=== PATIENT | female | born 1950 | race Caucasian/White ===

== ENCOUNTER 2019-11-02 14:58 | Outpatient (CLI) | payer MEDICARE, SELFPAY ==
--- NOTE | ~2019-11-02 | CT_ITS ---
EXAMINATION: CT lung screening DATE: 11/02/2019 15:30 INDICATION: Personal history of nicotine dependence TECHNIQUE: Computed tomography (CT) of the chest was performed without intravenous contrast. The dose -length product (DLP) was 83.96 mGy-cm. Automated exposure control and iterative reconstruction techn ique were employed. COMPARISON: 10/09/2018 FINDINGS: There is moderate emphysema. Calcified pulmonary nodules and calcified left hilar lymph nod es are consistent with old granulomatous disease. No suspicious pulmonary nodules are identified. No pathologically enlarged thoracic lymph nodes are identified. The heart size is normal. There is no pl eural effusion or pneumothorax. The left lobe of the thyroid extends into the superior mediastinum. P unctate calcifications in an otherwise normal spleen likely represent healed granulomatous disease. T he gallbladder is surgically absent. There is mild thoracic spondylosis. IMPRESSION: 1. Lung-RADS category 1: Negative. Continue annual screening with noncontrast low-dose chest CT in 12 months. Reviewed, dictated and finalized at location A. NICAL REP IMPRESSION: 1. Lung-RADS category 1: Negative. Continue annual screening with noncontrast l ow-dose chest CT in 12 months.
--- NOTE | ~2019-11-02 | US_ITS ---
EXAMINATION: US venous doppler LE RT EXAM DATE: 11/02/2019 15:50 INDICATION: Right calf pain. TECHNIQUE: Multiple grayscale, color flow and Doppler images of the right lower extremity deep venous system were obtained and reviewed. Comparison is made to prior examination from 09/29/2014. FINDINGS: The right common femoral, femoral and profunda veins demonstrate normal color flow, respira tory variation, augmentation and compressibility. Compressibility, color flow confirmed within the r ight popliteal, posterior tibial, peroneal, and greater saphenous veins. IMPRESSION: 1. No right lower extremity deep venous thrombosis. Reviewed, dictated and finalized at location B. 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
== END 2019-11-02 14:59 | disposition home or self-care (01) ==
PROVIDERS: PCP Family Medicine; Visit Provider Physician Assistant
DX: M79.661 Pain in right lower leg (principal); Z12.2 Encounter for screening for malignant neoplasm of respiratory organs; Z87.891 Personal history of nicotine dependence
CPT/HCPCS: 93971; G0297

== ENCOUNTER 2020-04-03 10:57 | Outpatient (CLI) | payer MEDICARE, SELFPAY ==
[2020-04-03 11:31] LABS: Cholesterol 173 mg/dL (0-200); HDL Direct 52 mg/dL; Triglycerides 147 mg/dL (<150)
[2020-04-03 11:31] LABS: Alanine Aminotransferase 15 U/L (4-35); Albumin Level 4.2 g/dL (3.5-5.1); Alkaline Phosphatase 68 U/L (38-126); Aspartate Amino Transferase 19 U/L (14-36); Bilirubin,Total 0.3 mg/dL (0.2-1.3); Blood Urea Nitrogen 13 mg/dL (7-17); Calcium 8.9 mg/dL (8.4-10.2); Carbon Dioxide 22 mmol/L (22-30); Chloride 108 mmol/L (98-107); Estimated Glomerular Filt Rate > 60; Glucose 113 mg/dL (65-105); Potassium 4.2 mmol/L (3.4-5.0); Sodium 137 mmol/L (137-145)
[2020-04-03 11:33] LABS: Basophils Percent Auto 0.6 % (0.2-1.2); Eosinophils Absolute Auto 0.1 K/mm3 (0-0.3); Eosinophils Percent Auto 2.1 % (0-4.4); Hematocrit 47.9 % (37.0-47.0); Hemoglobin 16.3 g/dL (12.0-15.0); Immature Granulocyte Absolute 0.03 K/mm3 (0.00-0.031); Immature Granulocyte Percent A 0.4 % (0-0.5); Lymphocytes Absolute Auto 1.57 K/mm3 (0.9-3.2); Lymphocytes Percent Auto 23.4 % (18.3-44.2); Mean Corpuscular Hemoglobin 31.5 pg (26-34); Mean Corpuscular Volume 92.5 fl (80-100); Mean Platelet Volume 10.4 fl (7.4-10.4); Monocytes Absolute Auto 0.7 K/mm3 (0.1-0.6); Neutrophils Absolute Auto 4.3 K/mm3 (1.3-6.7); Neutrophils Percent Auto 63.5 % (45.5-73.1); Platelet Count Result 305 k/mm3 (150-375); Red Blood Count 5.18 M/mm3 (4.2-5.4); White Blood Count 6.7 K/mm3 (4.5-10.0)
[2020-04-03 11:34] LABS: Hemoglobin A1C 5.8 % (<5.7)
[2020-04-03 11:42] LABS: LDL Cholesterol Direct 94 mg/dL
[2020-04-03 11:45] LABS: Add Urine Microscopic? YES; Appearance Urine Cloudy (Clear); Bacteria Urine Trace /hpf; Bilirubin Urine Negative (Negative); Blood Urine 2+ (Negative); Color Urine Yellow (Yellow); Glucose Urine UA Negative (Negative); Ketones Urine Negative (Negative); Leukocyte Esterase Ur Negative LEU/UL (NEGATIVE); Mucus Urine Few /lpf; Nitrate Urine Negative (Negative); Protein Urine Negative (Negative); RBC Urine 0-2 /hpf (0-2); Specific Grav Ur 1.018 (1.001-1.035); Squamous Epithelial Cell Urine Many /hpf (Few); Urobilinogen Urine Negative mg/dL (<2.0); WBC Urine 0-3 /hpf (0-3)
== END 2020-04-03 10:58 | disposition home or self-care (01) ==
LOC: ANHLAB 10:58
PROVIDERS: PCP Family Medicine; Visit Provider Physician Assistant
DX: E78.1 Pure hyperglyceridemia (principal); J43.9 Emphysema, unspecified; R73.01 Impaired fasting glucose; E78.3 Hyperchylomicronemia; Z00.00 Encounter for general adult medical examination without abnormal findings
CPT/HCPCS: 36415; 80053; 80061; 81001; 83036; 85025

== ENCOUNTER 2020-07-18 14:03 | Outpatient (CLI) | payer MEDICARE, SELFPAY ==
[2020-07-18 14:22] LABS: Basophils Absolute Auto 0.1 K/mm3 (0.0-0.1); Basophils Percent Auto 0.9 % (0.2-1.2); Eosinophils Absolute Auto 0.2 K/mm3 (0-0.3); Eosinophils Percent Auto 2.6 % (0-4.4); Hematocrit 45.6 % (37.0-47.0); Hemoglobin 15.5 g/dL (12.0-15.0); Immature Granulocyte Absolute 0.01 K/mm3 (0.00-0.031); Immature Granulocyte Percent A 0.1 % (0-0.5); Lymphocytes Absolute Auto 2.05 K/mm3 (0.9-3.2); Lymphocytes Percent Auto 29.4 % (18.3-44.2); Mean Corpuscular Hemoglobin 30.9 pg (26-34); Mean Corpuscular Volume 90.8 fl (80-100); Mean Platelet Volume 10.1 fl (7.4-10.4); Monocytes Absolute Auto 0.6 K/mm3 (0.1-0.6); Monocytes Percent Auto 8.5 % (2.6-8.5); Neutrophils Absolute Auto 4.1 K/mm3 (1.3-6.7); Neutrophils Percent Auto 58.5 % (45.5-73.1); Platelet Count Result 278 k/mm3 (150-375); Red Blood Count 5.02 M/mm3 (4.2-5.4); Red Cell Distribution Width 12.7 % (11.5-14.5)
== END 2020-07-18 14:04 | disposition home or self-care (01) ==
PROVIDERS: PCP Family Medicine; Visit Provider Nurse Practitioner Family
DX: D64.9 Anemia, unspecified (principal)
CPT/HCPCS: 36415; 85025

== ENCOUNTER 2020-09-07 13:46 | Outpatient (CLI) | payer MEDICARE, SELFPAY ==
[2020-09-07 14:20] LABS: Add Urine Microscopic? YES; Appearance Urine Clear (Clear); Bacteria Urine Trace /hpf; Bilirubin Urine Negative (Negative); Blood Urine 1+ (Negative); Color Urine Yellow (Yellow); Glucose Urine UA Negative (Negative); Ketones Urine Negative (Negative); Leukocyte Esterase Ur Negative LEU/UL (NEGATIVE); Mucus Urine Rare /lpf; Nitrate Urine Negative (Negative); Protein Urine Negative (Negative); RBC Urine 0-2 /hpf (0-2); Specific Grav Ur 1.017 (1.001-1.035); Squamous Epithelial Cell Urine Moderate /hpf (Few); Urobilinogen Urine Negative mg/dL (<2.0); WBC Urine 0-3 /hpf (0-3)
== END 2020-09-07 13:47 | disposition home or self-care (01) ==
PROVIDERS: PCP Family Medicine; Visit Provider Nurse Practitioner Family
DX: N39.0 Urinary tract infection, site not specified (principal)
CPT/HCPCS: 81001; 87077; 87086; 87088

== ENCOUNTER 2020-09-19 11:42 | Outpatient (NON) | payer MEDICARE, SELFPAY ==
[2020-09-19 23:03] LABS: SARS-CoV-2 RNA PCR Negative
== END 2020-09-19 11:43 ==
PROVIDERS: PCP Family Medicine; Visit Provider Physician Assistant
DX: R68.89 Other general symptoms and signs (principal); Z20.828 Contact with and (suspected) exposure to other viral communicable diseases
CPT/HCPCS: 87635; C9803; U0003

== ENCOUNTER 2020-10-12 10:50 | Outpatient (CLI) | payer MEDICARE, SELFPAY ==
[2020-10-12 11:27] LABS: Hemoglobin A1C 5.8 % (<5.7)
[2020-10-12 11:30] LABS: Alanine Aminotransferase 15 U/L (4-35); Albumin Level 3.8 g/dL (3.5-5.1); Alkaline Phosphatase 73 U/L (38-126); Anion Gap 5 mmol/L (8-16); Aspartate Amino Transferase 19 U/L (14-36); Bilirubin,Total 0.4 mg/dL (0.2-1.3); Blood Urea Nitrogen 14 mg/dL (7-17); Calcium 8.8 mg/dL (8.4-10.2); Carbon Dioxide 25 mmol/L (22-30); Chloride 108 mmol/L (98-107); Cholesterol 151 mg/dL (0-200); Estimated Glomerular Filt Rate > 60; Glucose 100 mg/dL (65-105); HDL Direct 49 mg/dL; Potassium 4.4 mmol/L (3.4-5.0); Sodium 138 mmol/L (137-145); Triglycerides 189 mg/dL (<150)
[2020-10-12 11:42] LABS: LDL Cholesterol Direct 74 mg/dL
== END 2020-10-12 10:51 | disposition home or self-care (01) ==
LOC: ANHLAB 10:52
PROVIDERS: PCP Family Medicine; Visit Provider Nurse Practitioner Family
DX: E78.1 Pure hyperglyceridemia (principal); R73.01 Impaired fasting glucose; J44.9 Chronic obstructive pulmonary disease, unspecified; I10 Essential (primary) hypertension; E78.2 Mixed hyperlipidemia
CPT/HCPCS: 36415; 80053; 80061; 83036; 84443

== ENCOUNTER 2020-11-16 12:26 | Outpatient (CLI) | payer MEDICARE, SELFPAY ==
--- NOTE | ~2020-11-16 | CT_ITS ---
EXAMINATION: CT lung screening EXAM DATE: 11/16/2020 12:42 INDICATION: Z87.891 - Personal history of nicotine dependence . TECHNIQUE: Spiral low dose CT of the chest without contrast. Axial, coronal and sagittal images were reviewed. The dose-length product (DLP) for this examination was 106.90 mGy-cm. The exposure was t ailored according to patient size (auto mA exposure control), and iterative reconstruction (ASIR) was used as additional dose reduction technique. Comparison is made to prior examination from 11/02/2019. FINDINGS: There is moderate hyperinflation, mild to moderate emphysema. Scattered faint regions of g roundglass opacity and interlobular septal thickening, more pronounced on previous examination. Possi ble developing mild interstitial lung disease. 3 mm nodule along the right minor fissure unchanged, g ranuloma. Some other scattered calcified granulomata. Tracheobronchial tree is patent. There is no mediastinal, hilar or axillary lymphadenopathy. There are no pleural or pericardial effusions. T here is no pneumothorax. Heart normal in size. No evidence of coronary arterial calcification. Ch olecystectomy clips. The bones are unremarkable. IMPRESSION: Lung-RADS category 2, benign appearance or behavior (<1% chance of malignancy); recommend continued LDCT screening in 1 year. Reviewed, dictated and finalized at location B. 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
== END 2020-11-16 12:27 | disposition home or self-care (01) ==
PROVIDERS: PCP Family Medicine; Visit Provider Nurse Practitioner Family
DX: Z12.2 Encounter for screening for malignant neoplasm of respiratory organs (principal); Z87.891 Personal history of nicotine dependence
CPT/HCPCS: 71271

== ENCOUNTER 2020-11-22 13:23 | Outpatient (CLI) | payer MEDICARE, SELFPAY ==
--- NOTE | ~2020-11-22 | MM_ITS ---
EXAMINATION: MM screening beti BI w rodri HISTORY: Screening TECHNIQUE: Craniocaudal and mediolateral oblique 3-D tomosynthesis images were obtained and synthetic 2-D images were generated. CAD analysis was submitted and interpreted. COMPARISON: Comparison to multiple prior studies sequentially, with oldest reviewed study dated 03/14. BREAST PARENCHYMAL COMPOSITION: The breasts are heterogenously dense, which may obscure small masses. FINDINGS: There are developing asymmetries in the mid outer aspect of the right breast and subareolar location of the left breast. There are scattered benign-appearing calcifications. IMPRESSION: 1. Developing bilateral breast asymmetries. 2. Additional mammographic views and possible breast ultrasound are recommended. BI-RADS Category 0: Incomplete: Needs additional imaging evaluation. Reviewed, dictated and finalized at location D. C++ PROFESSOR IMPRESSION: 1. Developing bilateral breast asymmetries. 2. Additional mammographic views and possible breast ultrasound are recommended . BI-RADS Category 0: Incomplete: Needs additional imaging evaluation.
== END 2020-11-22 13:24 | disposition home or self-care (01) ==
LOC: ANHIMG 13:24
PROVIDERS: PCP Family Medicine; Visit Provider Nurse Practitioner Family
DX: Z12.31 Encounter for screening mammogram for malignant neoplasm of breast (principal); R92.8 Other abnormal and inconclusive findings on diagnostic imaging of breast
CPT/HCPCS: 77063; 77067

== ENCOUNTER 2021-01-01 13:15 | Outpatient (CLI) | payer MEDICARE, SELFPAY ==
--- NOTE | ~2021-01-01 | MMUS_ITS ---
EXAMINATION: MM diagnostic mammo BI, US breast BI complete HISTORY: Follow-up breast asymmetries TECHNIQUE: Additional 3-D tomosynthesis images of the breasts were performed and synthetic 2-D images were generated. CAD analysis was submitted and interpreted. High resolution bilateral complete breas t ultrasound was performed. COMPARISON: Comparison to multiple prior studies sequentially, with oldest reviewed study dated 03/14. BREAST PARENCHYMAL COMPOSITION: The breasts are extremely dense, which lowers the sensitivity of mamm ography. FINDINGS: MAMMOGRAPHIC FINDINGS: There are no suspicious masses, calcifications or architectural distortion in either breast to sugges t malignancy. ULTRASOUND: Complete bilateral breast ultrasound including all 4 quadrants: Normal heterogeneous echotexture with out focal mass to suggest malignancy. IMPRESSION: 1. No evidence for malignancy in either breast. 2. Routine yearly screening mammogram and regular clinical breast examination are recommended. BI-RADS Category 1: Negative Reviewed, dictated and finalized at location A. IMPRESSION: 1. No evidence for malignancy in either breast. 2. Routine yearly screening mammogram and regular clinical breast examination a re recommended. BI-RADS Category 1: Negative
== END 2021-01-01 13:16 | disposition home or self-care (01) ==
LOC: ANHIMG 13:16
PROVIDERS: PCP Family Medicine; Visit Provider Nurse Practitioner Family
DX: R92.8 Other abnormal and inconclusive findings on diagnostic imaging of breast (principal); N64.89 Other specified disorders of breast
CPT/HCPCS: 76641; 77066

== ENCOUNTER 2021-02-23 12:06 | Emergency (ER) | payer MEDICARE, SELFPAY ==
[2021-02-23 12:48] VITALS: BP 126/93; PULSE 94; RESP 16; TEMP 36.7; O2SAT 97
--- NOTE | 2021-02-23 13:32 | ED.SKABFB ---
HPI - Skin/Abscess/Foreign Bdy General Chief complaint: Skin/Abscess/Foreign Body Stated complaint: Insect bite on left ankle Time Seen by Provider: 02/23/21 13:01 Source: patient and RN notes reviewed Mode of arrival: ambulatory Limitations: no limitations History of Present Illness HPI narrative: 70 year old female who presents to [facility] care with complaints of 8-10 day duration of 5cm X2.5 cm area to her left lower leg which is itchy, burning and red excoriated with center 0.25 wound scabbed. No drainage from wound noted with some warmth noted to skin tissue.surrounding scab with no induration of the tissue noted. Patient states that she has not had any fever, chills or sweats, unsure what type of insect bit her. Patient concerned over increase in redness of tissue surrounding bite felt she needed to get antibiotic. MD complaint: insect bite/sting Onset (ago): day(s) (8-10 days) Location: LLE Severity: moderate Severity scale (1-10): 3 Quality: burning and pruritic Pain Consistency: constant Relieving factors: none Exacerbating factors: palpation Context: other (insect bite) Associated symptoms: itching Related Data Home Medications Medication Instructions Recorded Confirmed estradiol 2 mg tablet 2 mg PO DAILY 09/07/19 09/08/20 Allergies Allergy/AdvReac Type Severity Reaction Status Date / Time cefprozil Allergy Unknown Unknown Verified 02/08/21 14:15 cefuroxime Allergy Unknown Unknown Verified 02/08/21 14:15 dexamethasone Allergy Unknown Unknown Verified 02/08/21 14:15 Review of Systems Review of Systems: Narrative: CONSTITUTIONAL: Denies fever, chills, or sweats. EYES: Denies visual changes, redness, or discharge. ENT: Denies rhinorrhea, congestion, sore throat, or otalgia. CARDIOVASCULAR: Denies chest pain, palpitations, or edema. RESPIRATORY: Denies cough or dyspnea. GASTROINTESTINAL: Denies abdominal pain, nausea, vomiting, or diarrhea. GENITOURINARY: Denies dysuria or hematuria. SKIN: Positive left lower leg raised red rash type of skin surrounding small center scab MUSCULOSKELETAL: Denies back pain, joint pain, or myalgia. NEUROLOGIC: Denies headache, numbness, or weakness. PSYCHIATRIC: Positive history of anxiety or depression. All systems reviewed & are unremarkable except as noted in HPI and below PMFSH Past Medical History Medical History (Updated 02/24/21 @ 00:01 by Farnaz Foley) Abdominal pain Anxiety COPD (chronic obstructive pulmonary disease) Hyperlipidemia Hypertension Kidney stone Surgical History Surgical History History of cholecystectomy Plantar fasciitis Status post hysterectomy with oophorectomy Family History Family History (Updated 02/27/21 @ 15:18 by Maisha Daily NP) Father Family history of coronary artery disease Emphysema lung Mother Family history of pancreatic cancer Hypertension Social History Social History Smoking packs per day: 1 Smoking cigarettes per day: 20.0 Years smoked: 40 Smoking pack-years: 40.00 Smoking status: Current every day smoker Tobacco type: cigarettes Second hand tobacco smoke exposure: No Alcohol intake: never Substance use: never Substance use type: does not use Gender identity (if verbalized by the patient): Female Comments At time of signature, agree with nursing past medical, surgical, social and family history. There is no relevant family history pertinent to the presenting complaint Exam Narrative: Exam Narrative: GENERAL: Well-appearing, well-nourished, and in no acute distress. HEAD: Normocephalic, atraumatic. EYES: PERRLA and EOMI. ENT: Nares clear, no rhinorrhea or epistaxis. Mucous membranes moist. NECK: Supple.no lymphadenopathy CHEST: Clear to auscultation. No respiratory distress. HEART: Regular rate and rhythm. No murmur heard. Normal peripheral pulses. ABDOMEN: S
== END 2021-02-23 13:52 | disposition home or self-care (01) ==
PROVIDERS: Emergency Provider Registered Nurse; PCP Family Medicine
DX: S80.862A Insect bite (nonvenomous), left lower leg, initial encounter (principal); W57.XXXA Bitten or stung by nonvenomous insect and other nonvenomous arthropods, initial encounter; J44.9 Chronic obstructive pulmonary disease, unspecified; E78.5 Hyperlipidemia, unspecified; I10 Essential (primary) hypertension; F17.210 Nicotine dependence, cigarettes, uncomplicated
CPT/HCPCS: 99213; G0463

== ENCOUNTER 2021-03-04 18:32 | Emergency (ER) | payer MEDICARE, SELFPAY ==
[2021-03-04 18:42] VITALS: BP 146/81; PULSE 93; RESP 16; TEMP 36.8; O2SAT 97
--- NOTE | 2021-03-04 18:50 | ED.SKABFB ---
HPI - Skin/Abscess/Foreign Bdy General Chief complaint: Skin/Abscess/Foreign Body Stated complaint: Insect bite on leg Time Seen by Provider: 03/04/21 18:51 Source: patient, RN notes reviewed and old records reviewed Mode of arrival: ambulatory Limitations: no limitations History of Present Illness HPI narrative: 70 year old female who was seen in clinic on the 23 of February for infected insect bite on her left anterior lower leg and received antibiotic RX of Keflex and Bactroban ointment. Patient just returned from vacation in [place] and took her last dose of Keflex today. Patient states that she has been using Mupirocin ointment but also states that she has been putting Calamine lotion on wound area because it itches. Patient has scabbed are to center of wound with site remaining 5cm X 2.5cm with redness to tissue surrounding scabbed area. Patient has no drainage from wound and no induration of tissue. Patient states that she has had no fevers. chills or sweats. MD complaint: insect bite/sting Onset (ago): week(s) (3) Tetanus up to date: yes Location: LLE Severity: moderate Quality: pruritic Treatments prior to arrival: antibiotic and other (mupiricin) Related Data Home Medications Medication Instructions Recorded Confirmed estradiol 2 mg tablet 2 mg PO DAILY 09/07/19 09/08/20 Allergies Allergy/AdvReac Type Severity Reaction Status Date / Time cefprozil Allergy Unknown Unknown Verified 03/05/21 13:27 cefuroxime Allergy Unknown Unknown Verified 03/05/21 13:27 dexamethasone AdvReac Unknown Itching Verified 03/05/21 13:27 Review of Systems Review of Systems: Narrative: CONSTITUTIONAL: Denies fever, chills, or sweats. EYES: Denies visual changes, redness, or discharge. ENT: Denies rhinorrhea, congestion, sore throat, or otalgia. CARDIOVASCULAR: Denies chest pain, palpitations, or edema. RESPIRATORY: Denies cough or dyspnea. GASTROINTESTINAL: Denies abdominal pain, nausea, vomiting, or diarrhea. GENITOURINARY: Denies dysuria or hematuria. SKIN: Positive for wound to left lower anterior leg with no drainage noted. MUSCULOSKELETAL: Denies back pain, joint pain, or myalgia. NEUROLOGIC: Denies headache, numbness, or weakness. PSYCHIATRIC: History of anxiety or depression. All systems reviewed & are unremarkable except as noted in HPI and below PMFSH Past Medical History Medical History Abdominal pain Anxiety COPD (chronic obstructive pulmonary disease) Hyperlipidemia Hypertension Kidney stone Surgical History Surgical History History of cholecystectomy Plantar fasciitis Status post hysterectomy with oophorectomy Family History Family History (Updated 02/27/21 @ 15:18 by Maisha Daily NP) Father Family history of coronary artery disease Emphysema lung Mother Family history of pancreatic cancer Hypertension Social History Social History Smoking packs per day: 1 Smoking cigarettes per day: 20.0 Years smoked: 40 Smoking pack-years: 40.00 Smoking status: Current every day smoker Tobacco type: cigarettes Second hand tobacco smoke exposure: No Alcohol intake: never Substance use: never Substance use type: does not use Gender identity (if verbalized by the patient): Female Comments At time of signature, agree with nursing past medical, surgical, social and family history. There is no relevant family history pertinent to the presenting complaint Exam Narrative: Exam Narrative: GENERAL: Well-appearing, well-nourished, and in no acute distress. HEAD: Normocephalic, atraumatic. EYES: PERRLA and EOMI. ENT: Nares clear, no rhinorrhea or epistaxis. Mucous membranes moist. NECK: Supple. No lymphadenopathy CHEST: Clear to auscultation. No respiratory distress. SaO2 97% on room air HEART: Regular rate and rh
[2021-03-04 19:00] VITALS: BP 146/81; PULSE 93; RESP 16; TEMP 36.8; O2SAT 97
== END 2021-03-04 19:09 | disposition home or self-care (01) ==
PROVIDERS: Emergency Provider Registered Nurse; PCP Family Medicine
DX: L02.416 Cutaneous abscess of left lower limb (principal); F17.210 Nicotine dependence, cigarettes, uncomplicated; J44.9 Chronic obstructive pulmonary disease, unspecified; E78.5 Hyperlipidemia, unspecified; I10 Essential (primary) hypertension
CPT/HCPCS: 99213; G0463

== ENCOUNTER 2021-03-05 13:17 | Emergency (ER) | payer MEDICARE, SELFPAY ==
[2021-03-05 13:22] VITALS: BP 135/77; PULSE 114; RESP 16; TEMP 36.1; O2SAT 97
[2021-03-05 13:56] VITALS: BP 157/91
--- NOTE | 2021-03-05 14:49 | ED.GENADULT ---
HPI - General Adult General Chief complaint: Skin/Abscess/Foreign Body Stated complaint: L LEG WOUND Time Seen by Provider: 03/05/21 13:22 Source: patient, family and RN notes reviewed Mode of arrival: ambulatory Limitations: no limitations History of Present Illness HPI narrative: Patient is a 70-year-old female who presents to emergency department for evaluation of wound to the left ferreira that has been present now for the last 2 weeks almost patient had just returned from town had initially been seen by urgent care was placed on an antibiotic which she finished patient notes that his smart is a small wound with some surrounding erythema patient was seen yesterday at urgent care started on clindamycin has done 1 days worth the dose patient notes itching notes that she believes that the area looks better today denies any fever or other complaints Related Data Home Medications Medication Instructions Recorded Confirmed estradiol 2 mg tablet 2 mg PO DAILY 09/07/19 09/08/20 Allergies Allergy/AdvReac Type Severity Reaction Status Date / Time cefprozil Allergy Unknown Unknown Verified 03/05/21 13:27 cefuroxime Allergy Unknown Unknown Verified 03/05/21 13:27 dexamethasone AdvReac Unknown Itching Verified 03/05/21 13:27 Review of Systems Review of Systems: All systems reviewed & are unremarkable except as noted in HPI and below PMFSH Past Medical History Medical History Abdominal pain Anxiety COPD (chronic obstructive pulmonary disease) Hyperlipidemia Hypertension Kidney stone Surgical History Surgical History History of cholecystectomy Plantar fasciitis Status post hysterectomy with oophorectomy Family History Family History (Updated 02/27/21 @ 15:18 by Maisha Daily NP) Father Family history of coronary artery disease Emphysema lung Mother Family history of pancreatic cancer Hypertension Social History Social History Smoking packs per day: 1 Smoking cigarettes per day: 20.0 Years smoked: 40 Smoking pack-years: 40.00 Smoking status: Current every day smoker Tobacco type: cigarettes Second hand tobacco smoke exposure: No Alcohol intake: never Substance use: never Substance use type: does not use Gender identity (if verbalized by the patient): Female Exam Narrative: Exam Narrative: GENERAL: Well-appearing, well-nourished, and in no acute distress. HEAD: Normocephalic, atraumatic. EYES: PERRLA and EOMI. ENT: Nares clear, no rhinorrhea or epistaxis. Mucous membranes moist. CHEST: Clear to auscultation. No respiratory distress. No wheezes rales or rhonchi HEART: Regular rate and rhythm. No murmur heard. EXTREMITIES: Normal range of motion. No edema. SKIN: Warm, dry, no rash. Patient with small central scabbed over lesion involving the ferreira with surrounding pink discoloration roughly 4 cm x 2 cm no lymphangitic streaking no drainage no fluctuance NEURO: No focal deficits. Alert and oriented x3. Neurovascularly intact. Capillary refill less than 2 seconds PSYCH: Normal mood and affect. Course Course Emergency Course: Patient seen in the emergency department for wound check will follow with her primary care as planned on Friday. Patient advised to continue the antibiotics. Patient provided with reasons to return instructed to miguel the wound margins to watch for progression or improvement Vital Signs Vital signs: Vital Signs Temperature 97 F L 03/05/21 13:22 Pulse Rate 114 H 03/05/21 13:22 Respiratory Rate 16 03/05/21 13:22 Blood Pressure 135/77 03/05/21 13:22 Pulse Oximetry 97 03/05/21 13:22 Temperature 97 F L 03/05/21 13:22 Pulse Rate 114 H 03/05/21 13:22 Respiratory Rate 16 03/05/21 13:22 Blood Pressure 157/91 H 03/05/21 13:56 Pulse Oximetry 97 03/05/21 13:22
== END 2021-03-05 15:06 | disposition home or self-care (01) ==
PROVIDERS: Emergency Provider Emergency Medicine; PCP Family Medicine
DX: L03.116 Cellulitis of left lower limb (principal); F41.9 Anxiety disorder, unspecified; J44.9 Chronic obstructive pulmonary disease, unspecified; I10 Essential (primary) hypertension; E78.5 Hyperlipidemia, unspecified
CPT/HCPCS: 99281

== ENCOUNTER 2021-03-10 10:22 | Outpatient (CLI) | payer MEDICARE, SELFPAY ==
[2021-03-10 11:35] LABS: Basophils Absolute Auto 0.1 K/mm3 (0.0-0.1); Basophils Percent Auto 0.7 % (0.2-1.2); Eosinophils Absolute Auto 0.1 K/mm3 (0-0.3); Eosinophils Percent Auto 1.7 % (0-4.4); Hematocrit 47.9 % (37.0-47.0); Hemoglobin 15.6 g/dL (12.0-15.0); Immature Granulocyte Absolute 0.02 K/mm3 (0.00-0.031); Immature Granulocyte Percent A 0.3 % (0-0.5); Lymphocytes Absolute Auto 1.76 K/mm3 (0.9-3.2); Lymphocytes Percent Auto 25.5 % (18.3-44.2); Mean Corpuscular HGB Conc 32.6 g/dl (32-36); Mean Corpuscular Hemoglobin 29.7 pg (26-34); Mean Corpuscular Volume 91.2 fl (80-100); Mean Platelet Volume 10.2 fl (7.4-10.4); Monocytes Absolute Auto 0.7 K/mm3 (0.1-0.6); Monocytes Percent Auto 10.4 % (2.6-8.5); Neutrophils Absolute Auto 4.2 K/mm3 (1.3-6.7); Neutrophils Percent Auto 61.4 % (45.5-73.1); Platelet Count Result 287 k/mm3 (150-375); Red Blood Count 5.25 M/mm3 (4.2-5.4); Red Cell Distribution Width 13.1 % (11.5-14.5); White Blood Count 6.9 K/mm3 (4.5-10.0)
[2021-03-10 11:52] LABS: Alanine Aminotransferase 15 U/L (4-35); Albumin Level 4.1 g/dL (3.5-5.1); Alkaline Phosphatase 69 U/L (38-126); Anion Gap 9 mmol/L (8-16); Aspartate Amino Transferase 24 U/L (14-36); Bilirubin,Total 0.4 mg/dL (0.2-1.3); Blood Urea Nitrogen 11 mg/dL (7-17); Calcium 9.3 mg/dL (8.4-10.2); Carbon Dioxide 25 mmol/L (22-30); Chloride 108 mmol/L (98-107); Cholesterol 171 mg/dL (0-200); Estimated Glomerular Filt Rate > 60; Glucose 100 mg/dL (65-105); HDL Direct 53 mg/dL; Potassium 4.3 mmol/L (3.4-5.0); Sodium 142 mmol/L (137-145); Triglycerides 157 mg/dL (<150)
[2021-03-10 11:53] LABS: Hemoglobin A1C 5.9 % (<5.7)
[2021-03-10 12:03] LABS: LDL Cholesterol Direct 88 mg/dL
== END 2021-03-10 10:23 | disposition home or self-care (01) ==
PROVIDERS: PCP Family Medicine; Visit Provider Physician Assistant
DX: E78.1 Pure hyperglyceridemia (principal); F41.9 Anxiety disorder, unspecified; J43.9 Emphysema, unspecified; R73.01 Impaired fasting glucose
CPT/HCPCS: 36415; 80053; 80061; 83036; 84443; 85025

== ENCOUNTER 2021-03-17 12:05 | Emergency (ER) | payer MEDICARE, SELFPAY ==
[2021-03-17 12:15] VITALS: BP 123/78; PULSE 89; RESP 16; TEMP 36.8; O2SAT 97
--- NOTE | 2021-03-17 13:34 | ED.GENADULT ---
HPI - General Adult General Chief complaint: Urogenital-Female Stated complaint: UTI Source: patient Mode of arrival: ambulatory Limitations: no limitations History of Present Illness HPI narrative: Patient presents for evaluation of urinary symptoms since yesterday. Symptoms include frequency, dysuria, hesitancy, decreased urinary output. She denies any fever, chills, nausea, vomiting, abdominal pain, low back pain. She has a history of urinary tract infections in the past and this feels similar. She is getting ready to leave town to visit her boyfriend in [place] tomorrow. No additional complaints or concerns. Related Data Home Medications Medication Instructions Recorded Confirmed estradiol 2 mg tablet 2 mg PO DAILY 09/07/19 03/17/21 metoprolol succinate 50 mg PO DAILY 03/17/21 03/17/21 Allergies Allergy/AdvReac Type Severity Reaction Status Date / Time cefprozil Allergy Unknown Unknown Verified 03/17/21 13:14 cefuroxime Allergy Unknown Unknown Verified 03/17/21 13:14 dexamethasone AdvReac Unknown Itching Verified 03/17/21 13:14 Review of Systems Review of Systems: Narrative: CONSTITUTIONAL: Denies fever, chills, or sweats. EYES: Denies visual changes, redness, or discharge. ENT: Denies rhinorrhea, congestion, sore throat, or otalgia. CARDIOVASCULAR: Denies chest pain, palpitations, or edema. RESPIRATORY: Denies cough or dyspnea. GASTROINTESTINAL: Denies abdominal pain, nausea, vomiting, or diarrhea. GENITOURINARY: Reports dysuria, urinary frequency, hesitancy, decreased output and pain in the urethral region SKIN: Denies rash or itching. MUSCULOSKELETAL: Denies back pain, joint pain, or myalgia. NEUROLOGIC: Denies headache, numbness, dizziness, or weakness. PSYCHIATRIC: Denies anxiety or depression. [facility] Past Medical History Medical History Abdominal pain Anxiety COPD (chronic obstructive pulmonary disease) Hyperlipidemia Hypertension Kidney stone Surgical History Surgical History History of cholecystectomy Plantar fasciitis Status post hysterectomy with oophorectomy Family History Family History Father Family history of coronary artery disease Emphysema lung Mother Family history of pancreatic cancer Hypertension Social History Social History Smoking packs per day: 1 Smoking cigarettes per day: 20.0 Years smoked: 40 Smoking pack-years: 40.00 Smoking status: Current every day smoker Tobacco type: cigarettes Second hand tobacco smoke exposure: No Alcohol intake: never Substance use: never Substance use type: does not use Gender identity (if verbalized by the patient): Female Exam Narrative: Exam Narrative: GENERAL: Well-appearing, well-nourished, and in no acute distress. HEAD: Normocephalic, atraumatic. EYES: PERRLA and EOMI. ENT: Nares clear, no rhinorrhea or epistaxis. Mucous membranes moist. Oropharynx without tonsillar hypertrophy exudate or other lesions. Bilateral TMs pearly fried nonbulging NECK: Supple. No adenopathy or masses. No carotid bruits or JVD CHEST: Clear to auscultation. No respiratory distress. No wheezes rales or rhonchi HEART: Regular rate and rhythm. No murmur heard. Normal peripheral pulses. ABDOMEN: Soft, nontender, nondistended, normal active bowel sounds. EXTREMITIES: Normal range of motion. No edema. SKIN: Warm, dry, no rash. NEURO: No focal deficits. Alert and oriented x3. PSYCH: Normal mood and affect. Course Course Emergency Course: This is a 70-year-old female who presents with complaints of urinary symptoms for the last 24 hours. Urine dipstick showed 2+ leukocytes and 2+ blood but was otherwise fairly unremarkable. She is leaving town tomorrow for 5 months to visit her b
== END 2021-03-17 13:45 | disposition home or self-care (01) ==
PROVIDERS: Emergency Provider Nurse Practitioner; PCP Family Medicine
DX: N30.01 Acute cystitis with hematuria (principal); F17.210 Nicotine dependence, cigarettes, uncomplicated; F41.9 Anxiety disorder, unspecified; J44.9 Chronic obstructive pulmonary disease, unspecified; E78.5 Hyperlipidemia, unspecified; I10 Essential (primary) hypertension
CPT/HCPCS: 81003; 87077; 87086; 87147; 87181; 87186; 99213; G0463

== ENCOUNTER → 2021-07-25 08:10 | Outpatient (CLI) | payer MEDICARE, SELFPAY ==
[2021-07-25 17:30] LABS: SARS-CoV-2 RNA PCR Negative
== END ==
PROVIDERS: PCP Family Medicine; Visit Provider Physician Assistant
DX: Z20.822 Contact with and (suspected) exposure to COVID-19 (principal)
CPT/HCPCS: C9803; U0003; U0005

== ENCOUNTER 2021-11-23 14:38 | Outpatient (CLI) | payer MEDICARE, SELFPAY ==
--- NOTE | ~2021-11-23 | CT_ITS ---
EXAMINATION: CT lung screening DATE: 11/23/2021 14:59 INDICATION: Personal history of tobacco dependence TECHNIQUE: Computed tomography (CT) of the chest was performed without intravenous contrast. The dose -length product was 101.83 mGy-cm. Automated exposure control and iterative reconstruction technique were employed. COMPARISON: CT dated 11/16/2020 FINDINGS: There is atherosclerosis of the aorta and coronary arteries. There are calcified granulomas of the liver and spleen. There are cholecystectomy clips. No thoracic lymphadenopathy. Thyroid gland is unremarkable. No significant pleural or pericardial effusion. Moderate emphysema. No endobronchia l lesions. There are a few scattered calcified granulomata. Stable 3 mm right minor fissure nodule. N o pneumothorax. No endobronchial lesions. No focal airspace consolidation. There are a few additional small 2-3 mm nodules which are not clearly calcified, likely benign. No acute osseous abnormality. T here is a 3 mm left upper lobe nodule, likely calcified. IMPRESSION: 1. Lung-RADS category 2: Benign appearance or behavior. Continue annual screening with noncontrast lo w-dose chest CT in 12 months. Reviewed, dictated and finalized at location A. ER HAND IMPRESSION: 1. Lung-RADS category 2: Benign appearance or behavior. Continue annual screeni ng with noncontrast low-dose chest CT in 12 months.
== END 2021-11-23 14:39 | disposition home or self-care (01) ==
LOC: ANHIMG 14:45
PROVIDERS: PCP Family Medicine; Visit Provider Nurse Practitioner Family
DX: Z12.2 Encounter for screening for malignant neoplasm of respiratory organs (principal); Z87.891 Personal history of nicotine dependence
CPT/HCPCS: 71271

== ENCOUNTER 2021-11-24 09:32 | Outpatient (CLI) | payer MEDICARE, SELFPAY ==
[2021-11-24 10:56] LABS: Alanine Aminotransferase 17 U/L (4-35); Albumin Level 4.3 g/dL (3.5-5.1); Alkaline Phosphatase 79 U/L (38-126); Anion Gap 7 mmol/L (8-16); Aspartate Amino Transferase 25 U/L (14-36); Bilirubin,Total 0.6 mg/dL (0.2-1.3); Blood Urea Nitrogen 13 mg/dL (7-17); Calcium 9.1 mg/dL (8.4-10.2); Carbon Dioxide 24 mmol/L (22-30); Chloride 106 mmol/L (98-107); Cholesterol 176 mg/dL (0-200); Estimated Glomerular Filt Rate > 60; Glucose 112 mg/dL (65-110); HDL Direct 46 mg/dL; Potassium 4.1 mmol/L (3.4-5.0); Sodium 137 mmol/L (137-145); Triglycerides 202 mg/dL (<150)
[2021-11-24 11:05] LABS: LDL Cholesterol Direct 95 mg/dL
== END 2021-11-24 09:33 | disposition home or self-care (01) ==
LOC: ANHLAB 09:34
PROVIDERS: PCP Family Medicine; Visit Provider Physician Assistant
DX: E78.1 Pure hyperglyceridemia (principal); R73.01 Impaired fasting glucose; F41.9 Anxiety disorder, unspecified
CPT/HCPCS: 36415; 80053; 80061

== ENCOUNTER 2021-12-06 11:44 | Inpatient (IN) | payer MEDICARE, SELFPAY ==
[2021-12-06] VITALS (29 sets, daily range): BP systolic 130–157; BP diastolic 72–116; PULSE 90–125; RESP 13–43; TEMP 36.9–37.6; O2SAT 90–99
--- NOTE | ~2021-12-06 | XR_ITS ---
EXAMINATION: XR chest 2V DATE: 12/06/2021 12:22 INDICATION: Shortness of breath. TECHNIQUE: Frontal and lateral views of the chest were obtained. COMPARISON: Chest 2 views 03/17/2018, chest CT 11/23/2021 FINDINGS: A calcified left lung nodule and calcified left hilar lymph nodes are consistent with old g ranulomatous disease. There is mild atelectasis in lingula. There is mild scarring at the lung apices . No pleural effusion or pneumothorax. The heart size is normal. Surgical clips in the right upper qu adrant are likely from cholecystectomy. IMPRESSION: 1. Mild atelectasis in lingula. 2. Stable mild scarring at the lung apices. Reviewed, dictated and finalized at location A.
--- NOTE | ~2021-12-06 | XR_ITS ---
XR chest 1V portable 12/09/2021 09:39 Indication: Pneumonia and shortness of breath Procedure: AP portable chest Comparison: Comparison to multiple prior studies sequentially, with oldest reviewed study dated 05/2018. Findings: Heart size normal. There is mild interstitial edema. There are scattered calcified granulom as of the lung parenchyma. No pleural effusion or pneumothorax. No acute osseous abnormality. Impression: 1: Mild interstitial edema. Atypical pneumonia less favored. Reviewed, dictated and finalized at location A. Impression: 1: Mild interstitial edema. Atypical pneumonia less favored.
--- NOTE | ~2021-12-06 | XR_ITS ---
XR chest 1V portable 12/11/2021 11:00 Indication: Shortness of breath Procedure: PA view of the chest Comparison: Comparison to multiple prior studies sequentially, with oldest reviewed study dated 11/18. Findings: Heart size normal. There is diffuse bilateral mixed interstitial and airspace disease which may represent edema or pneumonia. No pleural effusion or pneumothorax. No acute osseous abnormality. Impression: 1: Diffuse bilateral mixed interstitial and airspace disease has progressed which may represent edema or pneumonia. Reviewed, dictated and finalized at location A. Impression: 1: Diffuse bilateral mixed interstitial and airspace disease has progressed whi ch may represent edema or pneumonia.
--- NOTE | ~2021-12-06 | CT_ITS ---
EXAMINATION: CTA chest PE protocol DATE: 12/06/2021 13:31 INDICATION: Shortness of breath. Chest pain. TECHNIQUE: Computed tomography angiography (CTA) of the chest was performed with 100 mL Omnipaque-350 intravenous contrast timed to evaluate the pulmonary arteries. Coronal maximum intensity projection 3D-reconstructions were created by the technologist. Automated exposure control and iterative reconst ruction technique were employed. The dose-length product was 369.87 mGy-cm. COMPARISON: Chest CT 11/23/2021 FINDINGS: There is mild scarring at the lung apices. There is mild emphysema. There are tree-in-bud o pacities and centrilobular nodules in all lobes, worst in left lower lobe, consistent with pneumonia. Calcified left lung nodules and calcified left hilar lymph nodes are consistent with old granulomato us disease. No pleural effusion. There is no pulmonary embolus. The heart size is normal. No pericard ial effusion. Calcifications in the spleen are consistent with old granulomatous disease. There are c hanges of cholecystectomy. There is mild thoracic spondylosis. IMPRESSION: 1. No pulmonary embolus. 2. Multifocal pneumonia, worst in left lower lobe. 3. Mild emphysema. Reviewed, dictated and finalized at location A.
--- NOTE | 2021-12-06 11:49 | ECG_ITS ---
Measurements Intervals Sandy Rate: 0 P: OR: 0 QRS: QRSD: 0 T: QT: 0 QTc: 0 Interpretive Statements SINUS TACHYCARDIA LOW VOLTAGE EKG LARGE AMOUNT OF BASELINE ARTIFACT NO PREVIOUS ECG AVAILABLE FOR COMPARISON Electronically Signed On 12-06-2021 18:45:21 CDT by Katia Mojica M.D.
[2021-12-06 12:03] LABS: Basophils Percent Auto 0.6 % (0.2-1.2); Eosinophils Percent Auto 0.1 % (0-4.4); Hematocrit 46.6 % (37.0-47.0); Hemoglobin 15.6 g/dL (12.0-15.0); Immature Granulocyte Absolute 0.02 K/mm3 (0.00-0.031); Immature Granulocyte Percent A 0.3 % (0-0.5); Lymphocytes Absolute Auto 0.77 K/mm3 (0.9-3.2); Lymphocytes Percent Auto 11.1 % (18.3-44.2); Mean Corpuscular HGB Conc 33.5 g/dl (32-36); Mean Corpuscular Hemoglobin 30.5 pg (26-34); Mean Corpuscular Volume 91.2 fl (80-100); Mean Platelet Volume 10.3 fl (7.4-10.4); Monocytes Absolute Auto 0.6 K/mm3 (0.1-0.6); Monocytes Percent Auto 8.5 % (2.6-8.5); Neutrophils Absolute Auto 5.5 K/mm3 (1.3-6.7); Neutrophils Percent Auto 79.4 % (45.5-73.1); Platelet Count Result 227 k/mm3 (150-375); Red Blood Count 5.11 M/mm3 (4.2-5.4); Red Cell Distribution Width 12.9 % (11.5-14.5); White Blood Count 6.9 K/mm3 (4.5-10.0)
[2021-12-06 12:13] LABS: Alanine Aminotransferase 21 U/L (4-35); Albumin Level 4.4 g/dL (3.5-5.1); Alkaline Phosphatase 85 U/L (38-126); Anion Gap 8 mmol/L (8-16); Aspartate Amino Transferase 28 U/L (14-36); Bilirubin,Total 0.5 mg/dL (0.2-1.3); Blood Urea Nitrogen 13 mg/dL (7-17); Calcium 9.1 mg/dL (8.4-10.2); Carbon Dioxide 23 mmol/L (22-30); Chloride 106 mmol/L (98-107); Estimated Glomerular Filt Rate > 60; Glucose 125 mg/dL (65-110); Potassium 4.2 mmol/L (3.4-5.0); Sodium 137 mmol/L (137-145)
--- NOTE | 2021-12-06 12:24 | ED.SOB ---
HPI - SOB/Dyspnea General Chief Complaint: Shortness of Breath/Dyspnea Stated Complaint: Shortness of breath Time Seen by Provider: 12/06/21 12:06 Source: RN notes reviewed History of Present Illness HPI Narrative: Patient presents emergency room from home for shortness of breath. Patient states symptoms began last night. States that she has had a cough has been nonproductive states she does have a history of COPD has had increased wheezing and increased use of her inhaler she denies any fevers or chills, chest pain abdominal pain, nausea vomiting diarrhea or any other symptoms. States she is smoking daily Related Data Home Medications Medication Instructions Recorded Confirmed estradiol 2 mg tablet 2 mg PO DAILY 09/07/19 10/09/21 Allergies Allergy/AdvReac Type Severity Reaction Status Date / Time cefprozil Allergy Unknown Unknown Verified 10/09/21 12:56 cefuroxime Allergy Unknown Unknown Verified 10/09/21 12:56 dexamethasone AdvReac Unknown Itching Verified 10/09/21 12:56 Review of Systems Review of Systems: Gen.: Denies fevers or chills ENT: Denies congestion Respiratory: See HPI CV: Denies chest pain or palpitations GI: Denies abdominal pain nausea, emesis or diarrhea Musculoskeletal: Denies back pain or muscle pain Neuro: Denies numbness, tingling, weakness or focal weakness Skin: Denies rash Except as documented, all other systems reviewed and negative PMF Past Medical History Medical History Abdominal pain Anxiety COPD (chronic obstructive pulmonary disease) Hyperlipidemia Hypertension Kidney stone Surgical History Surgical History History of cholecystectomy Plantar fasciitis Status post hysterectomy with oophorectomy Family History Family History Father Family history of coronary artery disease Emphysema lung Mother Family history of pancreatic cancer Hypertension Social History Social History Smoking packs per day: 1 Smoking cigarettes per day: 20.0 Years smoked: 40 Smoking pack-years: 40.00 Smoking status: Current every day smoker Tobacco type: cigarettes Second hand tobacco smoke exposure: No Alcohol intake: never Substance use: never Substance use type: does not use Additional living arrangements comments: daughter Gender identity (if verbalized by the patient): Female Exam Narrative: APPEARANCE: No acute distress, nontoxic, resting in bed EYES: EOMI HEENT: Normocephalic, atraumatic, OMM RESPIRATORY: Mild respiratory distress, wheezing throughout the bilateral lung rueda with crackles in lung bases CARDIOVASCULAR: Regular rate and rhythm without murmurs rubs or gallops. ABDOMINAL: Soft, nontender, nondistended, no rebound or guarding MUSCULOSKELETAl: Moves all extremities. No clubbing, cyanosis or edema. NEURO: Awake and alert. Following commands, speech normal, no focal deficits SKIN:: Warm, dry. No rashes lesions or abrasions PSYCHIATRIC: Normal affect/mood, Course Course Emergency Course: Patient given breathing treatments congeners wheezing throughout bilateral lung rueda Discussed with MEGAN Contreras for Dr. Barfield presentation work-up agrees with admission Discussed with patient and family results of workup and diagnosis. Discussed need for admission. Patient and family understand and agree to current treatment plan Vital Signs Vital signs: Vital Signs Pulse Rate 113 H 12/06/21 11:47 Respiratory Rate 38 H 12/06/21 11:47 Blood Pressure 157/84 H 12/06/21 11:47 Pulse Oximetry 90 12/06/21 11:47 Temperature 99.6 F 12/06/21 11:52 Pulse Rate 118 H 12/06/21 13:41 Respiratory Rate 22 H 12/06/21 13:41 Blood Pressure 130/72 12/06/21 13:16 Pulse Oximetry 92 12/06/21 13:32 MDM - SOB/Dyspne
[2021-12-06] MEDS: ALBUTEROL SULFATE NEB 2.5 MG/0.5 ML INH 5 MG INHALATION (12:32)
[2021-12-06] MEDS: IPRATROPIUM BR 0.02% INH SOLN 0.5 MG/2.5 ML VIAL INHALATION ×3 (12:32→20:09)
[2021-12-06] MEDS: methylPREDNISolone SOD SUCC 125 MG VIAL IV PUSH (12:40)
[2021-12-06 12:42] LABS: NT Pro B Type Natriuretic Pept 93 pg/mL (5-100); Troponin I < 0.012 ng/mL (0.000-0.034)
[2021-12-06 13:31] LABS: Influenza A QL RT-PCR Negative (Negative); Influenza B QL RT-PCR Negative (Negative); SARS-CoV-2 RNA PCR Negative
[2021-12-06] MEDS: ACETAMINOPHEN 500 MG TABLET 1000 MG PO (13:53)
[2021-12-06] MEDS: SODIUM CHLORIDE 0.9% IV 1,000 ML 999 ML IV CONT (13:53)
[2021-12-06 14:24] LABS: Lactic Acid Reflex 1.3 mmol/L (0.7-2.1)
--- NOTE | 2021-12-06 15:00 | PM.IMHP ---
H&P: HPI History of Present Illness Date/Time: 12/06/21 15:00 <Diane Min PA-C - Last Filed: 12/06/21 16:27> Chief Complaint: Shortness of breath. <Diane Min PA-C - Last Filed: 12/06/21 16:27> Narrative: This is a 70-year-old female smoker with COPD who presented to the ER for evaluation of shortness of breath. The patient is maintained on a Trelegy inhaler at home although admits that she sometimes forgets to use it, especially on days when she is feeling particularly well. She tells me that she is not necessarily inhibited by her breathing with day-to-day activities though she does avoid taking steps. Over the past 2 days she has had increasing dyspnea on lesser and lesser exertion and has been much worse since last evening. In fact she was getting short of breath even moving around in bed last night. She has also had feelings of racing heart though she has blamed that on the fact that she has used her nebulizers 4 times in the last 24 hours. Additionally she endorses a mild, nonproductive cough. SPO2 has been adequate without supplemental oxygen. Chest x-ray showed no acute finding but a CTA of the chest showed multifocal pneumonia, worse in the left lower lobe, and she is being admitted in the setting. She has not had fever, chills, or sweats. She denies headache, neck ache, sinus congestion, sore throat, chest pain, pleuritic pain, nausea, vomiting, and diarrhea. No dysphagia or concerns for aspiration she denies sick contacts. <Diane Min PA-C - Last Filed: 12/06/21 16:27> Review of Systems Review of Systems: 12 systems were reviewed and are negative except for as per HPI. <Diane Min PA-C - Last Filed: 12/06/21 16:27> [facility] Past Medical History Medical History: Medical History (Updated 12/06/21 @ 16:15 by Diane Min PA-C) Anxiety Chronic obstructive pulmonary disease Hyperlipidemia Hypertension Kidney stone Tobacco dependence <Diane Mni PA-C - Last Filed: 12/06/21 16:27> Surgical History Surgical History: Surgical History History of cholecystectomy Plantar fasciitis Status post hysterectomy with oophorectomy <Diane Min PA-C - Last Filed: 12/06/21 16:27> Family History Family History: Family History Father Family history of coronary artery disease Emphysema lung Mother Family history of pancreatic cancer Hypertension <iDane Min PA-C - Last Filed: 12/06/21 16:27> Social History Social History: Social History (Updated 12/06/21 @ 16:10 by Diane Min PA-C) Social History: Surrogate decision-maker: Mago Olivas or Katiuska Iniguez, daughters. CODE STATUS: Full code. Smoking packs per day: 1 Smoking cigarettes per day: 20.0 Years smoked: 40 Smoking pack-years: 40.00 Smoking status: Current every day smoker Tobacco type: cigarettes Second hand tobacco smoke exposure: Yes Alcohol intake: never Substance use: never Substance use type: does not use Additional living arrangements comments: The patient lives in [place] with her daughter. 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 Spiritual care concerns: No <Diane Min PA-C - Last Filed: 12/06/21 16:27> Meds Home Medications and Allergies Home medications: Home Medications Medication Instructions Recorded Confirmed Type estradiol 2 mg tablet 1 mg PO HS 09/07/19 12/06/21 History omeprazole 20 mg capsule,delayed 20 mg PO DAILY #30 cap 03/12/21 12/06/21 Rx release ipratropium 0.5 mg-albuterol 3 mg See Rx Instructions .ROUTE 04/17/21 12/06/21 Rx (2.5 mg base)/3 mL nebulization .COMPLEX #1080 ml soln fluticasone fur. 100 mcg-umeclid 1 inh INHALATION Q24H #60 ea 11/07/21 12/06/21 Rx 62.5 mcg-vilant 25 mcg inhalat.powder
[2021-12-06] MEDS: LEVALBUTEROL NEB 1.25 MG/3 ML 0.63 MG INHALATION (20:09)
--- NOTE | 2021-12-06 22:40 | PCRCNOTE ---
pt refusing apnea link on 12/06. states that her 'chest does not feel good' and that she would be willing to repeat on a different night.
[2021-12-07] VITALS (19 sets, daily range): BP systolic 110–150; BP diastolic 70–84; PULSE 98–124; RESP 18–22; TEMP 36.1–36.4; O2SAT 92–95
[2021-12-07] MEDS: estradioL 1 MG TABLET PO ×2 (00:59→21:22)
[2021-12-07] MEDS: FENOFIBRATE 160 MG TABLET PO ×2 (00:59→21:22)
[2021-12-07] MEDS: ALPRAZolam (*CRX) 0.25 MG TABLET PO ×2 (00:59→21:22)
[2021-12-07] MEDS: MONTELUKAST SODIUM 10 MG TABLET PO ×2 (00:59→21:22)
[2021-12-07] MEDS: IPRATROPIUM BR 0.02% INH SOLN 0.5 MG/2.5 ML VIAL INHALATION ×4 (02:11→20:05)
[2021-12-07] MEDS: LEVALBUTEROL NEB 1.25 MG/3 ML 0.63 MG INHALATION ×4 (02:11→20:05)
[2021-12-07 06:14] LABS: Basophils Percent Auto 0.2 % (0.2-1.2); Hematocrit 43.5 % (37.0-47.0); Hemoglobin 14.1 g/dL (12.0-15.0); Immature Granulocyte Absolute 0.02 K/mm3 (0.00-0.031); Immature Granulocyte Percent A 0.3 % (0-0.5); Lymphocytes Absolute Auto 0.46 K/mm3 (0.9-3.2); Mean Corpuscular HGB Conc 32.4 g/dl (32-36); Mean Corpuscular Hemoglobin 30.6 pg (26-34); Mean Corpuscular Volume 94.4 fl (80-100); Mean Platelet Volume 10.1 fl (7.4-10.4); Monocytes Absolute Auto 0.6 K/mm3 (0.1-0.6); Monocytes Percent Auto 8.7 % (2.6-8.5); Neutrophils Absolute Auto 5.5 K/mm3 (1.3-6.7); Neutrophils Percent Auto 83.8 % (45.5-73.1); Platelet Count Result 201 k/mm3 (150-375); Red Blood Count 4.61 M/mm3 (4.2-5.4); White Blood Count 6.5 K/mm3 (4.5-10.0)
[2021-12-07 06:27] LABS: Alanine Aminotransferase 18 U/L (4-35); Albumin Level 3.8 g/dL (3.5-5.1); Alkaline Phosphatase 77 U/L (38-126); Anion Gap 5 mmol/L (8-16); Aspartate Amino Transferase 22 U/L (14-36); Bilirubin,Total 0.2 mg/dL (0.2-1.3); Blood Urea Nitrogen 10 mg/dL (7-17); Calcium 8.7 mg/dL (8.4-10.2); Carbon Dioxide 24 mmol/L (22-30); Chloride 110 mmol/L (98-107); Estimated CRCL calculation 75 ml/min; Estimated Glomerular Filt Rate > 60; Glucose 178 mg/dL (65-110); Potassium 3.8 mmol/L (3.4-5.0); Sodium 139 mmol/L (137-145)
[2021-12-07] MEDS: ENOXAPARIN 40 MG/0.4 ML SYRINGE SUB-Q (09:04)
[2021-12-07] MEDS: predniSONE 20 MG TABLET 40 MG PO (09:05)
[2021-12-07] MEDS: PANTOPRAZOLE 40 MG TABLET PO (09:05)
[2021-12-07] MEDS: METOPROLOL SUCCINATE EXT REL 50 MG TABCR PO (09:05)
[2021-12-07] MEDS: FLUTICASONE/UMECLIDIN/VILANTER 100-62.5-25 MCG ELLIPTA 1 PUFF INHALATION (09:15)
[2021-12-07] MEDS: BENZONATATE 100 MG CAPSULE 200 MG PO ×3 (13:49→22:38)
--- NOTE | 2021-12-07 17:39 | PM.IMPN ---
Progress Note: A&P Assessment and Plan (1) COPD exacerbation: Code(s): J44.1 - Chronic obstructive pulmonary disease with (acute) exacerbation Status: Acute Assessment and Plan: Patient reports feeling better after receiving a dose of Solu-Medrol and a nebulizer in the emergency department. She has faint wheezing on exam thus we will continue with a short burst of prednisone. Continue scheduled bronchodilators but will change albuterol to Xopenex given her tachycardia. Smoking cessation is imperative. 12/07/2021 interval history: patient is 70-year-old female unfortunately patient still smokes presented presented with shortness of breath patient is found to have exacerbation of COPD being treated with steroid and nebulizer also this is a concern the patient has pneumonia and being treated with levofloxacin, patient states breathing is better compared to when she arrived however see continues to persistent cough will give the patient Tessalon and guaifenesin, patient requested to stop smoking, is refusing nicotine patch. will have a PT OT evaluate the patient and further recommendation to follow. (2) Community acquired pneumonia: Code(s): J18.9 - Pneumonia, unspecified organism Status: Acute Assessment and Plan: She was started on levofloxacin in the emergency department and we will continue with this given listed allergy to cephalosporins. Sputum to be attempted for culture. We will send urine specimens to check for Legionella and strep pneumonia antigens. She was negative for SARS-CoV-2 and influenza A and B by PCR. (3) Tachycardia: Code(s): R00.0 - Tachycardia, unspecified Status: Acute Assessment and Plan: May very well be related to albuterol nebulizers that she has used over the past 24 hours thus we will change albuterol to Xopenex. CTA of the chest was negative for pulmonary embolism. She will be monitored on telemetry overnight. Check TSH. (4) Polycythemia: Code(s): D75.1 - Secondary polycythemia Status: Acute Assessment and Plan: Hemoglobin has been mildly elevated on labs over the last 2-1/2 years, possibly chronic mild hypoxia. Continuous pulse ox and apnea link ordered this evening. (5) Hypertension: Code(s): I10 - Essential (primary) hypertension Status: Inactive Assessment and Plan: Blood pressures were reviewed and they have been reasonable. Continue antihypertensives and monitor. (6) Tobacco dependence: Code(s): F17.200 - Nicotine dependence, unspecified, uncomplicated Status: Acute Assessment and Plan: Smoking cessation is imperative and was discussed. She declines the need for a nicotine patch at this time. Subjective Date/time seen: 12/07/21 17:39 HPI This is a 70-year-old female smoker with COPD who presented to the ER for evaluation of shortness of breath. The patient is maintained on a Trelegy inhaler at home although admits that she sometimes forgets to use it, especially on days when she is feeling particularly well. She tells me that she is not necessarily inhibited by her breathing with day-to-day activities though she does avoid taking steps. Over the past 2 days she has had increasing dyspnea on lesser and lesser exertion and has been much worse since last evening. In fact she was getting short of breath even moving around in bed last night. She has also had feelings of racing heart though she has blamed that on the fact that she has used her nebulizers 4 times in the last 24 hours. Additionally she endorses a mild, nonproductive cough. SPO2 has been adequate without supplemental oxygen. Chest x-ray showed no acute finding but a CTA of the chest showed multifocal pneumonia, worse in the left lower lobe, and she is being admitted in the setting. She has not had fever, chills, or sweats. She denies headache, neck ache, sinus congestion, sore throat, chest pain, pleuritic pain, nausea, vomiting, and
--- NOTE | 2021-12-07 21:11 | PCRCNOTE ---
patient refused the apnea study and stated that she spoke with a provider concerning the matter.
[2021-12-07] MEDS: guaiFENesin/DEXTROMETHORPHAN 10 ML UDC PO (21:25)
[2021-12-08] VITALS (22 sets, daily range): BP systolic 149–151; BP diastolic 80–88; PULSE 107–121; RESP 16–20; TEMP 36.1–36.7; O2SAT 91–96
[2021-12-08] MEDS: LEVALBUTEROL NEB 1.25 MG/3 ML 0.63 MG INHALATION ×4 (01:33→19:53)
[2021-12-08] MEDS: IPRATROPIUM BR 0.02% INH SOLN 0.5 MG/2.5 ML VIAL INHALATION ×4 (01:34→19:52)
[2021-12-08] MEDS: FLUTICASONE/UMECLIDIN/VILANTER 100-62.5-25 MCG ELLIPTA 1 PUFF INHALATION (08:26)
[2021-12-08] MEDS: BENZONATATE 100 MG CAPSULE 200 MG PO ×3 (08:31→16:49)
[2021-12-08] MEDS: METOPROLOL SUCCINATE EXT REL 50 MG TABCR PO (08:31)
[2021-12-08] MEDS: predniSONE 20 MG TABLET 40 MG PO (08:32)
[2021-12-08] MEDS: PANTOPRAZOLE 40 MG TABLET PO (08:32)
[2021-12-08] MEDS: ENOXAPARIN 40 MG/0.4 ML SYRINGE SUB-Q (08:32)
[2021-12-08] MEDS: NICOTINE (*PBKC) 21 MG PATCH 1 PATCH TRANSDERM (11:04)
--- NOTE | 2021-12-08 12:24 | PM.IMPN ---
Progress Note: A&P Assessment and Plan (1) COPD exacerbation: Code(s): J44.1 - Chronic obstructive pulmonary disease with (acute) exacerbation Status: Acute Assessment and Plan: Patient reports feeling better after receiving a dose of Solu-Medrol and a nebulizer in the emergency department. She has faint wheezing on exam thus we will continue with a short burst of prednisone. Continue scheduled bronchodilators but will change albuterol to Xopenex given her tachycardia. Smoking cessation is imperative. 12/07/2021 interval history: patient is 70-year-old female unfortunately patient still smokes presented presented with shortness of breath patient is found to have exacerbation of COPD being treated with steroid and nebulizer also this is a concern the patient has pneumonia and being treated with levofloxacin, patient states breathing is better compared to when she arrived however see continues to persistent cough will give the patient Tessalon and guaifenesin, patient requested to stop smoking, is refusing nicotine patch. will have a PT OT evaluate the patient and further recommendation to follow. 12/08/2021 interval history: patient is 70-year-old female unfortunately patient still smokes presented presented with shortness of breath patient is found to have exacerbation of COPD being treated with steroid and nebulizer also there is a concern the patient has pneumonia and being treated with levofloxacin, patient states breathing is better compared to when she arrived however see continues to persistent cough gave the patient Tessalon and guaifenesin, patient requested to stop smoking, today patient is requestingnicotine patch, will start with the 21 mg, will have a PT OT evaluate the patient and further recommendation to follow. (2) Community acquired pneumonia: Code(s): J18.9 - Pneumonia, unspecified organism Status: Acute Assessment and Plan: She was started on levofloxacin in the emergency department and we will continue with this given listed allergy to cephalosporins. Sputum to be attempted for culture. We will send urine specimens to check for Legionella and strep pneumonia antigens. She was negative for SARS-CoV-2 and influenza A and B by PCR. (3) Tachycardia: Code(s): R00.0 - Tachycardia, unspecified Status: Acute Assessment and Plan: May very well be related to albuterol nebulizers that she has used over the past 24 hours thus we will change albuterol to Xopenex. CTA of the chest was negative for pulmonary embolism. She will be monitored on telemetry overnight. Check TSH. (4) Polycythemia: Code(s): D75.1 - Secondary polycythemia Status: Acute Assessment and Plan: Hemoglobin has been mildly elevated on labs over the last 2-1/2 years, possibly chronic mild hypoxia. Continuous pulse ox and apnea link ordered this evening. (5) Hypertension: Code(s): I10 - Essential (primary) hypertension Status: Inactive Assessment and Plan: Blood pressures were reviewed and they have been reasonable. Continue antihypertensives and monitor. (6) Tobacco dependence: Code(s): F17.200 - Nicotine dependence, unspecified, uncomplicated Status: Acute Assessment and Plan: Smoking cessation is imperative and was discussed. She declines the need for a nicotine patch at this time. Subjective Date/time seen: 12/08/21 12:24 HPI This is a 70-year-old female smoker with COPD who presented to the ER for evaluation of shortness of breath. The patient is maintained on a Trelegy inhaler at home although admits that she sometimes forgets to use it, especially on days when she is feeling particularly well. She tells me that she is not necessarily inhibited by her breathing with day-to-day activities though she does avoid taking steps. Over the past 2 days she has had increasing dyspnea on lesser and lesser exertion and has been much worse since last minh
[2021-12-08] MEDS: MONTELUKAST SODIUM 10 MG TABLET PO (20:49)
[2021-12-08] MEDS: estradioL 1 MG TABLET PO (20:49)
[2021-12-08] MEDS: MELATONIN 5 MG TABLET PO (20:49)
[2021-12-08] MEDS: ALPRAZolam (*CRX) 0.25 MG TABLET PO (20:49)
[2021-12-08] MEDS: FENOFIBRATE 160 MG TABLET PO (20:49)
[2021-12-08] MEDS: ONDANSETRON INJ 4 MG/2 ML VIAL IV PUSH (20:50)
[2021-12-09] VITALS (22 sets, daily range): BP systolic 115–157; BP diastolic 75–91; PULSE 90–123; RESP 20–28; TEMP 36.6–36.7; O2SAT 90–98
[2021-12-09] MEDS: LEVALBUTEROL NEB 1.25 MG/3 ML 0.63 MG INHALATION ×3 (06:30→20:39)
[2021-12-09] MEDS: ENOXAPARIN 40 MG/0.4 ML SYRINGE SUB-Q (07:30)
[2021-12-09] MEDS: BENZONATATE 100 MG CAPSULE 200 MG PO ×3 (07:30→17:21)
[2021-12-09] MEDS: predniSONE 20 MG TABLET 40 MG PO (07:30)
[2021-12-09] MEDS: METOPROLOL SUCCINATE EXT REL 50 MG TABCR PO (07:31)
[2021-12-09] MEDS: PANTOPRAZOLE 40 MG TABLET PO (07:31)
[2021-12-09] MEDS: NICOTINE (*PBKC) 21 MG PATCH 1 PATCH TRANSDERM (07:31)
[2021-12-09 07:57] LABS: Alveolar/Arterial O2 Gradient 65.2 mmHg; Fractional Inspired Oxygen 32 %; HCO3 ABG 31.7 mEq/l (22.0-26.0); Oxygen Content ABG 19.9 %vol (16.0-22.0); Oxygen Saturation ABG 89.4 % (95.0-100.0); Oxyhemoglobin 89.4 % THb (90.0-100.0); PO2 ABG 69.4 mmHg (80.0-100.0); PO2 FiO2 Ratio Arterial Blood 2.17 %; Total Hemoglobin 15.8 g/dL (12.0-18.0)
[2021-12-09 07:58] LABS: pH ABG 7.216 (7.350-7.450)
[2021-12-09 07:59] LABS: Device NASAL CANNULA; Modified Allen's Test Pass; Site Drawn LEFT RADIAL
[2021-12-09] MEDS: FLUTICASONE/UMECLIDIN/VILANTER 100-62.5-25 MCG ELLIPTA 1 PUFF INHALATION (08:24)
[2021-12-09 09:42] LABS: Hematocrit 45.6 % (37.0-47.0); Hemoglobin 14.8 g/dL (12.0-15.0); Mean Corpuscular HGB Conc 32.5 g/dl (32-36); Mean Corpuscular Hemoglobin 30.5 pg (26-34); Mean Platelet Volume 10.2 fl (7.4-10.4); Platelet Count Result 224 k/mm3 (150-375); Red Blood Count 4.85 M/mm3 (4.2-5.4); Red Cell Distribution Width 12.6 % (11.5-14.5); White Blood Count 11.2 K/mm3 (4.5-10.0)
[2021-12-09] MEDS: methylPREDNISolone SOD SUCC 125 MG VIAL 80 MG IV PUSH (09:42)
[2021-12-09] MEDS: FUROSEMIDE INJ 40 MG/4 ML VIAL IV PUSH (09:43)
--- NOTE | 2021-12-09 09:50 | PC.NURSE ---
0750 Dr Barfield notified of pt sob leaning over bedside table, desats with any movement and 02 3l, On tele ST in 120's anf o2 88% at rest. New orders received
[2021-12-09 09:59] LABS: Anion Gap 6 mmol/L (8-16); Blood Urea Nitrogen 17 mg/dL (7-17); Calcium 8.6 mg/dL (8.4-10.2); Carbon Dioxide 31 mmol/L (22-30); Chloride 98 mmol/L (98-107); Estimated CRCL calculation 65 ml/min; Estimated Glomerular Filt Rate > 60; Glucose 181 mg/dL (65-110); Magnesium 2.2 mg/dL (1.6-2.3); Potassium 3.9 mmol/L (3.4-5.0); Sodium 135 mmol/L (137-145)
[2021-12-09 10:52] LABS: Base Excess ABG 2.9 mEq/l (+/-2.0); Carboxyhemoglobin 0.5 % THb (0-2.0); Fractional Inspired Oxygen 50 %; HCO3 ABG 30.8 mEq/l (22.0-26.0); Methemoglobin ABG 0.2 %THb (0-1.5); Oxygen Content ABG 20.6 %vol (16.0-22.0); Oxygen Saturation ABG 91.1 % (95.0-100.0); Oxyhemoglobin 92.2 % THb (90.0-100.0); PO2 ABG 65.8 mmHg (80.0-100.0); PO2 FiO2 Ratio Arterial Blood 1.32 %; Reduced Hemoglobin 7.1 %THb (0-5.0); Total Hemoglobin 15.9 g/dL (12.0-18.0); pH ABG 7.327 (7.350-7.450)
[2021-12-09 10:53] LABS: Device BIPAP; Modified Allen's Test Pass; PCO2 ABG 60.2 mmHg (35.0-45.0); Site Drawn RIGHT RADIAL
[2021-12-09 10:54] LABS: Expiratory Pressure 8 cmH2O; Inspiratory Pressure 18 cmH2O
--- NOTE | 2021-12-09 12:37 | PM.IMPN ---
Progress Note: A&P Assessment and Plan (1) COPD exacerbation: Code(s): J44.1 - Chronic obstructive pulmonary disease with (acute) exacerbation Status: Acute Assessment and Plan: Patient reports feeling better after receiving a dose of Solu-Medrol and a nebulizer in the emergency department. She has faint wheezing on exam thus we will continue with a short burst of prednisone. Continue scheduled bronchodilators but will change albuterol to Xopenex given her tachycardia. Smoking cessation is imperative. 12/07/2021 interval history: patient is 70-year-old female unfortunately patient still smokes presented presented with shortness of breath patient is found to have exacerbation of COPD being treated with steroid and nebulizer also this is a concern the patient has pneumonia and being treated with levofloxacin, patient states breathing is better compared to when she arrived however see continues to persistent cough will give the patient Tessalon and guaifenesin, patient requested to stop smoking, is refusing nicotine patch. will have a PT OT evaluate the patient and further recommendation to follow. 12/08/2021 interval history: patient is 70-year-old female unfortunately patient still smokes presented presented with shortness of breath patient is found to have exacerbation of COPD being treated with steroid and nebulizer also there is a concern the patient has pneumonia and being treated with levofloxacin, patient states breathing is better compared to when she arrived however see continues to persistent cough gave the patient Tessalon and guaifenesin, patient requested to stop smoking, today patient is requestingnicotine patch, will start with the 21 mg, will have a PT OT evaluate the patient and further recommendation to follow. 12/09/2021 interval history: today patient developed acute respiratory failure as patient was quite somnolent, and ABG showed pH 7.2, pCO2 80, and pO2 69 most likely exacerbation of COPD, will give the patient 1 time dose of methylprednisone 80 mg qnd Lasix 40 mg IV, will place the patient on BiPAP and repeat ABG after 2 hours, will continue to monitor, patient is 70-year-old female unfortunately patient still smokes presented presented with shortness of breath patient is found to have exacerbation of COPD being treated with steroid and nebulizer also there is a concern the patient has pneumonia and being treated with levofloxacin, patient states breathing is better compared to when she arrived however see continues to persistent cough gave the patient Tessalon and guaifenesin, patient requested to stop smoking, today patient is requesting nicotine patch, will start with the 21 mg, will have a PT OT evaluate the patient and further recommendation to follow. (2) Community acquired pneumonia: Code(s): J18.9 - Pneumonia, unspecified organism Status: Acute Assessment and Plan: She was started on levofloxacin in the emergency department and we will continue with this given listed allergy to cephalosporins. Sputum to be attempted for culture. We will send urine specimens to check for Legionella and strep pneumonia antigens. She was negative for SARS-CoV-2 and influenza A and B by PCR. (3) Tachycardia: Code(s): R00.0 - Tachycardia, unspecified Status: Acute Assessment and Plan: May very well be related to albuterol nebulizers that she has used over the past 24 hours thus we will change albuterol to Xopenex. CTA of the chest was negative for pulmonary embolism. She will be monitored on telemetry overnight. Check TSH. (4) Polycythemia: Code(s): D75.1 - Secondary polycythemia Status: Acute Assessment and Plan: Hemoglobin has been mildly elevated on labs over the last 2-1/2 years, possibly chronic mild hypoxia. Continuous pulse ox and apnea link ordered this evening. (5) Hypertension: Code(s): I10 - Essential (primary) hypertension Status: I
--- NOTE | 2021-12-09 13:07 | PCOTNOTE ---
Attempted to see patient this pm, however RN advised not to see due to patient on continuous BIPAP secondary to difficulty breathing. Pt resting and willing to wear mask at this time. RN did not want to disturb patient for this reason.
--- NOTE | 2021-12-09 13:51 | PCPTNOTE ---
RN advised that this pt not be seen today due to being on a continuous BIPAP secondary to have difficulty breathing. Will continue per plan of care.
[2021-12-09] MEDS: IPRATROPIUM BR 0.02% INH SOLN 0.5 MG/2.5 ML VIAL INHALATION ×2 (14:23→20:39)
[2021-12-09] MEDS: estradioL 1 MG TABLET PO (21:23)
[2021-12-09] MEDS: MONTELUKAST SODIUM 10 MG TABLET PO (21:23)
[2021-12-09] MEDS: FENOFIBRATE 160 MG TABLET PO (21:23)
[2021-12-09] MEDS: ALPRAZolam (*CRX) 0.25 MG TABLET PO (21:23)
[2021-12-09] MEDS: MELATONIN 5 MG TABLET PO (21:23)
[2021-12-10] VITALS (20 sets, daily range): BP systolic 119–147; BP diastolic 72–90; PULSE 85–117; RESP 16–27; TEMP 35.9–36.6; O2SAT 90–99
--- NOTE | 2021-12-10 02:23 | PC.NURSE ---
Call from patient requesting assistance with her bipap mask. Upon entering room this nurse noted mask in patients lap. She states that she removed it to drink water. After patient was done drinking, while this nurse attempted to put the mask back on the patient was pulling against application. Several trys were attempted prior to call out to RT.
[2021-12-10] MEDS: IPRATROPIUM BR 0.02% INH SOLN 0.5 MG/2.5 ML VIAL INHALATION ×4 (02:30→20:00)
[2021-12-10] MEDS: LEVALBUTEROL NEB 1.25 MG/3 ML 0.63 MG INHALATION ×4 (02:31→20:00)
[2021-12-10 05:15] LABS: Base Excess ABG 2.1 mEq/l (+/-2.0); HCO3 ABG 28.5 mEq/l (22.0-26.0); Oxygen Saturation ABG 97.8 % (95.0-100.0); PCO2 ABG 51.4 mmHg (35.0-45.0); PO2 ABG 109.1 mmHg (80.0-100.0); pH ABG 7.362 (7.350-7.450)
[2021-12-10 05:16] LABS: Alveolar/Arterial O2 Gradient 189.6 mmHg; Oxygen Content ABG 20.6 %vol (16.0-22.0)
[2021-12-10 05:17] LABS: Carboxyhemoglobin 0.1 % THb (0-2.0); Methemoglobin ABG 0.3 %THb (0-1.5); Reduced Hemoglobin 2.6 %THb (0-5.0)
[2021-12-10 05:18] LABS: Device NON-INVASIVE VENT; Fractional Inspired Oxygen 50 %; Modified Allen's Test Pass; PO2 FiO2 Ratio Arterial Blood 2.18 %; Site Drawn RIGHT RADIAL
[2021-12-10 05:20] LABS: Non-Invasive Inspiratory Pressure 18 CMH2O; Non-Invasive Vent Rate 18 /MIN
[2021-12-10 05:21] LABS: Non-Invasive Expiratory Pressure 8 CMH2O
[2021-12-10 05:27] LABS: Hematocrit 43.9 % (37.0-47.0); Hemoglobin 14.1 g/dL (12.0-15.0); Mean Corpuscular HGB Conc 32.1 g/dl (32-36); Mean Corpuscular Hemoglobin 30.1 pg (26-34); Mean Corpuscular Volume 93.6 fl (80-100); Mean Platelet Volume 10.1 fl (7.4-10.4); Platelet Count Result 219 k/mm3 (150-375); Red Blood Count 4.69 M/mm3 (4.2-5.4); Red Cell Distribution Width 12.4 % (11.5-14.5); White Blood Count 5.8 K/mm3 (4.5-10.0)
[2021-12-10 05:36] LABS: Anion Gap 5 mmol/L (8-16); Blood Urea Nitrogen 24 mg/dL (7-17); Calcium 8.7 mg/dL (8.4-10.2); Carbon Dioxide 35 mmol/L (22-30); Chloride 95 mmol/L (98-107); Estimated CRCL calculation 57 ml/min; Estimated Glomerular Filt Rate > 60; Glucose 130 mg/dL (65-110); Potassium 3.5 mmol/L (3.4-5.0); Sodium 135 mmol/L (137-145)
[2021-12-10] MEDS: FUROSEMIDE INJ 40 MG/4 ML VIAL IV PUSH (07:49)
[2021-12-10] MEDS: predniSONE 20 MG TABLET 40 MG PO (07:49)
[2021-12-10] MEDS: ENOXAPARIN 40 MG/0.4 ML SYRINGE SUB-Q (07:49)
[2021-12-10] MEDS: BENZONATATE 100 MG CAPSULE 200 MG PO ×3 (07:49→16:38)
[2021-12-10] MEDS: METOPROLOL SUCCINATE EXT REL 50 MG TABCR PO (07:50)
[2021-12-10] MEDS: NICOTINE (*PBKC) 21 MG PATCH 1 PATCH TRANSDERM (07:50)
[2021-12-10] MEDS: PANTOPRAZOLE 40 MG TABLET PO (07:51)
[2021-12-10] MEDS: FLUTICASONE/UMECLIDIN/VILANTER 100-62.5-25 MCG ELLIPTA 1 PUFF INHALATION (08:40)
--- NOTE | 2021-12-10 09:51 | PCOTNOTE ---
Attempted to see patient for OT, patient declined. Patient declined all interventions, requested to take the day to recover. Will continue plan of care tomorrow.
[2021-12-10] MEDS: SALIVA SUBSTITUTE COMBO RINSE 237 ML BOTTLE 15 ML PO (13:45)
[2021-12-10] MEDS: SALINE 0.65% NAS SOLN 44 ML BTL 1 SPRAY NASAL (13:45)
--- NOTE | 2021-12-10 14:41 | PM.IMPN ---
Progress Note: A&P Assessment and Plan (1) COPD exacerbation: Code(s): J44.1 - Chronic obstructive pulmonary disease with (acute) exacerbation Status: Acute Assessment and Plan: Patient reports feeling better after receiving a dose of Solu-Medrol and a nebulizer in the emergency department. She has faint wheezing on exam thus we will continue with a short burst of prednisone. Continue scheduled bronchodilators but will change albuterol to Xopenex given her tachycardia. Smoking cessation is imperative. 12/07/2021 interval history: patient is 70-year-old female unfortunately patient still smokes presented presented with shortness of breath patient is found to have exacerbation of COPD being treated with steroid and nebulizer also this is a concern the patient has pneumonia and being treated with levofloxacin, patient states breathing is better compared to when she arrived however see continues to persistent cough will give the patient Tessalon and guaifenesin, patient requested to stop smoking, is refusing nicotine patch. will have a PT OT evaluate the patient and further recommendation to follow. 12/08/2021 interval history: patient is 70-year-old female unfortunately patient still smokes presented presented with shortness of breath patient is found to have exacerbation of COPD being treated with steroid and nebulizer also there is a concern the patient has pneumonia and being treated with levofloxacin, patient states breathing is better compared to when she arrived however see continues to persistent cough gave the patient Tessalon and guaifenesin, patient requested to stop smoking, today patient is requestingnicotine patch, will start with the 21 mg, will have a PT OT evaluate the patient and further recommendation to follow. 12/09/2021 interval history: today patient developed acute respiratory failure as patient was quite somnolent, and ABG showed pH 7.2, pCO2 80, and pO2 69 most likely exacerbation of COPD, will give the patient 1 time dose of methylprednisone 80 mg qnd Lasix 40 mg IV, will place the patient on BiPAP and repeat ABG after 2 hours, will continue to monitor, patient is 70-year-old female unfortunately patient still smokes presented presented with shortness of breath patient is found to have exacerbation of COPD being treated with steroid and nebulizer also there is a concern the patient has pneumonia and being treated with levofloxacin, patient states breathing is better compared to when she arrived however see continues to persistent cough gave the patient Tessalon and guaifenesin, patient requested to stop smoking, today patient is requesting nicotine patch, will start with the 21 mg, will have a PT OT evaluate the patient and further recommendation to follow. 12/10/2021 interval history: on 12/09 patient developed acute respiratory failure as patient was quite somnolent, and ABG showed pH 7.2, pCO2 80, and pO2 69 most likely exacerbation of COPD, gave the patient 1 time dose of methylprednisone 80 mg qnd Lasix 40 mg IV, placed the patient on BiPAP and repeat ABG after 2 hours, showed much improvement, today patient is feeling much better see wore her BiPAP last night ABG this morning showed pH 7.362, pCo 51., pO2 109 continue to monitor, patient is 70-year-old female unfortunately patient still smokes presented presented with shortness of breath patient is found to have exacerbation of COPD being treated with steroid and nebulizer also there is a concern the patient has pneumonia and being treated with levofloxacin, repeat chest x-ray showed improved, patient states breathing is better compared to when she arrived however she continues to have persistent cough gave the patient Tessalon and guaifenesin, patient requested to stop smoking, patient is on nicotine patch, started with the 21 mg, will have a PT OT evaluate the patient and further recommendation to follow. (2) Community acquired pneumonia: Code(s):
[2021-12-10] MEDS: FENOFIBRATE 160 MG TABLET PO (20:53)
[2021-12-10] MEDS: ALPRAZolam (*CRX) 0.25 MG TABLET PO (20:53)
[2021-12-10] MEDS: MELATONIN 5 MG TABLET PO (20:53)
[2021-12-10] MEDS: estradioL 1 MG TABLET PO (20:53)
[2021-12-10] MEDS: MONTELUKAST SODIUM 10 MG TABLET PO (20:53)
[2021-12-10 22:50] LABS: Legionella pneumophila Ag Ur Not Detected (Not Detected)
[2021-12-11] VITALS (20 sets, daily range): BP systolic 124–131; BP diastolic 66–71; PULSE 78–126; RESP 18–26; TEMP 36.1–36.5; O2SAT 93–100
--- NOTE | 2021-12-11 | ECHO_ITS ---
Patient Info Name: Natalie Olivas Age: 70 years : 1950 Gender: Female Ht: 64 in Wt: 164 lbs BSA: 1.85 m2 HR: 127 bpm BP: 131 / 61 mmHg Technical Quality: Fair Exam Date: 12/11/2021 3:07 PM Exam Location: [facility] Patient Status: Inpatient Admit Date: 12/07/2021 Staff Ordering Physician: Georgette Zepeda M.A., MD Vehicle Check In Clerk: Drew Grimes, BABS, RT Attending Provider: Malina Barfield MD Referring Physician: Xavi BLACKMAN; Exam Type: CA echo doppler color flow Study Info Indications R06.02 - Shortness of breath Complete two-dimensional, color flow and Doppler transthoracic echocardiogram is performed. Strain analysis performed. Summary 1. Complete two-dimensional, color flow and Doppler transthoracic echocardiogram is performed. 2. Left ventricular chamber dimension is normal. 3. Left ventricular systolic function is hyperdynamic, estimated at >70%. 4. The left ventricular diastolic function is grade I diastolic dysfunction. 5. E/e' 10 is mildly elevated. 6. Global longitudinal strain is abnormal at -15.0%. 7. Right ventricular systolic function is reduced based on abnormal TAPSE 1.5 cm. 8. No pulmonary hypertension, estimated pulmonary arterial systolic pressure is 31 mmHg. Left Ventricle E/e' 10 is mildly elevated. Global longitudinal strain is abnormal at -15.0%. Left ventricular chamber dimension is normal. Left ventricular systolic function is hyperdynamic, estimated at >70%. The left ventricular diastolic function is grade I diastolic dysfunction. Right Ventricle Right ventricular systolic function is reduced based on abnormal TAPSE 1.5 cm. Right ventricular chamber dimension is not well visualized. Left Atria Left atrial chamber dimension is normal. Right Atria Right atrial chamber dimension is normal. Aortic Valve The aortic valve is not well visualized. Cannot determine number of aortic valve leaflets. There is no aortic valve stenosis. There is no aortic valve regurgitation. Pulmonic Valve There is no pulmonic regurgitation. Mitral Valve There is no mitral valve stenosis. There is no mitral valve regurgitation. Tricuspid Valve There is no tricuspid valve regurgitation. No pulmonary hypertension, estimated pulmonary arterial systolic pressure is 31 mmHg. Pericardium/Pleural There is no pericardial effusion. Inferior Vena Cava Normal inferior vena cava with >50% collapse upon inspiration consistent with normal right atrial pressure, 5 mmHg. Aorta The aortic root size at the sinus of Valsalva is normal. Left Ventricular Outflow Tract Name Value Normal LVOT 2D LVOT Diameter 1.9 cm LVOT Doppler LVOT Peak Gradient 7 mmHg LVOT Mean Gradient 4 mmHg LVOT VTI 21 cm LVOT VTI/AV VTI Ratio 0.9 LVOT Stroke Volume 64 ml LVOT CO 7.2 l/min LVOT CI 3.9 l/min/m2 Mitral Valve
[2021-12-11] MEDS: IPRATROPIUM BR 0.02% INH SOLN 0.5 MG/2.5 ML VIAL INHALATION ×4 (02:10→20:21)
[2021-12-11] MEDS: LEVALBUTEROL NEB 1.25 MG/3 ML 0.63 MG INHALATION ×4 (02:10→20:21)
[2021-12-11 06:00] LABS: Hematocrit 45.7 % (37.0-47.0); Hemoglobin 15.1 g/dL (12.0-15.0); Mean Corpuscular Hemoglobin 30.8 pg (26-34); Mean Corpuscular Volume 93.3 fl (80-100); Mean Platelet Volume 9.8 fl (7.4-10.4); Platelet Count Result 256 k/mm3 (150-375); Red Cell Distribution Width 12.3 % (11.5-14.5); White Blood Count 6.6 K/mm3 (4.5-10.0)
[2021-12-11 06:12] LABS: Blood Urea Nitrogen 27 mg/dL (7-17); Calcium 8.6 mg/dL (8.4-10.2); Carbon Dioxide > 40 mmol/L (22-30); Chloride 93 mmol/L (98-107); Estimated CRCL calculation 57 ml/min; Estimated Glomerular Filt Rate > 60; Glucose 124 mg/dL (65-110); Potassium 3.1 mmol/L (3.4-5.0); Sodium 137 mmol/L (137-145)
[2021-12-11] MEDS: ENOXAPARIN 40 MG/0.4 ML SYRINGE SUB-Q (08:58)
[2021-12-11] MEDS: BENZONATATE 100 MG CAPSULE 200 MG PO ×3 (09:00→16:51)
[2021-12-11] MEDS: NICOTINE (*PBKC) 21 MG PATCH 1 PATCH TRANSDERM (09:00)
[2021-12-11] MEDS: FUROSEMIDE INJ 40 MG/4 ML VIAL IV PUSH (09:01)
[2021-12-11] MEDS: METOPROLOL SUCCINATE EXT REL 50 MG TABCR PO (09:02)
[2021-12-11] MEDS: PANTOPRAZOLE 40 MG TABLET PO (09:02)
[2021-12-11] MEDS: FLUTICASONE/UMECLIDIN/VILANTER 100-62.5-25 MCG ELLIPTA 1 PUFF INHALATION (09:22)
--- NOTE | 2021-12-11 10:20 | PM.IMPN ---
Progress Note: A&P Assessment and Plan (1) COPD exacerbation: Code(s): J44.1 - Chronic obstructive pulmonary disease with (acute) exacerbation Status: Acute Assessment and Plan: Associated with acute hypercapnic hypoxemic respiratory failure required BiPAP Started IV Solu-Medrol repeat chest x-ray today continue nebulizer treatment and antibiotics (2) Community acquired pneumonia: Code(s): J18.9 - Pneumonia, unspecified organism Status: Acute Assessment and Plan: She was started on levofloxacin in the emergency department and we will continue with this given listed allergy to cephalosporins. Sputum to be attempted for culture. Negative for Legionella and strep pneumonia antigens. She was negative for SARS-CoV-2 and influenza A and B by PCR. (3) Tachycardia: Code(s): R00.0 - Tachycardia, unspecified Status: Acute Assessment and Plan: May very well be related to albuterol nebulizers that she has used over the past 24 hours thus we will change albuterol to Xopenex. CTA of the chest was negative for pulmonary embolism showed multifocal pneumonia. . (4) Polycythemia: Code(s): D75.1 - Secondary polycythemia Status: Acute Assessment and Plan: Hemoglobin has been mildly elevated on labs over the last 2-1/2 years, possibly chronic mild hypoxia. Continuous pulse ox and apnea link ordered this evening. (5) Hypertension: Code(s): I10 - Essential (primary) hypertension Status: Inactive Assessment and Plan: Blood pressures were reviewed and they have been reasonable. Continue antihypertensives and monitor. (6) Tobacco dependence: Code(s): F17.200 - Nicotine dependence, unspecified, uncomplicated Status: Acute Assessment and Plan: Smoking cessation is imperative and was discussed. She declines the need for a nicotine patch at this time. (7) Acute and chronic respiratory failure: Code(s): J96.20 - Acute and chronic respiratory failure, unspecified whether with hypoxia or hypercapnia Status: Acute Assessment and Plan: Acute on top of chronic hypoxemic hypercapnic Multifactorial secondary to COPD exacerbation CHF exacerbation multifocal pneumonia Continue IV Lasix Continue steroid nebulizer treatment antibiotics Check 2D echo today Subjective Date/time seen: 12/11/21 10:20 Interval history: 70 years old female with past medical history of COPD presented to the hospital with shortness of breath was found to have multifocal pneumonia COPD exacerbation associated with acute hypoxemic respiratory failure treated with IV antibiotic steroid nebulizer treatment on 12/09 patient developed acute respiratory failure as patient was quite somnolent, and ABG showed pH 7.2, pCO2 80, and pO2 69 most likely exacerbation of COPD, gave the patient 1 time dose of methylprednisone 80 mg qnd Lasix 40 mg IV, placed the patient on BiPAP and repeat ABG after 2 hours, showed much improvement Patient feels weak and short of breath Patient denies fever headache chest pain I am seeing the patient for shortness of breath Exam Narrative: Patient is comfortable, NAD HEENT: eyes are clear and none icteric LUNGS: bilateral poor air entry with rhonchi and wheezing ABD: distended Lower extremities: no edema SKIN: nonjaundiced Neuro: grossly intact. Objective Data Vital Signs Vital Signs: Vital Signs - 24 hr 12/10/21 12:00 12/10/21 14:01 12/10/21 14:11 Temperature Pulse Rate 106 H 85 90 Respiratory Rate 22 H 22 H Blood Pressure Pulse Oximetry 12/10/21 14:31 12/10/21 16:00 12/10/21 20:00 Temperature 97.9 F Pulse Rate 112 H 115 H 86 Respiratory Rate 16 20 Blood Pressure 135/76 Pulse Oximetry 90 90 12/10/21 20:09 12/10/21 21:46 12/10/21 23:02 Temperature 96.7 F L Pulse Rate 86 117 H 110 H Respiratory Rate 20 18 27 H Blood Pressure 119/72 Pulse Oximetry 90 93 12/11/21 0
--- NOTE | 2021-12-11 10:49 | PCRTNOTE ---
TRILOGY PENDING WITH [employer].
--- NOTE | 2021-12-11 10:49 | PCRCNOTE ---
TRILOGY SET UP PENDING WITH [facility].
--- NOTE | 2021-12-11 12:55 | PM.CNPUL ---
Assessment and Plan Assessment and plan (1) Acute and chronic respiratory failure: Code(s): J96.20 - Acute and chronic respiratory failure, unspecified whether with hypoxia or hypercapnia Status: Acute (2) COPD exacerbation: Code(s): J44.1 - Chronic obstructive pulmonary disease with (acute) exacerbation Status: Acute Assessment and Plan: 70-year-old female with history of advanced COPD, presented with acute on chronic hypercapnic respiratory failure related to COPD exacerbation. Chest CT shows a small infiltrate in the left lower lobe which may represent lower respiratory tract infection. The patient has improved following treatment with IV steroids, antibiotics and nebulized short-acting bronchodilators. On physical exam she still has hyperinflated lungs, she still short of breath bracing arms when seated in bed. I would continue with current antibiotic and short-acting bronchodilators. I would switch the patient to oral steroids 40 mg p.o. daily starting in in a.m. The patient has acute on chronic hypercapnic respiratory failure which od clearly related to advanced COPD. She required BiPAP support at high pressures with a backup rate during this hospitalization. The patient continued to have high pCO2 level while on BiPAP as seen in the last ABG testing with pCO2 of 51.4. She is clearly a candidate for home AVAPS /AE support as this modality has the ability to provide guaranteed minute ventilation with auto EPAP, alarms and internal batteru that BiPAP lacks the ability to provide. (3) COPD (chronic obstructive pulmonary disease): Code(s): J44.9 - Chronic obstructive pulmonary disease, unspecified Status: Acute History of Present Illness History of Present Illness Consult date: 12/11/21 Chief complaint: Sepsis, Community Aquired Pneumonia, COPD Narrative: this 70-year-old female presented with 4 day history of increasing shortness of breath. The patient has history of advanced COPD, on a triple inhaler daily. She was in her usual state of health until approximately for 5 days prior to this admission when she started having shortness of breath mild cough and mild wheezing. She had no fever chills hemoptysis chest pain palpitations or lower extremity edema. Initial blood gases showed acute on chronic hypercapnic respiratory failure with ABG showing is pH 7.21, pCO2 80 and PO2 of 69. The patient was treated with BiPAP ventilatory support with improvement of gas exchange and repeat blood gas showing pH of 7.36 and pCO2 of 51.4. Initial chest CT showed centrilobular emphysema and small infiltrate in the left lower lobe. Previous pulmonary function testing done in May of 2018 showed moderate COPD with no response to bronchodilators in moderately reduced lung diffusion capacity. Current treatment includes antibiotics IV steroids and bronchodilators. Patient has improved since admission into the hospital. She has been considered for home ventilatory support given history of chronic hypercapnic respiratory failure with 2 exacerbations over the last couple of years. Low-dose CT done for lung cancer screening several months ago showed no lung nodules. Review of Systems Review of Systems: Patient reports no significant weight changes. She has no orthopnea. She has occasional acid reflux symptoms. She has no nausea vomiting diarrhea constipation or abdominal pain. She has no urinary complaints. She has no joint pain. She has no history of lower extremity edema. The patient smokes 1 pack per day for 50 years. She is willing to quit smoking. The remainder of the 12 point system review is negative PMFSH Past Medical History Medical History (Updated 12/09/21 @ 12:47 by Malina Barfield MD) Anxiety Chronic obstructive pulmonary disease Hyperlipidemia Hypertension Kidney stone Tobacco dependence Surgical History Surgical History Histo
[2021-12-11] MEDS: MONTELUKAST SODIUM 10 MG TABLET PO (20:15)
[2021-12-11] MEDS: MELATONIN 5 MG TABLET PO (20:15)
[2021-12-11] MEDS: ALPRAZolam (*CRX) 0.25 MG TABLET PO (20:15)
[2021-12-11] MEDS: FENOFIBRATE 160 MG TABLET PO (20:15)
[2021-12-11] MEDS: estradioL 1 MG TABLET PO (20:15)
[2021-12-12] VITALS (22 sets, daily range): BP systolic 133–168; BP diastolic 80–83; PULSE 97–124; RESP 16–22; TEMP 36–36.9; O2SAT 92–99
[2021-12-12] MEDS: IPRATROPIUM BR 0.02% INH SOLN 0.5 MG/2.5 ML VIAL INHALATION ×4 (02:07→19:22)
[2021-12-12] MEDS: LEVALBUTEROL NEB 1.25 MG/3 ML 0.63 MG INHALATION ×4 (02:07→19:22)
[2021-12-12 05:02] LABS: Basophils Percent Auto 0.3 % (0.2-1.2); Eosinophils Percent Auto 0.1 % (0-4.4); Hematocrit 48.8 % (37.0-47.0); Hemoglobin 16.2 g/dL (12.0-15.0); Immature Granulocyte Absolute 0.04 K/mm3 (0.00-0.031); Immature Granulocyte Percent A 0.4 % (0-0.5); Lymphocytes Absolute Auto 1.22 K/mm3 (0.9-3.2); Lymphocytes Percent Auto 13.6 % (18.3-44.2); Mean Corpuscular HGB Conc 33.2 g/dl (32-36); Mean Corpuscular Hemoglobin 29.8 pg (26-34); Mean Corpuscular Volume 89.7 fl (80-100); Mean Platelet Volume 9.9 fl (7.4-10.4); Monocytes Absolute Auto 1.1 K/mm3 (0.1-0.6); Neutrophils Absolute Auto 6.6 K/mm3 (1.3-6.7); Neutrophils Percent Auto 73.6 % (45.5-73.1); Platelet Count Result 328 k/mm3 (150-375); Red Blood Count 5.44 M/mm3 (4.2-5.4); Red Cell Distribution Width 12.1 % (11.5-14.5); White Blood Count 8.9 K/mm3 (4.5-10.0)
[2021-12-12 05:23] LABS: Alanine Aminotransferase 28 U/L (4-35); Albumin Level 4.3 g/dL (3.5-5.1); Alkaline Phosphatase 70 U/L (38-126); Aspartate Amino Transferase 26 U/L (14-36); Bilirubin,Total 0.8 mg/dL (0.2-1.3); Blood Urea Nitrogen 30 mg/dL (7-17); Calcium 9.2 mg/dL (8.4-10.2); Carbon Dioxide > 40 mmol/L (22-30); Chloride 91 mmol/L (98-107); Estimated CRCL calculation 51 ml/min; Estimated Glomerular Filt Rate > 60; Glucose 138 mg/dL (65-110); Potassium 3.4 mmol/L (3.4-5.0); Sodium 137 mmol/L (137-145)
[2021-12-12] MEDS: FLUTICASONE/UMECLIDIN/VILANTER 100-62.5-25 MCG ELLIPTA 1 PUFF INHALATION (08:06)
[2021-12-12] MEDS: BENZONATATE 100 MG CAPSULE 200 MG PO ×2 (08:14→17:17)
[2021-12-12] MEDS: METOPROLOL SUCCINATE EXT REL 50 MG TABCR PO (08:14)
[2021-12-12] MEDS: predniSONE 20 MG TABLET 40 MG PO (08:14)
[2021-12-12] MEDS: PANTOPRAZOLE 40 MG TABLET PO (08:14)
[2021-12-12] MEDS: NICOTINE (*PBKC) 21 MG PATCH 1 PATCH TRANSDERM (08:15)
[2021-12-12] MEDS: ENOXAPARIN 40 MG/0.4 ML SYRINGE SUB-Q (08:15)
[2021-12-12] MEDS: FUROSEMIDE INJ 40 MG/4 ML VIAL IV PUSH (08:15)
--- NOTE | 2021-12-12 10:52 | PM.PNPUL ---
Progress Note: A&P Additional Plan (1) Acute and chronic respiratory failure: Code(s): J96.20 - Acute and chronic respiratory failure, unspecified whether with hypoxia or hypercapnia Status: Acute (2) COPD exacerbation: Code(s): J44.1 - Chronic obstructive pulmonary disease with (acute) exacerbation Status: Acute Assessment and Plan: 70-year-old female with history of advanced COPD, presented with acute on chronic hypercapnic respiratory failure related to COPD exacerbation. Chest CT shows a small infiltrate in the left lower lobe which may represent lower respiratory tract infection. The patient has improved following treatment with IV steroids, antibiotics and nebulized short-acting bronchodilators. On physical exam she still has hyperinflated lungs, she still short of breath bracing arms when seated in bed. I would continue with current antibiotic and short-acting bronchodilators, and oral steroids as prescribed. On physical exam there is evidence of a better air movement. Patient has history of anxiety requesting tranquilizer. She will be started on home ventilator while still inpatient. She will also need apnea link on home ventilator. (3) COPD (chronic obstructive pulmonary disease): Code(s): J44.9 - Chronic obstructive pulmonary disease, unspecified Status: Acute Subjective Date/time seen: 12/12/21 10:52 patient used BiPAP last night. He has no new respiratory symptoms. has been complaining of some nausea this a.m.. Shortness of breath less today than before. She has no wheezing. Review of Systems Review of Systems: All systems reviewed & are unremarkable except as noted in HPI and below Exam Narrative: GENERAL APPEARANCE: Well developed, well nourished, alert and cooperative, and appears to be in mild respiratory distress while on supplemental oxygen SKIN: Inspection of the skin reveals no rashes, ulcerations or petechiae. HEENT: Sclerae anicteric and conjunctivae pink and moist. Extraocular movements were intact and pupils were equal, round, and reactive to light. The oral mucosa, hard and soft palate, tongue and posterior pharynx were normal. NECK: Supple. There was no thyroid enlargement, and no tenderness, or masses were felt. CHEST: hyperinflated chest LUNGS: Auscultation of the lungs revealed distant breath sounds bilaterally, no wheezing. CARDIAC: There was a regular rate and rhythm without any murmurs. ABDOMEN: Soft and nontender with normal bowel sounds. There was no organomegaly. LYMPH NODES: No lymphadenopathy was appreciated in the neck. EXTREMITIES: No cyanosis, clubbing or edema. NEUROLOGIC: Alert and oriented x 3. Normal affect. Objective Data Vital Signs Vital Signs: Vital Signs - 24 hr 12/11/21 12:00 12/11/21 14:44 12/11/21 15:17 Temperature 36.5 C Pulse Rate 113 H 79 112 H Respiratory Rate 20 18 Blood Pressure 130/71 Pulse Oximetry 96 12/11/21 16:00 12/11/21 20:00 12/11/21 20:25 Temperature Pulse Rate 111 H 118 H 111 H Respiratory Rate 20 20 Blood Pressure Pulse Oximetry 96 12/11/21 20:26 12/11/21 20:34 12/11/21 22:00 Temperature 36.1 C L Pulse Rate 118 H 116 H Respiratory Rate 20 18 Blood Pressure 124/66 Pulse Oximetry 96 96 12/11/21 22:21 12/12/21 00:00 12/12/21 02:07 Temperature Pulse Rate 126 H 105 H 119 H Respiratory Rate 26 H 19 Blood Pressure Pulse Oximetry 100 12/12/21 02:12 12/12/21 02:19 12/12/21 04:00 Temperature Pulse Rate 111 H 114 H 118 H Respiratory Rate 18 18 Blood Pressure Pulse Oximetry 99 12/12/21 06:00 12/12/21 08:06 12/12/21 08:09 Temperature 36.6 C Pulse Rate 115 H 124 H Respiratory Rate 18 18 Blood Pressure 149/80 H Pulse Oximetry 96 92 12/12/21 08:14 12/12/21 08:16 Temperature Pulse Rate 110 H 116 H Respiratory Rate 18 Blood Pressure Pulse Oximetry Intake/Output Intake/Output: Intake & Output 12/09/21 12/10/21
[2021-12-12] MEDS: POTASSIUM CHLORIDE 20 MEQ PACKET (FOR LIQUID) 40 MEQ PO ×2 (10:58→17:33)
--- NOTE | 2021-12-12 14:12 | P.CDI_ITS ---
CDI Query Clarification Request -12/06 ER physician documented: -Clinical Impression: - Sepsis, Community acquired pneumonia, COPD (chronic obstructive pulmonary disease) H&P and Progress notes do not state Sepsis as a diagnosis Please clarify if diagnosis Sepsis is ruled in or ruled out or unable to de termine <Carmenza Francisco - Last Filed: 12/12/21 14:18>
[2021-12-12] MEDS: ALPRAZolam (*CRX) 0.25 MG TABLET PO ×2 (15:05→21:26)
--- NOTE | 2021-12-12 15:49 | PM.IMPN ---
Progress Note: A&P Additional Plan 70-year-old female smoker with COPD who presented to the ER for evaluation of shortness of breath 1) Acute on Chronic Resp Failure 2/2 COPD exacerbation+Community Acquired PNA c/w O2 support Appreciate Pulmonary help Await triology c/w Levofloxacin for 7 days Negative for Legionella and strep pneumonia antigens. She was negative for SARS-CoV-2 and influenza A and B by PCR. c/w prednisone c/w bronchodilators (2) Tachycardia: Increase dose of metoprolol (3) Polycythemia: polycythemia Hemoglobin has been mildly elevated on labs over the last 2-1/2 years, possibly chronic mild hypoxia. (4) Tobacco dependence: Smoking cessation is imperative and was discussed c/w Nicotine patch 5) DVT ppx: Lovenox 6)Code:Full 7)Dispo:Await triology arrangement Time Spent With Patient Time with patient: 15 - 25 minutes Subjective Date/time seen: 12/12/21 15:49 no acute events overnight Review of Systems Review of Systems: All systems reviewed & are unremarkable except as noted in HPI and below Constitutional: Constitutional: Reports no additional constitutional complaints ENT: Reports system reviewed and no additional complaints, except as documented Cardiovascular: Cardiovascular: Reports no additional cardiovascular complaints Respiratory: Respiratory: Reports dyspnea on exertion Gastrointestinal: Gastrointestinal: Reports no additional gastrointestinal complaints Musculoskeletal: Musculoskeletal: Reports no additional musculoskeletal complaints Exam Const: General: no acute distress HENMT: Mouth: Yes Abnormal oral and palatal mucosa present Eyes: General: appearance normal, both eyes and all related structures Neck: Neck: supple Resp: Other: decreased breath sounds B/l Cardio: Rate: regular rate and tachycardic GI: GI Palp: Yes Soft to palpation Auscultation: normal bowel sounds Skin: General skin exam: normal color Neuro: Cognition (Neuro): normal cognition Psych: Mental Status: mental status grossly normal Objective Data Vital Signs Vital Signs: Vital Signs - 24 hr 12/11/21 16:00 12/11/21 20:00 12/11/21 20:25 Temperature Pulse Rate 111 H 118 H 111 H Respiratory Rate 20 20 Blood Pressure Pulse Oximetry 96 12/11/21 20:26 12/11/21 20:34 12/11/21 22:00 Temperature 97.0 F L Pulse Rate 118 H 116 H Respiratory Rate 20 18 Blood Pressure 124/66 Pulse Oximetry 96 96 12/11/21 22:21 12/12/21 00:00 12/12/21 02:07 Temperature Pulse Rate 126 H 105 H 119 H Respiratory Rate 26 H 19 Blood Pressure Pulse Oximetry 100 12/12/21 02:12 12/12/21 02:19 12/12/21 04:00 Temperature Pulse Rate 111 H 114 H 118 H Respiratory Rate 18 18 Blood Pressure Pulse Oximetry 99 12/12/21 06:00 12/12/21 08:00 12/12/21 08:06 Temperature 97.8 F Pulse Rate 115 H 122 H 124 H Respiratory Rate 18 18 Blood Pressure 149/80 H Pulse Oximetry 96 12/12/21 08:09 12/12/21 08:14 12/12/21 08:16 Temperature Pulse Rate 110 H 116 H Respiratory Rate 18 Blood Pressure Pulse Oximetry 92 12/12/21 12:00 12/12/21 14:00 12/12/21 15:11 Temperature 98.5 F Pulse Rate 123 H 110 H 111 H Respiratory Rate 16 18 Blood Pressure 133/83 Pulse Oximetry 96 12/12/21 15:19 Temperature Pulse Rate 116 H Respiratory Rate 18 Blood Pressure Pulse Oximetry Intake/Output Intake/Output: Intake & Output 12/09/21 12/10/21 12/11/21 12/12/21 23:59 23:59 23:59 23:59 Intake Total 688 070 8734 350 Output Total 700 1100 350 800 Balance 222 -420 990 -450 Meds/Results Medications: Active Medications Generic Name Dose Route Start Last Admin Trade Name Олегq PRN Reason Stop Dose Admin Alprazolam 0.25 mg 12/07/21 21:00 12/11/21 20:15 Alprazolam (*Crx) 0.25 Mg Tablet PO 0.25 mg HS CODY Administration Alprazolam 0.25 mg 12/12/21 11:37 12/12/21 15:05 Alprazolam (*Crx) 0.25 Mg Tablet PO 0.2
[2021-12-12] MEDS: FENOFIBRATE 160 MG TABLET PO (21:26)
[2021-12-12] MEDS: MONTELUKAST SODIUM 10 MG TABLET PO (21:26)
[2021-12-12] MEDS: MELATONIN 5 MG TABLET PO (21:26)
[2021-12-12] MEDS: estradioL 1 MG TABLET PO (21:26)
[2021-12-13] VITALS (25 sets, daily range): BP systolic 133–156; BP diastolic 75–86; PULSE 91–128; RESP 16–20; TEMP 36.1–36.8; O2SAT 86–98
[2021-12-13] MEDS: IPRATROPIUM BR 0.02% INH SOLN 0.5 MG/2.5 ML VIAL INHALATION ×3 (02:39→20:15)
[2021-12-13] MEDS: LEVALBUTEROL NEB 1.25 MG/3 ML 0.63 MG INHALATION ×3 (02:39→20:15)
[2021-12-13 05:59] LABS: Basophils Percent Auto 0.4 % (0.2-1.2); Eosinophils Percent Auto 0.1 % (0-4.4); Hematocrit 44.1 % (37.0-47.0); Hemoglobin 15.2 g/dL (12.0-15.0); Immature Granulocyte Absolute 0.05 K/mm3 (0.00-0.031); Immature Granulocyte Percent A 0.7 % (0-0.5); Lymphocytes Percent Auto 14.9 % (18.3-44.2); Mean Corpuscular HGB Conc 34.5 g/dl (32-36); Mean Corpuscular Hemoglobin 30.9 pg (26-34); Mean Corpuscular Volume 89.6 fl (80-100); Mean Platelet Volume 9.8 fl (7.4-10.4); Monocytes Absolute Auto 1.2 K/mm3 (0.1-0.6); Monocytes Percent Auto 15.6 % (2.6-8.5); Neutrophils Percent Auto 68.3 % (45.5-73.1); Platelet Count Result 289 k/mm3 (150-375); Red Blood Count 4.92 M/mm3 (4.2-5.4); White Blood Count 7.4 K/mm3 (4.5-10.0)
[2021-12-13 06:40] LABS: Alanine Aminotransferase 23 U/L (4-35); Albumin Level 3.7 g/dL (3.5-5.1); Alkaline Phosphatase 61 U/L (38-126); Anion Gap 5 mmol/L (8-16); Aspartate Amino Transferase 23 U/L (14-36); Bilirubin,Total 0.7 mg/dL (0.2-1.3); Blood Urea Nitrogen 25 mg/dL (7-17); Calcium 8.6 mg/dL (8.4-10.2); Carbon Dioxide 36 mmol/L (22-30); Chloride 95 mmol/L (98-107); Estimated CRCL calculation 51 ml/min; Estimated Glomerular Filt Rate > 60; Glucose 129 mg/dL (65-110); Potassium 3.1 mmol/L (3.4-5.0); Sodium 136 mmol/L (137-145)
[2021-12-13] MEDS: ENOXAPARIN 40 MG/0.4 ML SYRINGE SUB-Q (09:00)
[2021-12-13] MEDS: NICOTINE (*PBKC) 21 MG PATCH 1 PATCH TRANSDERM (09:00)
[2021-12-13] MEDS: METOPROLOL SUCCINATE EXT REL 100 MG TABCR PO (09:01)
[2021-12-13] MEDS: PANTOPRAZOLE 40 MG TABLET PO (09:01)
[2021-12-13] MEDS: BENZONATATE 100 MG CAPSULE 200 MG PO ×3 (09:01→17:00)
[2021-12-13] MEDS: predniSONE 20 MG TABLET 40 MG PO (09:01)
[2021-12-13] MEDS: FLUTICASONE/UMECLIDIN/VILANTER 100-62.5-25 MCG ELLIPTA 1 PUFF INHALATION (09:23)
--- NOTE | 2021-12-13 09:47 | PM.PNPUL ---
Progress Note: A&P Additional Plan (1) Acute and chronic respiratory failure: Code(s): J96.20 - Acute and chronic respiratory failure, unspecified whether with hypoxia or hypercapnia Status: Acute (2) COPD exacerbation: Code(s): J44.1 - Chronic obstructive pulmonary disease with (acute) exacerbation Status: Acute Assessment and Plan: 70-year-old female with history of advanced COPD, presented with acute on chronic hypercapnic respiratory failure related to COPD exacerbation. Chest CT shows a small infiltrate in the left lower lobe which may represent lower respiratory tract infection. The patient has improved following treatment with IV steroids, antibiotics and nebulized short-acting bronchodilators. Patient does not want to stay another day, she wants to go home today. Okay to DC patient home. patient will have nocturnal oximetry measured at home while on supplemental oxygen and home noninvasive ventilation. She will continue with prednisone taper regimen for another 2.5 weeks, starting with prednisone 40 mg daily. she will remain on Trelegy inhaler and also short-acting bronchodilators p.r.n.. Prior to discharge home, she will have evaluation for home oxygen as well. 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 (3) COPD (chronic obstructive pulmonary disease): Code(s): J44.9 - Chronic obstructive pulmonary disease, unspecified Status: Acute Subjective Date/time seen: 12/13/21 09:47 Patient has no new respiratory symptoms. Used BiPAP support last night. Anxious to go home. She was not placed on trilogy ventilator last night. Review of Systems Review of Systems: All systems reviewed & are unremarkable except as noted in HPI and below Exam Narrative: GENERAL APPEARANCE: Well developed, well nourished, alert and cooperative, and appears to be in mild respiratory distress while on supplemental oxygen SKIN: Inspection of the skin reveals no rashes, ulcerations or petechiae. HEENT: Sclerae anicteric and conjunctivae pink and moist. Extraocular movements were intact and pupils were equal, round, and reactive to light. The oral mucosa, hard and soft palate, tongue and posterior pharynx were normal. NECK: Supple. There was no thyroid enlargement, and no tenderness, or masses were felt. CHEST: hyperinflated chest LUNGS: Auscultation of the lungs revealed distant breath sounds bilaterally, no wheezing. CARDIAC: There was a regular rate and rhythm without any murmurs. ABDOMEN: Soft and nontender with normal bowel sounds. There was no organomegaly. LYMPH NODES: No lymphadenopathy was appreciated in the neck. EXTREMITIES: No cyanosis, clubbing or edema. NEUROLOGIC: Alert and oriented x 3. Normal affect. Objective Data Vital Signs Vital Signs: Vital Signs - 24 hr 12/12/21 12:00 12/12/21 14:00 12/12/21 15:11 Temperature 36.9 C Pulse Rate 123 H 110 H 111 H Respiratory Rate 16 18 Blood Pressure 133/83 Pulse Oximetry 96 12/12/21 15:19 12/12/21 16:00 12/12/21 19:22 Temperature Pulse Rate 116 H 97 101 H Respiratory Rate 18 Blood Pressure Pulse Oximetry 12/12/21 19:23 12/12/21 19:29 12/12/21 20:00 Temperature Pulse Rate 104 H 110 H Respiratory Rate 19 Blood Pressure Pulse Oximetry 96 96 12/12/21 21:00 12/12/21 22:35 12/13/21 00:00 Temperature 36.0 C L Pulse Rate 118 H 107 H 101 H Respiratory Rate 22 H 19 Blood Pressure 168/82 H Pulse Oximetry 96 98 12/13/21 00:13 12/13/21 02:37 12/13/21 02:45 Temperature Pulse Rate 104 H 101 H 118 H Respiratory Rate 18 20 17 Blood Pressure Pulse Oximetry 98 12/13/21 04:20 12/13/21 06:00 12/13/21 09:19 Temperature 36.3 C L Pulse Rate 114 H 118 H 102 H Respiratory Rate 20 18 Blood Pressure 156/75 H Pulse Oximetry 92 12/13/21 09:24 Temperature Pulse Rate Respiratory Rate Blood Pressure Pulse Oximetry 95 Intake/Output Intake/Ou
--- NOTE | 2021-12-13 10:19 | HOMEO2EVAL ---
Evaluation was performed at [facility] Home Oxygen Evaluation RC: Home Oxygen (O2) Evaluation Start: 12/13/21 09:08 Freq: ONCE Status: Active Protocol: RPE Activity Type Activity Date Activity User E-Sign Co-Sign Detail Recorded Client Recorded Date Recorded By Document 12/13/21 09:15 [email or web address] [email or web address] 12/13/21 10:19 DJO Document 12/13/21 09:20 [email or web address] [email or web address] 12/13/21 10:19 DJO Document 12/13/21 09:25 [email or web address] [email or web address] 12/13/21 10:19 DJO Document 12/13/21 09:30 [email or web address] [email or web address] 12/13/21 10:19 DJO Document 12/13/21 09:35 [email or web address] [email or web address] 12/13/21 10:19 DJO Document 12/13/21 09:40 DJO [email or web address] 12/13/21 10:19 DJO Document 12/13/21 09:55 DJO [email or web address] 12/13/21 10:19 DJO 12/13/21 12/13/21 12/13/21 09:15 09:20 09:25 Home O2 Evaluation Test Phase Resting Resting Resting Oxygen Delivery Room Air Nasal Cannula Nasal Cannula Oxygen Flow Rate (L/min) 1 2 Pulse Oximetry (90-100 %) 86 L 88 L 90 Pulse Rate (60-100 beats/min) 112 H 111 H 113 H Rate of Perceived Exertion (PE) 6 Very, very light Ambulation Distance (feet) Ambulation Distance (meters) Treatment Charges O2 Evaluation - Inpatient 12/13/21 12/13/21 12/13/21 09:30 09:35 09:40 Home O2 Evaluation Test Phase Exercise Exercise Exercise Oxygen Delivery Nasal Cannula Nasal Cannula Nasal Cannula Oxygen Flow Rate (L/min) 2 3 4 Pulse Oximetry (90-100 %) 86 L 88 L 91 Pulse Rate (60-100 beats/min) 122 H 124 H 128 H Rate of Perceived Exertion (PE) Ambulation Distance (feet) 250 Ambulation Distance (meters) 76.19 Treatment Charges 12/13/21 09:55 Home O2 Evaluation Test Phase Resting Oxygen Delivery Nasal Cannula Oxygen Flow Rate (L/min) 2 Pulse Oximetry (90-100 %) 90 Pulse Rate (60-100 beats/min) 112 H Rate of Perceived Exertion (PE) Ambulation Distance (feet) Ambulation Distance (meters) Treatment Charges
--- NOTE | 2021-12-13 10:19 | PCRCNOTE ---
Addendum entered by Nicol Zuniga CRTT 12/13/21 13:18: HOME O2 AND TRILOGY SET UP WITH [employer]. PHONE NUMBER Original Note: HOME O2 EVAL COMPLETE, 2L REST AND 4L WITH ACTIVITY
[2021-12-13] MEDS: ALPRAZolam (*CRX) 0.25 MG TABLET PO ×2 (12:32→20:42)
--- NOTE | 2021-12-13 16:52 | PM.IMPN ---
Progress Note: A&P Assessment and Plan (1) COPD exacerbation: Code(s): J44.1 - Chronic obstructive pulmonary disease with (acute) exacerbation Status: Acute Assessment and Plan: Associated with acute hypercapnic hypoxemic respiratory failure required BiPAP Started IV Solu-Medrol continue nebulizer treatment and antibiotics Which to oral prednisone as delineated by Pulmonary On Trelegy inhaler and short-acting bronchodilators. (2) Community acquired pneumonia: Code(s): J18.9 - Pneumonia, unspecified organism Status: Acute Assessment and Plan: She was started on levofloxacin in the emergency department and we will continue with this given listed allergy to cephalosporins. Sputum to be attempted for culture. Negative for Legionella and strep pneumonia antigens. She was negative for SARS-CoV-2 and influenza A and B by PCR. (3) Tachycardia: Code(s): R00.0 - Tachycardia, unspecified Status: Acute Assessment and Plan: May very well be related to albuterol nebulizers that she has used over the past 24 hours thus we will change albuterol to Xopenex. CTA of the chest was negative for pulmonary embolism showed multifocal pneumonia. . (4) Polycythemia: Code(s): D75.1 - Secondary polycythemia Status: Acute Assessment and Plan: Hemoglobin has been mildly elevated on labs over the last 2-1/2 years, possibly chronic mild hypoxia. Continuous pulse ox and apnea link ordered this evening. (5) Hypertension: Code(s): I10 - Essential (primary) hypertension Status: Inactive Assessment and Plan: Blood pressures were reviewed and they have been reasonable. Continue antihypertensives and monitor. (6) Tobacco dependence: Code(s): F17.200 - Nicotine dependence, unspecified, uncomplicated Status: Acute Assessment and Plan: Smoking cessation is imperative and was discussed. She declines the need for a nicotine patch at this time. (7) Acute and chronic respiratory failure: Code(s): J96.20 - Acute and chronic respiratory failure, unspecified whether with hypoxia or hypercapnia Status: Acute Assessment and Plan: Acute on top of chronic hypoxemic hypercapnic Multifactorial secondary to COPD exacerbation CHF exacerbation multifocal pneumonia Continue IV Lasix Continue steroid nebulizer treatment antibiotics Echo with EF more than 70% no valvular abnormality pulmonary artery systolic pressure is 31 right ventricular systolic function is reduced Subjective Date/time seen: 12/13/21 16:52 Interval history: 70 years old female with past medical history of COPD presented to the hospital with shortness of breath was found to have multifocal pneumonia COPD exacerbation associated with acute hypoxemic respiratory failure treated with IV antibiotic steroid nebulizer treatment on 12/09 patient developed acute respiratory failure as patient was quite somnolent, and ABG showed pH 7.2, pCO2 80, and pO2 69 most likely exacerbation of COPD, gave the patient 1 time dose of methylprednisone 80 mg qnd Lasix 40 mg IV, placed the patient on BiPAP and repeat ABG after 2 hours, showed much improvement 12/13/2021 no overnight events. Discussed with the nursing staff. Trilogy ordered for pulmonary for acute on chronic respiratory failure with hypercapnia due to COPD. She is being followed by Pulmonary here Review of Systems Review of Systems: All systems reviewed & are unremarkable except as noted in HPI and below Exam Narrative: Patient is comfortable, NAD HEENT: eyes are clear and none icteric LUNGS: bilateral poor air entry with rhonchi bilaterally, no wheezes ABD: soft, nontender Lower extremities: no edema cyanosis or clubbing SKIN: nonjaundiced Neuro: grossly intact. alert and oriented x3 Objective Data Vital Signs Vital Signs: Vital Signs - 24 hr 12/12/21 19:22 12/12/21 19:23 12/12/21 19:29 Temperature
[2021-12-13] MEDS: POTASSIUM CHLORIDE 20 MEQ TABLET 40 MEQ PO (17:49)
[2021-12-13] MEDS: FENOFIBRATE 160 MG TABLET PO (20:42)
[2021-12-13] MEDS: MONTELUKAST SODIUM 10 MG TABLET PO (20:42)
[2021-12-13] MEDS: estradioL 1 MG TABLET PO (20:42)
[2021-12-13] MEDS: MELATONIN 5 MG TABLET PO (20:42)
[2021-12-14] VITALS (12 sets, daily range): BP systolic 119–122; BP diastolic 66–68; PULSE 94–108; RESP 18–20; TEMP 36.3–36.4; O2SAT 94–98
[2021-12-14] MEDS: IPRATROPIUM BR 0.02% INH SOLN 0.5 MG/2.5 ML VIAL INHALATION ×2 (04:14→07:15)
[2021-12-14] MEDS: LEVALBUTEROL NEB 1.25 MG/3 ML 0.63 MG INHALATION ×2 (04:15→07:16)
[2021-12-14 05:34] LABS: Basophils Percent Auto 0.4 % (0.2-1.2); Eosinophils Percent Auto 0.1 % (0-4.4); Hematocrit 47.5 % (37.0-47.0); Hemoglobin 15.7 g/dL (12.0-15.0); Immature Granulocyte Absolute 0.14 K/mm3 (0.00-0.031); Immature Granulocyte Percent A 1.7 % (0-0.5); Lymphocytes Absolute Auto 1.54 K/mm3 (0.9-3.2); Lymphocytes Percent Auto 18.8 % (18.3-44.2); Mean Corpuscular HGB Conc 33.1 g/dl (32-36); Mean Corpuscular Hemoglobin 29.9 pg (26-34); Mean Corpuscular Volume 90.5 fl (80-100); Mean Platelet Volume 9.7 fl (7.4-10.4); Monocytes Absolute Auto 1.1 K/mm3 (0.1-0.6); Monocytes Percent Auto 13.7 % (2.6-8.5); Neutrophils Absolute Auto 5.3 K/mm3 (1.3-6.7); Neutrophils Percent Auto 65.3 % (45.5-73.1); Platelet Count Result 299 k/mm3 (150-375); Red Blood Count 5.25 M/mm3 (4.2-5.4); Red Cell Distribution Width 11.9 % (11.5-14.5); White Blood Count 8.2 K/mm3 (4.5-10.0)
[2021-12-14 05:47] LABS: Alanine Aminotransferase 24 U/L (4-35); Albumin Level 3.8 g/dL (3.5-5.1); Alkaline Phosphatase 59 U/L (38-126); Anion Gap 5 mmol/L (8-16); Aspartate Amino Transferase 23 U/L (14-36); Bilirubin,Total 0.6 mg/dL (0.2-1.3); Blood Urea Nitrogen 24 mg/dL (7-17); Calcium 8.6 mg/dL (8.4-10.2); Carbon Dioxide 33 mmol/L (22-30); Chloride 99 mmol/L (98-107); Estimated CRCL calculation 57 ml/min; Estimated Glomerular Filt Rate > 60; Glucose 163 mg/dL (65-110); Potassium 3.2 mmol/L (3.4-5.0); Sodium 137 mmol/L (137-145)
[2021-12-14] MEDS: FLUTICASONE/UMECLIDIN/VILANTER 100-62.5-25 MCG ELLIPTA 1 PUFF INHALATION (07:16)
[2021-12-14] MEDS: PANTOPRAZOLE 40 MG TABLET PO (08:21)
[2021-12-14] MEDS: METOPROLOL SUCCINATE EXT REL 100 MG TABCR PO (08:21)
[2021-12-14] MEDS: predniSONE 20 MG TABLET 40 MG PO (08:21)
[2021-12-14] MEDS: NICOTINE (*PBKC) 21 MG PATCH 1 PATCH TRANSDERM (08:22)
[2021-12-14] MEDS: ENOXAPARIN 40 MG/0.4 ML SYRINGE SUB-Q (08:22)
[2021-12-14] MEDS: BENZONATATE 100 MG CAPSULE 200 MG PO (08:22)
--- NOTE | 2021-12-14 08:48 | PM.PNPUL ---
Progress Note: A&P Additional Plan (1) Acute and chronic respiratory failure: Code(s): J96.20 - Acute and chronic respiratory failure, unspecified whether with hypoxia or hypercapnia Status: Acute (2) COPD exacerbation: Code(s): J44.1 - Chronic obstructive pulmonary disease with (acute) exacerbation Status: Acute Assessment and Plan: 70-year-old female with history of advanced COPD, presented with acute on chronic hypercapnic respiratory failure related to COPD exacerbation. Chest CT shows a small infiltrate in the left lower lobe which may represent lower respiratory tract infection. The patient has improved following treatment with IV steroids, antibiotics and nebulized short-acting bronchodilators. Patient does not want to stay another day, she wants to go home today. Okay to DC patient home. patient will have nocturnal oximetry measured at home while on supplemental oxygen and home noninvasive ventilation. She will continue with prednisone taper regimen for another 2.5 weeks, starting with prednisone 40 mg daily. she will remain on Trelegy inhaler and also short-acting bronchodilators p.r.n.. Apnea link last night on home ventilator and supplemental oxygen at 3 liters/minute showed adequate oxyhemoglobin saturation. Patient will continue with supplemental oxygen at 3 liters/minute at night and also during the day. 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 (3) COPD (chronic obstructive pulmonary disease): Code(s): J44.9 - Chronic obstructive pulmonary disease, unspecified Status: Acute Subjective Date/time seen: 12/14/21 08:48 patient used a home ventilator and oxygen at 3 liters/minute last night. She has no new respiratory symptoms this a.m.. Eager to go home Review of Systems Review of Systems: All systems reviewed & are unremarkable except as noted in HPI and below Exam Narrative: GENERAL APPEARANCE: Well developed, well nourished, alert and cooperative, and appears to be in mild respiratory distress while on supplemental oxygen SKIN: Inspection of the skin reveals no rashes, ulcerations or petechiae. HEENT: Sclerae anicteric and conjunctivae pink and moist. Extraocular movements were intact and pupils were equal, round, and reactive to light. The oral mucosa, hard and soft palate, tongue and posterior pharynx were normal. NECK: Supple. There was no thyroid enlargement, and no tenderness, or masses were felt. CHEST: hyperinflated chest LUNGS: Auscultation of the lungs revealed distant breath sounds bilaterally, no wheezing. CARDIAC: There was a regular rate and rhythm without any murmurs. ABDOMEN: Soft and nontender with normal bowel sounds. There was no organomegaly. LYMPH NODES: No lymphadenopathy was appreciated in the neck. EXTREMITIES: No cyanosis, clubbing or edema. NEUROLOGIC: Alert and oriented x 3. Normal affect. Objective Data Vital Signs Vital Signs: Vital Signs - 24 hr 12/13/21 09:15 12/13/21 09:19 12/13/21 09:20 Temperature Pulse Rate 112 H 102 H 111 H Respiratory Rate 18 Blood Pressure Pulse Oximetry 86 L 88 L 12/13/21 09:24 12/13/21 09:25 12/13/21 09:30 Temperature Pulse Rate 113 H 122 H Respiratory Rate Blood Pressure Pulse Oximetry 95 90 86 L 12/13/21 09:35 12/13/21 09:40 12/13/21 09:55 Temperature Pulse Rate 124 H 128 H 112 H Respiratory Rate Blood Pressure Pulse Oximetry 88 L 91 90 12/13/21 12:00 12/13/21 14:00 12/13/21 16:00 Temperature 36.8 C Pulse Rate 109 H 104 H 104 H Respiratory Rate 16 Blood Pressure 141/84 H Pulse Oximetry 97 12/13/21 20:00 12/13/21 20:10 12/13/21 20:18 Temperature Pulse Rate 96 100 Respiratory Rate 18 19 Blood Pressure Pulse Oximetry 94 96 12/13/21 20:19 12/13/21 21:01 12/13/21 22:35 Temperature 36.1 C L Pulse Rate 106 H 96 111 H Respiratory Rate 17 18 Blood Pressure 133/86 Pulse Oximetry 94 97
[2021-12-14] MEDS: POTASSIUM CHLORIDE 20 MEQ TABLET 40 MEQ PO (08:50)
--- NOTE | 2021-12-14 10:46 | PM.DS ---
DS: Admitting Diagnosis Discharge Date 12/14/2021 Admitting Diagnosis shortness of breath DS: Discharge Diagnosis Discharge Diagnosis (1) COPD exacerbation: Code(s): J44.1 - Chronic obstructive pulmonary disease with (acute) exacerbation Status: Acute Assessment and Plan: Associated with acute hypercapnic hypoxemic respiratory failure required BiPAP Started IV Solu-Medrol continue nebulizer treatment and antibiotics switch to oral prednisone as delineated by Pulmonary over next 20 days slow taper On Trelegy inhaler and short-acting bronchodilators. Home ventilator arranged at the time of discharge which she will continue to use Follow-up with pulmonary as scheduled in January 01 2022 (2) Community acquired pneumonia: Code(s): J18.9 - Pneumonia, unspecified organism Status: Acute Assessment and Plan: She was started on levofloxacin in the emergency department and we will continue with this given listed allergy to cephalosporins. Sputum to be attempted for culture. Negative for Legionella and strep pneumonia antigens. She was negative for SARS-CoV-2 and influenza A and B by PCR. she finished a course of antibiotic during the hospital stay. (3) Tachycardia: Code(s): R00.0 - Tachycardia, unspecified Status: Acute Assessment and Plan: May very well be related to albuterol nebulizers that she has used over the past 24 hours thus we will change albuterol to Xopenex. CTA of the chest was negative for pulmonary embolism showed multifocal pneumonia. . (4) Polycythemia: Code(s): D75.1 - Secondary polycythemia Status: Acute Assessment and Plan: Hemoglobin has been mildly elevated on labs over the last 2-1/2 years, possibly chronic mild hypoxia. Continuous pulse ox and apnea link ordered this evening. (5) Hypertension: Code(s): I10 - Essential (primary) hypertension Status: Inactive Assessment and Plan: Blood pressures were reviewed and they have been reasonable. Continue antihypertensives and monitor. (6) Tobacco dependence: Code(s): F17.200 - Nicotine dependence, unspecified, uncomplicated Status: Acute Assessment and Plan: Smoking cessation is imperative and was discussed. She declines the need for a nicotine patch at this time. (7) Acute and chronic respiratory failure: Code(s): J96.20 - Acute and chronic respiratory failure, unspecified whether with hypoxia or hypercapnia Status: Acute Assessment and Plan: Acute on top of chronic hypoxemic hypercapnic Multifactorial secondary to COPD exacerbation CHF exacerbation multifocal pneumonia She was also initially diuresed with IV Lasix which was later tapered off. She most likely has underlying COPD exacerbation and pneumonia causing her hypercapnic hypoxic respiratory failure. Continue steroid nebulizer treatment antibiotics Echo with EF more than 70% no valvular abnormality pulmonary artery systolic pressure is 31 right ventricular systolic function is reduced DS: Summary Hospital Course Hospital Course: see above Time Spent with Patient Time attestation: Total time spent providing and/or coordinating discharge services: 50 minutes Exam Narrative: Patient is comfortable, NAD HEENT: eyes are clear and none icteric LUNGS: bilateral poor air entry with rhonchi bilaterally, no wheezes ABD: soft, nontender Lower extremities: no edema cyanosis or clubbing SKIN: nonjaundiced Neuro: grossly intact. alert and oriented x3 DS: Data Data Completed and Pending Completed studies during hospitalization: jose a Type: CA echo doppler color flow Study Info Indications R06.02 - Shortness of breath Complete two-dimensional, color flow and Doppler transthoracic echocardiogram is performed. Strain analysis performed. Summary 1. Complete two-dimensional, color flow and Doppler transthoracic echocardi
[2021-12-15 20:47] LABS: Legionella pneumophila Ag Ur Not Detected (Not Detected)
== END 2021-12-14 13:41 | disposition home health service (06) | DRG 190 ==
LOC: ANHED 12:30 → ANH3MED 14:32
PROVIDERS: Emergency Medicine; Internal Medicine; Physician Assistant; Admitting Provider Family Medicine; Emergency Provider Emergency Medicine; PCP Family Medicine; Visit Provider Internal Medicine
DX: J44.0 Chronic obstructive pulmonary disease with (acute) lower respiratory infection (principal); J96.22 Acute and chronic respiratory failure with hypercapnia; J18.9 Pneumonia, unspecified organism; J44.1 Chronic obstructive pulmonary disease with (acute) exacerbation; R00.0 Tachycardia, unspecified; T48.6X5A Adverse effect of antiasthmatics, initial encounter; D75.1 Secondary polycythemia; E78.5 Hyperlipidemia, unspecified; Z20.822 Contact with and (suspected) exposure to COVID-19; I11.0 Hypertensive heart disease with heart failure; F41.9 Anxiety disorder, unspecified; F17.210 Nicotine dependence, cigarettes, uncomplicated; Z87.442 Personal history of urinary calculi; Z90.49 Acquired absence of other specified parts of digestive tract; Z90.710 Acquired absence of both cervix and uterus; Z90.721 Acquired absence of ovaries, unilateral
CPT/HCPCS: 36415; 36600; 71045; 71046; 71275; 80048; 80053; 82375; 82805; 83050; 83605; 83735; 83880; 84443; 84484; 85025; 85027; 87040; 87449; 87502; 93005; 93306; 94002; 94003; 94618; 94640; 94660; 94762; 96372; 96374; 96375; 97110; 97161; 97165; 97530; 97535; 99285; A9270; C9803; G0378; J1650; J1940; J1956; J2405; J2930; J7030; J7512; Q9967; U0003; U0005

== ENCOUNTER 2021-12-25 15:49 | Outpatient (CLI) | payer MEDICARE, SELFPAY ==
--- NOTE | ~2021-12-25 | MM_ITS ---
EXAMINATION: MM screening beti BI w rodri HISTORY: Screening TECHNIQUE: Craniocaudal and mediolateral oblique 3-D tomosynthesis images were obtained and synthetic 2-D images were generated. CAD analysis was submitted and interpreted. COMPARISON: Comparison to multiple prior studies sequentially, with oldest reviewed study dated 06/23. BREAST PARENCHYMAL COMPOSITION: The breasts are heterogeneously dense, which may obscure small masses . FINDINGS: There is no evidence of suspicious mass, calcification, or architectural distortion to sugg est malignancy in either breast. There has been no suspicious interval change. IMPRESSION: 1. No mammographic evidence of malignancy. 2. Recommend routine screening mammography in one year. BI-RADS Category 1: Negative Reviewed, dictated and finalized at location A.
== END 2021-12-25 15:50 | disposition home or self-care (01) ==
PROVIDERS: PCP Family Medicine; Visit Provider Obstetrics & Gynecology
DX: Z12.31 Encounter for screening mammogram for malignant neoplasm of breast (principal)
CPT/HCPCS: 77063; 77067

== ENCOUNTER 2022-02-12 12:35 | Outpatient (CLI) | payer MEDICARE, SELFPAY ==
[2022-02-12 13:31] LABS: Alveolar/Arterial O2 Gradient 18.6 mmHg; Base Excess ABG -2.8 mEq/l (+/-2.0); HCO3 ABG 20.9 mEq/l (22.0-26.0); Oxygen Content ABG 18.7 %vol (16.0-22.0); Oxygen Saturation ABG 97.2 % (95.0-100.0); Oxyhemoglobin 96.2 % THb (90.0-100.0); PCO2 ABG 33.3 mmHg (35.0-45.0); PO2 ABG 91.3 mmHg (80.0-100.0); PO2 FiO2 Ratio Arterial Blood 4.35 %; Total Hemoglobin 13.8 g/dL (12.0-18.0); pH ABG 7.416 (7.350-7.450)
[2022-02-12 13:32] LABS: Device NASAL CANNULA; Fractional Inspired Oxygen 24 %; Modified Allen's Test Pass; Site Drawn LEFT RADIAL
--- NOTE | 2022-02-14 13:58 | WPDPFTINT ---
PFT Procedure Performed PFT Procedure Performed Spirometry with Pre/Post Bronchodilator Plethysmography (Lung Vol) Diffusing Cap (DLCO) Flow Vol Loop PFT Interpretation Lung volumes were measured with the body plethysmography method. Lung volumes are unremarkable. Spirometry showed diminished expiratory flow rates and a diminished FEV1 to FVC ratio of 53%, consistent with obstructive airway disease. Following administration of a bronchodilator, there was no significant increase in expiratory flow rates. Lung diffusion capacity is moderately reduced at 45% predicted. The flow volume loop is consistent with obstructive airway disease. In comparison to previous study in 2018, the post bronchodilator FVC is now greater by approximately 0.2 L whereas the FEV1 is essentially unchanged. Lung diffusion capacity is also unchanged. Impression: Moderately severe obstructive airway disease with no response to bronchodilators on this testing. Moderately reduced lung diffusion capacity.
--- NOTE | 2022-02-14 14:05 | WPDSIXMINUTE ---
Six Minute Walk Procedure Procedure Performed Pulmonary Stress Test (6 min walk) Six Minute Walk Six Minute Walk: This 6 minute walk test carried out with the patient on supplemental oxygen at 1 liter/minute. The baseline pre walk oxyhemoglobin saturation was 97%. The patient walked over 243 m with no stops during testing. During the walk, the oxyhemoglobin saturation remained 91% or higher. The perceived dyspnea was 2 on the Micki scale at baseline and increased to 3 at the end of the walk. Impression: No evidence of oxyhemoglobin saturation on this testing.
== END 2022-02-12 12:36 | disposition home or self-care (01) ==
PROVIDERS: PCP Family Medicine; Visit Provider Internal Medicine Pulmonary Disease
DX: J44.9 Chronic obstructive pulmonary disease, unspecified (principal); Z87.891 Personal history of nicotine dependence
CPT/HCPCS: 36600; 82805; 94060; 94618; 94726; 94729

== ENCOUNTER 2023-01-01 13:29 | Outpatient (CLI) | payer MEDICARE, SELFPAY ==
--- NOTE | ~2023-01-01 | CT_ITS ---
EXAMINATION: CT lung screening DATE: 01/01/2023 13:46 INDICATION: Lung cancer screening. TECHNIQUE: Computed tomography (CT) of the chest was performed without intravenous contrast. The dose -length product was 91.73 mGy-cm. Automated exposure control and iterative reconstruction technique w ere employed. COMPARISON: CT dated 12/06/2021 FINDINGS: Heart size is normal. No thoracic lymphadenopathy. No significant pleural or pericardial ef fusion. There is atherosclerosis. There are cholecystectomy clips. There are calcified granulomas of the liver and spleen. There is emphysema. There are calcified granuloma in the right lower lobe. Ther e are calcified granulomas in the left hilum and left lung. There are few scattered punctate 1-2 mm n odules in the left lung. There is a 3 mm right middle lobe nodule. No endobronchial lesions. No pneum othorax. No acute bone or joint abnormality. No focal lytic or blastic lesions. IMPRESSION: 1. Lung-RADS category 2: Benign appearance or behavior. Continue annual screening with noncontrast lo w-dose chest CT in 12 months. Reviewed, dictated and finalized at location B. IMPRESSION: 1. Lung-RADS category 2: Benign appearance or behavior. Continue annual screeni ng with noncontrast low-dose chest CT in 12 months.
== END 2023-01-01 13:30 | disposition home or self-care (01) ==
PROVIDERS: Visit Provider Physician Assistant
DX: Z12.2 Encounter for screening for malignant neoplasm of respiratory organs (principal); Z87.891 Personal history of nicotine dependence
CPT/HCPCS: 71271

== ENCOUNTER 2023-01-05 14:18 | Emergency (ER) | payer MEDICARE, SELFPAY ==
--- NOTE | ~2023-01-05 | XR_ITS ---
EXAMINATION: XR chest 2V DATE: 01/05/2023 15:04 INDICATION: Shortness of breath and tachycardia TECHNIQUE: PA and lateral views of the chest were obtained. COMPARISON: Chest radiograph dated 12/11/[address] dated 01/01/2023 FINDINGS: Calcified nodules in the bilateral lower lung zones and calcified left hilar lymph nodes consistent w ith old granulomatous disease. No other airspace opacities, pulmonary edema, pleural effusion or pneu mothorax. The cardiomediastinal silhouette is normal. Mild thoracic kyphosis with mild spondylosis. C holecystectomy clips in right upper quadrant. IMPRESSION: 1. No acute cardiopulmonary disease. Reviewed, dictated and finalized at location A.
[2023-01-05 14:36] VITALS: BP 124/110; PULSE 114; RESP 18; TEMP 36.6; O2SAT 98
--- NOTE | 2023-01-05 14:45 | ECG_ITS ---
Measurements Intervals [place] Rate: 98 P: 44 OH: 156 QRS: 27 QRSD: 73 T: 52 QT: 354 QTc: 453 Interpretive Statements SINUS RHYTHM LOW QRS VOLTAGE IN PRECORDIAL LEADS [QRS DEFLECTION < 1.0 mV IN CHEST LEADS] NONSPECIFIC ST CHANGES COMPARED TO ECG 12/06/2021 11:52:34 SINUS RHYTHM NOW PRESENT Electronically Signed On 01-05-2023 19:24:40 CDT by Katia Mojica M.D.
[2023-01-05 15:54] LABS: Basophils Percent Auto 0.6 % (0.2-1.2); Eosinophils Absolute Auto 0.1 K/mm3 (0-0.3); Eosinophils Percent Auto 1.2 % (0-4.4); Hematocrit 46.2 % (37.0-47.0); Hemoglobin 15.1 g/dL (12.0-15.0); Immature Granulocyte Absolute 0.01 K/mm3 (0.00-0.031); Immature Granulocyte Percent A 0.2 % (0-0.5); Lymphocytes Absolute Auto 1.41 K/mm3 (0.9-3.2); Lymphocytes Percent Auto 21.7 % (18.3-44.2); Mean Corpuscular HGB Conc 32.7 g/dl (32-36); Mean Corpuscular Hemoglobin 30.6 pg (26-34); Mean Corpuscular Volume 93.5 fl (80-100); Mean Platelet Volume 10.2 fl (7.4-10.4); Monocytes Absolute Auto 0.7 K/mm3 (0.1-0.6); Monocytes Percent Auto 10.4 % (2.6-8.5); Neutrophils Absolute Auto 4.3 K/mm3 (1.3-6.7); Neutrophils Percent Auto 65.9 % (45.5-73.1); Platelet Count Result 244 k/mm3 (150-375); Red Blood Count 4.94 M/mm3 (4.2-5.4); Red Cell Distribution Width 13.4 % (11.5-14.5); White Blood Count 6.5 K/mm3 (4.5-10.0)
[2023-01-05 16:03] LABS: Alanine Aminotransferase 37 U/L (6-35); Albumin Level 4.2 g/dL (3.5-5.1); Alkaline Phosphatase 70 U/L (38-126); Anion Gap 5 mmol/L (8-16); Aspartate Amino Transferase 30 U/L (14-36); Bilirubin,Total 0.4 mg/dL (0.2-1.3); Blood Urea Nitrogen 11 mg/dL (7-17); Calcium 8.9 mg/dL (8.4-10.2); Carbon Dioxide 26 mmol/L (22-30); Chloride 106 mmol/L (98-107); Estimated CRCL calculation 87 ml/min; Estimated Glomerular Filt Rate > 60; Glucose 115 mg/dL (65-110); Potassium 3.7 mmol/L (3.4-5.0); Sodium 137 mmol/L (137-145)
--- NOTE | 2023-01-05 17:00 | ED.ARRPALP ---
HPI - Arrhythmia/Palpitations General Chief Complaint: Arrhythmia/Palpitations Stated Complaint: increased heart rate Time Seen by Provider: 01/05/23 16:15 History of Present Illness HPI narrative: Patient is a 72-year-old female with a history of COPD, hypertension, hyperlipidemia presenting with tachycardia. Patient states that for the last couple of days she has noticed that on her Fitbit her heart rate has been from 90s to 120s. She denies any associated symptoms. No chest pain, palpitations, light headedness, shortness of breath, leg swelling. Patient states that she has been under significant stress lately as her boyfriend broke up with her and her daughter is moving out with the dog. States that today she was supposed to go to a wedding shower but she felt generally weak so she came in for evaluation. Currently, she states that she feels significantly improved. States that she feels back at baseline. No recent fevers, numbness or weakness, abdominal pain, nausea or vomiting, diarrhea, dysuria. Related Data Home Medications Medication Instructions Recorded Confirmed estradiol 2 mg tablet 1 mg PO HS 09/07/19 12/12/22 Allergies Allergy/AdvReac Type Severity Reaction Status Date / Time cefuroxime Allergy Intermediate Itching Verified 01/05/23 14:20 cefprozil Allergy Mild Redness of Verified 01/05/23 14:20 Skin dexamethasone AdvReac Intermediate Itching Verified 01/05/23 14:20 Review of Systems Review of Systems: All systems reviewed & are unremarkable except as noted in HPI and below PMFSH Past Medical History Medical History Anxiety Chronic obstructive pulmonary disease Diverticulitis Hyperlipidemia Hypertension Kidney stone Obese Tobacco abuse Tobacco dependence Surgical History Surgical History History of cholecystectomy History of right hip replacement Plantar fasciitis Status post hysterectomy with oophorectomy Family History Family History Father Family history of coronary artery disease Emphysema lung Mother Family history of pancreatic cancer Hypertension Social History Social History Social History: Surrogate decision-maker: Mago Olivas or Katiuska Iniguez, daughters. CODE STATUS: Full code. Smoking packs per day: 1 Smoking cigarettes per day: 20.0 Years smoked: 50 Smoking pack-years: 50.00 Smoking status: Former smoker Tobacco type: cigarettes Second hand tobacco smoke exposure: Yes Smoking end date: 12/06/21 Alcohol intake: never Substance use: never Substance use type: does not use Living arrangements: with family Additional living arrangements comments: The patient lives in [place] with her daughter. 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 Spiritual care concerns: No Exam Narrative: GENERAL: Well-appearing, well-nourished, and in no acute distress. Pleasant and cooperative HEAD: Normocephalic, atraumatic. EYES: PERRLA and EOMI. ENT: Nares clear, no rhinorrhea or epistaxis. Mucous membranes moist. NECK: Supple. CHEST: No respiratory distress. Faint scattered wheezing HEART: Regular rate and rhythm. No murmur heard. Normal peripheral pulses. ABDOMEN: Soft, nontender, nondistended EXTREMITIES: Normal range of motion. No edema. SKIN: Warm, dry, no rash. NEURO: No focal deficits. Alert and oriented x3. PSYCH: Normal mood and affect. Course Vital Signs Vital signs: Vital Signs Temperature 97.8 F 01/05/23 14:36 Pulse Rate 114 H 01/05/23 14:36 Respiratory Rate 18 01/05/23 14:36 Blood Pressure 124/110 H 01/05/23 14:36 Pulse Oximetry 98 01/05/23 14:36 Oxygen Delivery Room Air 01/05/23 14:36 Temperature 97.8 F 04
[2023-01-05] MEDS: SODIUM CHLORIDE 0.9% IV 1,000 ML 999 ML IV CONT (17:42)
[2023-01-05 17:47] LABS: Magnesium 2.1 mg/dL (1.6-2.3)
[2023-01-05 18:00] LABS: Troponin I < 0.012 ng/mL (0.000-0.034)
[2023-01-05 19:19] VITALS: BP 154/84; PULSE 83; RESP 18; O2SAT 100
== END 2023-01-05 20:09 | disposition home or self-care (01) ==
PROVIDERS: Emergency Medicine; Emergency Provider Emergency Medicine
DX: R00.0 Tachycardia, unspecified (principal); F41.9 Anxiety disorder, unspecified; J44.9 Chronic obstructive pulmonary disease, unspecified; I10 Essential (primary) hypertension; E78.5 Hyperlipidemia, unspecified; Z87.442 Personal history of urinary calculi
CPT/HCPCS: 36415; 71046; 80053; 83735; 84484; 85025; 93005; 96360; 99283; J7030

== ENCOUNTER 2023-01-30 00:18 | Day surgery (SDC) | payer MEDICARE, SELFPAY ==
[2023-01-17 12:19] VITALS: BMI 29.5
--- NOTE | 2023-01-29 15:27 | PM.HPGS ---
History of Present Illness History of Present Illness Consent: Risks, benefits, and alternatives have been discussed and questions answered. Patient agrees to proceed with procedure. Chief complaint: diverticulitis Narrative: Natalie Olivas is a 72 year old female who ?has had 3 attacks of diverticulitis scan since July of 2022 (confirmed by CT scan). She was treated with Cipro and Flagyl and did well up until October. Repeat CT scan with diverticulitis again. She was treated with Cipro and Flagyl and symptoms improved but returned a week after she completed the antibiotic. Repeated the CT scan last week still with diverticulitis. She was then started on 2 week course of Bactrim.?? Review of Systems Review of Systems: All systems reviewed & are unremarkable except as noted in HPI and below PMFSH Past Medical History Medical History Anxiety Chronic obstructive pulmonary disease Diverticulitis Hyperlipidemia Hypertension Kidney stone Obese Tobacco abuse Tobacco dependence Surgical History Surgical History History of cholecystectomy History of right hip replacement Plantar fasciitis Status post hysterectomy with oophorectomy Family History Family History Father Family history of coronary artery disease Emphysema lung Mother Family history of pancreatic cancer Hypertension Social History Social History Social History: Surrogate decision-maker: Mago Olivas or Katiuska Iniguez, daughters. CODE STATUS: Full code. Smoking packs per day: 1 Smoking cigarettes per day: 20.0 Years smoked: 40 Smoking pack-years: 40.00 Smoking status: Current every day smoker Tobacco type: cigarettes Second hand tobacco smoke exposure: Yes Smoking end date: 12/06/21 Alcohol intake: never Substance use: never Substance use type: does not use Living arrangements: alone Additional living arrangements comments: The patient lives in [place] with her daughter. 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 Spiritual care concerns: No Meds Home Medications and Allergies Home Medications Medication Instructions Recorded Confirmed Type estradiol 2 mg tablet 1 mg PO HS 09/07/19 01/30/23 History ipratropium 0.5 mg-albuterol 3 mg See Rx Instructions .Route 03/31/22 05/11/23 Rx (2.5 mg base)/3 mL nebulization .COMPLEX #1,080 mL soln albuterol sulfate 90 mcg/actuation 2 puff inhalation Q4H PRN 02/12/22 01/30/23 Rx aerosol inhaler (Ventolin HFA) shortness of breath or wheezing #8.5 grams metoprolol succinate 100 mg See Rx Instructions .Route 05/13/22 01/30/23 Rx tablet,extended release 24 hr .COMPLEX #90 tabs fenofibrate 160 mg tablet 160 mg PO HS #90 tabs 07/01/22 01/30/23 Rx montelukast 10 mg tablet 10 mg PO HS #90 tabs 07/05/22 01/30/23 Rx (Singulair) alprazolam 0.25 mg tablet (Xanax) 0.25 mg PO BID PRN anxiety #60 tabs 07/15/22 01/30/23 Rx Trelegy Ellipta 100 mcg-62.5 1 inh inhalation DAILY #60 ea 12/02/22 01/30/23 Rx mcg-25 mcg powder for inhalation (lotlitmxdye-bqmpvqyiq-pjefrxuj) Allergies Allergy/AdvReac Type Severity Reaction Status Date / Time cefuroxime Allergy Intermediate Itching Verified 01/30/23 06:21 cefprozil Allergy Mild Redness of Verified 01/30/23 06:21 Skin dexamethasone AdvReac Intermediate Itching Verified 01/30/23 06:21 Exam Resp: Auscultation: clear to auscultation bilaterally Cardio: Rate: regular rate Rhythm: regular rhythm GI: GI Palp: Yes Soft to palpation and No Tenderness to palpation present (GI) Assessment and Plan Assessment and plan (1) Diverticulitis: Code(s): K57.92 - Diverticulitis of intestine, part unspecified, without perforation or
--- NOTE | 2023-01-29 16:00 | PC.NURSE ---
Spoke with patient she states she woke up this am with left quadrant pain similar to pain with her diverticulits. She states she did have cramping and a BM that was loose and also like before with diverticulitis. She denies fever or blood. She states she has not had any more of the pain and has felt pretty good this afternoon and went ahead and took the laxative tablets. She starts the Miralax prep at 1900. I instructed her to call the office if she starts having the pain again, fever, blood or any of the diverticulitis symptoms that she has had, if after hours they will connect her to the on-call which is Dr. Alford. She verbalizes understanding.
[2023-01-30] MEDS: LACTATED RINGERS 1,000 ML 150 ML IV CONT (06:20)
[2023-01-30 06:24] VITALS: BP 123/63; PULSE 95; RESP 20; TEMP 36.4; O2SAT 98; BMI 29.5
[2023-01-30] MEDS: VANCOMYCIN HCL 1,250 MG in SODIUM CHLORIDE 0.9% IV 250 ML 166.67 MG IVPB (06:26)
--- NOTE | 2023-01-30 07:20 | WPDANESEPPF ---
Anes - Initial Pre Proc Eval Procedure: Operation Date: 01/30/23 07:30 Proposed Procedures p Colonoscopy - Justice Alford MD Date/Time: 01/30/23 07:20 Surgeon: Justice Alford MD Pre Op Diagnosis: diverticulitis Patient Data Age: 72 Gender: F Height: 1.63 m Weight: 78.2 kg Last Vital Signs Temp 97.5 F L 01/30/23 06:24 Pulse 95 01/30/23 06:24 Resp 20 01/30/23 06:24 BP 123/63 01/30/23 06:24 Pulse Ox 98 01/30/23 06:24 O2 Del Method Room Air 01/30/23 06:24 Allergies Allergy/AdvReac Type Severity Reaction Status Date / Time cefuroxime Allergy Intermediate Itching Verified 01/30/23 06:21 cefprozil Allergy Mild Redness of Verified 01/30/23 06:21 Skin dexamethasone AdvReac Intermediate Itching Verified 01/30/23 06:21 Home Medications Medication Instructions Recorded Confirmed Type estradiol 2 mg tablet 1 mg PO HS 09/07/19 01/30/23 History ipratropium 0.5 mg-albuterol 3 mg See Rx Instructions .Route 12/20/21 01/30/23 Rx (2.5 mg base)/3 mL nebulization .COMPLEX #1,080 mL soln albuterol sulfate 90 mcg/actuation 2 puff inhalation Q4H PRN 02/12/22 01/30/23 Rx aerosol inhaler (Ventolin HFA) shortness of breath or wheezing #8.5 grams metoprolol succinate 100 mg See Rx Instructions .Route 05/13/22 01/30/23 Rx tablet,extended release 24 hr .COMPLEX #90 tabs fenofibrate 160 mg tablet 160 mg PO HS #90 tabs 07/01/22 01/30/23 Rx montelukast 10 mg tablet 10 mg PO HS #90 tabs 07/05/22 01/30/23 Rx (Singulair) alprazolam 0.25 mg tablet (Xanax) 0.25 mg PO BID PRN anxiety #60 tabs 07/15/22 01/30/23 Rx Trelegy Ellipta 100 mcg-62.5 1 inh inhalation DAILY #60 ea 12/02/22 01/30/23 Rx mcg-25 mcg powder for inhalation (deilyvmxqpt-qfitztufq-pzvidkis) Patient hx anesthesia problems: none Family hx anesthesia problems: none Results Review: All pre-operative results and documents have been reviewed as part of the pre-operative evaluation. [facility] Past Medical History Medical History Anxiety Chronic obstructive pulmonary disease Diverticulitis Hyperlipidemia Hypertension Kidney stone Obese Tobacco abuse Tobacco dependence Surgical History Surgical History History of cholecystectomy History of right hip replacement Plantar fasciitis Status post hysterectomy with oophorectomy Family History Family History Father Family history of coronary artery disease Emphysema lung Mother Family history of pancreatic cancer Hypertension Social History Social History Social History: Surrogate decision-maker: Mago Olivas or Katiuska Hira, daughters. CODE STATUS: Full code. Smoking packs per day: 1 Smoking cigarettes per day: 20.0 Years smoked: 40 Smoking pack-years: 40.00 Smoking status: Current every day smoker Tobacco type: cigarettes Second hand tobacco smoke exposure: Yes Smoking end date: 12/06/21 Alcohol intake: never Substance use: never Substance use type: does not use Living arrangements: alone Additional living arrangements comments: The patient lives in [place] with her daughter. 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 Spiritual care concerns: No Anes - Eval Final PreProcedure Day of Procedure 01/30/23 07:20 Patient weight: normal Heart: regular rate and rhythm Lungs: clear to auscultation Airway: Mallampati scale class II Neurological: alert and oriented Last oral intake: >/= 8 hours ASA classification: III Emergent: no Anesthetic plan: proceed Anesthesia type and monitoring: general GIVS and standard monitoring Results Review: All pre-operative results and documents have been reviewed as part of the pre-operative evaluation.
--- NOTE | 2023-01-30 07:46 | SUR.OPER ---
DR. STEARNS BEGAN PROCEDURE USING COLONOSCOPY, BUT CHANGED TO GASTROSCOPE RELATED TO PATIENT'S ANATOMY.
[2023-01-30 07:52] VITALS: BP 100/45; PULSE 85; RESP 20; O2SAT 96
[2023-01-30 08:02] VITALS: BP 105/43; PULSE 88; RESP 20; O2SAT 97
[2023-01-30 08:12] VITALS: BP 111/65; PULSE 88; RESP 20; O2SAT 100
--- NOTE | 2023-01-30 08:12 | SUR.OPER ---
DR. STEARNS AWARE TRANSVERSE COLON POLYP NOT RETRIEVED.
== END 2023-01-30 08:20 | disposition home or self-care (01) ==
PROVIDERS: Visit Provider Internal Medicine Gastroenterology
PROC: 0DJD8ZZ Inspection of Lower Intestinal Tract, Via Natural or Artificial Opening Endoscopic (ICD-10-PCS; CPT 45378; principal; 2023-01-30 07:30)
DX: Z12.11 Encounter for screening for malignant neoplasm of colon (principal); K57.30 Diverticulosis of large intestine without perforation or abscess without bleeding; K63.5 Polyp of colon; Z87.19 Personal history of other diseases of the digestive system; J44.9 Chronic obstructive pulmonary disease, unspecified; I10 Essential (primary) hypertension; E78.5 Hyperlipidemia, unspecified; F41.9 Anxiety disorder, unspecified; E66.9 Obesity, unspecified; Z68.29 Body mass index [BMI] 29.0-29.9, adult; F17.210 Nicotine dependence, cigarettes, uncomplicated; Z79.51 Long term (current) use of inhaled steroids
CPT/HCPCS: 45385; J2704; J3370; J7050; J7120

== ENCOUNTER 2023-03-26 14:34 | Outpatient (CLI) | payer MEDICARE, SELFPAY ==
--- NOTE | ~2023-03-26 | DEXA_ITS ---
Bone Density Report Name: MEME SOSA Age: 72 Sex: Female Ethnicity: White Date of : 1950 Indication: postmenopausal; screening for osteoporosis; height loss; inflammatory bowel disease; asthma or emphysema; hysterectomy; Referring Provider: JACK RODRIGUEZ Study: Bone densitometry was performed. Exam Date: March 26, 2023 Accession number: [id number] Bone Density: Region BMD T-score Z-score Classification AP Spine(L1-L4) 1.060 0.1 2.3 Normal Femoral Neck (Left) 0.679 -1.5 0.3 Osteopenia Total Hip (Left) 0.847 -0.8 0.8 Normal World Health Organization criteria for BMD impression classify patients as: Normal (T-score at or above -1.0), Osteopenia (T-score between -1.0 and -2.5), or Osteoporosis (T-score at or below -2.5). 10-year Fracture Risk(1): Major Osteoporotic Fracture 10% Hip Fracture 2.4% Reported Risk Factors: [place] (), Neck BMD=0.679, BMI=32.2, smoking (1) FRAX(R) Version 3.08. Fracture probability calculated for an untreated patient. Fracture probability may be lower if the patient has received treatment. Clinical Information Provided by Patient: Smokes Has used the following medications: Vitamin D Has the following medical conditions: Asthma or Emphysema, Inflammatory bowel diseases, Hysterectomy Patient maximum height was 64 Menopause Age: 48 No regular weight bearing exercise Drinks caffeinated beverages Onset of menses at age 14 Number of children 2 Impression: The patient has low bone mass, based on the Left Femoral Neck T-score. The patient has an estimated ten-year risk of hip fracture of 2.4% and an estimated ten-year risk of major fracture of 10%, based on the WHO FRAX algorithm. The patient has risk factors, including: smoking. Discussion: BONE DENSITY IS LOW AT ONE OR MORE SKELETAL SITES. This patient's lowest T-score is low at one or more skeletal sites. It meets the World Health Organization's (WHO) criteria for ?low bone mass? (T-score between -1.0 and -2.5). The patient's 10-year risk of fracture as calculated by FRAX is less than the threshold where pharmacological therapy is recommended by the National Osteoporosis Foundation (NOF). However, all treatment decisions require clinical judgment and consideration of individual patient factors, including patient preferences, comorbidities, previous drug use, risk factors not captured in the FRAX model (e.g., frailty, falls, vitamin D deficiency, increased bone turnover, interval significant decline in bone density) and possible under or overestimation of fracture risk by FRAX. The patient should follow a healthful lifestyle (good nutrition with adequate calcium and vitamin D, and appropriate weight-bearing exercise). Follow-Up: Consider repeating this study in 2 to 3 years to reassess this patient's status, or sooner if there is some
--- NOTE | ~2023-03-26 | MM_ITS ---
EXAMINATION: MM screening [facility] BI w rodri HISTORY: Screening mammogram TECHNIQUE: Craniocaudal and mediolateral oblique 3-D tomosynthesis images were obtained and synthetic 2-D images were generated. CAD analysis was submitted and interpreted. COMPARISON: 12/25/2021, 01/01/2021, 11/22/2020, 08/01/2016 BREAST PARENCHYMAL COMPOSITION: There are scattered areas of fibroglandular density. FINDINGS: No suspicious mass, calcification, or architectural distortion are identified in either becca ast to suggest malignancy. There has been no suspicious interval change. IMPRESSION: 1. No mammographic evidence of malignancy. 2. Recommend routine screening mammography in one year. BI-RADS Category 1: Negative Reviewed, dictated and finalized at location A.
== END 2023-03-26 14:35 | disposition home or self-care (01) ==
LOC: ANHIMG 14:36
PROVIDERS: PCP Advanced Practice Midwife; Visit Provider Advanced Practice Midwife
DX: Z12.31 Encounter for screening mammogram for malignant neoplasm of breast (principal); Z78.0 Asymptomatic menopausal state; M85.852 Other specified disorders of bone density and structure, left thigh
CPT/HCPCS: 77063; 77067; 77080

== ENCOUNTER 2023-03-26 15:17 | Outpatient (CLI) | payer MEDICARE, SELFPAY ==
[2023-03-26 16:30] LABS: Alanine Aminotransferase 29 U/L (6-35); Albumin Level 4.1 g/dL (3.5-5.1); Alkaline Phosphatase 69 U/L (38-126); Anion Gap 5 mmol/L (8-16); Aspartate Amino Transferase 30 U/L (14-36); Bilirubin,Total 0.4 mg/dL (0.2-1.3); Blood Urea Nitrogen 15 mg/dL (7-17); Calcium 9.2 mg/dL (8.4-10.2); Carbon Dioxide 27 mmol/L (22-30); Chloride 107 mmol/L (98-107); Estimated Glomerular Filt Rate > 60; Glucose 109 mg/dL (65-110); Potassium 3.8 mmol/L (3.4-5.0); Sodium 139 mmol/L (137-145)
== END 2023-03-26 15:18 | disposition home or self-care (01) ==
LOC: ANHLAB 15:18
PROVIDERS: PCP Advanced Practice Midwife; Visit Provider Physician Assistant
DX: R00.0 Tachycardia, unspecified (principal); R73.01 Impaired fasting glucose
CPT/HCPCS: 36415; 80053

== ENCOUNTER 2023-09-30 13:27 | Outpatient (CLI) | payer MEDICARE, SELFPAY ==
--- NOTE | ~2023-09-30 | XR_ITS ---
Clinical Indication: Shortness of breath PA and lateral views of the chest: Comparison: 01/05/2023 Findings: Probable calcified left midlung granuloma. The lungs are otherwise clear, without evidence of focal consolidation or pleural effusion. Cardiomediastinal silhouette is within normal limits. Teddy lilli and soft tissues are unremarkable. Impression: No acute abnormality. Reviewed, dictated and finalized at location . LER CHEF OR COOK Impression: No acute abnormality.
== END 2023-09-30 13:28 | disposition home or self-care (01) ==
LOC: ANHIMG 13:34
PROVIDERS: PCP Family Medicine; Visit Provider Physician Assistant
DX: J44.9 Chronic obstructive pulmonary disease, unspecified (principal)
CPT/HCPCS: 71046

== ENCOUNTER 2024-01-05 09:42 | Outpatient (CLI) | payer MEDICARE, SELFPAY ==
--- NOTE | ~2024-01-05 | CT_ITS ---
CT Scan of the Chest without Contrast: Clinical Indication: Lung cancer screening, nicotine dependence Technique: Contiguous sections were acquired throughout the chest without intravenous contrast. Dose reduction technique was used on this scan by utilizing automated exposure control and iterative recon struction technique. The dose-length product (DLP) was 100.12 mGy-cm. Findings: There is no evidence of any significant mediastinal, hilar or axillary lymphadenopathy. The mediastin al soft tissues appear normal. There is no evidence of pleural or pericardial effusion. 4 mm right middle lobe pulmonary nodule noted. Calcified right lower lobe granuloma noted. Calcified left lower lobe granuloma present. Probable moderate emphysema upper lobes. Images through the upper abdomen reveal no abnormalities. Impression: Lung RADS 2: Benign appearance. 12 month follow-up screening CT advised. Reviewed, dictated and finalized at [facility]. Impression: Lung RADS 2: Benign appearance. 12 month follow-up screening CT advised.
[2024-01-05 11:23] LABS: Hematocrit 50.1 % (37.0-47.0); Hemoglobin 16.2 g/dL (12.0-15.0); Mean Corpuscular HGB Conc 32.3 g/dl (32-36); Mean Corpuscular Hemoglobin 29.9 pg (26-34); Mean Corpuscular Volume 92.4 fl (80-100); Mean Platelet Volume 10.7 fl (7.4-10.4); Platelet Count Result 262 k/mm3 (150-375); Red Blood Count 5.42 M/mm3 (4.2-5.4); Red Cell Distribution Width 13.2 % (11.5-14.5); White Blood Count 5.4 K/mm3 (4.5-10.0)
[2024-01-05 11:46] LABS: Alanine Aminotransferase 19 U/L (6-35); Albumin Level 4.7 g/dL (3.5-5.1); Alkaline Phosphatase 77 U/L (38-126); Anion Gap 9 mmol/L (4-12); Aspartate Amino Transferase 21 U/L (14-36); Bilirubin,Total 0.7 mg/dL (0.2-1.3); Blood Urea Nitrogen 15 mg/dL (7-17); Calcium 9.8 mg/dL (8.4-10.2); Carbon Dioxide 24 mmol/L (22-30); Chloride 108 mmol/L (98-107); Cholesterol 181 mg/dL (0-200); Estimated Glomerular Filt Rate > 60; Glucose 121 mg/dL (65-110); HDL Direct 50 mg/dL; Potassium 4.4 mmol/L (3.4-5.0); Sodium 141 mmol/L (137-145); Triglycerides 184 mg/dL (<150)
[2024-01-05 11:57] LABS: LDL Cholesterol Direct 107 mg/dL
[2024-01-05 12:16] LABS: Thyroid Stimulating Hormone 0.015 uIU/mL (0.465-4.680)
== END 2024-01-05 09:43 | disposition home or self-care (01) ==
PROVIDERS: Physician Assistant; PCP Family Medicine; Visit Provider Physician Assistant
DX: E78.1 Pure hyperglyceridemia (principal); F41.9 Anxiety disorder, unspecified; J44.9 Chronic obstructive pulmonary disease, unspecified; R73.01 Impaired fasting glucose; Z87.891 Personal history of nicotine dependence; Z12.2 Encounter for screening for malignant neoplasm of respiratory organs
CPT/HCPCS: 36415; 71271; 80053; 80061; 83036; 84443; 85027

== ENCOUNTER 2024-01-16 12:32 | Outpatient (CLI) | payer MEDICARE, SELFPAY ==
--- NOTE | ~2024-01-16 | MR_ITS ---
EXAMINATION: MR pelvis wo/w con DATE: 01/16/2024 13:53 INDICATION: Pelvic pain TECHNIQUE: Magnetic resonance imaging (MRI) of the pelvis was performed without and with 16 mL Multih ance intravenous contrast. Fullfield sequences of the pelvis included axial and coronal T2-weighted S S FSE, coronal 2D FIESTA, axial T1-weighted FSPGR, axial dual-echo T1-weighted FSPGR and axial T1 mariam ghted LAVA. Small field of view sequences included axial, sagittal and coronal T2-weighted FSE cente red on the uterus and adnexa. Postcontrast sequences included a time course axial T1-weighted LAVA w ith full-field of view of the pelvis. COMPARISON: None. FINDINGS: The bladder is normal. The uterus is not identified and has likely been surgically resected. Bilatera l adnexal cysts the largest on the left measuring 4.3 cm and a couple right adnexal cysts measuring u p to 1 cm. Appendix is normal. Multiple diverticula along the sigmoid and visualized descending colon without adjacent from trace stranding to suggest diverticulitis. No abnormal bowel wall thickening o r obstruction. Bilateral kidneys and caudal aspect of the right hepatic lobe appear normal on the lar sallie qzsdi-cy-qaos coronal images. No free fluid in the pelvis. No pathologically enlarged pelvic or i nguinal lymphadenopathy. Magnetic field artifact associated with a right total hip arthroplasty. IMPRESSION: 1. No acute intrapelvic process. Specifically the appendix is normal. 2. Moderate sigmoid diverticulosis. 3. Status post hysterectomy with bilateral adnexal cysts measuring up to 1 cm on the right and 4.3 cm on the left. Reviewed, dictated and finalized at location A. IMPRESSION: 1. No acute intrapelvic process. Specifically the appendix is normal. 2. Moderate sigmoid diverticulosis. 3. Status post hysterectomy with bilateral adnexal cysts measuring up to 1 cm o n the right and 4.3 cm on the left.
== END 2024-01-16 12:33 | disposition home or self-care (01) ==
PROVIDERS: PCP Family Medicine; Visit Provider Nurse Practitioner Obstetrics & Gynecology
DX: K57.30 Diverticulosis of large intestine without perforation or abscess without bleeding (principal); N83.8 Other noninflammatory disorders of ovary, fallopian tube and broad ligament; Z90.710 Acquired absence of both cervix and uterus
CPT/HCPCS: 72197; A9577

== ENCOUNTER 2024-02-23 10:30 | Outpatient (CLI) | payer MEDICARE, SELFPAY ==
--- NOTE | ~2024-02-23 | XR_ITS ---
EXAMINATION: XR cervical spine min 6V DATE: 02/23/2024 11:20 INDICATION: Chronic neck pain. TECHNIQUE: 7 views of cervical spine including flexion and extension views were obtained. COMPARISON: Chest CT 01/05/2024 FINDINGS: There is 2 mm retrolisthesis of C5 on C6. There is no abnormal motion on flexion or extensi on. There is 20 degrees levoscoliosis of the cervicothoracic spine. Vertebral body heights are normal . There is severely decreased disc height at C4-C5 and C5-C6. There is multilevel uncovertebral joint osteoarthritis, severe bilaterally at C4-C5 and C5-C6. There is multilevel [id number]-uqicdpgz facet dennis int osteoarthritis. There is mild bilateral neural foraminal stenosis at C4-C5 and C5-C6. There is mi ld central canal stenosis at C4-C5 and C5-C6. No prevertebral soft tissue swelling. IMPRESSION: 1. Severe cervical spondylosis. 2. Cervicothoracic levoscoliosis. Reviewed, dictated and finalized at location A.
[2024-02-23 12:18] LABS: Total Triiodothyronine (T3) 1.33 NG/ML (0.97-1.69)
== END 2024-02-23 10:31 | disposition home or self-care (01) ==
LOC: ANHLAB 10:32
PROVIDERS: PCP Family Medicine; Visit Provider Physician Assistant
DX: M43.02 Spondylolysis, cervical region (principal); M41.83 Other forms of scoliosis, cervicothoracic region; E78.1 Pure hyperglyceridemia; R79.89 Other specified abnormal findings of blood chemistry
CPT/HCPCS: 36415; 72052; 84439; 84443; 84480

== ENCOUNTER 2024-07-14 12:34 | Outpatient (CLI) | payer MEDICARE, SELFPAY ==
[2024-07-14 12:50] VITALS: PULSE 87; O2SAT 96
[2024-07-14 13:10] VITALS: PULSE 103; O2SAT 93
[2024-07-14 13:15] VITALS: PULSE 86; O2SAT 96
[2024-07-14 13:22] LABS: Alveolar/Arterial O2 Gradient 27.8 mmHg; Base Excess ABG 1.6 mEq/l (+/-2.0); Carboxyhemoglobin 3.7 % THb (0-2.0); Fractional Inspired Oxygen 21 %; Oxygen Content ABG 21.1 %vol (16.0-22.0); Oxygen Saturation ABG 95.2 % (95.0-100.0); Oxyhemoglobin 92.2 % THb (90.0-100.0); PCO2 ABG 40.2 mmHg (35.0-45.0); PO2 ABG 73.8 mmHg (80.0-100.0); PO2 FiO2 Ratio Arterial Blood 3.51 %; Reduced Hemoglobin 4.1 %THb (0-5.0); Total Hemoglobin 16.3 g/dL (12.0-18.0); pH ABG 7.429 (7.350-7.450)
[2024-07-14 13:33] LABS: Device ROOM AIR; Modified Allen's Test Pass; Site Drawn RIGHT RADIAL
--- NOTE | 2024-07-14 13:58 | HOMEO2EVAL ---
Evaluation was performed at [facility] Home Oxygen Evaluation RC: Home Oxygen (O2) Evaluation Start: 07/14/24 13:57 Freq: Status: Active Protocol: RPE Activity Type Activity Date Activity User E-sign Co-sign Detail Recorded Client Recorded Date Recorded By Document 07/14/24 12:50 [facility] [id number] 07/14/24 13:58 [facility] Document 07/14/24 13:10 [facility] [id number] 07/14/24 13:58 [facility] Document 07/14/24 13:15 [facility] [id number] 07/14/24 13:58 [facility] 07/14/24 07/14/24 07/14/24 12:50 13:10 13:15 Home O2 Evaluation [Oxygen] -Test Phase Resting Exercise Resting -Oxygen Delivery Room Air Room Air Room Air [Pulse Oximetry] -Pulse Oximetry (90-100 %) 96 93 96 [Pulse Rate] -Pulse Rate (60-100 beats/min) 87 103 H 86 [Evaluation] -Activity Tolerance Good [Charges] -Evaluation Charges O2 Evaluation by Pulmonary
--- NOTE | 2024-07-14 16:39 | WPDPFTINT ---
PFT Procedure Performed PFT Procedure Performed Spirometry with Pre/Post Bronchodilator Plethysmography (Lung Vol) Diffusing Cap (DLCO) Flow Vol Loop PFT Interpretation This is a pulmonary function test with pre and post-bronchodilator spirometry, plethysmography, diffusing capacity, and rest room air arterial blood gas. The test was performed and results interpreted in accordance with the 2019 and 2005 ATS/ERS Task Force guidelines respectively using the Global Lung Function Initiative-2012 reference equations. Patient demonstrated good effort and cooperation. Reproducibility criteria were met. The quality of the pre bronchodilator spirometry maneuver was Grade A and post bronchodilator spirometry maneuver was Grade A. Findings: Spirometry: There is decreased maximal expiratory airflow at all lung volumes with a concave expiratory flow tracing. The contour the inspiratory flow tracing is normal. The pre bronchodilator FVC is 2.47 L, 88% predicted. The pre bronchodilator FEV1 is 0.97 L, 45% predicted. The pre bronchodilator FEV1: FVC ratio is 39%. The post bronchodilator FVC is 2.48 L, representing no change. The post bronchodilator FEV1 is 0.95 L, representing a 1% decrease. The post bronchodilator FEV1: FVC ratio is 38%. Plethysmography: The total lung capacity is 4.39 L, 86% predicted. The functional residual capacity is 2.74 L, 94% predicted. The residual volume is 1.92 L, 86% predicted. Diffusing capacity: The diffusing capacity unadjusted for hemoglobin and carboxyhemoglobin is 6.5, 32% predicted. The diffusing capacity adjusted for alveolar volume is 2.43, 57% predicted. Rest room air arterial blood gas: PH 7.43, PaCO2 40, PaO2 74. In comparison to previous pulmonary function testing on 02/12/2022, the post bronchodilator FVC is unchanged from 2.59 L to 2.48 L. The post bronchodilator FEV1 is decreased from 1.33 L to 0.95 L. The total lung capacity is unchanged from 3.96 L to 4.39 L. The functional residual capacity has increased from 2.39 L to 2.74 L. The residual volume has increased from 1.47 L to 1.92 L. The diffusing capacity unadjusted for hemoglobin and carboxyhemoglobin is decreased from 9.3 to 6.5. The diffusing capacity adjusted for alveolar volume is unchanged from 2.52 to 2.43. Impression: There is a severe obstructive abnormality. There is no significant improvement after inhaling a single dose of albuterol. The lung volumes are normal. The diffusing capacity unadjusted for hemoglobin and carboxyhemoglobin is severely decreased and remains moderately decreased when adjusted for alveolar volume. the rest room air pH and PaCO2 are normal. The PaO2 is decreased but not below the lower limit of normal and not sufficiently decreased to qualify for supplemental oxygen. In comparison to previous pulmonary function testing on 02/12/2022 there has been a greater than anticipated time dependent decrease in the FEV1 and diffusing capacity unadjusted for hemoglobin and carboxyhemoglobin. There has been a greater than anticipated time dependent increase in the functional residual capacity and residual volume with no significant change in the FVC, total lung capacity or diffusing capacity adjusted for alveolar volume. Clinical correlation is recommended.
== END 2024-07-14 12:35 | disposition home or self-care (01) ==
LOC: ANHPFT 12:35
PROVIDERS: PCP Family Medicine; Visit Provider Physician Assistant
DX: R94.2 Abnormal results of pulmonary function studies (principal); J44.9 Chronic obstructive pulmonary disease, unspecified
CPT/HCPCS: 36600; 82375; 82805; 83050; 85018; 94060; 94618; 94726; 94729

== ENCOUNTER 2024-07-23 15:12 | Outpatient (CLI) | payer MEDICARE, SELFPAY ==
[2024-07-23 15:58] LABS: Alanine Aminotransferase 18 U/L (6-35); Albumin Level 4.2 g/dL (3.5-5.1); Alkaline Phosphatase 69 U/L (38-126); Anion Gap 8 mmol/L (4-12); Aspartate Amino Transferase 23 U/L (14-36); Bilirubin,Total 0.4 mg/dL (0.2-1.3); Blood Urea Nitrogen 14 mg/dL (7-17); Calcium 9.3 mg/dL (8.4-10.2); Carbon Dioxide 27 mmol/L (22-30); Chloride 107 mmol/L (98-107); Estimated Glomerular Filt Rate > 60; Glucose 93 mg/dL (65-110); Potassium 3.8 mmol/L (3.4-5.0); Sodium 142 mmol/L (137-145)
== END 2024-07-23 15:13 | disposition home or self-care (01) ==
LOC: ANHLAB 15:13
PROVIDERS: PCP Family Medicine; Visit Provider Physician Assistant
DX: I10 Essential (primary) hypertension (principal)
CPT/HCPCS: 36415; 80053

== ENCOUNTER 2024-08-13 10:48 | Outpatient (CLI) | payer MEDICARE, SELFPAY ==
--- NOTE | ~2024-08-13 | MR_ITS ---
EXAMINATION: MR cervical spine wo con DATE: 08/13/2024 11:31 INDICATION: Cervical spondylosis without myelopathy or radiculopathy. TECHNIQUE: Magnetic resonance imaging (MRI) of the cervical spine was performed without intravenous c ontrast. COMPARISON: Cervical spine radiographs 02/23/2024 FINDINGS: Alignment is normal. Vertebral body heights are normal. There is mildly decreased disc heig ht at C3-C4 and severely decreased disc height at C4-C5 and C5-C6. The spinal cord signal intensity i s normal. The following disc levels are specifically discussed: C2-C3: The disc does not extend beyond the endplate margin. There is no uncovertebral joint osteoarth ritis. There is no facet joint osteoarthritis. There is no neural foraminal stenosis. There is no richard tral canal stenosis. C3-C4: The disc is bulging with superimposed central extrusion. There is mild bilateral uncovertebral joint osteoarthritis. There is mild right and severe left facet joint osteoarthritis. There is mild bilateral neural foraminal stenosis. There is mild central canal stenosis. C4-C5: The disc is bulging. There is severe bilateral uncovertebral joint osteoarthritis. There is se saira bilateral facet joint osteoarthritis. There is mild bilateral neural foraminal stenosis. There i s mild central canal stenosis with ventral indentation of the spinal cord. C5-C6: The disc is bulging. There is severe bilateral uncovertebral joint osteoarthritis. There is mi ld bilateral facet joint osteoarthritis. There is mild bilateral neural foraminal stenosis. There is mild central canal stenosis with ventral indentation of the spinal cord. C6-C7: The disc is bulging. There is mild bilateral uncovertebral joint osteoarthritis. There is vaughn re right and moderate left facet joint osteoarthritis. There is no neural foraminal stenosis. There i s mild central canal stenosis. C7-T1: The disc does not extend beyond the endplate margin. There is no uncovertebral joint osteoarth ritis. There is severe bilateral facet joint osteoarthritis. There is mild bilateral neural foraminal stenosis. There is no central canal stenosis. IMPRESSION: 1. Severe cervical spondylosis. Reviewed, dictated and finalized at location A. [facility]
== END 2024-08-13 10:49 | disposition home or self-care (01) ==
PROVIDERS: PCP Family Medicine; Visit Provider Physician Assistant
DX: M47.812 Spondylosis without myelopathy or radiculopathy, cervical region (principal)
CPT/HCPCS: 72141

== ENCOUNTER 2024-11-26 14:48 | Outpatient (CLI) | payer MEDICARE, SELFPAY ==
--- NOTE | ~2024-11-26 | MM_ITS ---
EXAMINATION: MM screening [facility] BI w rodri HISTORY: Screening TECHNIQUE: Craniocaudal and mediolateral oblique 3-D tomosynthesis images were obtained and synthetic 2-D images were generated. CAD analysis was submitted and interpreted. COMPARISON: 03/26/2023 and dating back to 11/22/2020 BREAST PARENCHYMAL COMPOSITION: The breasts are heterogeneously dense, which may obscure small masses . FINDINGS: Punctate calcifications are detected bilaterally, stable and benign in appearance. Stable asymmetry within the retroareolar position of the left breast, unchanged dating back to 11/23/19 21. Otherwise unremarkable parenchymal pattern without suspicious microcalcifications, architectural dist ortion, discrete masses or significant asymmetry. IMPRESSION: 1. No mammographic/tomographic evidence of malignancy. 2. Recommend routine screening mammography in one year. BI-RADS Category 2: Benign finding(s). Reviewed, dictated and finalized at location A. 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
--- OUTSIDE RECORDS SUMMARY | 2024-11-26 14:53 | XMS_ITS | Data Portability ---
Author Organization [place] 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 Plan: 71-year-old female patient is here today for preoperative evaluation with complaints of right hip pain. Previous imaging x-ray demonstrates: right hip osteoarthritis. Conservative treatments have been attempted and been minimally effective. A lengthy discussion of non-operative and operative options were discussed. The patient was advised of the nature and purpose of the proposed surgery. In addition the potential benefits and significant risk of the proposed procedure were discussed. The risk of the procedure include but are not limited to bleeding, infection, damage to the deviation structures or organs, the need for the re-operation, failure of the procedure to accomplish any or all of its intended results. Alternative treatments and there risk and the risk of non-treatment were discussed. The patient's questions were invited and answered to the patient's apparent satisfaction. The patient expressed understanding of the procedure and its risk and gives an informed consent. All questions regarding the surgical procedure were answered at this time. A complete history and physical exam was performed and there were no contraindications to the procedure. Patient has been advised to discontinue anti-coagulant medications 5-10 days prior to surgery. Patient also advised to discontinue NSAIDs and fish oil 5-7 days prior to surgery. Discussion of pre-operative, intra-operative and post-operative expectations and plans have been discussed. Questions have been answered to patient's satisfaction. Patient is scheduled for right MILADY . The patient will require pre-operative antibiotics and post-operative pain medication. Post-operative plan is for discharge to home after inpatient recovery. The patient will follow up in the office with a midlevel provider or Dr. Colorado approximately 9-14 days post-operatively. Portions of this note may be dictated using [employer] voice recognition software. Variances in spelling and vocabulary are possible and unintentional. Not all errors are caught/corrected. Please notify the author if any discrepancies are noted or if the meaning of any statement is not clear. [email or web address] Not available 05/13/2022 14:28:45 06/19/2022 06/19/2022 71-year-old fema le patient presents today for post-op evaluation 2 weeks S/P right hip total arthroplasty DOS: 06/03/22. (Siobhan). There are current issues of concern: numbness and tingling in left hand/finger tips since surgery. Serory has had three episodes of significant pain to the arm which lasts for a few seconds. Pain is moderately controlled with current prescription. Assessment: Satisfactory post-operative course. Skin and wound inspection WNL. ROM WNL. Skin sensation WNL. Patient currently ambulating unassisted. Plan: Patient is advised to continue post-operative anti-coagulation therapy ASA 81mg BID. I will refill pain medications today. Patient encouraged to continue use of NSAIDs/Tylenol, ice/cryotherapy, rest, elevation as needed. Patient encouraged to continue HEP. I discussed permitted activities, goals and restrictions today. Patient reminded of PO dental prophylaxis if appropriate. Follow-up: Patient will follow-up in 3-4 weeks for routine post-op evaluation with Dr. Colorado. We will obtain hip/pelvis x-rays at the next visit. Portions of this note may be dictated using [employer] voice recognition software. Variances in spelling and vocabulary are possible and unintentional. Not all errors are caught/corrected. Please notify the author if any discrepancies are noted or if the meaning of any statement is not clear. [email or web address] Not available 06/19/2022 15:05:33 07/04/2022 07/04/2022 X-rays right hip with AP pelvis total of three views demonstrate patient status post total hip arthroplasty. Components good position. No loosening. Impression: Status post right total hip arthroplasty in good position. X-rays lumbar spine three views demonstrate degenerative changes at L4-5. Grade 1 spondylolisthesis. Mild degenerative changes at L5-S1. Impression: Grade 1 spondylolisthesis L4-5 and degenerative lumbar spine L4-5 and L5-S1. Assessment: Status post right total hip arthroplasty. Patient doing well. No unusual complaints. Grade 1 spondylolisthesis L4-5. Plan: Continue work on range of motion, flexibility strength. Referral to physical therapy for her low back pain. Neurontin 100 mg t.i.d. to see if this helps the lateral thigh pain as well as the pain secondary to the grade 1 spondylolisthesis L4-5. Continue rshu-bha-womgbgq medications as needed. Follow-up in 2 months. [email or web address] Not available 07/04/2022 09:34:42 08/14/2022 08/14/2022 1. Paresthesias in the left upper extremity with mild bilateral carpal tunnel syndrome (median nerve entrapment at wrist) affecting sensory components, slightly worse on the left, with no significant delay in distal onset latency's only motor NCV, and normal needle EMG. Patient will follow-up with referring provider and will be given carpal tunnel braces to use at night. We have discussed ergonomics with her in detail also. 2. There is no electrodiagnostic evidence of any other focal nerve entrapment or generalized peripheral neuropathy or cervical radiculopathy in either upper limb. Some osteoarthritis in the CMC joints and IP joints is also noted on x-ray today. 3. Multilevel cervical degenerative disc disease with facet arthropathy noted. No suggestion of acute cervical radiculopathy at this time. Patient will try to address her posture also. [email or web address] Not available 08/19/2022 15:22:04 09/02/2022 09/02/2022 Nerve conduction study report was reviewed. Demonstrates bilateral carpal tunnel syndrome. Assessment: Patient is now 3 months status post right total hip arthroplasty. Patient has been in physical therapy working on range of motion, flexibility and strength. Left carpal tunnel syndrome. Patient has numbness and tingling continuously. She has good motor function. Plan: Recommend patient continue hip exercises to maximize strength and flexibility. Prescription for amoxicillin will be sent to the pharmacy for the patient. I recommended she consider a carpal tunnel release on her left side due to the persistent numbness in her hand. She like to think about it and will let me know if she would like to pursue this. [email or web address] Not available 09/02/2022 09:40:13 Plan of Treatment Reminders Order Date Submit Date Provider Last Modified By Organization Details Last Modified Time Details Appointments None recorde d. Lab None recorde d. Referral physica l therapi st referra l 2021 [facility], [address] [place] [address], [address], 08:41:[address] st referra l 2021 [facility], [address] [place] [address], [address], 14:43:02 Procedures None recorde d. Surgeries total hip arthrop lasty (SURG) 2021 [facility], [address] [place] [address], [id number], 11:24:56 Imaging XR, cervica l spine 2021 jarrod [facility] [[address]], [address], [place], [address], 11:46:33 XR, hand 2021 jarrod [facility] [[address]], [address], [place], [address], 11:46:33 XR, hip, unilate ral 2021 mateusz [facility] [[address]], [address], [place], [address], 12:10:44 XR, lumbar spine 2021 mateusz [facility] [[address]], [address], [place], [address], 12:10:44 US, doppler , venous - Left UE 2021 [facility], [address] [place] [address] Dr MERINO, [place], [address], 18:29:37 Medication Orders amoxici llin 500 mg capsule 2021 [id number], [address] [place], [place], [id number], 12:43:49 Neuront in 100 mg capsule 2021 [facility] #[id number], [address] [place], [place], [phone], 12:10:44 oxycodo ne 5 mg tablet 2021 [facility] #[id number], [address] [place], [place], [phone], 08:29:38 Patient TargetsNo targets recorded. Patient InstructionsNo instructions recorded. Reason for Referral Physical Therapist Referral for Osteoarthritis of hip Referring Physician: Zuhair Colorado, Orthopedic Surgery, Encounter Date: 05/13/2022 Physical Therapist Referral for Lumbar spondylosis Referring Physician: Zuhair Colorado, Orthopedic Surgery, Encounter Date: 07/04/2022 Results Created Date Observation Date Name Description Value Unit Range Abnormal Flag Note LastModifiedBy Organization Detail LastModifiedTime 06/03/2006/03/2022 XR, hip, unila teral No observ ation record ed. [email or web address] Not Available 2021 11:52:04 06/04/20 22 06/03/2022 XR, hip, unila teral No observ ation record ed. [email or web address] Not Available 2021 14:17:21 06/24/2006/19/2022 US, doppl er, venou s No observ ation record ed. [email or web address] [facility] [address] [place], [address], 07/09/2022 08:17:40 07/04/20 22 07/04/2022 XR, hip, unila teral [facility] [place] eUID=1 .2 6.9125 .2.232 [id number] 82.651 [id number] 2.6528 325 INTERFACE [facility] [[facility]] [address], [place], [address], 07/04/2022 09:04:23 07/04/20 22 07/04/2022 XR, lumba r spine [facility] eUID=1 .2 6.9125 .2.232 [id number] 075294 82.651 088456 7.6528 429 INTERFACE [facility] [497] [address], [place], [address], 07/04/2022 09:25:10 07/04/20 22 07/04/2022 XR, hip, unila teral [facility] [place] eUID=1 .2392 6.9125 .2.232 [id number] 82.651 [id number] 2.6528 325 INTERFACE [facility] [497] [address], [place], [address], 07/04/2022 09:25:11 08/14/20 22 08/14/2022 XR, hand [facility] [place] eUID=1 .2392 3 6.9125 .2.162 887885 10568. [id number] 6347.3 679739 INTERFACE [facility] [[address]] [address], [place], [address], 08/14/2022 09:50:28 08/14/20 22 08/14/2022 nerve condu ction study /EMG, upper extre mity (PROC ) No observ ation record ed. [email or web address] Stein MD [address], [place], [address], 08/19/2022 16:49:13 Result Notes None recorded. Problems Name Problem SNOMED Code Status Onset Date Resolution Date Notes Provider Name and Address Organization Details Recorded Time Osteoarthri tis of right hip joint 5308986475868 07 Active 2021 Renetta [place] null, [place] - [facility] 2 08:48:43 History of total hip arthroplast y 543888086901 Active 2021 Renetta [place] null, [place] - [facility] 2 08:48:43 Hyperlipide mahnaz 94462600 Active Renetta Harvey [place] - [facility] 2 08:48:43 Chronic obstructive pulmonary disease 85194725 Active Renetta [place] null, [place] - [facility] 2 08:48:43 Anxiety 23781982 Active Renetta [place] [facility] 2 08:48:43 Home oxygen supply 450550383 Active Renetta [place] [facility] 2 08:48:43 Hypertensiv e disorder 74637045 Active Renetta [place] null[place] - [facility] 2 08:48:43 Osteoarthri tis 080718498 Active Renetta [place] null[place] [facility] 2 08:48:43 Absence of sensation 47409602 Active Renetta [place] null, [place] - [facility] 2 08:48:43 Numbness of hand 440837196 Active 2021 Khloe cano PA-C [address] [place], [address], [place] - [facility] 2 15:04:53 Degeneratio n of cervical interverteb ral disc 19407161 Active 2021 Leonila Stein MD [address] [place], [address], [place] - [facility] 2 10:22:27 Carpal tunnel syndrome 93397691 Active 2021 Leonila Stein MD [address], [place], [address], [place] [facility] 10:59:02 Osteoarthro sis of the carpometaca rpal joint of the thumb 80067996 Active 2021 Leonila Stein MD [address], [place], [address], [place] - [facility] 10:59:04 Problem Notes None recorded. Procedures Surgical History Date Name Laterality Status Provider Name and Address Organization Details Recorded Time W-BREG Wrist/Hand Brace completed Levy Cenatiempo [place] - [facility] 08/14/2022 11:12:31 W-EMG completed Darrell Seda [place] - [facility] 08/13/2022 09:44:30 022 W-NCV completed Darrell Seda [place] - [facility] 08/13/2022 09:44:26 022 W-Ultrasound Limited completed Darrell Seda [place] - [facility] 08/13/2022 09:44:27 022 TOTAL HIP ARTHROPLASTY (SURG) completed Smooth Cunningham [place] - [facility] 06/03/2022 11:24:56 022 Most Recent Mammogram completed Maisha Arreola [place] - [facility] 07/04/2022 08:29:38 Cholecystectomy completed Kiki Burleson [place] - [facility] 05/06/2022 16:02:07 Colonoscopy completed Kiki Aguiar [place] - [facility] 05/06/2022 16:02:07 Hysterectomy completed Kiki Aguiar [place] - [facility] 05/06/2022 16:02:07 Imaging Results Imaging Date Name Status LastModified by Organiz ation Details LastModified Time 06/03/2022 XR, hip, unilateral completed Information not available 06/03/2022 11:52:04 06/03/2022 XR, hip, unilateral completed Information not available 06/04/2022 14:17:21 06/19/2022 US, doppler, venous completed [email or web address] [facility] [address] , [place], [address], 07/09/2022 08:17:40 07/04/2022 XR, hip, unilateral completed INTERFACE [facility] [[facility]] [address], [place], [address], 07/04/2022 09:04:23 07/04/2022 XR, lumbar spine completed INTERFACE [facility] [497] [address], [place], [address], 07/04/2022 09:25:10 07/04/2022 XR, hip, unilateral completed INTERFACE [facility] [497] [address], [place], [address], 07/04/2022 09:25:11 08/14/2022 XR, hand completed INTERFACE [facility] [497] [address], [place], [address], 08/14/2022 09:50:28 08/14/2022 nerve conduction study/EMG, upper extremity (PROC) completed mateusz Stein MD [address], [place], [address], 08/19/2022 16:49:13 Procedure Notes None recorded. Medical Equipment None Reported. Allergies Allergen ID Allergen Name Allergen Category Reaction Reaction Severity Criticality Documentation Date Start Date Code Code System Note Provider Name and Address Organization Details Recorded Time 215898 Ceftin medicatio n itching moderate Not available 05/06/2022 19568 6 RxNorm Not Available Not Available Not Available 556382 Cefzil medicatio n itching moderate Not available 05/06/2022 74878 1 RxNorm Not Available Not Available Not Available 708606 dexametha sone medicatio n itching moderate Not available 06/11/2022 3264 RxNorm Not Available Not Available Not Available 941810 meloxicam medicatio n nausea nausea moderate moderate Not available 06/11/2022 29308 RxNorm Not Available Not Available Not Available 448753 cefprozil medicatio n itching moderate Not available 06/11/2022 34835 RxNorm Not Available Not Available Not Available Medications Name Sig Start Date Stop Date Status Note LastModified by Organization Details LastModified Time fenofibrate micronized 160 mg tablet Take 160 milligram ss by oral route. 06/19 completed Not Available Not Available Not Available amoxicillin 500 mg capsule TAKE 4 CAPSULES BY MOUTH 1 HOUR BEFORE PROCEDURE active Not Available Not Available No t Available ondansetron HCl 4 mg tablet active Not Available Not Available Not Available metoprolol succinate ER 100 mg tablet,exte nded release 24 hr TAKE 1 TABLET BY MOUTH EVERY DAY active Not Available Not Available No t Available cyanocobala min (vit B-12) 1,000 mcg tablet 1000 ugs by oral route. 08/11 completed Not Available Not Available Not Available metronidazo le 500 mg tablet active Not Available Not Available Not Available ciprofloxac in 500 mg tablet active Not Available Not Available Not Available alprazolam 0.25 mg tablet TAKE 1 TABLET BY MOUTH TWICE DAILY active Not Available Not Available No t Available estradiol 1 mg tablet TAKE 1 TABLET BY MOUTH DAILY active Not Available Not Available No t Available oxycodone 5 mg capsule 1 capsule by oral route. 07/01 completed Not Available Not Available Not Available aspirin 81 mg chewable tablet Chew 1 tablet twice a day by oral route for 30 days. 2021 active Not Available Not Available Not Avai lable diclofenac sodium 75 mg tablet,ozzy yed release Take 1 tablet by oral route. 06/19 completed Not Available Not Available Not Available montelukast 10 mg tablet TAKE 1 TABLET BY MOUTH AT BEDTIME active Not Available Not Available No t Available gabapentin 100 mg capsule TAKE 1 CAPSULE BY MOUTH THREE TIMES DAILY 08/11 completed Not Available Not Available Not Available Tylenol Extra Strength 500 mg tablet 500 milligram ss by oral route. 08/11 completed Not Available Not Available Not Available oxycodone 5 mg tablet Take 1 tablet every 8 hours by oral route as needed for 7 days. active Not Available Not Available No t Available Bactrim DS 800 mg-160 mg tablet Take 1 tablet by oral route. 06/19 completed Not Available Not Available Not Available fenofibrate 160 mg tablet TAKE 1 TABLET BY MOUTH AT BEDTIME active Not Available Not Available No t Available Lyrica 75 mg capsule 1 capsule by oral route. 08/11 completed Not Available Not Available Not Available Singulair 06/19 completed Not Available Not Available Not Available cholecalcif kimberly (vitamin D3) 25 mcg (1,000 unit) tablet 1000 internati onal unitss by oral route. 2021 active Not Available Not Available Not Avai lable biotin 5 mg tablet 5 mg by oral route. 2021 active Not Available Not Available Not Avai lable Trelegy Ellipta 100 mcg-62.5 mcg-25 mcg powder for inhalation active Not Available Not Available N ot Available Vitals Date Recorded Body height Provider Name an d Address Organization Details Last Updated DateTime 05/13/2022 162.56 cm [facility] 04/23 13:33:16 Date Recorded Body mass index (BMI) Body weight Pain severity - 0-10 verbal numeric rating [Score] - Reported Provider Name and Address Organization Details Last Updated DateTime 05/13/2022 29.2 kg/m2 97679.7 g 7 Katherine Pinto [place] - [facility] 05/13/2022 13:46:44 Date Recorded Body height Body mass index (BMI) Body weight Provider Name and Address Organization Details Last Updated DateTime 06/19/2022 162.56 cm 29.2 kg/m2 56934.7 g Renetta Harvey [facility] 06/19/2022 14:33:01 Date Recorded Body height Body mass index (BMI) Body weight Pain severity - 0-10 verbal numeric rating [Score] - Reported Provider Name and Address Organization Details Last Updated DateTime 07/04/2022 162.56 cm 29.2 kg/m2 46663.7 g 1 Katherine Pinto [facility] 07/04/2022 09:01:17 Date Recorded Body height Body mass index (BMI) Body weight Pain severity - 0-10 verbal numeric rating [Score] - Reported Provider Name and Address Organization Details Last Updated DateTime 09/02/2022 162.56 cm 29.2 kg/m2 20064.7 g 0 Katherine Pinto [place] - [facility] 09/02/2022 09:16:39 Social History Question Answer Notes LastModified by Organizat ion Details LastModified Time Tobacco Smoking Status Current Every Day Smoker Maisha Arreola [facility] 07/04/2022 08:29:39 Do You Have An Advance Directive? No Information not available 07/04/2022 What Is Your Level Of Alcohol Consumption? None Information not available 07/04/2022 Are You Blind Or Do You Have Difficulty Seeing? No Information not available 08/14/2022 How Much Tobacco Do You Chew? None Information not available 07/04/2022 Are You Currently Employed? No Information not available 07/04/2022 Are You Deaf Or Do You Have Serious Difficulty Hearing? No Information not available 08/14/2022 Do You Or Have You Ever Used E-cigarettes Or Vape? Never Used Electronic Cigarettes Information not available 07/04/2022 Which Of Your Hands Is Dominant? Right Information not available 07/04/2022 Do You Have A Medical Power Of Behavioral Sciences Instructor? No Information not available 07/04/2022 What Was The Date Of Your Most Recent Tobacco Screening? 07/01/2022 Information not available 07/04/2022 What Is Your Relationship Status? Domestic Partner Information not available 07/04/2022 Do You Or Have You Ever Used Smokeless Tobacco? Never Used Smokeless Tobacco Information not available 07/04/2022 How Much Tobacco Do You Smoke? 0.5 PPD Information not available 07/04/2022 Do You Use Any Illicit Or Recreational Drugs? No Information not available 07/04/2022 Has Tobacco Cessation Counseling Been Provided? Yes Information not available 07/04/2022 How Many Years Have You Smoked Tobacco? 50 Information not available 07/04/2022 Do You Or Have You Ever Used Any Other Forms Of Tobacco Or Nicotine? No Information not available 07/04/2022 Sex: Female Functional Status Question Answer Note LastModified by Organization D etails LastModified Time Do you have difficulty walking or climbing stairs? No Information not available 08/14/2022 Do you have difficulty doing errands alone? No Information not available 08/14/2022 Are you able to care for yourself? Yes Information n ot available 08/14/2022 Do you have difficulty dressing or bathing? No Information not available 08/14/2022 Mental Status Question Answer Note LastModified by Organization D etails LastModified Time Do you have difficulty concentrating, remembering or making decisions? No Information no t available 08/14/2022 Family History Nothing Reported. Medical History Condition Response COPD Y Gynecological History Statement/Question Response Most Recent Mammogram 01/29/2022 Obstetrics History GPAL:G 0 P 0 0 0 0 Immunizations Vaccine Type Date Status Note Provider Nam e and Address Organization Details Recorded Time SARS-COV-2 (COVID-19) vaccine, UNSPECIFIED 11/20/2020 completed Renetta [place] null, [place] - [facility] 06/11/2022 08:48:56 SARS-COV-2 (COVID-19) vaccine, UNSPECIFIED 11/20/2021 completed Renetta Harvye null, [place] [facility] 06/11/2022 08:48:56 pneumococcal, unspecified formulation 09/22/2019 completed Sindhu Thornton null[place] [facility] 08/14/2022 09:24:30 SARS-COV-2 (COVID-19) vaccine, UNSPECIFIED 10/23/2020 completed Renetta [place] null[place] - [facility] 06/11/2022 08:48:56 SARS-COV-2 (COVID-19) vaccine, UNSPECIFIED 05/23/2021 completed Renetta [place] null, [place] [facility] 06/11/2022 08:48:56 influenza, unspecified formulation 06/22/2021 completed Sindhu Thornton null, [place] - [facility] 08/14/2022 09:24:30 Past Encounters Encounter ID Performer Location Encounter Start Date Encounter Closed Date Diagnosis/Indication Diagnosis SNOMED-CT Code Diagnosis ICD10 Code Diagnosis Note [id number] MELANIA Dubois [facility] [address] [place] [address] 05/06/2022 15:19:58 05/06/2022 16:21:09 Pain in right hip joint 3509415324 66940 M25.551 Osteoarthr itis of right hip joint 4511571246 35237 M16.11 [id number] Zuhair Colorado MD [facility] [address] [place] [place] [address] 05/13/2022 13:19:50 05/13/2022 14:32:57 Pain in right hip joint 8171533688 61967 M25.551 Osteoarthr itis of right hip joint 7722259407 97257 M16.11 Osteoarthritis of hip 23 6027916 M16.11 [id number] Khloe Alonzo am, [facility] [address] [place] [address] [place] [address] 06/19/2022 14:27:02 06/19/2022 15:33:09 History of total hip arthroplasty 9985929440 06 Z96.641 R MILADY DOS 06/03/22 M-D Numbness of hand 2248203 04 R20.0 [id number] Zuhair Colorado MD [facility] [address] [place] [address] [place] [address] 07/04/2022 08:29:11 07/04/2022 09:34:59 Postoperative visit 418700862 Z09 Low back pain 873447330 M54.50 Lumbar spondylosis 51908 0009 M47.896 [id number] Leonila Stein MD [facility] [facility] [address],[facility] [address] [place] [address] 08/14/2022 09:22:03 08/14/2022 11:10:40 Paresthesia of upper limb 57375192 R20.2 Hand pain 55872710 M79.6 41 M79.642 Neck pain 47561309 M54.2 Osteoarthr osis of the carpometacarpal joint of the thumb 73152618 M18.0 Degenerati on of cervical intervertebral disc 56152283 M50.30 Carpal olga lidia srinath syndrome [id number] G56.02 G56.01 [id number] Zuhair Colorado MD [address] olman [address] [place] [address] [place] [address] 09/02/2022 09:09:41 09/02/2022 09:53:58 History of total hip arthroplasty [id number] Z96.649 Health Concerns Section Related Observation LastModified by Organization Detai ls LastModified Time None Recorded Concern Status LastModified by Organization Details LastModified Time None Recorded Advance Directives Directive N: Payers Encounter Date Sequence Insurance Name Policy Number Policy Cottrell Covered Member ID Cottrell Member ID Guarantor Name 05/13/2022 1 [facility] (MEDICARE REPLACEMENT/A DVANTAGE - HMO) Natalie Olivas [id number] Natalie Olivas 06/19/2022 1 [facility] (MEDICARE REPLACEMENT/A DVANTAGE - HMO) Natalie Bergwell [id number] Natalie Olivas 07/04/2022 1 [facility] (MEDICARE REPLACEMENT/A DVANTAGE - HMO) Natalie Bergwell [id number] Natalie Olivas 08/14/2022 1 [facility] (MEDICARE REPLACEMENT/A DVANTAGE - HMO) Natalie Bergwell [id number] Natalie Olivas 09/02/2022 1 [facility] (MEDICARE REPLACEMENT/A DVANTAGE - HMO) Natalie Olivas [id number] Natalie Olivas Notes Date Note Type Note Provider Name and Address Organization Details Recorded Time 05/13/2022 text/html Patient is a {{new* established}} patient here today {{for ER follow-up follow up from Urgent Care referred by PCP for follow-up from the [facility] clinic seen previously by another provider in our practice to establish care with our practice with a new problem*}}. Patient presents today with {{right* left bilate ral}} {{neck shoulder arm elbow wrist hand low back hip* leg knee a nkle foot}} {{pain* fracture}}. This is a {{new* recurrent old }} issue. This complaint {{is is not*}} related to a(n) {{work related injury sports related event trauma injury* trauma or injury}}. The pain began {{suddenly gradually *}}. Patient states that the pain began {{1 2 3* 4 5 6 7 8 9 10 11}} {{day days week week s month months* year years}} ago and is {{better worse* the same}} since onset. Pain today is {{0 1 2 3 4 5 6 7* 8 9 10}}/10. Pain is {{1 2 3 4 5 6 7 8 9 10*}}/10 at it's worst. The pain is {{constant* frequent occasional}}. The pain is described as {{sharp* dull}}/{{ac kathrin stabbing*}}/{{t hrobbing shooting}}. Pain is primarily located on the {{anterior* posterio r medial lateral sup erior inferior}} aspect of the {{neck shoulder arm elbow wrist hand low back hip* leg knee a nkle foot}} {{with* without}} radiation {{proximally distall y*}}. Patient {{has had denies*}} swelling, warmth, discoloration to the area. There {{is* is not}} burning sensation. There {{is* is not}} associated weakness. Patient {{has* has not}} been previously treated for this condition. TX: meloxicam, ibuprofen Aggravating factors include: sitting, standing, going from sit to stand, walking, bending, lifting, weight-bearing, squatting, kneeling, flexion/extension, lying on that side, worse at night. The patient {{has* has not}} had {{recent* previous}} {{imaging* x-rays MR I CT venous doppler EMG}}. Prior imaging at {{[facility] our office* Urgent Care facility PCP office}}. We {{do* do not}} have access to images today. The patient {{does does not*}} request a {{medication refill prescription* }} today. The goal of the patient's visit today is {{follow-up continue d treatment/management evaluation/definiti ve treatment*}}. The supervising physician which will be considered the primary provider for this patient will be {{Dr. Rashard Colorado*}}. Zuhair Colorado MD [address] [place], [address], [facility] 05/13/2022 14:39:02 06/19/2022 text/html Patient is here today for post-op evaluation S/P {{right* left bilate ral}} {{shoulder wrist fin sallie arm elbow hip* l eg knee ankle foot}} {{arthroscopy arthro scopy with repair total arthroplasty* ELOISA robotic assisted arthroplasty reverse total arthroplasty uni-com partmental arthroplasty ELOISA robotic assisted unicompartment arthrolasty partial arthroplasty CTR TFR ANISHA ulnar nerve release ACL repair IM Nail ORIF closed reduction percutaneo us pinning washout/I&D} }. DOS:{{1 2 3 4 5 6 7 8 9* 10 11 12}}/{{1 2 3 4 5 6 7 8 9 10 1 1 12* 13 14 15 16 17 18 19 20 21 22 23 2 4 25 26 27 28 29 30 31}}/{{20 21 22*}}. ({{Rashard Marushack*} }-{{Novant Dosher* B SC}}).The pain today is {{0 1 2* 3 4 5 6 7 8 9 10}}/10. Pain at its worst is {{0 1 2* 3 4 5 6 7 8 9 10}}/10. Pain is described as {{constant* frequent occasional}} {{sharp dull*}}, {{aching* stabbing}} , {{throbbing* shootin g}} {{with* without}} radiation. Patient {{has* does not have}} numbness, tingling, burning sensation {{at the incision site near the surgical site* distally}}. The pain is {{well moderately* n ot well}} controlled on {{current regimen* OTC medications ice/cryo therapy no medications}}. Patient {{does does not*}} request a refill of medications today. The patient is currently {{attending structured IP PT attending structured OP PT* receiving HH PT performing HEP not performing any PT}}.There {{are are no*}} additional issues of concern today. Khloe Patel PA-C [address], [place], [address], [facility] 06/19/2022 16:29:56 07/04/2022 text/html Patient is here today for post-op evaluation S/P {{right* left bilate ral}} {{shoulder wrist fin sallie arm elbow hip* l eg knee ankle foot}} {{arthroscopy arthro scopy with repair total arthroplasty* ELOISA robotic assisted arthroplasty reverse total arthroplasty uni-com partmental arthroplasty ELOISA robotic assisted unicompartment arthrolasty partial arthroplasty CTR TFR ANISHA ulnar nerve release ACL repair IM Nail ORIF closed reduction percutaneo us pinning washout/I&D} }. DOS:{{1 2 3 4 5 6 7 8 9* 10 11 12}}/{{1 2 3 4 5 6 7 8 9 10 1 1 12* 13 14 15 16 17 18 19 20 21 22 23 2 4 25 26 27 28 29 30 31}}/{{20 21 22*}}. ({{Rashard Colorado*} }-{{Novant Dosher* B SC}}).The pain today is {{0 1* 2 3 4 5 6 7 8 9 10}}/10. Pain at its worst is {{0 1 2 3 4 5 6 7 8* 9 10}}/10. Pain is described as {{constant* frequent occasional}} {{sharp dull*}}, {{aching* stabbing}} , {{throbbing* shootin g}} {{with* without}} radiation. Patient {{has* does not have}} numbness, tingling, burning sensation {{at the incision site near the surgical site* distally}}. The pain is {{well moderately* n ot well}} controlled on {{current regimen* OTC medications ice/cryo therapy no medications}}. Patient {{does does not*}} request a refill of medications today. The patient is currently {{attending structured IP PT attending structured OP PT receiving HH PT performing HEP not performing any PT*}}.There {{are* are no}} additional issues of concern today. C/O increased pain. 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 She is status post a right total hip arthroplasty that was done by Dr. Colorado on June 03, 2022. The patient states that she had onset of symptoms status post surgery and she thinks it may have been from the IV placement. She presents today for upper extremity nerve study. She complains of numbness and tingling that is focused in her left upper extremity only and presents in the middle 3 digits of the hand, with no symptoms on the right. She does comment on some neck stiffness, but no radiating pain down the arms. She has never had previous cervical surgery. Leonila Stein MD [address], [place], [address], [facility] 10/24/2022 11:28:34 09/02/2022 text/html Patient is here today for post-op evaluation S/P {{right* left bilate ral}} {{shoulder wrist fin sallie arm elbow hip* l eg knee ankle foot}} {{arthroscopy arthro scopy with repair total arthroplasty* ELOISA robotic assisted arthroplasty reverse total arthroplasty uni-com partmental arthroplasty ELOISA robotic assisted unicompartment arthrolasty partial arthroplasty CTR TFR ANISHA ulnar nerve release ACL repair IM Nail ORIF closed reduction percutaneo us pinning washout/I&D} }. DOS:{{1 2 3 4 5 6 7 8 9* 10 11 12}}/{{1 2 3 4 5 6 7 8 9 10 1 1 12* 13 14 15 16 17 18 19 20 21 22 23 2 4 25 26 27 28 29 30 31}}/{{20 21 22*}}. ({{Pocahontas Marushack*} }-{{Novant Dosher* B SC}}).The pain today is {{0* 1 2 3 4 5 6 7 8 9 10}}/10. Pain at its worst is {{0 1 2 3 4 5 6 7 8* 9 10}}/10. Pain is described as {{constant* frequent occasional}} {{sharp dull*}}, {{aching* stabbing}} , {{throbbing* shootin g}} {{with* without}} radiation. Patient {{has* does not have}} numbness, tingling, burning sensation {{at the incision site near the surgical site* distally}}. The pain is {{well moderately* n ot well}} controlled on {{current regimen* OTC medications ice/cryo therapy no medications}}. Patient {{does does not*}} request a refill of medications today. The patient is currently {{attending structured IP PT attending structured OP PT receiving HH PT performing HEP not performing any PT*}}.There {{are* are no}} additional issues of concern today. C/O increased pain. Zuhair Colorado MD [address], [place], [address], [facility] 09/02/2022 12:17:39 OBGyn Episode No OBEpisode recorded.
--- OUTSIDE RECORDS SUMMARY | 2024-11-26 14:53 | XMS_ITS | Continuity of Care Document ---
Author Organization [facility] Address [address] [place] [address] [place] [address] Phone Care Team Providers Care Safety And Security Manager Name Role Phone Moriah Borrego Unavailable Unavailable Advance Directives Directive Yes / No Effective Date File Name No Information Encounters Encounter Description Practice Location Reason(s) For Visit Diagnoses Date Provider Providers Copied on Encounter [address] [place], [id number], [place] tel:[phone] [facility] No Information Sloane Major. [address] [place] [address], [address], [place]. [phone] Family History Family Member Type Diagnosis Age At Onset No Information Payers Payer name Insurance type Covered green party ID Authoriza tion(s) No Information Social History Type Description Quantity Date Captured Comments Sex Female Smoking Status No Information Chief Complaint And Reason For Visit No Information Reason For Referral Reason For Referral No Information History Of Present Illness Encounter Date Complaint History Of Prese nt Illness No Information Functional Status Date Functional Assessmen t No Information Instructions Date Instruction Additional Infor mation No Information Assessments Type Assessment Date No Information Patient Care Teams Name Effective Dates (start - stop) Status Members No Information
--- OUTSIDE RECORDS SUMMARY | 2024-11-26 14:53 | XMS_ITS | Data Portability ---
Author Organization [facility] [place] Address [address] [place] [address] [place] [address] Care Team Providers Care Dedenter Name Role Phone TORI VELAZQUEZ Primary Care Provider RADHA WIN Primary Care Provider Assessment Encounter Date Assessment Date Assessment LastModified by Organization Details LastModified Time 02/18/2023 02/18/2023 Previous imaging reviewed and discussed with pt Discussed US done here in depth On multiple imaging modalities, it appears very much that she still has at least one ovary, or part of one ovary. Pt is adamant that her ovaries were, or should have been, removed. 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 I recommend yearly US to follow the benign appearing cyst. IF she does NOT have her ovaries, the cyst could be fluid collected within adhesions. Will call when records reviewed. Pt to call in 2 weeks if we have not contacted her. Not available 02/19/2023 21:38:10 01/06/2024 01/06/2024 Annual gynecological exam performed. Patient will come back in a year unless there are new symptoms. [email or web address] Not available 01/06/2024 10:38:16 Plan of Treatment Reminders Order Date Submit Date Provider Last Modified By Organization Details Last Modified Time Details Appointments None recorded. Lab None recorded. Referral None recorded. Procedures None recorded. Surgeries None recorded. Imaging MAMMO, screening, bilateral [address] [facility], [address], [place], [address], 4 12:53:24 MRI, abdomen + pelvis, w/ contrast [address] [facility], [address], [place], [address], 4 16:47:16 US, pelvis 2022 [address], [address], [place], [address], 3 08:52:02 US, transvagina l 2022 [address], [address], [place], [address], 3 08:52:02 Medication Orders estradiol 1 mg tablet 2023 024 [id number], [address], [place], [place], [id number], 4 10:49:36 estradiol 1 mg tablet 2022 023 [facility] #[id number], [address], [place], [place], [id number], 3 16:25:41 Patient TargetsNo targets recorded. Patient InstructionsNo instructions recorded. Reason for Referral None Reported. Results Created Date Observation Date Name Description Value Unit Range Abnormal Flag Note LastModifiedBy Organization Detail LastModifiedTime 01/01/2008/21/2022 CT, abdom en + pelvi s, w/ contr ast No observ ation record ed. [email or web address] [facility] , [place], [address], 02/03/2023 15:17:27 02/14/20 23 02/13/2023 US, pelvi s No observ ation record ed. [email or web address] [place] [address], [place], [address], 02/13/2023 18:01:54 02/14/20 23 02/13/2023 US, trans vagin al No observ ation record ed. [email or web address] [place] [address], [place], [address], 02/13/2023 18:02:05 02/14/20 23 02/13/2023 US, pelvi s No observ ation record ed. [facility] [address], [place], [address], 02/20/2023 11:59:23 03/26/20 23 03/26/2023 MAMMO , scree luna, bilat eral No observ ation record ed. [address] [address], [place], [address], 04/08/2023 13:24:57 03/27/20 23 03/26/2023 DEXA, axial skele ton + verte bral fract ure asses sment No observ ation record ed. [address] [address], [place], [address], 04/01/2023 12:27:10 01/20/20 24 01/16/2024 MRI, pelvi s, w/wo contr ast No observ ation record ed. [email or web address] [facility], [place], [address], 02/21/2024 11:04:02 Result Notes None recorded. Problems Name Problem SNOMED Code Status Onset Date Resolution Date Notes Provider Name and Address Organization Details Recorded Time Tobacco user 671844495 Active 2020 Ileana Lagos MD [address], [place], [address], [place] [facility] 09:55:21 Chronic obstructive pulmonary disease 30750613 Active 2020 Ileana Lagos MD [address], [place], [address], [place] [facility] 09:55:55 Problem Notes None recorded. Procedures Surgical History Date Name Laterality Status Provider Name and Address Organization Details Recorded Time 09/22/19 23 Date of Last Colonoscopy completed [facility] 12/30/2022 15:52:10 09/22/19 23 Colonoscopy completed [facility] 12/30/2022 15:51:55 06/03/20 22 arthroplasty of right hip joint completed [facility] 12/30/2022 15:51:27 12/26/19 22 Date of Last Mammogram completed [facility] 12/30/2022 15:49:57 09/10/20 18 Date of Last Pap Smear completed [facility] 09/11/2021 09:04:58 09/22/18 99 Total Hysterectomy completed [facility] 12/30/2022 15:51:05 09/22/18 94 cholecystectomy completed [facility] 12/30/2022 15:51:46 06/24/[address] [facility] 09/11/2021 09:05:46 Imaging Results Imaging Date Name Status LastModified by Organization Details LastModified Time 08/21/2022 CT, abdomen + pelvis, w/ contrast completed [email or web address] [facility] [address], [place], [address], 02/03/2023 15:17:27 02/13/2023 [email or web address] [address], [place], [address], 02/13/2023 18:01:54 02/13/2023 US, transvaginal completed [email or web address] [place] [facility] [address], [place], [address], 02/13/2023 18:02:05 02/13/2023 US, pelvis completed [facility] [address], [place], [address], 02/20/2023 11:59:23 03/26/2023 MAMMO, screening, bilateral completed [address] [address], [place], [address], 04/08/2023 13:24:57 03/26/2023 DEXA, axial skeleton + vertebral fracture assessment completed [address], [address], 04/01/2023 12:27:10 01/16/2024 MRI, pelvis, w/wo contrast completed [address], [address], 02/21/2024 11:04:02 Procedure Notes None recorded. Medical Equipment None Reported. Allergies Allergen ID Allergen Name Allergen Category Reaction Reaction Severity Criticality Documentation Date Start Date Code Code System Note Provider Name and Address Organization Details Recorded Time 39975 Ceftin medicatio n itching severe Not available 09/11/2021 69678 6 RxNorm Leydi Carson [facility] 1 09:05:24 22120 amoxicill in medicatio n Not available Not available Not available 01/06/2024 723 RxNorm Annel Yi [facility] 4 10:39:12 Medications Name Sig Start Date Stop Date Status Note LastModified by Organization Details LastModified Time amoxicillin 500 mg capsule TAKE 4 CAPSULES BY MOUTH 1 HOUR BEFORE PROCEDURE 12/30 completed Not Available Not Available Not Available prednisone 10 mg tablet 12/30 completed Not Available Not Available Not Available ipratropium 0.5 mg-albutero l 3 mg (2.5 mg base)/3 mL nebulizatio n soln USE 1 VIAL VIA NEBULIZER FOUR TIMES DAILY active Not Available Not Available No t Available clindamycin HCl 300 mg capsule TAKE 1 CAPSULE BY MOUTH THREE TIMES DAILY FOR 7 DAYS 09/11 completed Not Available Not Available Not Available azithromyci n 250 mg tablet 09/11 completed Not Available Not Available Not Available metoprolol succinate ER 50 mg tablet,exte nded release 24 hr TAKE 1 TABLET BY MOUTH DAILY 12/30 completed Not Available Not Available Not Available ondansetron HCl 4 mg tablet 12/30 completed Not Available Not Available Not Available prednisone 20 mg tablet TAKE 1 TABLET BY MOUTH TWICE DAILY FOR 5 DAYS 01/05 completed Not Available Not Available Not Available metoprolol succinate ER 100 mg tablet,exte nded release 24 hr TAKE 1 TABLET BY MOUTH DAILY active Not Available Not Available No t Available metronidazo le 500 mg tablet 12/30 completed Not Available Not Available Not Available prochlorper azine maleate 10 mg tablet 09/11 completed Not Available Not Available Not Available ciprofloxac in 500 mg tablet 12/30 completed Not Available Not Available Not Available sulfamethox azole 800 mg-trimetho prim 160 mg tablet TAKE 1 TABLET BY MOUTH TWICE DAILY FOR 14 DAYS 12/30 completed Not Available Not Available Not Available acetaminoph en 500 mg tablet TAKE 2 TABLETS BY MOUTH EVERY 8 HOURS 12/30 completed Not Available Not Available Not Available amoxicillin 500 mg tablet TAKE 4 TABLET BY MOUTH 1 HOUR BEFORE DENTAL. 01/05 completed Not Available Not Available Not Available meloxicam 7.5 mg tablet TAKE 1 TABLET BY MOUTH TWICE DAILY NEEDED 02/18 completed Not Available Not Available Not Available alprazolam 0.25 mg tablet TAKE 1 TABLET BY MOUTH TWICE DAILY NEEDED FOR ANXIETY active Not Available Not Available No t Available famotidine 20 mg tablet 09/11 completed Not Available Not Available Not Available estradiol 1 mg tablet TAKE 1 TABLET BY MOUTH EVERY DAY 2023 active Not Available Not Available Not Avai lable cephalexin 500 mg capsule 09/11 completed Not Available Not Available Not Available omeprazole 20 mg capsule,del ayed release 02/18 completed Not Available Not Available Not Available aspirin 81 mg chewable tablet CHEW AND SWALLOW 1 TABLET BY MOUTH TWICE DAILY 01/05 completed Not Available Not Available Not Available estradiol 2 mg tablet TAKE 1 TABLET BY MOUTH EVERY DAY 12/30 completed Not Available Not Available Not Available diclofenac sodium 75 mg tablet,ozzy yed release TAKE 1 TABLET BY MOUTH TWICE DAILY 01/05 completed Not Available Not Available Not Available montelukast 10 mg tablet TAKE 1 TABLET BY MOUTH AT BEDTIME active Not Available Not Available No t Available mupirocin 2 % topical ointment 09/11 completed Not Available Not Available Not Available gabapentin 100 mg capsule TAKE 1 CAPSULE BY MOUTH THREE TIMES DAILY 02/18 completed Not Available Not Available Not Available albuterol sulfate HFA 90 mcg/actuati on aerosol inhaler INHALE 2 PUFFS BY MOUTH EVERY 4 HOURS NEEDED FOR SHORTNESS OF BREATH OR WHEEZING active Not Available Not Available No t Available ondansetron 4 mg disintegrat ing tablet 02/18 completed Not Available Not Available Not Available oxycodone 5 mg tablet TAKE 1 TO 2 TABLETS BY MOUTH EVERY 8 HOURS NEEDED FOR PAIN 02/18 completed Not Available Not Available Not Available fenofibrate 160 mg tablet TAKE 1 TABLET BY MOUTH AT BEDTIME active Not Available Not Available No t Available pregabalin 75 mg capsule TAKE 1 CAPSULE BY MOUTH EVERY DAY AT BEDTIME 01/05 completed Not Available Not Available Not Available Ventolin HFA active Not Available Not Available Not Available Anoro Ellipta 62.5 mcg-25 mcg/actuati on powder for inhalation INHALE 1 PUFF BY MOUTH DAILY 01/05 completed Not Available Not Available Not Available Trelegy Ellipta 100 mcg-62.5 mcg-25 mcg powder for inhalation INHALE 1 PUFF BY MOUTH DAILY. RINSE MOUTH AND SPIT AFTER EACH USE active Not Available Not Available No t Available BinaxNOW COVID-19 Ag Self Test kit TEST DIRECTED TODAY 02/18 completed Not Available Not Available Not Available Vitals Date Recorded Body height Body mass index (BMI) Body weight Systolic blood pressure Diastolic blood pressure Provider Name and Address Organization Details Last Updated DateTime 12/30/2022 162.56 cm 30 kg/m2 72338.66 g 131 mm[Hg] 78 mm[Hg] Maricruz Ramirez [facility] 3 15:46:42 Date Recorded Body height Body mass index (BMI) Body weight Systolic blood pressure Diastolic blood pressure Provider Name and Address Organization Details Last Updated DateTime 02/18/2023 162.56 cm 29.9 kg/m2 55882.07 g 120 mm[Hg] 77 mm[Hg] Leydi Carson [facility] 3 18:08:20 Date Recorded Body height Body mass index (BMI) Body weight Provider Name and Address Organization Details Last Updated DateTime 01/06/2024 162.56 cm 30.4 kg/m2 17308.85 g Annel Yi [facility] 01/06/2024 10:38:43 Date Recorded Body height Body mass index (BMI) Body weight Systolic blood pressure Diastolic blood pressure Provider Name and Address Organization Details Last Updated DateTime 01/26/2024 162.56 cm 30.7 kg/m2 13050.03 g 126 mm[Hg] 74 mm[Hg] Jenna Garcia [facility] 4 10:03:36 Social History Question Answer Notes LastModified by Organizat ion Details LastModified Time Tobacco Smoking Status Current Every Day Smoker Maricruz vera, [facility] 12/30/2022 15:48:12 Do You Have An Advance Directive? No Information not available 12/30/2022 What Is Your Level Of Alcohol Consumption? None Information not available 09/11/2021 What Is Your Level Of Caffeine Consumption? Moderate [email or web address] Information not available 12/30/2022 In The 14 Days Before Symptom Onset, Have You Had Close Contact With A Laboratory-confir med COVID-19 While That Case Was Ill? No [email or web address] Information not available 12/30/2022 In The 14 Days Before Symptom Onset, Have You Had Close Contact With A Person Who Is Under Investigation For COVID-19 While That Person Was Ill? No Information not available 12/30/2022 Have You Been To An Area Known To Be High Risk For COVID-19? No [email or web address] Information not available 12/30/2022 Are You Deaf Or Do You Have Serious Difficulty Hearing? No [email or web address] Information not available 12/30/2022 What Type Of Diet Are You Following? REGULAR [email or web address] Information not available 12/30/2022 What Is The Highest Grade Or Level Of School You Have Completed Or The Highest Degree You Have Received? 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 No [email or web address] Information not available 12/30/2022 Do You Use Protection During Sex? No [email or web address] Information not available 12/30/2022 Do You Use Your Seat Belt Or Car Seat Routinely? No [email or web address] Information not available 12/30/2022 Do You Have Smoke And Carbon Monoxide Detectors In Your Home? Yes [email or web address] Information not available 12/30/2022 At What Age Did You Start Smoking Tobacco? 19 [email or web address] Information not available 12/30/2022 How Much Tobacco Do You Smoke? 1 PPD Information not available 09/11/2021 Do You Feel Stressed (tense, Restless, Nervous, Or Anxious, Or Unable To Sleep At Night)? [id number] [email or web address] Information not available 12/30/2022 Do You Use Any Illicit Or Recreational Drugs? No Information not available 09/11/2021 Do You Use Sunscreen Routinely? No [email or web address] Information not available 12/30/2022 Has Tobacco Cessation Counseling Been Provided? No Information not available 12/30/2022 How Many Years Have You Smoked Tobacco? 51 [email or web address] Information not available 12/30/2022 Have You Used IV Drugs? No [email or web address] Information not available 12/30/2022 Do You Or Have You Ever Used Any Other Forms Of Tobacco Or Nicotine? No Information not available 12/30/2022 Sex: Unknown Functional Status Question Answer Note LastModified by Organization D etails LastModified Time Are you able to walk? YESWOREST [email or web address] Information not available 12/30/2022 What is your exercise level? None [email or web address] Information not available 12/30/2022 Mental Status None recorded. Family History Relationship Description Onset Age of this Age Resolved Age Notes LastModified by Organization Details LastModified Time Paternal Grandmother Diabetes mellitus [email or web address] Not available 12/30 15:48:11 Paternal Aunt Heart disease [email or web address] Not available 12/30 15:48:11 Father Asthma Not available 12/30/2022 15:48:11 Father Disorder of lung [email or web address] Not available 12/30 15:48:11 Father Heart disease [email or web address] Not available 12/30 15:48:11 Brother Malignant tumor of lung Not available 2023 10:04:42 Medical History Condition Response Other N Blood Transfusion N Dermatologic Disorders N Gestational Diabetes N Anxiety Disorder N Autoimmune disease N Arthritis N Polyps N Infertility N Acid Reflux (GERD) Y Cancer N Varicosities N Stroke N Neurologic/Epilepsy N Fibromyalgia N Headaches N Kidney Disease N Heart Problems N Kidney or Bladder Problems N Eating Disorder N Art (IVF or FET) N Hepatitis/Liver Disease N No Past Medical History N Urinary Tract Infection N Asthma Y Trauma/Violence N Thrombophilias N Allergies (Food, seasonal, environmental ) Y Breast Cancer N Drug/Latex Allergies/Reactions Y Lung Disease Y Defects or Inherited Disease N Breast Problem N Hematologic disorders N Anesthesia Complications N History of STI N Deep Vein Thrombosis N Polycystic ovary syndrome N History of abnormal pap N Endometriosis N High Cholesterol N Thyroid Problems N GI Problems Y Anemia N Psychiatric Illness N Ovarian Cancer N Diabetes N Pulmonary (TB, Asthma) Y Eczema N Abuse/Domestic Violence N Depression/ depression N Heart Disease N Pre-Eclampsia N Hypertension N Osteoporosis N Gynecological History Statement/Question Response Date of Last Mammogram 12/25/2021 Date of LMP 09/22/1998 N HPV Vaccine N Current Control Method Hysterectom y Age at First Child 19 If Post Menopausal, Age at Menopause 48 Date of Last Colonoscopy 09/22/2022 Most Recent Bone Density Sexually Active? Y Age of first menstrual cycle 15 Date of Last Pap Smear 09/10/2018 Sexual Problems? N Y Obstetrics History GPAL:G 2 P 0 2 0 2 Type Value Premature 2 Living 2 Total 2 Past Encounters Encounter ID Performer Location Encounter Start Date Encounter Closed Date Diagnosis/Indication Diagnosis SNOMED-CT Code Diagnosis ICD10 Code Diagnosis Note [id number] Ileana Lagos MD [place] [address] [address] 09/11/2021 09:38:28 09/11/2021 10:26:45 Gynecologic examination 60603453 Z01.419 Hormone re placement therapy 505650813 Z79.890 [id number] Jacqui Roman [place] [address] [address] 12/30/2022 15:15:16 12/31/2022 17:05:20 Gynecologic examination 10280787 Z01.419 Take Calcium with Vitamin D 12-1500mg daily. Do monthly self breast exams. It is advised to get annual flu shot in the fall and she could obtain at [facility]. If you haven't received the Tdap vaccine in the last 10 years you should obtain one as well. Have mammogram yearly, bone density every 2-3 years and colonoscop y every 5-10 years depending on findings and history. Engage in daily exercise of low impact aerobic exercise 45-60 minutes 4-5 times weekly. Avoid tobacco and illicit drugs as well as using moderation with alcohol intake less than 1-2 8 oz beverages daily. This lifestyle behavior pattern will lead to less health conditions and longer life span. If BMI greater than 25 weight watchers or dietary consult advised. Questions have been answered. Patient appears to understand instructio ns, but if you have any further questions call or respond to this email. Hormone re placement therapy 403957771 Z79.890 Significan tly helps with symptoms. Wants to continue. Discussed risks and benefits d/t age and health history. Will discuss again next year.Need to await records from recent hospitaliz ations. Depending on diagnosis may need to discuss risk even further. [id number] [facility] [address] [address] 01/06/2024 10:25:15 01/06/2024 11:04:52 Gynecologic examination 80676088 Z01.419 Take Calcium with Vitamin D 12-1500mg daily. Do monthly self breast exams. It is advised to get annual flu shot in the fall and she could obtain at [facility] or [facility]. If you haven't received the Tdap vaccine in the last 10 years you should obtain one as well. Have mammogram yearly, bone density every 2-3 years and colonoscop y every 5-10 years depending on findings and history. Engage in daily exercise of low impact aerobic exercise 45-60 minutes 4-5 times weekly. Avoid tobacco and illicit drugs as well as using moderation with alcohol intake less than 1-2 8 oz beverages daily. This lifestyle behavior pattern will lead to less health conditions and longer life span. If BMI greater than 25 weight watchers or dietary consult advised. Questions have been answered. Patient appears to understand instructio ns, but if you have any further questions call or respond to this email Pap/hpv USPSTF recommends against screening for cervical cancer in women older than 65yo, those who've had a hysterecto my for non-cancer indication s, & who have had adequate prior screening & are not otherwise at high risk for cervical cancer. STD Screen declinedGe netic Screen discussedC olon Screen UTD PCPDexa Screen UTD PCPRoutine Labs UTD PCP Hormone re placement therapy 976843080 Z79.890 Counseled on the following: Females >10yrs past menopause (& age 60yo+) are generally not good candidates for starting (1st use) systemic HT. Decisions to continue systemic HT > a decade past menopause (or past age 60yo) requires balancing R/B's; & individual ized needs. Non-hormon al options may be more appropriat e for females >10yrs past menopause. Verbalized understand ing of risks continuing past age 60yo Cyst of ovary 98884845 N 83.209 Today we reviewed her US from last year which did show simply cyst 4cm and another area of concern.Sh cierra is confused as to how this is present b/c she was told her ovaries were taken during her hysterecto my (for non-cancer ous indication s); she declined a tvus and would like to pursue MRI at this time since she has had other complicati ons in the past.I have advised that her insurance may not cover and MRI at this stage but we can order and see what they approve.Ne eds yearly imaging for this issue regardless of type' of imaging.Un manda bay verbalized . Screening mammography 24 208256 Z12.31 [id number] Bessy Bridges [place] [address] [address] 02/13/2023 13:43:50 02/18/2023 16:36:30 Pelvic mass 32372885 R19.09 [id number] Ileana Lagos MD [place] [address] [address] 02/18/2023 17:42:05 02/19/2023 16:06:58 Cyst of left ovary 0657801706 5838280 N83.202 History of vaginal hysterectomy 713805675 Z90.710 [id number] Sean Anglin MD [place] [address] [address] 01/26/2024 09:58:34 01/27/2024 00:19:21 Pelvic mass 01441914 R19.00 this patient is a 73-year-ol d female with a pelvic cyst. It has been identified on multiple types of imaging. At different times. It appears to be stable. There is some vague findings in the pelvis resembling an ovary. Patient has had a hysterecto my with bilateral salpingo-o ophorectom y. This was more than 20 years ago. There is a pathology report that confirms that the ovaries were removed. Patient has diverticul osis and multiple episodes of diverticul itis. The left-sided pelvic cyst may be associated with the diverticul osis. given the long-term stability of the cystic structure, I believe can be observed for symptoms only. We agreed to follow-up as needed and for well-woman exam. We spent over 20 minutes face-to-fa ce. More than 50% was counseling . We reviewed records extensivel y. Health Concerns Section Related Observation LastModified by Organization Detai ls LastModified Time None Recorded Concern Status LastModified by Organization Details LastModified Time None Recorded Advance Directives Directive N: Payers Encounter Date Sequence Insurance Name Policy Number Policy Cottrell Covered Member ID Cottrell Member ID Guarantor Name 12/30/2022 1 [facility] (MEDICARE REPLACEMENT/A DVANTAGE - HMO) [id number] Natalie Olivas [id number] Natalie Olivas 02/13/2023 1 [facility] (MEDICARE REPLACEMENT/A DVANTAGE - HMO) [id number] Natalie Olivas [id number] Natalie Olivas 02/18/2023 1 [facility] (MEDICARE REPLACEMENT/A DVANTAGE - HMO) [id number] Natalie Olivas [id number] Natalie Olivas 01/06/2024 1 [facility] (MEDICARE REPLACEMENT/A DVANTAGE - HMO) [id number] Natalie Olivas [id number] Natalie Olivas 01/26/2024 1 [facility] (MEDICARE REPLACEMENT/A DVANTAGE - HMO) [id number] Natalie Olivas [id number] Natalie Olivas Notes Date Note Type Note Provider Name and Address Organization Details Recorded Time 12/30/2022 text/html Annual GYNReport ed bypatient.Urinary symptoms:No hematuria; No incontinence Vulva:No genital lesion Vagina:Normal vaginal discharge Breast:No breast pain; No breast lump; No nipple discharge Sexual complaints:No sexual complaints; No pain during intercourse; Normal libido Menopausal Symptoms:No menopausal symptoms; Normal vaginal lubrication Psychological symptoms:No depression; No anxiety; No PMDD Diverticulitis history this year. Most recent in November. Has been off meds for a couple weeks.Left ovarian cyst on ovary. Hospital in [place] in July. However, patient has had a total hyst. She called Dr Felix Pedro office and verified.Hip replacement May 2022 [facility] 01/20/2023 18:30:52 02/18/2023 text/html Natalie is a 72yo h ere for follow up US. She is s/p TVH in 1998. She is adamant that she had a BSO at the same time. She remembers surgical menopause and extensively discussing with Dr. Felix Pedro that she wanted her ovaries out because of the fear of ovarian cancer. SHe states she called their office a couple weeks ago, they found her op report, and read to her that her ovaries were removed. However, on recent imaging she seems to have a left ovarian cyst. In [place] in Jul 2022 it was first seen. Recent CT 11/2022 shows unchanged 4x3 cm left adnexal cyst. US here then showed a 4cm simple left ovarian cyst and a normal right ovary with a surgically absent uterus. Of note, pt has history of diverticulitis with multiple admissions since July 2022. 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 Ileana Lagos MD [address], [place], [address], [facility] 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 susan bypatient.Menopausal Symptoms:no menopausal symptoms; normal vaginal lubrication Vaginal Bleeding:history of menopause having occurred; no history of post menopausal bleeding Urinary Symptoms:no hematuria; no incontinence; no nocturia; no urinary frequency Vulva:no genital lesion; no vulvar atrophy Vagina:normal vaginal discharge; no vaginal atrophy Breast:no breast lump; no nipple discharge; no breast pain Sexual Complaints:no sexual complaints Psychological Symptoms:no depression; no anxiety Preventive Measures:encourage regular mammograms starting age 40; encourage self breast examination; encourage regular exercise; encourage no tobacco use; needs to schedule mammogram; history of recent colonoscopy Requests MRI to check on the ovarian cysts present in 2022; she reports that she was told her did not have ovaries when she got her hysterectomy; so she is confused as to how US is showing it is there.No sx's Yeni Werner, ANETTE- [address], [place], [address], [facility] 01/06/2024 11:02:20 01/26/2024 text/html this patient is a 73-year-old female with a pelvic cyst. It has been identified on multiple types of imaging. At different times. It appears to be stable. There is some vague findings in the pelvis resembling an ovary. Patient has had a hysterectomy with bilateral salpingo-oophorectom y. This was more than 20 years ago. There is a pathology report that confirms that the ovaries were removed. Patient has diverticulosis and multiple episodes of diverticulitis. The left-sided pelvic cyst may be associated with the diverticulosis. given the long-term stability of the cystic structure, I believe can be observed for symptoms only. We agreed to follow-up as needed and for well-woman exam. We spent over 20 minutes [id number]. More than 50% was counseling. We reviewed records extensively. Sean Anglin MD [address], [place], [address], [place] [facility] 01/26/2024 21:57:59 OBGyn Episode Ob Episode Information Episode Created Date Number of Fetuses Patient Bloodtype Patient rh Status Prepregnancy Weight lbs Domestic Partner Domestic Partner Phone Father Name Tong Hooker Status 09/11/20 21 1 CLOSED Fetus Data First Name Last Name Admitted to NICU Weight (g) Sex Living Outcome Pediatric Complications Fetus ID Race Codes Race Delivery Type 2239.38 3704 F Prematur e [id number] Vaginal Delivery Nate Calculation Initial Nate Date Initial Exam Date Initial Exam Provider Initial Ultrasound Date Last Menstrual Period Date Ultra Sound Weeks Gestation 0 Eighteen To Twenty Week Nate Update Ultra Sound Date Fundal Height At Umbil Quickening Date Ultra Sound Latest Weeks Gestation Final Nate Confirmed By Final Nate Confirmed Date Final Nate Date Ultra Sound Latest Days Gestation 0 0 Menstrual History Last Menstrual Date Menses Monthly On Bcp Conception Prior Menses Frequency Hcg Plus Date Menarche Onset Age Delivery Information Delivery Date Delivery Type Labor Anesthesia Weeks Gestation Incision Type Labor Labor Length Hrs Delivered By Post Complications Tubal Sterilization Discharge Date Comments 1 Discharge Information Feeding Method Contraceptive Method Maternal HG B and HCT Levels Ob Episode Information Episode Created Date Number of Fetuses Patient Bloodtype Patient rh Status Prepregnancy Weight lbs Domestic Partner Domestic Partner Phone Father Name Tong Hooker Status 09/11/20 21 1 CLOSED Fetus Data First Name Last Name Admitted to NICU Weight (g) Sex Living Outcome Pediatric Complications Fetus ID Race Codes Race Delivery Type 2749.67 [id number] F Prematur e [id number] Primary Nate Calculation Initial Nate Date Initial Exam Date Initial Exam Provider Initial Ultrasound Date Last Menstrual Period Date Ultra Sound Weeks Gestation 0 Eighteen To Twenty Week Nate Update Ultra Sound Date Fundal Height At Umbil Quickening Date Ultra Sound Latest Weeks Gestation Final Nate Confirmed By Final Nate Confirmed Date Final Nate Date Ultra Sound Latest Days Gestation 0 0 Menstrual History Last Menstrual Date Menses Monthly On Bcp Conception Prior Menses Frequency Hcg Plus Date Menarche Onset Age Delivery Information Delivery Date Delivery Type Labor Anesthesia Weeks Gestation Incision Type Labor Labor Length Hrs Delivered By Post Complications Tubal Sterilization Discharge Date Comments 7 Breech Discharge Information Feeding Method Contraceptive Method Maternal HG B and HCT Levels
--- OUTSIDE RECORDS SUMMARY | 2024-11-26 14:53 | XMS_ITS | Continuity of Care Document ---
Author Organization [facility] Address [address] [place] [address] [place] [address] Phone Care Team Providers Care Driver Helper Name Role Phone Fields OD, Suhail Unavailable Unavailable Procedures Procedure Date Contact Lens Hydrophilic, Spherical [facility] Eye Exam & Treatment Refraction [facility] CL Replacement - Vistakon Disp W/BW Soft Office/outpatient Visit, Est Refraction CL Replacement - V[facility] Disp W/BW Soft [facility] Eye Exam & Treatment Refraction CL Replacement - Vistakon Disp W/BW Soft [facility] Advance Directives Directive Yes / No Effective Date File Name No Information Encounters Encounter Description Practice Location Reason(s) For Visit Diagnoses Date Provider Providers Copied on Encounter [facility], [address] [place] [address] [address], [place], [place], [id number], [place] tel:[phone] [facility] [place] No Information 5-201 0 Fields OD Suhail. [address] [facility] , [address], [place], [address], [place]. tel:[phone] [facility], [address] [place] [address] [address], [place], [place], [id number], [place] tel:[phone] [facility] [place] No Information 4-200 9 Fields OD Suhail. [address], [place], [place], [facility], [place]. tel:[phone] [facility] Eye [facility], [address] [place] [address] [address], [place], [place], [address], [place] tel:[phone] [facility] No Information May-0 9-200 8 Fields OD Suhail. [address] , [address], [place], [place], [facility], [place]. tel:[phone] Office/outpat ient Visit, Est [facility], [address] [place] [address] [address], [place], [place], [id number], [place] tel:[phone] [facility] [place] No Information 9-200 8 Fields OD Suhail. [address] , [address], [place], [facility], [place]. tel:[phone] [facility], [address] [place] [address] [address], [place], [place], [address], [place] tel:[phone] [facility] No Information 2 7-200 7 Fields OD Suhail. [address] , [address], [place], [facility], [place]. tel:[phone] [facility], [address] [place] [address] [address], [place], [place], [address], [place] tel:[phone] [facility] No Information 8-200 7 Fields OD Suhail. [address] , [address], [place], [facility], [place]. tel:[phone] [facility] Eye [facility], [address] [place] [address] [address], [place], [place], [address], [place] tel:[phone] [facility] No Information 1-200 7 Fields OD Suhail. [address] , [address], [place], [address], [place]. tel:[phone] Family History Family Member Type Diagnosis Age At Onset No Information Payers Payer name Insurance type Covered constitution party ID Authoriza tion(s) No Information Social [...]
== END 2024-11-26 14:49 | disposition home or self-care (01) ==
LOC: ANHIMG 14:49
PROVIDERS: PCP Family Medicine; Visit Provider Obstetrics & Gynecology
DX: Z12.31 Encounter for screening mammogram for malignant neoplasm of breast (principal)
CPT/HCPCS: 77063; 77067

== ENCOUNTER 2024-12-27 15:25 | Outpatient (CLI) | payer MEDICARE, SELFPAY ==
--- NOTE | ~2024-12-27 | XR_ITS ---
EXAMINATION: XR chest 2V 12/27/2024 15:40 INDICATION: Pleural effusion PROCEDURE: 2 view chest COMPARISON: Comparison to multiple prior studies sequentially, with oldest reviewed study dated 12/09. FINDINGS: The lungs are clear. Calcified granuloma in the left lung base. The cardiomediastinal silho uette is within normal limits. There are no pleural effusions. There is no pneumothorax suspected. There are cholecystectomy clips. IMPRESSION: 1: NO ACUTE CARDIOPULMONARY DISEASE. Reviewed, dictated and finalized at location A.
--- OUTSIDE RECORDS SUMMARY | 2024-12-27 17:30 | XMS_ITS | Continuity of Care Document ---
Author Organization [facility] Address [address] [place] [address] [place] [address] Phone Care Team Providers Care Community Center Director Name Role Phone Moriah Borrego Unavailable Unavailable Advance Directives Directive Yes / No Effective Date File Name No Information Encounters Encounter Description Practice Location Reason(s) For Visit Diagnoses Date Provider Providers Copied on Encounter [address] [place], [id number], [place] tel:[phone] [facility] No Information Sloane Major. [address] [place] [address], [address], [place]. [phone] Family History Family Member Type Diagnosis Age [...]
--- OUTSIDE RECORDS SUMMARY | 2024-12-27 17:30 | XMS_ITS | Continuity of Care Document ---
Author Organization [facility] Address [address] [place] [address] [place] [address] Phone Care Team Providers Care Vp Of Customer Experience Strategy Name Role Phone Fields OD, Suhail Unavailable Unavailable Procedures Procedure Date Contact Lens Hydrophilic, Spherical [facility] Eye Exam & Treatment Refraction [facility] CL Replacement - Vistakon Disp W/BW Soft Office/outpatient Visit, Est Refraction CL Replacement - Vistakon Disp W/BW Soft [facility] Eye Exam & Treatment Refraction CL Replacement - Vistakon Disp W/BW Soft [facility] Advance Directives Directive Yes / No Effective Date File Name No Information Encounters Encounter Description Practice Location Reason(s) For Visit Diagnoses Date Provider Providers Copied on Encounter Located within [facility], [address] [place] [address] [address], [place], [place], [id number], [place] tel:[phone] [facility] [place] No Information 5-201 0 Fields OD Suhail. [address] [facility] , [address], [place], [address], [place]. tel:[phone] Located within [facility], [address] [place] [address] [address], [place], [place], [id number], [place] tel:[phone] [facility] [place] No Information 4-200 9 Fields OD Suhail. [address] , [address], [place], [place], [facility], [place]. tel:[phone] [facility], [address] [place] [address] [address], [place], [place], [id number], [place] tel:[phone] [facility] No Information May-0 9-200 8 Fields OD Suhail. [address] , [address], [place], [place], [facility], [place]. tel:[phone] Office/outpat ient Visit, Est [facility], [address] [place] [address] [address], [place], [place], [address], [place] tel:[phone] [facility] [place] No Information 9-200 8 Fields OD Suhail. [address] , [address], [place], [place], [facility], [place]. tel:[phone] [facility], [address] [place] [address] [address], [place], [place], [id number], [place] tel:[phone] [facility] No Information 2 7-200 7 Fields OD Suhail. [address] , [address], [place], [place], [facility], [place]. tel:[phone] Located within [facility], [address] [place] [address] [address], [place], [place], [address], [place] tel:[phone] [facility] No Information 8-200 7 Fields OD Suhail. [address] , [address], [place], [facility], [place]. tel:[phone] [facility], [address] [place] [address] [address], [place], [place], [address], [place] tel:[phone] [facility] No Information 1-200 7 Fields OD Suhail. [address] , [address], [place], [address], [place]. tel:[phone] Family History Family Member Type Diagnosis Age At Onset No Information Payers Payer name Insurance type Covered republican ID Authoriza tion(s) No Information Social History [...]
== END 2024-12-27 15:26 | disposition home or self-care (01) ==
PROVIDERS: PCP Family Medicine; Visit Provider Physician Assistant
DX: J90 Pleural effusion, not elsewhere classified (principal)
CPT/HCPCS: 71046

== ENCOUNTER 2024-12-31 05:05 | Emergency (ER) | payer MEDICARE, SELFPAY ==
[2024-12-31] VITALS (8 sets, daily range): BP systolic 116–176; BP diastolic 68–92; PULSE 76–91; RESP 13–21; TEMP 36.5; O2SAT 95–98
--- NOTE | ~2024-12-31 | CT_ITS ---
Non-contrast CT scan of the Abdomen and Pelvis Clinical indication: Right flank pain Technique: 2.5 mm axial scans were obtained through the abdomen and pelvis without intravenous or or al contrast. Dose reduction technique was used on this scan by utilizing automated exposure control a nd iterative reconstruction technique. The dose-length product (DLP) was 609.49 mGy-cm. Findings: Images through the lung bases reveal no abnormalities. There is no evidence of renal or ureteral calculi. The kidneys and the ureters are nondilated. The liver, spleen, pancreas, and adrenals appear normal. Cholecystectomy clips are present. There is no aortic aneurysm. There is no evidence of bowel obstruction. Images through the pelvis were performed. There is no evidence of ascites or lymphadenopathy. Urinary bladder unremarkable. 4.7 cm cystic mass present in the left pelvis. Status post hysterectomy.. Impression: No acute abnormality evident. 4.7 cm cystic mass in the left pelvis. This could or left ovarian cyst or possibly lymphocele. Consid er pelvic ultrasound for further evaluation. Reviewed, dictated and finalized at location . Impression: No acute abnormality evident. 4.7 cm cystic mass in the left pelvis. This could or left ovarian cyst or possi benigno lymphocele. Consider pelvic ultrasound for further evaluation.
--- NOTE | ~2024-12-31 | US_ITS ---
EXAM: US pelvic complete - 12/31/2024 07:30 CDT History: 74 years old Female with Pelvic mass Comparison: 01/16/2024 Technique Real time scanning of the pelvis was performed. FINDINGS/ IMPRESSION: Uterus and ovaries are surgically absent. There is a 4.4 x 2.8 x 2.2 cm (4.3 cm previously in 2023) cystic area of uncertain significance in left adnexa. Reviewed, dictated and finalized at location A.
--- OUTSIDE RECORDS SUMMARY | 2024-12-31 05:07 | XMS_ITS | Continuity of Care Document ---
Author Organization [facility] Address [address] [place] [address] [place] [address] Phone Care Team Providers Care B2B Sales Consultant Name Role Phone Fields OD, Suhail Unavailable Unavailable Procedures Procedure Date Contact Lens Hydrophilic, Spherical [facility] Eye Exam & Treatment Refraction [facility] CL Replacement - Vistakon Disp W/BW Soft Office/outpatient Visit, Est Refraction CL Replacement - Vistakon Disp W/BW Soft [facility] Eye Exam & Treatment Refraction CL Replacement - Vistakon Disp W/BW Soft [facility] Advance Directives Directive Yes / No Effective Date File Name No Information Encounters Encounter Description Practice Location Reason(s) For Visit Diagnoses Date Provider Providers Copied on Encounter [facility], [address] [place] [address] [address], [place], [place], [id number], [place] tel:[phone] [facility] [place] No Information 5-201 0 Fields OD Suhail. [address] [facility] , [address], [place], [address], [place]. tel:[phone] [facility], [address] [place] [address] [address], [place], [place], [address], [place] tel:[phone] [facility] [place] No Information 4-200 9 Fields OD Suhail. [address], [place], [place], [facility], [place]. tel:[phone] [facility], [address] [place] [address] [address], [place], [place], [address], [place] tel:[phone] [facility] No Information May-0 9-200 8 Fields OD Suhail. [address], [place], [facility], [place]. tel:[phone] Office/outpat ient Visit, Est [facility], [address] [place] [address] [address], [place], [place], [address], [place] tel:[phone] [facility] [place] No Information 9-200 8 Fields OD Suhail. [address], [place], [facility], [place]. tel:[phone] [facility], [address] [place] [address] [address], [place], [place], [address], [place] tel:[phone] [facility] No Information 2 7-200 7 Fields OD Suhail. [address], [place], [facility], [place]. tel:[phone] [facility], [address] [place] [address] [address], [place], [place], [address], [place] tel:[phone] [facility] No Information 8-200 7 Fields OD Suhail. [address], [place], [facility], [place]. tel:[phone] [facility], [address] [place] [address] [address], [place], [place], [address], [place] tel:[phone] [facility] No Information 1-200 7 Fields OD Suhail. [address] , [address], [place], [address], [place]. tel:[phone] Family History Family Member Type Diagnosis Age [...]
--- OUTSIDE RECORDS SUMMARY | 2024-12-31 05:07 | XMS_ITS | Continuity of Care Document ---
Author Organization [facility] Address [address] [place] [address] [place] [address] Phone Care Team Providers Care Patrol Agent Name Role Phone Moriah Borrego Unavailable Unavailable Advance Directives Directive Yes / No Effective Date File Name No Information Encounters Encounter Description Practice Location Reason(s) For Visit Diagnoses Date Provider Providers Copied on Encounter [address] [place], [id number], [place] tel:[phone] [facility] No Information Sloane Major. [address] [place] [address], [address], [place]. tel:[phone] Family History Family Member Type Diagnosis Age [...]
--- OUTSIDE RECORDS SUMMARY | 2024-12-31 05:07 | XMS_ITS | Data Portability ---
Author Organization [facility] [place] Address [address] [place] [address] Care Team Providers Care Sanitary Chemist Name Role Phone TORI VELAZQUEZ Primary Care Provider RADHA WIN Primary Care Provider [phone] Assessment Encounter Date Assessment Date Assessment LastModified [...] weeks if we have not contacted her. [email or web address] Not available 02/19/2023 21:38:10 01/06/2024 01/06/2024 Annual [...] recorded. Imaging MAMMO, screening, bilateral [address] [facility], [address], [place], [address], 4 12:53:24 MRI, abdomen + pelvis, w/ contrast [address] [facility], [address], [place], [address], 4 16:47:16 US, pelvis 2022 [address], [address], [place], [address], 3 08:52:02 US, transvagina l 2022 [address], [address], [place], [address], 3 08:52:02 Medication Orders estradiol 1 mg tablet 2023 024 [id number], [address], [place], [place], [id number], 4 10:49:36 estradiol 1 mg tablet 2022 023 [facility][id number], [address], [place], [place], [id number], 3 16:25:41 Patient TargetsNo targets recorded. Patient InstructionsNo instructions recorded. Reason for Referral None Reported. Results Created Date Observation Date Name Description Value Unit Range Abnormal Flag Note LastModifiedBy Organization Detail LastModifiedTime 01/01/2008/21/2022 CT, abdom en + pelvi s, w/ contr ast No observ ation record ed. [email or web address] , [place], [address], 02/03/2023 15:17:27 02/14/20 23 02/13/2023 US, pelvi s No observ ation record ed. [email or web address] [place] [address], [place], [address], 02/13/2023 18:01:54 02/14/20 23 02/13/2023 US, trans vagin al No observ ation record ed. [email or web address] [place] [address], [place], [address], 02/13/2023 18:02:05 02/14/20 23 02/13/2023 US, pelvi s No observ ation record ed. [facility] [address], [place], [address], 02/20/2023 11:59:23 03/26/20 23 03/26/2023 MAMMO , scree luna, bilat eral No observ ation record ed. [address] [address], [place], [address], 04/08/2023 13:24:57 03/27/20 23 03/26/2023 DEXA, axial skele ton + verte bral fract ure asses sment No observ ation record ed. [address] [facility], [place], [address], 04/01/2023 12:27:10 01/20/20 24 01/16/2024 MRI, pelvi s, w/wo contr ast No observ ation record ed. [email or web address] [facility], [place], [address], 02/21/2024 11:04:02 11/27/19 25 11/26/2024 MAMMO , scree luna, bilat eral No observ ation record ed. [address] [address], [place], [address], 12/02/2024 16:24:23 Result Notes None recorded. Problems Name Problem SNOMED Code Status Onset Date Resolution Date Notes Provider Name and Address Organization Details Recorded Time Tobacco user 842998335 Active 2020 Ileana Lagos MD [address], [place], [address], [facility] 09:55:21 Chronic obstructive pulmonary disease 45194163 Active 2020 Ileana Lagos MD [address], [place], [address], [facility] 09:55:55 Problem Notes None recorded. Procedures Surgical History Date Name Laterality Status Provider Name and Address Organization Details Recorded Time 09/22/19 23 Date of Last Colonoscopy completed [facility] 12/30/2022 15:52:10 09/22/19 23 Colonoscopy completed [facility] 12/30/2022 15:51:55 06/03/20 22 arthroplasty of right hip joint completed [facility] 12/30/2022 15:51:27 12/26/19 22 Date of Last Mammogram completed [facility] 12/30/2022 15:49:57 09/10/20 18 Date of Last Pap Smear completed [facility] 09/11/2021 09:04:58 09/22/18 99 Total Hysterectomy completed [facility] 12/30/2022 15:51:05 09/22/18 94 cholecystectomy completed [facility] 12/30/2022 15:51:46 06/24/[address] [facility] 09/11/2021 09:05:46 Imaging Results Imaging Date Name Status LastModified by Organization Details LastModified Time 08/21/2022 CT, abdomen + pelvis, w/ contrast completed [email or web address] [address], [place], [address], 02/03/2023 15:17:27 02/13/2023 US, pelvis completed [email or web address] [place] [address], [place], [address], 02/13/2023 18:01:54 02/13/2023 [facility]inal [email or web address] [address], [place], [address], 02/13/2023 18:02:05 02/13/2023 US, pelvis completed [facility] [address], [place], [address], 02/20/2023 11:59:23 03/26/2023 MAMMO, screening, bilateral completed [address] [address], [place], [address], 04/08/2023 13:24:57 03/26/2023 DEXA, axial skeleton + vertebral fracture assessment completed [address], [address], 04/01/2023 12:27:10 01/16/2024 MRI, pelvis, w/wo contrast completed [address], [address], 02/21/2024 11:04:02 11/26/2024 MAMMO, screening, bilateral completed [address], [address], 12/02/2024 16:24:23 Procedure Notes None recorded. Medical Equipment None Reported. Allergies Allergen ID Allergen Name Allergen Category Reaction Reaction Severity Criticality Documentation Date Start Date Code Code System Note Provider Name and Address Organization Details Recorded Time 71641 Ceftin medicatio n itching severe Not available 09/11/2021 39979 6 RxNorm Leydi vera [place] - [facility] 09:05:24 83230 amoxicill in medicatio n Not available Not available Not available 01/06/2024 723 RxNorm SELMA Sibley - [facility] 4 10:39:12 Medications Name Sig Start [...] Updated DateTime 12/30/2022 162.56 cm 30 kg/m2 64792.66 g 131 mm[Hg] 78 mm[Hg] Maricruz Ramirez [facility] 3 15:46:42 Date Recorded Body height Body mass index (BMI) Body weight Systolic blood pressure Diastolic blood pressure Provider Name and Address Organization Details Last Updated DateTime 02/18/2023 162.56 cm 29.9 kg/m2 79941.07 g 120 mm[Hg] 77 mm[Hg] Leydi Carson [facility] 3 18:08:20 Date Recorded Body height Body mass index (BMI) Body weight Provider Name and Address Organization Details Last Updated DateTime 01/06/2024 162.56 cm 30.4 kg/m2 57020.85 g Annel Yi [facility] 01/06/2024 10:38:43 Date Recorded Body height Body mass index (BMI) Body weight Systolic blood pressure Diastolic blood pressure Provider Name and Address Organization Details Last Updated DateTime 01/26/2024 162.56 cm 30.7 kg/m2 81157.03 g 126 mm[Hg] 74 mm[Hg] Jenna Garcia [facility] 4 10:03:36 Social History Question Answer Notes LastModified by Organizat ion Details LastModified Time Tobacco Smoking Status Current Every Day Smoker Maricruz Ramirez [facility] 12/30/2022 15:48:12 Do You Have An Advance Directive? No [email or web address] Information not available 12/30/2022 What Is Your Level Of Alcohol Consumption? None Information not available 09/11/2021 What Is Your Level Of Caffeine Consumption? Moderate [email or web address] Information not available 12/30/2022 In The 14 Days Before Symptom Onset, Have You Had Close Contact With A Laboratory-confir med COVID-19 While That Case Was Ill? No [email or web address] Information not available 12/30/2022 In The 14 Days Before Symptom Onset, Have You Had Close Contact With A Person Who Is Under Investigation For COVID-19 While That Person Was Ill? No [email or web address] Information not available 12/30/2022 Have You Been To An Area Known To Be High Risk For COVID-19? No [email or web address] Information not available 12/30/2022 Are You Deaf Or Do You Have Serious Difficulty Hearing? No [email or web address] Information not available 12/30/2022 What Type Of Diet Are You Following? REGULAR [email or web address] Information not available 12/30/2022 What Is The Highest Grade Or Level Of School You Have Completed Or The Highest Degree You Have Received? 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 No [email or web address] Information not available 12/30/2022 Do You Use Protection During Sex? No Information not available 12/30/2022 Do You Use Your Seat Belt Or Car Seat Routinely? No Information not available 12/30/2022 Do You Have Smoke And Carbon Monoxide Detectors In Your Home? Yes [email or web address] Information not available 12/30/2022 At What Age Did You Start Smoking Tobacco? 19 [email or web address] Information not available 12/30/2022 How Much Tobacco Do You Smoke? 1 PPD Information not available 09/11/2021 Do You Feel Stressed (tense, Restless, Nervous, Or Anxious, Or Unable To Sleep At Night)? [id number] [email or web address] Information not available 12/30/2022 Do You Use Any Illicit Or Recreational Drugs? No Information not available 09/11/2021 Do You Use Sunscreen Routinely? No [email or web address] Information not available 12/30/2022 Has Tobacco Cessation Counseling Been Provided? No [email or web address] Information not available 12/30/2022 How Many Years Have You Smoked Tobacco? 51 [email or web address] Information not available 12/30/2022 Have You Used IV Drugs? No Information not available 12/30/2022 Do You Or Have You Ever Used Any Other Forms Of Tobacco Or Nicotine? No [email or web address] Information not available 12/30/2022 Sex: Unknown Functional Status Question Answer Note LastModified by Organization D etails LastModified Time Are you able to walk? YESWOREST [email or web address] Information not available 12/30/2022 What is your exercise level? None [email or web address] Information not available 12/30/2022 Mental Status None recorded. Family History Relationship Description Onset Age of this Age Resolved Age Notes LastModified by Organization Details LastModified Time Paternal Grandmother Diabetes mellitus [email or web address] Not available 12/30 15:48:11 Paternal Aunt Heart disease [email or web address] Not available 12/30 15:48:11 Father Asthma [email or web address] Not available 12/30/2022 15:48:11 Father Disorder of lung [email or web address] Not available 12/30 15:48:11 Father Heart disease [email or web address] Not available 12/30 15:48:11 Brother Malignant tumor of lung [email or web address] Not available 2023 10:04:42 Medical History Condition Response Allergies (Food, seasonal, environmental ) Y Other N Drug/Latex Allergies/Reactions Y Breast Cancer N Blood Transfusion N Lung Disease Y Dermatologic Disorders N Defects or Inherited Disease N Breast Problem N Gestational Diabetes N Hematologic disorders N Anesthesia Complications N History of STI N Deep Vein Thrombosis N Polycystic ovary syndrome N Anxiety Disorder N Autoimmune disease N Arthritis N Polyps N Infertility N History of abnormal pap N Acid Reflux (GERD) Y Cancer N Varicosities N Stroke N Neurologic/Epilepsy N Endometriosis N High Cholesterol N Headaches N Fibromyalgia N Kidney Disease N Heart Problems N Thyroid Problems N Kidney or Bladder Problems N GI Problems Y Eating Disorder N Anemia N Art (IVF or FET) N Psychiatric Illness N Ovarian Cancer N Diabetes N Pulmonary (TB, Asthma) Y Hepatitis/Liver Disease N No Past Medical History N Eczema N Urinary Tract Infection N Abuse/Domestic Violence N Asthma Y Trauma/Violence N Depression/ depression N Heart Disease N Pre-Eclampsia N Hypertension N Osteoporosis N Thrombophilias N Gynecological History Statement/Question Response Date of [...] SNOMED-CT Code Diagnosis ICD10 Code Diagnosis Note 67544 Ileana Lagos MD [place] [address] [address] 09/11/2021 09:38:28 09/11/2021 10:26:45 Gynecologic examination 26424563 Z01.419 Hormone re placement therapy 945961304 Z79.890 [id number] Jacqui Roman [place] [address] [address] 12/30/2022 15:15:16 12/31/2022 17:05:20 Gynecologic examination 56407621 Z01.419 Take Calcium with Vitamin D 12-1500mg daily. Do monthly self breast exams. It is advised to get annual flu shot in the fall and she could obtain at [facility] or [facility] care clinic. If you haven't received the Tdap [...] to this email. Hormone re placement therapy 191370284 Z79.890 Significan tly helps with symptoms. Wants to continue. Discussed risks and benefits d/t age and health history. Will discuss again next year.Need to await records from recent hospitaliz ations. Depending on diagnosis may need to discuss risk even further. [id number] Yeni Werner , [facility] [address] [address] 01/06/2024 10:25:15 01/06/2024 11:04:52 Gynecologic examination 55859411 Z01.419 Take Calcium with Vitamin D 12-1500mg daily. Do monthly self breast exams. It is advised to get annual flu shot in the fall and she could obtain at [facility] or [facility] care clinic. If you haven't received the Tdap [...] Labs UTD PCP Hormone re placement therapy 447733485 Z79.890 Counseled on the following: Females >10yrs [...] continuing past age 61yo Cyst of ovary 85704605 N 83.209 Today we reviewed her US from last year which did show simply cyst 4cm and another area of concern.Sh e is confused as to how this is [...] issue regardless of type' of imaging.Un manda g verbalized . Screening mammography 24 911154 Z12.31 [id number] Bessy Bridges [place] [address] [address] 02/13/2023 13:43:50 02/18/2023 16:36:30 Pelvic mass 06812437 R19.09 [id number] Ileana Lagos MD [place] [address] [address] 02/18/2023 17:42:05 02/19/2023 16:06:58 Cyst of left ovary 2262278919 3510439 N83.202 History of vaginal hysterectomy 755745278 Z90.710 [id number] Sean Anglin MD [place] [address] [address] 01/26/2024 09:58:34 01/27/2024 00:19:21 Pelvic mass 25776034 R19.00 this patient is a 73-year-ol d [...] Concerns Section Related Observation LastModified by Organization Gerardo hair LastModified Time None Recorded Concern Status LastModified by Organization Details LastModified Time None Recorded Advance Directives Directive N: Payers Encounter Date Sequence Insurance Name Policy Number Policy Cottrell Covered Member ID Cottrell Member ID Guarantor Name 12/30/[address] [facility] (MEDICARE REPLACEMENT/A DVANTAGE - HMO) [id number] Natalie Olivas [id number] Natalie Olivas 02/13/[address] [facility] (MEDICARE REPLACEMENT/A DVANTAGE - HMO) [id number] Natalie Olivas [id number] Natalie Olivas 02/18/[address] [facility] (MEDICARE REPLACEMENT/A DVANTAGE - HMO) [id number] Natalie Olivas [id number] Natalie Olivas 01/06/[address] [facility] (MEDICARE REPLACEMENT/A DVANTAGE - HMO) [id number] Natalie Olivas [id number] Natalie Olivas 01/26/[address] [facility] (MEDICARE REPLACEMENT/A DVANTAGE - HMO) [id number] Natalie Garcia [place] [id number] Natalie Olivas Notes Date Note Type Note [...] a couple weeks.Left ovarian cyst on ovary. [facility] in [place] in July. However, patient has had a total hyst. She called Dr Felix Pedro office and verified.Hip replacement May 2022 Jacqui Roman [facility] 01/20/2023 18:30:52 02/18/2023 text/html Natalie is [...] to have a left ovarian cyst. In [place] in Jul 2022 it was first seen. [...] out. Ileana Lagos MD [address], [place], [address], [facility] 02/19/2023 21:38:36 01/06/2024 text/html Annual Joint Cutter Post-MenopausalRepor susan bypatient.Menopausal Symptoms:no menopausal symptoms; normal [...] US is showing it is there.No sx's AUDIE Zamora- [address], [place], [address], [facility] 01/06/2024 11:02:20 01/26/2024 text/html this patient [...] well-woman exam. We spent over 20 minutes [id number]. More than 50% was counseling. We reviewed records extensively. Sean Anglin MD [address], [place], [address], [facility] 01/26/2024 21:57:59 OBGyn Episode Ob Episode Information Episode Created Date Number of Fetuses Patient Bloodtype Patient rh Status Prepregnancy Weight lbs Domestic Partner Domestic Partner Phone Father Name Wood Grinder Operator Status 09/11/20 21 1 CLOSED Fetus Data First Name Last Name Admitted to NICU Weight (g) Sex Living Outcome Pediatric Complications Fetus ID Race Codes Race Delivery Type 2239.38 3704 [place] [address] Vaginal Delivery Nate Calculation Initial Nate Date [...] Domestic Partner Domestic Partner Phone Father Name Wood Grinder Operator Status 09/11/20 21 1 CLOSED Fetus Data First Name Last Name Admitted to NICU Weight (g) Sex Living Outcome Pediatric Complications Fetus ID Race Codes Race Delivery Type 2749.67 4704 F Prematur e 32837 Primary Nate Calculation Initial Nate Date Initial [...]
--- OUTSIDE RECORDS SUMMARY | 2024-12-31 05:07 | XMS_ITS | Data Portability ---
Author Organization [place] - [facility], 2- Admin Address [address] [place] [id number] Care Team Providers Care Muck Farmer Name Role Phone QUIRINO, RADHA Primary Care Provider Assessment Encounter Date Assessment [...] of this note may be dictated using [employer] voice recognition software. Variances in spelling and [...] of this note may be dictated using [employer] voice recognition software. Variances in spelling and [...] to the grade 1 spondylolisthesis L4-5. Continue lhov-uei-frrplwx medications as needed. Follow-up in 2 months. [...] physica l therapi st referra l 2021 [facility], [address] [place] [address], [address], 08:41:[address] referra l 2021 [facility], [address] [place] [address], [address], 14:43:02 Procedures None recorde d. Surgeries total hip arthrop lasty (SURG) 2021 [facility], [address] [place] [address], [address], 11:24:56 Imaging XR, cervica l spine 2021 [facility] [[address]], [address], [place], [address], 11:46:33 XR, hand 2021 [facility]rod [facility] [[address]], [address], [place], [address], 11:46:33 XR, hip, unilate ral 2021 mateus[facility] [497], [address], [place], [address], 12:10:44 XR, lumbar spine 2021 mateusz [facility] [497], [address], [place], [address], 12:10:44 US, doppler , venous - Left UE 2021 [facility], [address] [place] [address] Dr MERINO, [place], [address], 18:29:37 Medication Orders amoxici llin [address] [facility] #01304, [address] [place], [place], [id number], 12:43:49 Neuront in [address] [facility] #48258, [address] [place], [place], [id number], 12:10:44 oxycodo ne 5 mg tablet 2021 [facility] #36071, [address] [place], [place], [id number], 08:29:38 Patient TargetsNo targets recorded. Patient InstructionsNo [...] s No observ ation record ed. [email or web address] [facility] [address] [place], [address], 07/09/2022 08:17:40 07/04/20 22 07/04/2022 XR, hip, unila teral StudyI [facility] eUID=1 .2 6.9125 .2.232 [id number] 300293 82.651 640572 2.6528 325 INTERFACE [facility] [497] [address], [place], [address], 07/04/2022 09:04:23 07/04/20 22 07/04/2022 XR, lumba r spine StudyI [facility] eUID=1 .2 6.9125 .2.232 [id number] 810891 82.651 999181 7.6528 429 INTERFACE [facility] [497] [address], [place], [address], 07/04/2022 09:25:10 07/04/20 22 07/04/2022 XR, hip, unila teral StudyI [facility] eUID=1 .2392 6.9125 .2.232 752017 030828 82.651 876538 2.6528 325 INTERFACE [facility] [497] [address], [place], [address], 07/04/2022 09:25:11 08/14/20 22 08/14/2022 XR, hand StudyI [facility] eUID=1 .2392 3 6.9125 .2.162 473910 19826. 522225 2014.3 275931 INTERFACE [facility] [497] [address], [place], [address], 08/14/2022 09:50:28 08/14/20 22 08/14/2022 nerve condu ction study /EMG, upper extre mity (PROC ) No observ ation record ed. mmafernie Stein MD [address], [place], [address], 08/19/2022 16:49:13 Result Notes None recorded. Problems Name Problem SNOMED Code Status Onset Date Resolution Date Notes Provider Name and Address Organization Details Recorded Time Osteoarthri tis of right hip joint 6987170794530 07 Active 2021 Renetta [place] null, [place] - [facility] 2 08:48:43 History of total hip arthroplast y 241593950949 Active 2021 Renetta [place] - [facility] 2 08:48:43 Hyperlipide mahnaz 92547718 Active Renetta [place] [facility] 2 08:48:43 Chronic obstructive pulmonary disease 20609490 Active Renetta [place] [facility] 2 08:48:43 Anxiety 94007378 Active Renetta [place] [facility] 2 08:48:43 Home oxygen supply 174371052 Active Renetta [place] [facility] 2 08:48:43 Hypertensiv e disorder 41087477 Active Renetta [place] [facility] 2 08:48:43 Osteoarthri tis 212576961 Active Renetta [place] [facility] 2 08:48:43 Absence of sensation 55859054 Active Renetta [place] null, [place] - [facility] 2 08:48:43 Numbness of hand 997662035 Active 2021 Khloe cano PA-C [address] [place], [address], [place] - [facility] 2 15:04:53 Degeneratio n of cervical interverteb ral disc 53039577 Active 2021 Leonila Stein MD [address] [place], [address], [place] - [facility] 2 10:22:27 Carpal tunnel syndrome 31388342 Active 2021 Leonila Stein MD [address], [place], [address], [place] [facility] 10:59:02 Osteoarthro sis of the carpometaca rpal joint of the thumb 43127168 Active 2021 Leonila Stein MD [address], [place], [address], [place] [facility] 10:59:04 Problem [...] 14:17:21 06/19/2022 US, doppler, venous completed [email or web address] [facility] [address] , [place], [address], 07/09/2022 08:17:40 07/04/2022 XR, hip, unilateral completed INTERFACE [facility] [497] [address], [place], [address], 07/04/2022 09:04:23 07/04/2022 XR, lumbar spine completed INTERFACE [facility] [497] [address], [place], [address], 07/04/2022 09:25:10 07/04/2022 XR, hip, unilateral completed INTERFACE [facility] [497] [address], [place], [address], 07/04/2022 09:25:11 08/14/2022 XR, hand completed INTERFACE [facility] [497] [address], [place], [address], 08/14/2022 09:50:28 08/14/2022 nerve conduction study/EMG, upper extremity (PROC) completed mateusz Stein MD [address], [place], [address], 08/19/2022 16:49:13 Procedure Notes None recorded. Medical Equipment None Reported. Allergies Allergen ID Allergen Name Allergen Category Reaction Reaction Severity Criticality Documentation Date Start Date Code Code System Note Provider Name and Address Organization Details Recorded Time 097585 Ceftin medicatio n itching moderate Not available 05/06/2022 22934 6 RxNorm Not Available Not Available Not Available 709360 Cefzil medicatio n itching moderate Not available 05/06/2022 96318 1 RxNorm Not Available Not Available Not Available 339734 dexametha sone medicatio n itching moderate Not available 06/11/2022 3264 RxNorm Not Available Not Available Not Available 937464 meloxicam medicatio n nausea nausea moderate moderate Not available 06/11/2022 40153 RxNorm Not Available Not Available Not Available 799335 cefprozil medicatio n itching moderate Not available 06/11/2022 70014 RxNorm Not Available Not Available Not Available [...] Updated DateTime 05/13/2022 162.56 cm Lois Ike [facility] 04/23 13:33:16 Date Recorded Body mass index (BMI) Body weight Pain severity - 0-10 verbal numeric rating [Score] - Reported Provider Name and Address Organization Details Last Updated DateTime 05/13/2022 29.2 kg/m2 77348.7 g 7 Katherine Pinto [place] - [facility] 05/13/2022 13:46:44 Date Recorded Body height Body mass index (BMI) Body weight Provider Name and Address Organization Details Last Updated DateTime 06/19/2022 162.56 cm 29.2 kg/m2 12030.7 g Renetta Harvey [facility] 06/19/2022 14:33:01 Date Recorded Body height Body mass index (BMI) Body weight Pain severity - 0-10 verbal numeric rating [Score] - Reported Provider Name and Address Organization Details Last Updated DateTime 07/04/2022 162.56 cm 29.2 kg/m2 06369.7 g 1 Katherine Pinto [facility] 07/04/2022 09:01:17 Date Recorded Body height Body mass index (BMI) Body weight Pain severity - 0-10 verbal numeric rating [Score] - Reported Provider Name and Address Organization Details Last Updated DateTime 09/02/2022 162.56 cm 29.2 kg/m2 33404.7 g 0 Katherine Pinto [place] - [facility] 09/02/2022 09:16:39 Social History Question Answer Notes LastModified by Organizat ion Details LastModified Time Tobacco Smoking Status Current Every Day Smoker Maisha Arreola [facility] 07/04/2022 08:29:39 Do You Have An Advance [...] Do You Have A Medical Power Of Application Programmer Analyst? No Information not available 07/04/2022 What Was [...] SARS-COV-2 (COVID-19) vaccine, UNSPECIFIED 11/20/2020 completed Renetta [place] [facility] 06/11/2022 08:48:56 SARS-COV-2 (COVID-19) vaccine, UNSPECIFIED 11/20/2021 completed Ren[place] [facility] 06/11/2022 08:48:56 pneumococcal, unspecified formulation 09/22/2019 completed Sindhu [place] [facility] 08/14/2022 09:24:30 SARS-COV-2 (COVID-19) vaccine, UNSPECIFIED 10/23/2020 completed Renetta [place] null, [place] - [facility] 06/11/2022 08:48:56 SARS-COV-2 (COVID-19) vaccine, UNSPECIFIED 05/23/2021 completed Renetta [place] [facility] 06/11/2022 08:48:56 influenza, unspecified formulation 06/22/2021 completed Sindhu [place] null, [place] - [facility] 08/14/2022 09:24:30 Past Encounters Encounter ID Performer Location Encounter Start Date Encounter Closed Date Diagnosis/Indication Diagnosis SNOMED-CT Code Diagnosis ICD10 Code Diagnosis Note [id number] MELANIA Dubois [facility] [address] [place] [address] 05/06/2022 15:19:58 05/06/2022 16:21:09 Pain in right hip joint 0222100676 96490 M25.551 Osteoarthr itis of right hip joint 2492346738 01208 M16.11 [id number] Zuhair Colorado MD [facility] [address] [place] [address] 05/13/2022 13:19:50 05/13/2022 14:32:57 Pain in right hip joint 0369840092 61114 M25.551 Osteoarthr itis of right hip joint 5930280683 75140 M16.11 Osteoarthritis of hip 23 5219979 M16.11 [id number] Khloe Alonzo am, [facility] [address] [place] [address] [place] [address] 06/19/2022 14:27:02 06/19/2022 15:33:09 History of total hip arthroplasty 5031580828 06 Z96.641 R MILADY DOS 06/03/22 M-D Numbness of hand 6560440 04 R20.0 [id number] Zuhair [place] MD [facility] [address] [place] [address] [place] [address] 07/04/2022 08:29:11 07/04/2022 09:34:59 Postoperative visit 225647338 Z09 Low back pain 470248632 M54.50 Lumbar spondylosis 31132 0009 M47.896 [id number] Leonila Stein MD [facility] [address],[facility] [address] [place] [address] 08/14/2022 09:22:03 08/14/2022 11:10:40 Paresthesia of upper limb 21382034 R20.2 Hand pain 41425707 M79.6 41 M79.642 Neck pain 60548370 M54.2 Osteoarthr osis of the carpometacarpal joint of the thumb 12562018 M18.0 Degenerati on of cervical intervertebral disc 87291045 M50.30 Carpal olga lidia srinath syndrome 24480872 G56.02 G56.01 [id number] Zuhair Colorado MD [facility] [address] [place] [address] [place] [address] 09/02/2022 09:09:41 09/02/2022 09:53:58 History of total hip arthroplasty 5357946356 06 Z96.649 Health Concerns Section Related Observation LastModified by Organization Detai ls LastModified Time None Recorded Concern Status LastModified by Organization Details LastModified Time None Recorded Advance Directives Directive N: Payers Encounter Date Sequence Insurance Name Policy Number Policy Cottrell Covered Member ID Cottrell Member ID Guarantor Name 05/13/2022 1 [facility] (MEDICARE REPLACEMENT/A DVANTAGE - HMO) Natalie Olivas [id number] Natalie Olivas 06/19/2022 1 [facility] (MEDICARE REPLACEMENT/A DVANTAGE - HMO) Natalie Bergwell [id number] Natalie Olivas 07/04/2022 1 [facility] (MEDICARE REPLACEMENT/A DVANTAGE - HMO) Natalie Bergwell [id number] Natalie Olivas 08/14/2022 1 [facility] (MEDICARE REPLACEMENT/A DVANTAGE - HMO) Natalie Bergwell [id number] Natalie Olivas 09/02/2022 1 [facility] (MEDICARE REPLACEMENT/A DVANTAGE - HMO) Natalie Olivas [id number] Natalie Olivas Notes Date Note Type Note [...] doppler EMG}}. Prior imaging at {{Mar[facility] our office* Urgent Care facility [...] {{Dr. Rashard Colorado*}}. Zuhair Colorado MD [address] [place], [address], [facility] - [facility] 05/13/2022 14:39:02 06/19/2022 text/html Patient [...] today. Khloe Patel PA-C [address], [place], [address], [facility] - [facility] 06/19/2022 16:29:56 07/04/2022 text/html Patient [...] pain. 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 She is status post a right total [...] surgery. Leonila Stein MD [address], [place], [address], [facility] - [facility] 10/24/2022 11:28:34 09/02/2022 text/html Patient [...] pain. Zuhair Colorado MD [address], [place], [address], [facility] - [facility] 09/02/2022 12:17:39 OBGyn Episode No OBEpisode recorded.
--- NOTE | 2024-12-31 05:33 | ED_ITS ---
HPI - General Adult General Chief complaint: Abdominal Pain <Cholo Sung MD - Last Filed: 12/31/24 05:39> Stated complaint: right flank pain <Cholo Sung MD - Last Filed: 12/31/24 05:39> Time Seen by Provider: 12/31/24 05:18 <Cholo Sung MD - Last Filed: 12/31/24 05:39> History of Present Illness HPI narrative: Patient 74-year-old female who presents emergency department chief complaint of right lower quadrant pain and right flank pain. Patient reports that she started having discomfort reassuringly reports that does not radiate into the gluteal area denies bowel or bladder incontinence denies hematuria < Cholo Sung MD - Last Filed: 12/31/24 05:39> Related Data Home medications: Home Medications ?Medication ?Instructions ?Recorded ?Confirmed ?Last Taken ?Type estradiol 2 mg tablet 1 mg PO HS 09/07/19 12/27/24 01/29/23 History <Cholo Sung MD - Last Filed: 12/31/24 05:39> Allergies/adverse reactions: Allergies Allergy/AdvReac Type Severity Reaction Status Date / Time cefuroxime Allergy Intermediate Itching Verified 12/31/24 05:16 amoxicillin Allergy Mild Itching Verified 12/31/24 05:16 cefprozil Allergy Mild Redness of Verified 12/31/24 05:16 Skin dexamethasone AdvReac Intermediate Itching Verified 12/31/24 05:16 <Cholo Sung MD - Last Filed: 12/31/24 05:39> Review of Systems 2 Review of Systems: A 10 system review of systems was completed on the patient and is negative except for what is stated in the HPI. Nursing and ancillary documentation was reviewed. <Cholo Sung MD - Last Filed: 12/31/24 05:39> PMFSH Past Medical History Medical History: Medical History Allergies Obese Diverticulitis Tobacco abuse Tobacco dependence Chronic obstructive pulmonary disease Kidney stone Anxiety Hyperlipidemia Hypertension <Cholo Sung MD - Last Filed: 12/31/24 05:39> Surgical History Surgical History: Surgical History History of right hip replacement Plantar fasciitis Status post hysterectomy with oophorectomy History of cholecystectomy <Cholo Sung MD - Last Filed: 12/31/24 05:39> Family History Family History: Family History Father Family history of coronary artery disease Emphysema lung Mother Family history of pancreatic cancer Hypertension <Cholo Sung MD - Last Filed: 12/31/24 05:39> Social History Social History: Social History Social History: Surrogate decision-maker: Mago Olivas or Katiuska Iniguez, daughters. CODE STATUS: Full code. Smoking packs per day: 1 Smoking cigarettes per day: 20.0 Years smoked: 40 Smoking pack-years: 40.00 Smoking status: Current every day smoker Tobacco type: cigarettes Second hand tobacco smoke exposure: Yes Smoking end date: 12/06/21 Alcohol intake: never Substance use: never Substance use type: does not use Do You Feel Safe in your Home?: Yes Lack of Transportation: No Lack of Food: Never True Current Housing: I Have Housing Concerned About Future Housing: No Difficulty Paying Gas/Electric Bills: No Difficulty Paying for Meds: No Currently Unemployed: YES Education: Don't Know Difficulty w/ Childcare or Family Care: No Living arrangements: alone Additional living arrangements comments: The patient lives in [place] with her daughter. 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 Gender identity (if verbalized by the patient): Female Sexual Orientation (if Verbalized by the Patient): Straight or Heterosexual Spiritual care concerns: No <Cholo Sung MD - Last Filed: 12/31/24 05:39> Exam 2 Narrative: GENERAL: Well-appearing, well-nourished, and in no acute distress. HEAD: Normocephalic, atraumatic. EYES: PERRLA and EOMI. ENT: Nares clear, no rhinorrhea or epistaxis. Mucous membranes moist. NECK: Supple. CHEST: Clear to auscultation. No respiratory distress. HEART: Regular rate and rhythm. No murmur heard. Normal peripheral pulses. ABDOMEN: Soft, nontender, nondistended, normal active bowel sounds. EXTREMITIES: Normal range of motion. No edema. SKIN: Warm, dry, no rash. NEURO: No focal deficits. Alert and oriented x3. PSYCH: Normal mood and affect. <Cholo Sung MD - Last Filed: 12/31/24 05:39> Course Course Emergency Course: LINH: Patient signed out pending pelvic ultrasound. Pelvic ultrasound redemonstrated a cyst. I discussed this with the patient. She was told 3 years ago that she had a cyst in that area. Unknown etiology or significance although likely a remnent of her complete hysterectomy many years ago. On re-evaluation patient's pain is improved. She is resting comfortably in bed. She is requesting discharge. I instructed her to follow-up with her OBGYN about the cyst. Patient is agreeable has been discharged <Luis Aaron MD - Last Filed: 12/31/24 09:40> Vital Signs Vital signs: Vital Signs Temperature 97.7 F 12/31/24 05:09 Pulse Rate 91 12/31/24 05:09 Respiratory Rate 13 12/31/24 05:09 Blood Pressure 176/92 H 12/31/24 05:09 Pulse Oximetry 98 12/31/24 05:09 Oxygen Delivery Room Air 12/31/24 05:09 Temperature 97.7 F 12/31/24 05:09 Pulse Rate 84 12/31/24 08:31 Respiratory Rate 21 H 12/31/24 08:31 Blood Pressure 122/71 12/31/24 08:31 Pulse Oximetry 96 12/31/24 08:31 Oxygen Delivery Room Air 12/31/24 05:09 <Cholo Sung MD - Last Filed: 12/31/24 05:39> Vital Signs Temperature 97.7 F 12/31/24 05:09 Pulse Rate 91 12/31/24 05:09 Respiratory Rate 13 12/31/24 05:09 Blood Pressure 176/92 H 12/31/24 05:09 Pulse Oximetry 98 12/31/24 05:09 Oxygen Delivery Room Air 12/31/24 05:09 Temperature 97.7 F 12/31/24 05:09 Pulse Rate 84 12/31/24 08:31 Respiratory Rate 21 H 12/31/24 08:31 Blood Pressure 122/71 12/31/24 08:31 Pulse Oximetry 96 12/31/24 08:31 Oxygen Delivery Room Air 12/31/24 05:09 <Luis Aaron MD - Last Filed: 12/31/24 09:40> Medical Decision Making Vital Signs Vital Signs: Vital Signs Temperature 97.7 F 12/31/24 05:09 Pulse Rate 91 12/31/24 05:09 Respiratory Rate 13 12/31/24 05:09 Blood Pressure 176/92 H 12/31/24 05:09 Pulse Oximetry 98 12/31/24 05:09 Oxygen Delivery Room Air 12/31/24 05:09 Temperature 97.7 F 12/31/24 05:09 Pulse Rate 84 12/31/24 08:31 Respiratory Rate 21 H 12/31/24 08:31 Blood Pressure 122/71 12/31/24 08:31 Pulse Oximetry 96 12/31/24 08:31 Oxygen Delivery Room Air 12/31/24 05:09 <Cholo Sung MD - Last Filed: 12/31/24 05:39> Vital Signs Temperature 97.7 F 12/31/24 05:09 Pulse Rate 91 12/31/24 05:09 Respiratory Rate 13 12/31/24 05:09 Blood Pressure 176/92 H 12/31/24 05:09 Pulse Oximetry 98 12/31/24 05:09 Oxygen Delivery Room Air 12/31/24 05:09 Temperature 97.7 F 12/31/24 05:09 Pulse Rate 84 12/31/24 08:31 Respiratory Rate 21 H 12/31/24 08:31 Blood Pressure 122/71 12/31/24 08:31 Pulse Oximetry 96 12/31/24 08:31 Oxygen Delivery Room Air 12/31/24 05:09 <Luis Aaron MD - Last Filed: 12/31/24 09:40> Lab Data Result diagrams: 12/31/24 05:34 12/31/24 05:34 <Cholo Sung MD - Last Filed: 12/31/24 05:39> Labs: Lab Results 12/31/24 12/31/24 Range/Units 05:34 05:51 WBC 6.6 (4.5-10.0) K/mm3 RBC 5.17 (4.2-5.4) M/mm3 Hgb 15.9 H (12.0-15.0) g/dL Hct 48.7 H (37.0-47.0) % MCV 94.2 (80-100) fl MCH 30.8 (26-34) pg MCHC 32.6 (32-36) g/dl RDW 12.5 (11.5-14.5) % Plt Count 263 (150-375) k/mm3 MPV 10.3 (7.4-10.4) fl Immature Gran % (Auto) 0.3 (0-0.5) % Neut % (Auto) 53.7 (45.5-73.1) % Lymph % (Auto) 32.6 (18.3-44.2) % [place] % (Auto) 11.1 H (2.6-8.5) % Eos % (Auto) 1.5 (0-4.4) % Baso % (Auto) 0.8 (0.2-1.2) % Lymph # (Auto) 2.15 (0.9-3.2) K/mm3 [place] # (Auto) 0.7 H (0.1-0.6) K/mm3 Eos # (Auto) 0.1 (0-0.3) K/mm3 Baso # (Auto) 0.1 (0.0-0.1) K/mm3 Abs Immat Gran (auto) 0.02 (0.00-0.031) K/mm3 Absolute Neuts (auto) 3.5 (1.3-6.7) K/mm3 Absolute Nucleated RBC 0.000 (0.0-0.012) K/mm3 Nucleated RBC % 0.0 (0.0-0.2) % Sodium 139 (137-145) mmol/L Potassium 4.4 (3.4-5.0) mmol/L Chloride 104 (98-107) mmol/L Carbon Dioxide 28 (22-30) mmol/L Anion Gap 7 (4-12) mmol/L BUN 13 (7-17) mg/dL Creatinine 0.67 L (0.7-1.0) mg/dL Estim Creat Clear Calc 65 ml/min Estimated GFR > 60 (59 - ) Glucose 116 H (65-110) mg/dL Calcium 9.3 (8.4-10.2) mg/dL Total Bilirubin 0.6 (0.2-1.3) mg/dL AST 22 (14-36) U/L ALT 21 (6-35) U/L Alkaline Phosphatase 78 (38-126) U/L Total Protein 7.0 (6.3-8.2) g/dL Albumin 4.4 (3.5-5.1) g/dL Lipase 62 (23-300) U/L Urine Color Yellow (Yellow) Urine Appearance Cloudy H (Clear) Urine pH 5.5 (5.0-9.0) Ur Specific [place] 1.016 (1.001-1.035) Urine Protein Negative (Negative) mg/dL Urine Glucose (UA) Negative (Negative) mg/dL Urine Ketones Negative (Negative) mg/dL Ur Blood (Man) Trace (Negative) Urine Nitrate Negative (Negative) Urine Bilirubin Negative (Negative) Urine Urobilinogen 0.2 (<2.0) mg/dL Leukocyte Esterase Rfl Negative (Negative) FRANCIA/UL Urine RBC 0-2 (0-2) /hpf Urine WBC 0-5 (0-3) /hpf Ur Squamous Epith Cells Few (Few) /hpf Urine Bacteria 1+ H /hpf Urine Casts 0-2 <Cholo Sung MD - Last Filed: 12/31/24 05:39> Lab Results 12/31/24 12/31/24 Range/Units 05:34 05:51 WBC 6.6 (4.5-10.0) K/mm3 RBC 5.17 (4.2-5.4) M/mm3 Hgb 15.9 H (12.0-15.0) g/dL Hct 48.7 H (37.0-47.0) % MCV 94.2 (80-100) fl MCH 30.8 (26-34) pg MCHC 32.6 (32-36) g/dl RDW 12.5 (11.5-14.5) % Plt Count 263 (150-375) k/mm3 MPV 10.3 (7.4-10.4) fl Immature Gran % (Auto) 0.3 (0-0.5) % Neut % (Auto) 53.7 (45.5-73.1) % Lymph % (Auto) 32.6 (18.3-44.2) % [place] % (Auto) 11.1 H (2.6-8.5) % Eos % (Auto) 1.5 (0-4.4) % Baso % (Auto) 0.8 (0.2-1.2) % Lymph # (Auto) 2.15 (0.9-3.2) K/mm3 [place] # (Auto) 0.7 H (0.1-0.6) K/mm3 Eos # (Auto) 0.1 (0-0.3) K/mm3 Baso # (Auto) 0.1 (0.0-0.1) K/mm3 Abs Immat Gran (auto) 0.02 (0.00-0.031) K/mm3 Absolute Neuts (auto) 3.5 (1.3-6.7) K/mm3 Absolute Nucleated RBC 0.000 (0.0-0.012) K/mm3 Nucleated RBC % 0.0 (0.0-0.2) % Sodium 139 (137-145) mmol/L Potassium 4.4 (3.4-5.0) mmol/L Chloride 104 (98-107) mmol/L Carbon Dioxide 28 (22-30) mmol/L Anion Gap 7 (4-12) mmol/L BUN 13 (7-17) mg/dL Creatinine 0.67 L (0.7-1.0) mg/dL Estim Creat Clear Calc 65 ml/min Estimated GFR > 60 (59 - ) Glucose 116 H (65-110) mg/dL Calcium 9.3 (8.4-10.2) mg/dL Total Bilirubin 0.6 (0.2-1.3) mg/dL AST 22 (14-36) U/L ALT 21 (6-35) U/L Alkaline Phosphatase 78 (38-126) U/L Total Protein 7.0 (6.3-8.2) g/dL Albumin 4.4 (3.5-5.1) g/dL Lipase 62 (23-300) U/L Urine Color Yellow (Yellow) Urine Appearance Cloudy H (Clear) Urine pH 5.5 (5.0-9.0) Ur Specific [place] 1.016 (1.001-1.035) Urine Protein Negative (Negative) mg/dL Urine Glucose (UA) Negative (Negative) mg/dL Urine Ketones Negative (Negative) mg/dL Ur Blood (Man) Trace (Negative) Urine Nitrate Negative (Negative) Urine Bilirubin Negative (Negative) Urine Urobilinogen 0.2 (<2.0) mg/dL Leukocyte Esterase Rfl Negative (Negative) FRANCIA/UL Urine RBC 0-2 (0-2) /hpf Urine WBC 0-5 (0-3) /hpf Ur Squamous Epith Cells Few (Few) /hpf Urine Bacteria 1+ H /hpf Urine Casts 0-2 <Luis Aaron MD - Last Filed: 12/31/24 09:40> Discharge Plan Discharge Clinical Impression: Acute hip pain, Pelvic cyst <Cholo Sung MD - Last Filed: 12/31/24 05:39> Patient Disposition: Home <Cholo Sung MD - Last Filed: 12/31/24 05:39> Condition: Stable <Cholo Sung MD - Last Filed: 12/31/24 05:39> Instructions: Antibiotic Form, Hip Pain (ED) <Cholo Sung MD - Last Filed: 12/31/24 05:39> Additional Instructions: Using emergency department for lower back/hip pain. Please use Tylenol as needed. Please follow-up with your primary care physician for further management. Please return if you develop fevers, severe pain weakness your leg or any other new or worsening symptoms. You have an incidental cyst on the left side of her pelvis. Please follow-up with your OBGYN for further management. <Cholo Sung MD - Last Filed: 12/31/24 05:39> Patient Language: Nigerien <Cholo Sung MD - Last Filed: 12/31/24 05:39> Prescriptions: No Action estradiol 2 mg tablet 1 mg PO HS baclofen 10 mg tablet 10 mg PO TID PRN (Reason: muscle spasm) Qty: 60 1RF benzonatate 100 mg capsule 100 mg PO TID PRN (Reason: cough) Qty: 30 0RF albuterol sulfate [Ventolin HFA] 90 mcg/actuation HFA aerosol inhaler 2 puff INHALATION Q4H PRN (Reason: shortness of breath or wheezing) Qty: 8.5 3RF metoprolol succinate 100 mg tablet extended release 24 hr 100 mg PO DAILY Qty: 90 1RF fenofibrate 160 mg tablet 160 mg PO HS Qty: 90 2RF Trelegy Ellipta 100-62.5-25 mcg blister with device 1 inh inhalation DAILY Qty: 60 5RF Rx Instructions: Rinse mouth and spit after each use. montelukast [Singulair] 10 mg tablet 10 mg PO HS Qty: 90 1RF ipratropium-albuterol 0.5 mg-3 mg(2.5 mg base)/3 mL solution for nebulization See Rx Instructions .ROUTE .COMPLEX Qty: 1080 0RF Dose Instruction: INHALE ONE VIAL BY NEBULIZER FOUR TIMES DAILY Rx Instructions: INHALE ONE VIAL BY NEBULIZER FOUR TIMES DAILY alprazolam [Xanax] 0.25 mg tablet 0.25 mg PO BID PRN (Reason: anxiety) Qty: 60 0RF <Cholo Sung MD - Last Filed: 12/31/24 05:39> Follow-up/Referrals: Armand Keating MD [Primary Care Provider] - <Cholo Sung MD - Last Filed: 12/31/24 05:39>
[2024-12-31] MEDS: MORPHINE SULFATE (*CRX) 4 MG/ML INJ 2 MG IV PUSH (05:42)
[2024-12-31] MEDS: ONDANSETRON INJ 4 MG/2 ML VIAL IV PUSH (05:42)
[2024-12-31 05:43] LABS: Basophils Absolute Auto 0.1 K/mm3 (0.0-0.1); Basophils Percent Auto 0.8 % (0.2-1.2); Eosinophils Absolute Auto 0.1 K/mm3 (0-0.3); Eosinophils Percent Auto 1.5 % (0-4.4); Hematocrit 48.7 % (37.0-47.0); Hemoglobin 15.9 g/dL (12.0-15.0); Immature Granulocyte Absolute 0.02 K/mm3 (0.00-0.031); Immature Granulocyte Percent A 0.3 % (0-0.5); Lymphocytes Absolute Auto 2.15 K/mm3 (0.9-3.2); Lymphocytes Percent Auto 32.6 % (18.3-44.2); Mean Corpuscular HGB Conc 32.6 g/dl (32-36); Mean Corpuscular Hemoglobin 30.8 pg (26-34); Mean Corpuscular Volume 94.2 fl (80-100); Mean Platelet Volume 10.3 fl (7.4-10.4); Monocytes Absolute Auto 0.7 K/mm3 (0.1-0.6); Monocytes Percent Auto 11.1 % (2.6-8.5); Neutrophils Absolute Auto 3.5 K/mm3 (1.3-6.7); Neutrophils Percent Auto 53.7 % (45.5-73.1); Platelet Count Result 263 k/mm3 (150-375); Red Blood Count 5.17 M/mm3 (4.2-5.4); Red Cell Distribution Width 12.5 % (11.5-14.5); White Blood Count 6.6 K/mm3 (4.5-10.0)
[2024-12-31] MEDS: SODIUM CHLORIDE 0.9% IV 1,000 ML 999 ML IV CONT (05:46)
[2024-12-31 05:55] LABS: Alanine Aminotransferase 21 U/L (6-35); Albumin Level 4.4 g/dL (3.5-5.1); Alkaline Phosphatase 78 U/L (38-126); Anion Gap 7 mmol/L (4-12); Aspartate Amino Transferase 22 U/L (14-36); Bilirubin,Total 0.6 mg/dL (0.2-1.3); Blood Urea Nitrogen 13 mg/dL (7-17); Calcium 9.3 mg/dL (8.4-10.2); Carbon Dioxide 28 mmol/L (22-30); Chloride 104 mmol/L (98-107); Estimated CRCL calculation 65 ml/min; Estimated Glomerular Filt Rate > 60; Glucose 116 mg/dL (65-110); Lipase 62 U/L (23-300); Potassium 4.4 mmol/L (3.4-5.0); Sodium 139 mmol/L (137-145)
[2024-12-31 06:06] LABS: Add Urine Microscopic? YES; Appearance Urine Cloudy (Clear); Bacteria Urine 1+ /hpf; Bilirubin Urine Negative (Negative); Blood Urine Trace (Negative); Color Urine Yellow (Yellow); Glucose Urine UA Negative (Negative); Ketones Urine Negative (Negative); Leukocyte Esterase Ur Negative LEU/UL (Negative); Nitrate Urine Negative (Negative); Non Pathogenic Casts 0-2; Protein Urine Negative (Negative); RBC Urine 0-2 /hpf (0-2); Specific Grav Ur 1.016 (1.001-1.035); Squamous Epithelial Cell Urine Few /hpf (Few); Urobilinogen Urine 0.2 mg/dL (<2.0); WBC Urine 0-5 /hpf (0-3); pH Urine 5.5 (5.0-9.0)
--- OUTSIDE RECORDS SUMMARY | 2024-12-31 06:21 | XMS_ITS | Continuity of Care Document ---
Author Organization [facility] Address [address] [place] [address] [place] [address] Phone Care Team Providers Care Television Maintenance Man Name Role Phone Moriah Borrego Unavailable Unavailable Advance Directives Directive Yes / No Effective Date File Name No Information Encounters Encounter Description Practice Location Reason(s) For Visit Diagnoses Date Provider Providers Copied on Encounter [address] [place], [id number], [place] tel:[phone] [facility] No Information Sloane Major. [address] [place] [address], [address], [place]. tel:[phone] Family History Family Member Type Diagnosis Age At Onset No Information Payers Payer name Insurance type Covered democrat ID Authoriza tion(s) No Information Social History [...]
--- OUTSIDE RECORDS SUMMARY | 2024-12-31 06:21 | XMS_ITS | Continuity of Care Document ---
Author Organization [facility] Address [address] [place] [address] [place] [address] Phone Care Team Providers Care Classroom Instructor Name Role Phone Fields OD, Suhail Unavailable Unavailable Procedures Procedure Date Contact Lens Hydrophilic, Spherical [facility] Exam & Treatment Refraction [facility] CL Replacement - [facility] Disp W/BW Soft Office/outpatient Visit, Est Refraction CL Replacement - [facility] Disp W/BW Soft [facility] Eye Exam & Treatment Refraction CL Replacement - [place] Disp W/BW Soft [facility] Advance Directives Directive Yes / No Effective Date File Name No Information Encounters Encounter Description Practice Location Reason(s) For Visit Diagnoses Date Provider Providers Copied on Encounter [facility], [address] [place] [address] [address], [place], [place], [id number], [place] tel:[phone] [facility] [place] No Information 5-201 0 Fields OD Suhail. [address] [facility] , [address], [place], [address], [place]. tel:[phone] [facility], [id number] [place] [address] [address], [place], [place], [id number], [place] tel:[phone] [facility] [place] No Information 4-200 9 Fields OD Suhail. [address] , [address], [place], [place], [facility], [place]. tel:[phone] [facility], [address] [place] [address] [address], [place], [place], [id number], [place] tel:[phone] [facility] No Information May-0 9-200 8 Fields OD Suhail. [address] , [address], [place], [place], [facility], [place]. tel:[phone] Office/outpat ient Visit, Est [facility], [address] [place] [address] [address], [place], [place], [id number], [place] tel:[phone] [facility] [place] No Information 9-200 8 Fields OD Suhail. [address] , [address], [place], [place], [facility], [place]. tel:[phone] [facility], [address] [place] [address] [address], [place], [place], [id number], [place] tel:[phone] [facility] No Information 2 7-200 7 Fields OD Suhail. [address] , [address], [place], [place], [facility], [place]. tel:[phone] [facility], [address] [place] [address] [address], [place], [place], [id number], [place] tel:[phone] [facility] No Information 8-200 7 Fields OD Suhail. [address] , [address], [place], [place], [facility], [place]. tel:[phone] [facility], [address] [place] [address] [address], [place], [place], [id number], [place] tel:[phone] [facility] No Information 1-200 7 Fields OD Suhail. [address] , [address], [place], [address], [place]. tel:[phone] Family History Family Member Type Diagnosis Age At Onset No Information Payers Payer name Insurance type Covered libertarian ID Authoriza tion(s) No Information Social History [...]
== END 2024-12-31 10:08 | disposition home or self-care (01) ==
PROVIDERS: Emergency Provider Emergency Medicine; PCP Family Medicine
DX: N94.89 Other specified conditions associated with female genital organs and menstrual cycle (principal); M25.551 Pain in right hip; J44.9 Chronic obstructive pulmonary disease, unspecified; I10 Essential (primary) hypertension; E78.5 Hyperlipidemia, unspecified; F41.9 Anxiety disorder, unspecified; Z96.641 Presence of right artificial hip joint; Z87.442 Personal history of urinary calculi; Z87.891 Personal history of nicotine dependence; Z90.710 Acquired absence of both cervix and uterus; Z90.49 Acquired absence of other specified parts of digestive tract
CPT/HCPCS: 36415; 74176; 76856; 80053; 81001; 83690; 85025; 96361; 96374; 96375; 99284; J2270; J2405; J7030

== ENCOUNTER 2025-01-10 09:27 | Outpatient (CLI) | payer MEDICARE, SELFPAY ==
--- NOTE | ~2025-01-10 | CT_ITS ---
CT Scan of the Chest without Contrast: Clinical Indication: Lung cancer screening, nicotine dependence Technique: Contiguous sections were acquired throughout the chest without intravenous contrast. Dose reduction technique was used on this scan by utilizing automated exposure control and iterative recon struction technique. The dose-length product (DLP) was 93.28 mGy-cm. COMPARISON: 01/05/2024 Findings: There is no evidence of any significant mediastinal, hilar or axillary lymphadenopathy. Calcified lef t hilar lymph node present. There is no evidence of pleural or pericardial effusion. There is mild emphysema. Several calcified granulomas are present. There is probable chronic atelecta sis or scarring at the lingula. Images through the upper abdomen reveal no abnormalities. Impression: Lung RADS 2: Benign appearance. 12 month follow-up screening CT advised. Reviewed, dictated and finalized at [facility]. Impression: Lung RADS 2: Benign appearance. 12 month follow-up screening CT advised.
[2025-01-10 10:10] LABS: Hematocrit 46.4 % (37.0-47.0); Hemoglobin 15.5 g/dL (12.0-15.0); Mean Corpuscular HGB Conc 33.4 g/dl (32-36); Mean Corpuscular Hemoglobin 31.1 pg (26-34); Mean Corpuscular Volume 93.2 fl (80-100); Mean Platelet Volume 10.3 fl (7.4-10.4); Platelet Count Result 243 k/mm3 (150-375); Red Blood Count 4.98 M/mm3 (4.2-5.4); Red Cell Distribution Width 12.7 % (11.5-14.5); White Blood Count 5.5 K/mm3 (4.5-10.0)
[2025-01-10 10:20] LABS: Hemoglobin A1C 6.2 % (<5.7)
[2025-01-10 10:22] LABS: Alanine Aminotransferase 21 U/L (6-35); Albumin Level 4.1 g/dL (3.5-5.1); Alkaline Phosphatase 65 U/L (38-126); Anion Gap 10 mmol/L (4-12); Aspartate Amino Transferase 20 U/L (14-36); Bilirubin,Total 0.5 mg/dL (0.2-1.3); Blood Urea Nitrogen 13 mg/dL (7-17); Calcium 9.4 mg/dL (8.4-10.2); Carbon Dioxide 26 mmol/L (22-30); Chloride 106 mmol/L (98-107); Cholesterol 164 mg/dL (0-200); Estimated Glomerular Filt Rate > 60; Glucose 105 mg/dL (65-110); HDL Direct 50 mg/dL; Potassium 4.1 mmol/L (3.4-5.0); Sodium 142 mmol/L (137-145); Triglycerides 201 mg/dL (<150)
--- OUTSIDE RECORDS SUMMARY | 2025-01-10 10:30 | XMS_ITS | Data Portability ---
Author Organization [facility] [place] Address [address] [place] [address] Care Team Providers Care Assistant Loan Processor Name Role Phone TORI VELAZQUEZ Primary Care Provider [phone] RADHA WIN Primary Care Provider [phone] Assessment Encounter Date Assessment Date Assessment LastModified [...] weeks if we have not contacted her. [email or web address] Not available 02/19/2023 21:38:10 01/06/2024 01/06/2024 Annual [...] recorded. Imaging MAMMO, screening, bilateral [address] [facility], [address], [place], [address], 4 12:53:24 MRI, abdomen + pelvis, w/ contrast [address] [facility] [place], [address], [place], [address], 4 16:47:16 US, pelvis 2022 [address]23 [address], [address], [place], [address], 3 08:52:02 US, transvagina l 2022 [address], [address], [place], [address], 3 08:52:02 Medication Orders estradiol 1 mg tablet 2023 024 [id number], [address], [place], [place], [id number], 4 10:49:36 estradiol 1 mg tablet 2022 023 [facility] #[id number], [address], [place], [place], [id number], 3 16:25:41 Patient TargetsNo targets recorded. Patient InstructionsNo instructions recorded. Reason for Referral None Reported. Results Created Date Observation Date Name Description Value Unit Range Abnormal Flag Note LastModifiedBy Organization Detail LastModifiedTime 01/01/2008/21/2022 CT, abdom en + pelvi s, w/ contr ast No observ ation record ed. [email or web address] [facility] 2 [facility] , [place], [address], 02/03/2023 15:17:27 02/14/20 23 02/13/2023 US, pelvi s No observ ation record ed. [email or web address] [place] [address], [place], [address], 02/13/2023 18:01:54 02/14/20 23 02/13/2023 US, trans vagin al No observ ation record ed. [email or web address] [place] [address], [place], [address], 02/13/2023 18:02:05 02/14/20 23 02/13/2023 US, pelvi s No observ ation record ed. [facility] [address], [place], [address], 02/20/2023 11:59:23 03/26/20 23 03/26/2023 MAMMO , scree luna, bilat eral No observ ation record ed. [address] [address], [place], [address], 04/08/2023 13:24:57 03/27/20 23 03/26/2023 DEXA, axial skele ton + verte bral fract ure asses sment No observ ation record ed. [address] [facility], [place], [address], 04/01/2023 12:27:10 01/20/20 24 01/16/2024 MRI, pelvi s, w/wo contr ast No observ ation record ed. [email or web address] [facility], [place], [address], 02/21/2024 11:04:02 11/27/19 25 11/26/2024 MAMMO , scree luna, bilat eral No observ ation record ed. [address] [address], [place], [address], 12/02/2024 16:24:23 Result Notes None recorded. Problems Name Problem SNOMED Code Status Onset Date Resolution Date Notes Provider Name and Address Organization Details Recorded Time Tobacco user 061303728 Active 2020 Ileana Lagos MD [address], [place], [address], [facility] 09:55:21 Chronic obstructive pulmonary disease 28473693 Active 2020 Ileana Lagos MD [address], [place], [address], [facility] 09:55:55 Problem Notes None recorded. Procedures Surgical History Date Name Laterality Status Provider Name and Address Organization Details Recorded Time 09/22/19 23 Date of Last Colonoscopy completed [facility] 12/30/2022 15:52:10 09/22/19 23 Colonoscopy completed [facility] 12/30/2022 15:51:55 06/03/20 22 arthroplasty of right hip joint completed [facility] 12/30/2022 15:51:27 12/26/19 22 Date of Last Mammogram completed [facility] 12/30/2022 15:49:57 09/10/20 18 Date of Last Pap Smear completed [facility] 09/11/2021 09:04:58 09/22/18 99 Total Hysterectomy completed [facility] 12/30/2022 15:51:05 09/22/18 94 cholecystectomy completed [facility] 12/30/2022 15:51:46 06/24/[address] [facility] 09/11/2021 09:05:46 Imaging Results Imaging Date Name Status LastModified by Organization Details LastModified Time 08/21/2022 CT, abdomen + pelvis, w/ contrast completed [email or web address] [address], [place], [address], 02/03/2023 15:17:27 02/13/2023 US, pelvis completed [email or web address] [place] [address], [place], [address], 02/13/2023 18:01:54 02/13/2023 US, transvaginal completed [email or web address] [place] [address], [place], [address], 02/13/2023 18:02:05 02/13/2023 US, pelvis completed [facility] [address], [place], [address], 02/20/2023 11:59:23 03/26/2023 MAMMO, screening, bilateral completed [address] [address], [place], [address], 04/08/2023 13:24:57 03/26/2023 DEXA, axial skeleton + vertebral fracture assessment completed [address], [address], 04/01/2023 12:27:10 01/16/2024 MRI, pelvis, w/wo contrast completed [address], [address], 02/21/2024 11:04:02 11/26/2024 MAMMO, screening, bilateral completed [address], [address], 12/02/2024 16:24:23 Procedure Notes None recorded. Medical Equipment None Reported. Allergies Allergen ID Allergen Name Allergen Category Reaction Reaction Severity Criticality Documentation Date Start Date Code Code System Note Provider Name and Address Organization Details Recorded Time 53973 Ceftin medicatio n itching severe Not available 09/11/2021 [address] - [facility] 09:05:24 67351 amoxicill in medicatio n Not available Not available Not available 01/06/2024 723 RxNorm SELMA Sibley - [facility] 4 10:39:12 Medications Name Sig [...] Updated DateTime 12/30/2022 162.56 cm 30 kg/m2 76075.66 g 131 mm[Hg] 78 mm[Hg] Maricruz Ramirez [facility] 3 15:46:42 Date Recorded Body height Body mass index (BMI) Body weight Systolic blood pressure Diastolic blood pressure Provider Name and Address Organization Details Last Updated DateTime 02/18/2023 162.56 cm 29.9 kg/m2 01394.07 g 120 mm[Hg] 77 mm[Hg] Leydi Carson [facility] 3 18:08:20 Date Recorded Body height Body mass index (BMI) Body weight Provider Name and Address Organization Details Last Updated DateTime 01/06/2024 162.56 cm 30.4 kg/m2 91603.85 g Annel Yi [facility] 01/06/2024 10:38:43 Date Recorded Body height Body mass index (BMI) Body weight Systolic blood pressure Diastolic blood pressure Provider Name and Address Organization Details Last Updated DateTime 01/26/2024 162.56 cm 30.7 kg/m2 35204.03 g 126 mm[Hg] 74 mm[Hg] Jenna Garcia [facility] 4 10:03:36 Social History Question Answer Notes LastModified by Organizat ion Details LastModified Time Tobacco Smoking Status Current Every Day Smoker Maricruz Ramirez [facility] 12/30/2022 15:48:12 Do You Have An Advance Directive? No [email or web address] Information not available 12/30/2022 What Is Your Level Of Alcohol Consumption? None Information not available 09/11/2021 What Is Your Level Of Caffeine Consumption? Moderate [email or web address] Information not available 12/30/2022 In The 14 Days Before Symptom Onset, Have You Had Close Contact With A Laboratory-confir med COVID-19 While That Case Was Ill? No Information not available 12/30/2022 In The 14 Days Before Symptom Onset, Have You Had Close Contact With A Person Who Is Under Investigation For COVID-19 While That Person Was Ill? No [email or web address] Information not available 12/30/2022 Have You Been To An Area Known To Be High Risk For COVID-19? No [email or web address] Information not available 12/30/2022 Are You Deaf Or Do You Have Serious Difficulty Hearing? No [email or web address] Information not available 12/30/2022 What Type Of Diet Are You Following? REGULAR [email or web address] Information not available 12/30/2022 What Is The Highest Grade Or Level Of School You Have Completed Or The Highest Degree You Have Received? [id number] Information not available 12/30/2022 What Is Your Occupation? Retired [employer] [email or web address] Information not available 12/30/2022 Are There Any Guns Present In Your Home? No [email or web address] Information not available 12/30/2022 Do You Use Protection During Sex? No [email or web address] Information not available 12/30/2022 Do You Use Your Seat Belt Or Car Seat Routinely? No [email or web address] Information not available 12/30/2022 Do You Have Smoke And Carbon Monoxide Detectors In Your Home? Yes [email or web address] Information not available 12/30/2022 At What Age Did You Start Smoking Tobacco? 19 [email or web address] Information not available 12/30/2022 How Much Tobacco Do You Smoke? 1 PPD Information not available 09/11/2021 Do You Feel Stressed (tense, Restless, Nervous, Or Anxious, Or Unable To Sleep At Night)? [id number] Information not available 12/30/2022 Do You Use Any Illicit Or Recreational Drugs? No Information not available 09/11/2021 Do You Use Sunscreen Routinely? No [email or web address] Information not available 12/30/2022 Has Tobacco Cessation Counseling Been Provided? No [email or web address] Information not available 12/30/2022 How Many Years Have You Smoked Tobacco? 51 [email or web address] Information not available 12/30/2022 Have You Used IV Drugs? No Information not available 12/30/2022 Do You Or Have You Ever Used Any Other Forms Of Tobacco Or Nicotine? No [email or web address] Information not available 12/30/2022 Sex: Unknown Functional Status Question Answer Note LastModified by Organization D etails LastModified Time Are you able to walk? YESWOREST [email or web address] Information not available 12/30/2022 What is your exercise level? None [email or web address] Information not available 12/30/2022 Mental Status None recorded. Family History Relationship Description Onset Age of this Age Resolved Age Notes LastModified by Organization Details LastModified Time Paternal Grandmother Diabetes mellitus [email or web address] Not available 12/30 15:48:11 Paternal Aunt Heart disease [email or web address] Not available 12/30 15:48:11 Father Asthma [email or web address] Not available 12/30/2022 15:48:11 Father Disorder of lung [email or web address] Not available 12/30 15:48:11 Father Heart disease [email or web address] Not available 12/30 15:48:11 Brother Malignant tumor of lung [email or web address] Not available 2023 10:04:42 Medical History Condition [...] SNOMED-CT Code Diagnosis ICD10 Code Diagnosis Note [id number] Ileana Lagos MD [place] [address] [address] 09/11/2021 09:38:28 09/11/2021 10:26:45 Gynecologic examination 83390495 Z01.419 Hormone re placement therapy 922972929 Z79.890 [id number] Jacqui Roman [place] [address] [address] 12/30/2022 15:15:16 12/31/2022 17:05:20 Gynecologic examination 98614852 Z01.419 Take Calcium with Vitamin D 12-1500mg daily. Do monthly self breast exams. It is advised to get annual flu shot in the fall and she could obtain at [facility] or [facility] care clinic. If you haven't received the [...] to this email. Hormone re placement therapy [id number] Z79.890 Significan tly helps with symptoms. Wants to continue. Discussed risks and benefits d/t age and health history. Will discuss again next year.Need to await records from recent hospitaliz ations. Depending on diagnosis may need to discuss risk even further. [id number] Yeni Werner , [facility] [address] [address] 01/06/2024 10:25:15 01/06/2024 11:04:52 Gynecologic examination 85280390 Z01.419 Take Calcium with Vitamin D 12-1500mg daily. Do monthly self breast exams. It is advised to get annual flu shot in the fall and she could obtain at [facility] or [facility] care clinic. If you haven't received the [...] Labs UTD PCP Hormone re placement therapy [id number] Z79.890 Counseled on the following: Females >10yrs [...] continuing past age 61yo Cyst of ovary 00236170 N 83.209 Today we reviewed her US [...] manda g verbalized . Screening mammography 24 771325 Z12.31 [id number] Bessy Bridges [place] [address] [address] 02/13/2023 13:43:50 02/18/2023 16:36:30 Pelvic mass 39309795 R19.09 [id number] Ileana Lagos MD [place] [address] [address] 02/18/2023 17:42:05 02/19/2023 16:06:58 Cyst of left ovary 1424053643 2604264 N83.202 History of vaginal hysterectomy 711063729 Z90.710 [id number] Sean Anglin MD [place] [address] [address] 01/26/2024 09:58:34 01/27/2024 00:19:21 Pelvic mass 95476132 R19.00 this patient is a 73-year-ol d [...] Cottrell Member ID Guarantor Name 12/30/2022 1 [facility] (MEDICARE REPLACEMENT/A DVANTAGE - HMO) [id number] Natalie Olivas [id number] Natalie Olivas 02/13/2023 1 [facility] (MEDICARE REPLACEMENT/A DVANTAGE - HMO) [id number] Natalie Olivas [id number] Natalie Olivas 02/18/2023 1 [facility] (MEDICARE REPLACEMENT/A DVANTAGE - HMO) [id number] Natalie Olivas [id number] Natalie Olivas 01/06/2024 1 [facility] (MEDICARE REPLACEMENT/A DVANTAGE - HMO) [id number] Natalie Olivas [id number] Natalie Olivas 01/26/2024 1 [facility] (MEDICARE REPLACEMENT/A DVANTAGE - HMO) [id number] Natalie Garcia [place] [id number] Natalie Olivas Notes Date Note Type Note [...] a couple weeks.Left ovarian cyst on ovary. [facility] in [place] in July. However, patient has had a total hyst. She called Dr Felix Pedro office and verified.Hip replacement May 2022 Jacqui Roman [facility] 01/20/2023 18:30:52 02/18/2023 text/html Natalie is [...] to have a left ovarian cyst. In [place] in Jul 2022 it was first seen. [...] out. Ileana Lagos MD [address], [place], [address], [facility] 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 01/06/2024 11:02:20 01/26/2024 text/html this patient [...] well-woman exam. We spent over 20 minutes [id number]. More than 50% was counseling. We reviewed records extensively. Sean Anglin MD [address], [place], [address], [facility] 01/26/2024 21:57:59 OBGyn Episode Ob Episode Information Episode Created Date Number of Fetuses Patient Bloodtype Patient rh Status Prepregnancy Weight lbs Domestic Partner Domestic Partner Phone Father Name Consulting Hr Professional Status 09/11/20 21 1 CLOSED Fetus Data First Name Last Name Admitted to NICU Weight (g) Sex Living Outcome Pediatric Complications Fetus ID Race Codes Race Delivery Type 2239.38 3704 [place] [address] Vaginal Delivery Nate Calculation Initial Nate Date [...] Domestic Partner Domestic Partner Phone Father Name Consulting Hr Professional Status 09/11/20 21 1 CLOSED Fetus Data First Name Last Name Admitted to NICU Weight (g) Sex Living Outcome Pediatric Complications Fetus ID Race Codes Race Delivery Type 2749.67 4704 F Prematur e [id number] Primary Nate Calculation Initial Nate Date Initial [...]
[2025-01-10 10:31] LABS: Appearance Urine Clear (Clear); Color Urine Yellow (Yellow); pH Urine 5.5 (5.0-9.0)
[2025-01-10 10:32] LABS: Glucose Urine UA Negative (Negative); Ketones Urine Negative (Negative); Protein Urine Negative (Negative); Specific Grav Ur >= 1.030 (1.001-1.035)
[2025-01-10 10:33] LABS: LDL Cholesterol Direct 72 mg/dL
[2025-01-10 10:33] LABS: Add Urine Microscopic? NO; Bilirubin Urine Negative (Negative); Blood Urine Trace-intact (Negative); Leukocyte Esterase Ur Negative LEU/UL (Negative); Nitrate Urine Negative (Negative); Urobilinogen Urine 0.2 mg/dL (<2.0)
[2025-01-10 10:34] LABS: Bacteria Urine 1+ /hpf; RBC Urine 0-2 /hpf (0-2); Squamous Epithelial Cell Urine Few /hpf (Few); WBC Urine 0-5 /hpf (0-3)
== END 2025-01-10 09:28 | disposition home or self-care (01) ==
PROVIDERS: PCP Family Medicine; Referring Provider Physician Assistant; Visit Provider Physician Assistant
DX: R73.01 Impaired fasting glucose (principal); J44.9 Chronic obstructive pulmonary disease, unspecified; F41.9 Anxiety disorder, unspecified; E78.1 Pure hyperglyceridemia; J30.9 Allergic rhinitis, unspecified; I10 Essential (primary) hypertension; R00.0 Tachycardia, unspecified; Z12.2 Encounter for screening for malignant neoplasm of respiratory organs; Z87.891 Personal history of nicotine dependence
CPT/HCPCS: 36415; 71271; 80053; 80061; 81003; 83036; 85027

== ENCOUNTER 2025-01-17 12:38 | Outpatient (CLI) | payer MEDICARE, SELFPAY ==
--- NOTE | 2025-01-17 13:14 | ECHO_ITS ---
Patient Info Name: Natalie Olivas Age: 74 years : 1950 Gender: Female Ht: 64 in Wt: 175 lbs BSA: 1.92 m2 HR: 74 bpm BP: 117 / 75 mmHg Technical Quality: Fair Exam Date: 01/17/2025 1:52 PM Exam Location: Echo Lab Patient Status: Outpatient Admit Date: 01/17/2025 Staff Ordering Physician: Sandra Cook PA-C [place] Stocker: Yancy Alves RDCS Attending Provider: Sandra Cook PA-C Exam Type: CA echo doppler color flow Study Info Indications R06.09 - Other forms of dyspnea Complete two-dimensional, color flow and Doppler transthoracic echocardiogram is performed. Summary 1. Complete two-dimensional, color flow and Doppler transthoracic echocardiogram is performed. 2. Left ventricular chamber dimension is normal. 3. Left ventricular systolic function is normal, estimated at 60-65%. 4. The left ventricular diastolic function is grade I diastolic dysfunction. 5. E/e' 19 is elevated. 6. There is mild mitral valve regurgitation. 7. There is trace tricuspid valve regurgitation. 8. No pulmonary hypertension, estimated pulmonary arterial systolic pressure is 24 mmHg. Left Ventricle E/e' 19 is elevated. Left ventricular chamber dimension is normal. Left ventricular systolic function is normal, estimated at 60-65%. The left ventricular diastolic function is grade I diastolic dysfunction. Right Ventricle Right ventricular chamber dimension is normal. Right ventricular systolic function is normal. Left Atria Left atrial chamber dimension is normal. Right Atria Right atrial chamber dimension is normal. Aortic Valve The aortic valve is trileaflet. There is no aortic valve stenosis. There is no aortic valve regurgitation. Pulmonic Valve There is no pulmonic regurgitation. Mitral Valve There is no mitral valve stenosis. There is mild mitral valve regurgitation. Tricuspid Valve There is trace tricuspid valve regurgitation. No pulmonary hypertension, estimated pulmonary arterial systolic pressure is 24 mmHg. Pericardium/Pleural There is no pericardial effusion. Inferior Vena Cava Normal inferior vena cava with >50% collapse upon inspiration consistent with normal right atrial pressure, 5 mmHg. Aorta The aortic root size at the sinus of Valsalva is normal. Left Ventricular Outflow Tract Name Value Normal LVOT 2D LVOT Diameter 1.9 cm LVOT Doppler LVOT Peak Gradient 3 mmHg LVOT Mean Gradient 2 mmHg LVOT VTI 22 cm LVOT VTI/AV VTI Ratio 0.8 LVOT Stroke Volume 61 ml LVOT CO 4.2 l/min LVOT CI 2.2 l/min/m2 Pulmonic Valve Name Value Normal RVOT Doppler RVOT Peak Gradient 2 mmHg PV Doppler PV Peak Gradient 3 mmHg Mitral Valve Name Value Normal MV Doppler MV [place] 496 cm/s2 MV PHT 63 ms MV Area (PHT) 3.5 cm2 4.0-5.0 MV Diastolic Function MV E Peak Velocity 108 cm/s MV A Peak Velocity 113 cm/s MV E/A 1.0 MV Decel Time 218 ms Tricuspid Valve Name Value Normal TV Regurgitation Doppler TR Peak Velocity 219 cm/s TR Peak Gradient 19 mmHg Estimated PAP/RSVP RA Pressure 5 mmHg <=5 PA Systolic Pressure 24 mmHg <36 RV Systolic Pressure 24 mmHg <36 Aorta Name Value Normal Ascending Aorta Ao Root Diameter (MM) 2.5 cm Ao Root Diam Index (MM) 1.3 cm/m2 Aortic Valve Name Value Normal AV Doppler AV Peak Velocity 117 cm/s AV Peak Gradient 6 mmHg AV Mean Gradient 3 mmHg AV VTI 26 cm AV Area (Cont Eq VTI) 2.3 cm2 >=3.0 AV Area (Cont Eq Lefty) 2.2 cm2 AV Regurgitation 2D LVOT Area 2.8 cm2 Ventricles Name Value Normal LV Dimensions 2D/MM IVS Diastolic Thickness (2D) 0.8 cm 0.6-1.0 IVS Diastole Thickness (MM) 1.1 cm 0.6-0.9 LVID Diastole (2D) 3.8 cm 3.8-5.2 LVID Diastole (MM) 3.9 cm 3.8-5.2 LVIW Diastolic Thickness (2D) 0.9 cm 0.6-0.9 LVIW Diastolic Thickness (MM) 0.9 cm 0.6-0.9 LVID Systole (2D) 2.5 cm 2.2-3.5 LVID Systole (MM) 1.8 cm 2.2-3.5 LVOT Diameter 1.9 cm LV Mass (2D Cubed) 88.85 g 67.00-162.00 LV Mass Index (2D Cubed) 46 g/m2 43-95 Relative Wall Thickness (2D) 0.45 LV Mass (MM Cubed) 122.66 g 67.00-162.00 LV Mass Index (MM Cubed) 64 g/m2 43-95 Relative Wall Thickness (MM) 0.45 LV Fractional Shortening/Ejection Fraction 2D/MM LV Fractional Shortening (2D) 33 % 27-45 LV Fractional Shortening (MM) 53 % 27-45 LV EF (MM Teicholz) 85 % 54-74 LV EF (2D Teicholz) 62 % 54-74 LV Diastolic Volume (4C MOD) 47 ml LV EF (4C MOD) 54 % LV Diastolic Volume (2C MOD) 54 ml LV EF (2C MOD) 68 % LV Diastolic Volume (BP MOD) 51 ml 46-106 LV Diastolic Volume Index (BP MOD) 26 ml/m2 29-61 LV Systolic Volume (BP MOD) 19 ml 14-42 LV Systolic Volume Index (BP MOD) 10 ml/m2 8-24 LV EF (BP MOD) 62 % 54-74 LV Diastolic Length (4C) 7.2 cm LV Systolic Length (4C) 6.6 cm LV Stroke Volume (4C MOD) 26 ml Atria Name Value Normal LA Dimensions LA Dimension (MM) 3.1 cm 2.7-3.8 LA Volume (4C A-L) 27 ml LA Volume (BP A-L) 31 ml RA Dimensions RA Area (4C) 12.0 cm2 <=18.0 Report Signatures
--- OUTSIDE RECORDS SUMMARY | 2025-01-17 14:12 | XMS_ITS | Data Portability ---
Author Organization [facility] [place] Address [address] [place] [address] [address] Care Team Providers Care Italian Lecturer Name Role Phone TORI VELAZQUEZ Primary Care Provider [phone] RADHA WIN Primary Care Provider [phone] Assessment Encounter Date Assessment Date Assessment LastModified [...] weeks if we have not contacted her. [email or web address] Not available 02/19/2023 21:38:10 01/06/2024 01/06/2024 Annual [...] recorded. Imaging MAMMO, screening, bilateral [address] [facility], [address], [place], [address], 4 12:53:24 MRI, abdomen + pelvis, w/ contrast [address] [facility], [address], [place], [address], 4 16:47:16 US, pelvis 2022 [address], [address], [place], [address], 3 08:52:02 US, transvagina l 2022 0[address], [address], [place], [address], 3 08:52:02 Medication Orders estradiol 1 mg tablet 2023 024 [id number], [address], [place], [place], [id number], 4 10:49:36 estradiol 1 mg tablet 2022 023 [facility] #[id number], [address], [place], [place], [id number], 3 16:25:41 Patient TargetsNo targets recorded. Patient InstructionsNo instructions recorded. Reason for Referral None Reported. Results Created Date Observation Date Name Description Value Unit Range Abnormal Flag Note LastModifiedBy Organization Detail LastModifiedTime 01/01/2008/21/2022 CT, abdom en + pelvi s, w/ contr ast No observ ation record ed. [email or web address] , [place], [address], 02/03/2023 15:17:27 02/14/20 23 02/13/2023 US, pelvi s No observ ation record ed. [email or web address] [place] [address], [place], [address], 02/13/2023 18:01:54 02/14/20 23 02/13/2023 US, trans vagin al No observ ation record ed. [email or web address] [place] [address], [place], [address], 02/13/2023 18:02:05 02/14/20 23 02/13/2023 US, pelvi s No observ ation record ed. [facility] [address], [place], [address], 02/20/2023 11:59:23 03/26/20 23 03/26/2023 MAMMO , scree luna, bilat eral No observ ation record ed. [address] [address], [place], [address], 04/08/2023 13:24:57 03/27/20 23 03/26/2023 DEXA, axial skele ton + verte bral fract ure asses sment No observ ation record ed. [address] [facility], [place], [address], 04/01/2023 12:27:10 01/20/20 24 01/16/2024 MRI, pelvi s, w/wo contr ast No observ ation record ed. [email or web address] [facility], [place], [address], 02/21/2024 11:04:02 11/27/19 25 11/26/2024 MAMMO , scree luna, bilat eral No observ ation record ed. [address] [address], [place], [address], 12/02/2024 16:24:23 Result Notes None recorded. Problems Name Problem SNOMED Code Status Onset Date Resolution Date Notes Provider Name and Address Organization Details Recorded Time Tobacco user 940972315 Active 2020 Ileana Lagos MD [address], [place], [address], [facility] 09:55:21 Chronic obstructive pulmonary disease 49294813 Active 2020 Ileana Lagos MD [address], [place], [address], [facility] 09:55:55 Problem Notes None recorded. Procedures Surgical History Date Name Laterality Status Provider Name and Address Organization Details Recorded Time 09/22/19 23 Date of Last Colonoscopy completed [facility] 12/30/2022 15:52:10 09/22/19 23 Colonoscopy completed [facility] 12/30/2022 15:51:55 06/03/20 22 arthroplasty of right hip joint completed [facility] 12/30/2022 15:51:27 12/26/19 22 Date of Last Mammogram completed [facility] 12/30/2022 15:49:57 09/10/20 18 Date of Last Pap Smear completed [facility] 09/11/2021 09:04:58 09/22/18 99 Total Hysterectomy completed [facility] 12/30/2022 15:51:05 09/22/18 94 cholecystectomy completed [facility] 12/30/2022 15:51:46 06/24/19 87 delivery completed [facility] 09/11/2021 09:05:46 Imaging Results Imaging Date Name Status LastModified by Organization Details LastModified Time 08/21/2022 CT, abdomen + pelvis, w/ contrast completed [email or web address] [address], [place], [address], 02/03/2023 15:17:27 02/13/2023 US, pelvis completed [email or web address] [place] [address], [place], [address], 02/13/2023 18:01:54 02/13/2023 US, transvaginal completed [email or web address] [facility] [address], [place], [address], 02/13/2023 18:02:05 02/13/2023 US, pelvis completed [facility] [address], [place], [address], 02/20/2023 11:59:23 03/26/2023 MAMMO, screening, bilateral completed [address] [address], [place], [address], 04/08/2023 13:24:57 03/26/2023 DEXA, axial skeleton + vertebral fracture assessment completed [address], [address], 04/01/2023 12:27:10 01/16/2024 MRI, pelvis, w/wo contrast completed [address], [address], 02/21/2024 11:04:02 11/26/2024 MAMMO, screening, bilateral completed [address], [address], 12/02/2024 16:24:23 Procedure Notes None recorded. Medical Equipment None Reported. Allergies Allergen ID Allergen Name Allergen Category Reaction Reaction Severity Criticality Documentation Date Start Date Code Code System Note Provider Name and Address Organization Details Recorded Time 93382 Ceftin medicatio n itching severe Not available 09/11/2021 00144 6 RxNorm Leydi vera NE - [facility] 09:05:24 33271 amoxicill in medicatio n Not available Not available Not available 01/06/2024 723 RxNorm SELMA Sibley - [facility] 4 10:39:12 Medications Name Sig [...] Updated DateTime 12/30/2022 162.56 cm 30 kg/m2 18123.66 g 131 mm[Hg] 78 mm[Hg] Maricruz Ramirez [facility] 3 15:46:42 Date Recorded Body height Body mass index (BMI) Body weight Systolic blood pressure Diastolic blood pressure Provider Name and Address Organization Details Last Updated DateTime 02/18/2023 162.56 cm 29.9 kg/m2 56786.07 g 120 mm[Hg] 77 mm[Hg] Leydi Carson [facility] 3 18:08:20 Date Recorded Body height Body mass index (BMI) Body weight Provider Name and Address Organization Details Last Updated DateTime 01/06/2024 162.56 cm 30.4 kg/m2 37403.85 g Annel Yi [facility] 01/06/2024 10:38:43 Date Recorded Body height Body mass index (BMI) Body weight Systolic blood pressure Diastolic blood pressure Provider Name and Address Organization Details Last Updated DateTime 01/26/2024 162.56 cm 30.7 kg/m2 39722.03 g 126 mm[Hg] 74 mm[Hg] Jenna Garcia [facility] 4 10:03:36 Social History Question Answer Notes LastModified by Organizat ion Details LastModified Time Tobacco Smoking Status Current Every Day Smoker Maricruz Ramirez [facility] 12/30/2022 15:48:12 Do You Have An Advance Directive? No [email or web address] Information not available 12/30/2022 What Is Your Level Of Alcohol Consumption? None Information not available 09/11/2021 What Is Your Level Of Caffeine Consumption? Moderate [email or web address] Information not available 12/30/2022 In The 14 Days Before Symptom Onset, Have You Had Close Contact With A Laboratory-confir med COVID-19 While That Case Was Ill? No Information not available 12/30/2022 In The 14 Days Before Symptom Onset, Have You Had Close Contact With A Person Who Is Under Investigation For COVID-19 While That Person Was Ill? No [email or web address] Information not available 12/30/2022 Have You Been To An Area Known To Be High Risk For COVID-19? No [email or web address] Information not available 12/30/2022 Are You Deaf Or Do You Have Serious Difficulty Hearing? No [email or web address] Information not available 12/30/2022 What Type Of Diet Are You Following? REGULAR [email or web address] Information not available 12/30/2022 What Is The Highest Grade Or Level Of School You Have Completed Or The Highest Degree You Have Received? 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 No [email or web address] Information not available 12/30/2022 Do You Use Protection During Sex? No Information not available 12/30/2022 Do You Use Your Seat Belt Or Car Seat Routinely? No [email or web address] Information not available 12/30/2022 Do You Have Smoke And Carbon Monoxide Detectors In Your Home? Yes [email or web address] Information not available 12/30/2022 At What Age Did You Start Smoking Tobacco? 19 [email or web address] Information not available 12/30/2022 How Much Tobacco Do You Smoke? 1 PPD Information not available 09/11/2021 Do You Feel Stressed (tense, Restless, Nervous, Or Anxious, Or Unable To Sleep At Night)? [id number] [email or web address] Information not available 12/30/2022 Do You Use Any Illicit Or Recreational Drugs? No Information not available 09/11/2021 Do You Use Sunscreen Routinely? No Information not available 12/30/2022 Has Tobacco Cessation Counseling Been Provided? No [email or web address] Information not available 12/30/2022 How Many Years Have You Smoked Tobacco? 51 [email or web address] Information not available 12/30/2022 Have You Used IV Drugs? No [email or web address] Information not available 12/30/2022 Do You Or Have You Ever Used Any Other Forms Of Tobacco Or Nicotine? No [email or web address] Information not available 12/30/2022 Sex: Unknown Functional Status Question Answer Note LastModified by Organization D etails LastModified Time Are you able to walk? YESWOREST [email or web address] Information not available 12/30/2022 What is your exercise level? None [email or web address] Information not available 12/30/2022 Mental Status None recorded. Family History Relationship Description Onset Age of this Age Resolved Age Notes LastModified by Organization Details LastModified Time Paternal Grandmother Diabetes mellitus [email or web address] Not available 12/30 15:48:11 Paternal Aunt Heart disease Not available 12/30 15:48:11 Father Asthma [email or web address] Not available 12/30/2022 15:48:11 Father Disorder of lung Not available 12/30 15:48:11 Father Heart disease [email or web address] Not available 12/30 15:48:11 Brother Malignant neoplasm of lung [email or web address] Not available 2023 10:04:42 Medical History Condition Response Allergies (Food, seasonal, environmental ) Y Other N Blood Transfusion N Drug/Latex Allergies/Reactions Y Breast Cancer N Dermatologic Disorders N Lung Disease Y Defects or Inherited Disease N Breast Problem N Gestational Diabetes N Hematologic disorders N Anesthesia Complications N History of STI N Deep Vein Thrombosis N Polycystic ovary syndrome N Anxiety Disorder N Autoimmune disease N Arthritis N Infertility N Polyps N Acid Reflux (GERD) Y History of abnormal pap N Cancer N Stroke N Varicosities N Neurologic/Epilepsy N Endometriosis N High Cholesterol N Headaches N Fibromyalgia N Kidney Disease N Heart Problems N Kidney or Bladder Problems N Thyroid Problems N GI Problems Y Eating Disorder [...] SNOMED-CT Code Diagnosis ICD10 Code Diagnosis Note [id number] Ileana Lagos MD [place] [address] [address] 09/11/2021 09:38:28 09/11/2021 10:26:45 Gynecologic examination 24453089 Z01.419 Hormone re placement therapy 331396558 Z79.890 [id number] Jacqui Roman [place] [address] [address] 12/30/2022 15:15:16 12/31/2022 17:05:20 Gynecologic examination 84170472 Z01.419 Take Calcium with Vitamin D 12-1500mg daily. Do monthly self breast exams. It is advised to get annual flu shot in the fall and she could obtain at [facility] or [facility] care clinic. If you haven't received the [...] to this email. Hormone re placement therapy [id number] Z79.890 Significan tly helps with symptoms. Wants to continue. Discussed risks and benefits d/t age and health history. Will discuss again next year.Need to await records from recent hospitaliz ations. Depending on diagnosis may need to discuss risk even further. [id number] Yeni Werner , [facility] [address] [address] 01/06/2024 10:25:15 01/06/2024 11:04:52 Gynecologic examination 99269600 Z01.419 Take Calcium with Vitamin D 12-1500mg daily. Do monthly self breast exams. It is advised to get annual flu shot in the fall and she could obtain at [facility] or [facility] care clinic. If you haven't received the [...] Labs UTD PCP Hormone re placement therapy 203019239 Z79.890 Counseled on the following: Females >10yrs [...] continuing past age 61yo Cyst of ovary 04965382 N 83.209 Today we reviewed her US [...] manda g verbalized . Screening mammography 24 773678 Z12.31 [id number] Bessy Bridges [place] [address] [address] 02/13/2023 13:43:50 02/18/2023 16:36:30 Pelvic mass 00887783 R19.09 [id number] Ileana Lagos MD [place] [address] [address] 02/18/2023 17:42:05 02/19/2023 16:06:58 Cyst of left ovary 1631552887 2263004 N83.202 History of vaginal hysterectomy 806795716 Z90.710 [id number] Sean Anglin MD [place] [address] [address] 01/26/2024 09:58:34 01/27/2024 00:19:21 Pelvic mass 89009288 R19.00 this patient is a 73-year-ol d [...] Cottrell Member ID Guarantor Name 12/30/2022 1 [facility] (MEDICARE REPLACEMENT/A DVANTAGE - HMO) [id number] Natalie Olivas [id number] Natalie Olivas 02/13/2023 1 [facility] (MEDICARE REPLACEMENT/A DVANTAGE - HMO) [id number] Natalie Olivas [id number] Natalie Olivas 02/18/2023 1 [facility] (MEDICARE REPLACEMENT/A DVANTAGE - HMO) [id number] Natalie Olivas [id number] Natalie Olivas 01/06/2024 1 [facility] (MEDICARE REPLACEMENT/A DVANTAGE - HMO) [id number] Natalie Olivas [id number] Natalie Olivas 01/26/2024 1 [facility] (MEDICARE REPLACEMENT/A DVANTAGE - HMO) [id number] Natalie Garcia Brendon [id number] Natalie Olivas Notes Date Note Type Note [...] a couple weeks.Left ovarian cyst on ovary. [facility] in [place] in July. However, patient has had a total hyst. She called Dr Felix Pedro office and verified.Hip replacement May 2022 Jacqui Roman [facility] 01/20/2023 18:30:52 02/18/2023 text/html Natalie is [...] to have a left ovarian cyst. In [place] in Jul 2022 it was first seen. [...] out. Ileana Lagos MD [address], [place], [address], [facility] 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 01/06/2024 11:02:20 01/26/2024 text/html this [...] well-woman exam. We spent over 20 minutes [id number]. More than 50% was counseling. We reviewed records extensively. Sean Anglin MD [address], [place], [address], [facility] 01/26/2024 21:57:59 OBGyn Episode Ob Episode Information Episode Created Date Number of Fetuses Patient Bloodtype Patient rh Status Prepregnancy Weight lbs Domestic Partner Domestic Partner Phone Father Name Transportation Assistant Status 09/11/20 21 1 CLOSED Fetus Data First Name Last Name Admitted to NICU Weight (g) Sex Living Outcome Pediatric Complications Fetus ID Race Codes Race Delivery Type 2239.38 3704 [place]atur [place] [id number] Vaginal Delivery Nate Calculation Initial Nate Date [...] Domestic Partner Domestic Partner Phone Father Name Transportation Assistant Status 09/11/20 21 1 CLOSED Fetus Data First Name Last Name Admitted to NICU Weight (g) Sex Living Outcome Pediatric Complications Fetus ID Race Codes Race Delivery Type 2749.67 4704 F Prematur e [id number] Primary Nate Calculation Initial Nate Date Initial [...]
== END 2025-01-17 12:39 | disposition home or self-care (01) ==
PROVIDERS: PCP Family Medicine; Visit Provider Physician Assistant
DX: R93.1 Abnormal findings on diagnostic imaging of heart and coronary circulation (principal); F41.9 Anxiety disorder, unspecified; R06.09 Other forms of dyspnea; J90 Pleural effusion, not elsewhere classified
CPT/HCPCS: 36415; 84443; 93306

== ENCOUNTER 2025-01-19 11:40 | Outpatient (CLI) | payer MEDICARE, SELFPAY ==
--- NOTE | 2025-01-19 12:56 | ECG_ITS ---
Test Date: 2025-01-19 13:09:07 Measurements Intervals [place] Rate: 82 P: 57 [place]: 199 QRS: 9 QRSD: 64 T: 49 QT: 374 QTc: 437 Interpretive Statements SINUS RHYTHM LOW QRS VOLTAGE IN PRECORDIAL LEADS BASELINE ARTIFACT- I, II, III, AVR, AVL, AVF, V1-V6 BORDERLINE ECG No previous ECG available for comparison Electronically Signed On 01-19-2025 13:13:46 CDT by Fred Jaime D.O.
--- OUTSIDE RECORDS SUMMARY | 2025-01-19 13:07 | XMS_ITS | Data Portability ---
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 [email or web address] Not available 02/19/2023 21:38:10 01/06/2024 01/06/2024 Annual [...] recorded. Imaging MAMMO, screening, bilateral [address] [facility], [address], [place], [address], 4 12:53:24 MRI, abdomen + pelvis, w/ contrast [address] [facility] [place], [address], [place], [address], 4 16:47:16 US, pelvis 2022 [address], [address], [place], [address], 3 08:52:02 US, transvagina l 2022 [address], [address], [place], [address], 3 08:52:02 Medication Orders estradiol 1 mg tablet 2023 024 [id number], [address], [place], [place], [id number], 4 10:49:36 estradiol 1 mg tablet 2022 023 [facility] #[id number], [address], [place], [place], [id number], 3 16:25:41 Patient TargetsNo targets recorded. Patient InstructionsNo instructions recorded. Reason for Referral None Reported. Results Created Date Observation Date Name Description Value Unit Range Abnormal Flag Note LastModifiedBy Organization Detail LastModifiedTime 01/01/2008/21/2022 CT, abdom en + pelvi s, w/ contr ast No observ ation record ed. [email or web address] [facility] 2 [facility] , [place], [address], 02/03/2023 15:17:27 02/14/20 23 02/13/2023 US, pelvi s No observ ation record ed. [email or web address] [place] [address], [place], [address], 02/13/2023 18:01:54 02/14/20 23 02/13/2023 US, trans vagin al No observ ation record ed. [email or web address] [place] [address], [place], [address], 02/13/2023 18:02:05 02/14/20 23 02/13/2023 US, pelvi s No observ ation record ed. [facility] [address], [place], [address], 02/20/2023 11:59:23 03/26/20 23 03/26/2023 MAMMO , scree luna, bilat eral No observ ation record ed. [address] [address], [place], [address], 04/08/2023 13:24:57 03/27/20 23 03/26/2023 DEXA, axial skele ton + verte bral fract ure asses sment No observ ation record ed. [address] [facility], [place], [address], 04/01/2023 12:27:10 01/20/20 24 01/16/2024 MRI, pelvi s, w/wo contr ast No observ ation record ed. [email or web address] [facility], [place], [address], 02/21/2024 11:04:02 11/27/19 25 11/26/2024 MAMMO , scree luna, bilat eral No observ ation record ed. [address] [address], [place], [address], 12/02/2024 16:24:23 Result Notes None recorded. Problems Name Problem SNOMED Code Status Onset Date Resolution Date Notes Provider Name and Address Organization Details Recorded Time Tobacco user 653241927 Active 2020 Ileana Lagos MD [address], [place], [address], , [facility] 09:55:21 Chronic obstructive pulmonary disease 46154201 Active 2020 Ileana Lagos MD [address], [place], [address], , P[facility] 09:55:55 Problem Notes None recorded. Procedures Surgical History Date Name Laterality Status Provider Name and Address Organization Details Recorded Time 09/22/19 23 Date of Last Colonoscopy completed [facility] 12/30/2022 15:52:10 09/22/19 23 Colonoscopy completed [facility] 12/30/2022 15:51:55 06/03/20 22 arthroplasty of right hip joint completed [facility] 12/30/2022 15:51:27 12/26/19 22 Date of Last Mammogram completed [facility] 12/30/2022 15:49:57 09/10/20 18 Date of Last Pap Smear completed [facility] 09/11/2021 09:04:58 09/22/18 99 Total Hysterectomy completed [facility] 12/30/2022 15:51:05 09/22/18 94 cholecystectomy completed [facility] 12/30/2022 15:51:46 06/24/19 87 delivery completed [facility] 09/11/2021 09:05:46 Imaging Results Imaging Date Name Status LastModified by Organization Details LastModified Time 08/21/2022 CT, abdomen + pelvis, w/ contrast completed [email or web address] [address], [place], [address], 02/03/2023 15:17:27 02/13/2023 US, pelvis completed [email or web address] [place] [address], [place], [address], 02/13/2023 18:01:54 02/13/2023 US, transvaginal completed [email or web address] [address], [place], [address], 02/13/2023 18:02:05 02/13/2023 US, pelvis completed [facility] [address], [place], [address], 02/20/2023 11:59:23 03/26/2023 MAMMO, screening, bilateral completed [address] [address], [place], [address], 04/08/2023 13:24:57 03/26/2023 DEXA, axial skeleton + vertebral fracture assessment completed [address], [address], 04/01/2023 12:27:10 01/16/2024 MRI, pelvis, w/wo contrast completed [address], [address], 02/21/2024 11:04:02 11/26/2024 MAMMO, screening, bilateral completed [address], [address], 12/02/2024 16:24:23 Procedure Notes None recorded. Medical Equipment None Reported. Allergies Allergen ID Allergen Name Allergen Category Reaction Reaction Severity Criticality Documentation Date Start Date Code Code System Note Provider Name and Address Organization Details Recorded Time 76443 Ceftin medicatio n itching severe Not available 09/11/2021 64393 6 RxNorm Leydi vera [place] - [facility] 09:05:24 00585 amoxicill in medicatio n Not available Not available Not available 01/06/2024 723 RxNorm SELMA Sibley - [facility] 4 10:39:12 Medications Name Sig [...] Updated DateTime 12/30/2022 162.56 cm 30 kg/m2 04804.66 g 131 mm[Hg] 78 mm[Hg] Maricruz Ramirez [facility] 3 15:46:42 Date Recorded Body height Body mass index (BMI) Body weight Systolic blood pressure Diastolic blood pressure Provider Name and Address Organization Details Last Updated DateTime 02/18/2023 162.56 cm 29.9 kg/m2 38587.07 g 120 mm[Hg] 77 mm[Hg] Leydi Carson [facility] 3 18:08:20 Date Recorded Body height Body mass index (BMI) Body weight Provider Name and Address Organization Details Last Updated DateTime 01/06/2024 162.56 cm 30.4 kg/m2 87981.85 g Annel Yi [facility] 01/06/2024 10:38:43 Date Recorded Body height Body mass index (BMI) Body weight Systolic blood pressure Diastolic blood pressure Provider Name and Address Organization Details Last Updated DateTime 01/26/2024 162.56 cm 30.7 kg/m2 99795.03 g 126 mm[Hg] 74 mm[Hg] Jenna Garcia [facility] 4 10:03:36 Social History Question Answer Notes LastModified by Organizat ion Details LastModified Time Tobacco Smoking Status Current Every Day Smoker Maricruz Ramirez [facility] 12/30/2022 15:48:12 Do You Have An Advance Directive? No [email or web address] Information not available 12/30/2022 What Is Your Level Of Alcohol Consumption? None Information not available 09/11/2021 What Is Your Level Of Caffeine Consumption? Moderate [email or web address] Information not available 12/30/2022 In The 14 Days Before Symptom Onset, Have You Had Close Contact With A Laboratory-confir med COVID-19 While That Case Was Ill? No [email or web address] Information not available 12/30/2022 In The 14 Days Before Symptom Onset, Have You Had Close Contact With A Person Who Is Under Investigation For COVID-19 While That Person Was Ill? No [email or web address] Information not available 12/30/2022 Have You Been To An Area Known To Be High Risk For COVID-19? No [email or web address] Information not available 12/30/2022 Are You Deaf Or Do You Have Serious Difficulty Hearing? No Information not available 12/30/2022 What Type Of Diet Are You Following? REGULAR [email or web address] Information not available 12/30/2022 What Is The Highest Grade Or Level Of School You Have Completed Or The Highest Degree You Have Received? 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 No [email or web address] Information not available 12/30/2022 Do You Use Protection During Sex? No [email or web address] Information not available 12/30/2022 Do You Use Your Seat Belt Or Car Seat Routinely? No [email or web address] Information not available 12/30/2022 Do You Have Smoke And Carbon Monoxide Detectors In Your Home? Yes [email or web address] Information not available 12/30/2022 At What Age Did You Start Smoking Tobacco? 19 [email or web address] Information not available 12/30/2022 How Much Tobacco Do You Smoke? 1 PPD Information not available 09/11/2021 Do You Feel Stressed (tense, Restless, Nervous, Or Anxious, Or Unable To Sleep At Night)? [id number] Information not available 12/30/2022 Do You Use Any Illicit Or Recreational Drugs? No Information not available 09/11/2021 Do You Use Sunscreen Routinely? No [email or web address] Information not available 12/30/2022 Has Tobacco Cessation Counseling Been Provided? No [email or web address] Information not available 12/30/2022 How Many Years Have You Smoked Tobacco? 51 [email or web address] Information not available 12/30/2022 Have You Used IV Drugs? No Information not available 12/30/2022 Do You Or Have You Ever Used Any Other Forms Of Tobacco Or Nicotine? No Information not available 12/30/2022 Sex: Unknown Functional Status Question Answer Note LastModified by Organization D etails LastModified Time Are you able to walk? YESWOREST [email or web address] Information not available 12/30/2022 What is your exercise level? None [email or web address] Information not available 12/30/2022 Mental Status None recorded. Family History Relationship Description Onset Age of this Age Resolved Age Notes LastModified by Organization Details LastModified Time Paternal Grandmother Diabetes mellitus [email or web address] Not available 12/30 15:48:11 Paternal Aunt Heart disease [email or web address] Not available 12/30 15:48:11 Father Asthma [email or web address] Not available 12/30/2022 15:48:11 Father Disorder of lung [email or web address] Not available 12/30 15:48:11 Father Heart disease [email or web address] Not available 12/30 15:48:11 Brother Malignant neoplasm of lung [email or web address] Not available 2023 10:04:42 Medical History Condition Response Allergies (Food, seasonal, environmental ) Y Other N Breast Cancer N Drug/Latex Allergies/Reactions Y Blood Transfusion N Dermatologic Disorders N Lung Disease Y [...] SNOMED-CT Code Diagnosis ICD10 Code Diagnosis Note 50596 Ileana Lagos MD [place] [address] [address] 09/11/2021 09:38:28 09/11/2021 10:26:45 Gynecologic examination 29237190 Z01.419 Hormone re placement therapy 337381225 Z79.890 336069 [facility] [address] [address] 12/30/2022 15:15:16 12/31/2022 17:05:20 Gynecologic examination 89570827 Z01.419 Take Calcium with Vitamin D 12-1500mg daily. Do monthly self breast exams. It is advised to get annual flu shot in the fall and she could obtain at [facility] or [facility] care clinic. If you [...] to this email. Hormone re placement therapy [id number] Z79.890 Significan tly helps with symptoms. Wants to continue. Discussed risks and benefits d/t age and health history. Will discuss again next year.Need to await records from recent hospitaliz ations. Depending on diagnosis may need to discuss risk even further. [id number] Yeni Werner , [facility] [address] [address] 01/06/2024 10:25:15 01/06/2024 11:04:52 Gynecologic examination 12744030 Z01.419 Take Calcium with Vitamin D 12-1500mg daily. Do monthly self breast exams. It is advised to get annual flu shot in the fall and she could obtain at [facility] or [facility] care clinic. If you [...] Labs UTD PCP Hormone re placement therapy 388395748 Z79.890 Counseled on the following: Females >10yrs [...] continuing past age 61yo Cyst of ovary 73222962 N 83.209 Today we reviewed her US [...] manda g verbalized . Screening mammography 24 821163 Z12.31 [id number] Ileana Lagos MD [place] [address] [address] 02/13/2023 13:43:50 02/18/2023 16:36:30 Pelvic mass 24827039 R19.09 [id number] Ileana Lagos MD [place] [address] [address] 02/18/2023 17:42:05 02/19/2023 16:06:58 Cyst of left ovary 4341042269 0722212 N83.202 History of vaginal hysterectomy 602648843 Z90.710 [id number] Sean Anglin MD [place] [address] [address] 01/26/2024 09:58:34 01/27/2024 00:19:21 Pelvic mass 23460216 R19.00 this patient is a 73-year-ol d [...] Cottrell Member ID Guarantor Name 12/30/2022 1 [facility] (MEDICARE REPLACEMENT/A DVANTAGE - HMO) [id number] Natalie Olivas [id number] Natalie Olivas 02/13/2023 1 [facility] (MEDICARE REPLACEMENT/A DVANTAGE - HMO) [id number] Natalie Olivas [id number] Natalie Olivas 02/18/2023 1 [facility] (MEDICARE REPLACEMENT/A DVANTAGE - HMO) [id number] Natalie Olivas [id number] Natalie Olivas 01/06/2024 1 [facility] (MEDICARE REPLACEMENT/A DVANTAGE - HMO) [id number] Natalie Olivas [id number] Natalie Olivas 01/26/2024 1 [facility] (MEDICARE REPLACEMENT/A DVANTAGE - HMO) [id number] Natalie Olivas [id number] Natalie Olivas Notes Date Note Type Note [...] for a couple weeks.Left ovarian cyst on [facility]. [facility] in [place] in July. However, patient has had a total hyst. She called Dr Felix Pedro office and verified.Hip replacement May 2022 Jacqui Roman [facility] 01/20/2023 18:30:52 02/18/2023 text/html Natalie is [...] to have a left ovarian cyst. In [place] in Jul 2022 it was first seen. [...] out. Ileana Lagos MD [address], [place], [address], , P[facility] 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 01/06/2024 11:02:20 01/26/2024 text/html this patient [...] well-woman exam. We spent over 20 minutes [id number]. More than 50% was counseling. We reviewed records extensively. Sean Anglin MD [address], [place], [address], [facility] 01/26/2024 21:57:59 OBGyn Episode Ob Episode Information Episode Created Date Number of Fetuses Patient Bloodtype Patient rh Status Prepregnancy Weight lbs Domestic Partner Domestic Partner Phone Father Name Polisher Hand Status 09/11/20 21 1 CLOSED Fetus Data First Name Last Name Admitted to NICU Weight (g) Sex Living Outcome Pediatric Complications Fetus ID Race Codes Race Delivery Type 2239.38 3704 F Prematur e 16323 Vaginal Delivery Nate Calculation Initial Nate Date [...] Domestic Partner Domestic Partner Phone Father Name Polisher Hand Status 09/11/20 21 1 CLOSED Fetus Data First Name Last Name Admitted to NICU Weight (g) Sex Living Outcome Pediatric Complications Fetus ID Race Codes Race Delivery Type 2749.67 4704 F Prematur e [address]9417 Primary Nate Calculation Initial Nate Date Initial [...]
--- OUTSIDE RECORDS SUMMARY | 2025-01-19 13:08 | XMS_ITS | Data Portability ---
Author Organization [place] - [facility], 2- Admin Address [address] [place] [address] Care Team Providers Care Data Programmer Name Role Phone QUIRINO, RADHA Primary Care Provider [phone] Assessment Encounter Date Assessment Date Assessment LastModified [...] of this note may be dictated using BeDo voice recognition software. Variances in spelling and [...] of this note may be dictated using BeDo voice recognition software. Variances in spelling and [...] to the grade 1 spondylolisthesis L4-5. Continue ftvm-qvs-tinsraz medications as needed. Follow-up in 2 months. [...] physica l therapi st referra l 2021 [facility], [address] [place] [address], [address], 08:41:[address] st referra l 2021 [facility], [address] [place] [address], [address], 14:43:02 Procedures None recorde d. Surgeries total hip arthrop lasty (SURG) 2021 [facility], [address] [place] [address], [address], 11:24:56 Imaging XR, cervica l spine 2021 [facility] [497], [address], [place], [address], 11:46:33 XR, hand 2021 jarrod [facility] [497], [address], [place], [address], 11:46:33 XR, hip, unilate ral 2021 mateusz [facility] [497], [address], [place], [address], 12:10:44 XR, lumbar spine 2021 mateusz [facility] [497], [address], [place], [address], 12:10:44 US, doppler , venous - Left UE 2021 [facility], [address] [place] [address] Dr MERINO, [place], [address], 18:29:37 Medication Orders amoxici llin 500 mg capsule 2021 [facility][id number], [address] [place], [place], [id number], 12:43:49 Neuront in 100 mg capsule 2021 [facility] #[id number], [address] [place], [place], [id number], 12:10:44 oxycodo ne 5 mg tablet 2021 [facility] #[id number], [address] [place], [place], [id number], 08:29:38 Patient TargetsNo targets recorded. Patient InstructionsNo [...] s No observ ation record ed. [email or web address] [facility] [address] [place], [address], 07/09/2022 08:17:40 07/04/20 22 07/04/2022 XR, hip, unila teral StudyI [facility] eUID=1 .2 6.9125 .2.232 [id number] [id number] 82.651 [id number] 2.6528 325 INTERFACE [facility] [497] [address], [place], [address], 07/04/2022 09:04:23 07/04/20 22 07/04/2022 XR, lumba r spine StudyI [facility] eUID=1 .2 6.9125 .2.232 [id number] [id number] 82.651 103196 7.6528 429 INTERFACE [facility] [497] [address], [place], [address], 07/04/2022 09:25:10 07/04/20 22 07/04/2022 XR, hip, unila teral StudyI [facility] eUID=1 .2392 6.9125 .2.232 [id number] 974607 82.651 578195 2.6528 325 INTERFACE [facility] [497] [address], [place], [address], 07/04/2022 09:25:11 08/14/20 22 08/14/2022 XR, hand StudyI [facility] eUID=1 .2392 3 6.9125 .2.162 [id number] 353[address]. 119344 5025.3 153701 INTERFACE [facility] [497] [address], [place], [address], 08/14/2022 09:50:28 08/14/20 22 08/14/2022 nerve condu ction study /EMG, upper extre mity (PROC ) No observ ation record ed. mmafernie Stein MD [address], [place], [address], 08/19/2022 16:49:13 Result Notes None recorded. Problems Name Problem SNOMED Code Status Onset Date Resolution Date Notes Provider Name and Address Organization Details Recorded Time Osteoarthri tis of right hip joint 8911264626314 07 Active 2021 Renetta Madison null, [place] - [facility] 2 08:48:43 History of total hip arthroplast y 504934136381 Active 2021 Renetta Madison null, [place] - [facility] 2 08:48:43 Hyperlipide mahnaz 49323032 Active Renetta Madison null[place] - [facility] 2 08:48:43 Chronic obstructive pulmonary disease 95965781 Active Renetta Harvey null, [place] - [facility] 2 08:48:43 Anxiety 04914730 Active Renetta Harvey [place] - [facility] 2 08:48:43 Home oxygen supply 870073636 Active Renetta Madison null[place] - [facility] 2 08:48:43 Hypertensiv e disorder 71475025 Active Renetta Madison [place] - [facility] 2 08:48:43 Osteoarthri tis 438770452 Active Renetta Madison [place] - [facility] 2 08:48:43 Absence of sensation 22748524 Active Renetta Madison null, [place] - [facility] 2 08:48:43 Numbness of hand 721598393 Active 2021 Khloe cano PA-C [address] [place], [address], [place] - [facility] 2 15:04:53 Degeneratio n of cervical interverteb ral disc 57138992 Active 2021 Leonila Stein MD [address] [place], [address], [place] - [facility] 2 10:22:27 Carpal tunnel syndrome 88743474 Active 2021 Leonila Stein MD [address] [place], [place], [address], [place] [facility] 10:59:02 Osteoarthro sis of the carpometaca rpal joint of the thumb 25116187 Active 2021 Leonila Stein MD [address] [place], [place], [address], [place] - [facility] 10:59:04 Problem [...] 14:17:21 06/19/2022 US, doppler, venous completed [email or web address] [facility] [address] , [place], [address], 07/09/2022 08:17:40 07/04/2022 XR, hip, unilateral completed INTERFACE [facility] [497] [address], [place], [address], 07/04/2022 09:04:23 07/04/2022 XR, lumbar spine completed INTERFACE [facility] [497] [address], [place], [address], 07/04/2022 09:25:10 07/04/2022 XR, hip, unilateral completed INTERFACE [facility] [497] [address], [place], [address], 07/04/2022 09:25:11 08/14/2022 XR, hand completed INTERFACE [facility] [497] [address], [place], [address], 08/14/2022 09:50:28 08/14/2022 nerve conduction study/EMG, upper extremity (PROC) completed mateusz Stein MD [address], [place], [address], 08/19/2022 16:49:13 Procedure Notes None recorded. Medical Equipment None Reported. Allergies Allergen ID Allergen Name Allergen Category Reaction Reaction Severity Criticality Documentation Date Start Date Code Code System Note Provider Name and Address Organization Details Recorded Time 378892 Ceftin medicatio n itching moderate Not available 05/06/2022 20398 6 RxNorm Kiki Aguiar null, [place] - [facility] 2 16:01:51 879582 Cefzil medicatio n itching moderate Not available 05/06/2022 24729 1 RxNorm Kiki Aguiar [place], [place] - [facility] 2 16:01:51 812420 dexametha sone medicatio n itching moderate Not available 06/11/2022 3264 RxNorm Renetta Harvey null, [place] - [facility] 2 08:48:47 457059 meloxicam medicatio n nausea nausea moderate moderate Not available 06/11/2022 68053 RxNorm Renetta [place] - [facility] 08:48:47 295780 cefprozil medicatio n itching moderate Not available 06/11/2022 76327 RxNoANTONIO [facility] 2 08:48:47 Medications Name Sig Start Date Stop Date [...] Last Updated DateTime 05/13/2022 162.56 cm Lois Tramposch [place] - [facility] 04/23 13:33:16 Date Recorded Body mass index (BMI) Body weight Pain severity - 0-10 verbal numeric rating [Score] - Reported Provider Name and Address Organization Details Last Updated DateTime 05/13/2022 29.2 kg/m2 17489.7 g 7 Katherine Pinto [place] [facility] 05/13/2022 13:46:44 Date Recorded Body height Body mass index (BMI) Body weight Provider Name and Address Organization Details Last Updated DateTime 06/19/2022 162.56 cm 29.2 kg/m2 11155.7 g Renetta Harvey [facility] 06/19/2022 14:33:01 Date Recorded Body height Body mass index (BMI) Body weight Pain severity - 0-10 verbal numeric rating [Score] - Reported Provider Name and Address Organization Details Last Updated DateTime 07/04/2022 162.56 cm 29.2 kg/m2 07396.7 g 1 Katherine Pinto [facility] 07/04/2022 09:01:17 Date Recorded Body height Body mass index (BMI) Body weight Pain severity - 0-10 verbal numeric rating [Score] - Reported Provider Name and Address Organization Details Last Updated DateTime 09/02/2022 162.56 cm 29.2 kg/m2 03475.7 g 0 Katherine Pinto [facility] 09/02/2022 09:16:39 Social History Question Answer Notes LastModified by Organizat ion Details LastModified Time Tobacco Smoking Status Current Every Day Smoker Maisha Mcginnislaverne vera, [facility] 07/04/2022 08:29:39 Do You Have An Advance [...] Do You Have A Medical Power Of Immunology Specialist? No Information not available 07/04/2022 What Was [...] Other Forms Of Tobacco Or Nicotine? No [email or web address] Information not available 07/04/2022 Sex: Female Functional [...] vaccine, UNSPECIFIED 11/20/2020 completed Renetta Harvey null, [place] - [facility] 06/11/2022 08:48:56 SARS-COV-2 (COVID-19) vaccine, UNSPECIFIED 11/20/2021 completed Renetta [place] null, [place] - [facility] 06/11/2022 08:48:56 pneumococcal, unspecified formulation 09/22/2019 completed Sindhu [place] null, [place] - [facility] 08/14/2022 09:24:30 SARS-COV-2 (COVID-19) vaccine, UNSPECIFIED 10/23/2020 completed Renetta [place] null, [place] - [facility] 06/11/2022 08:48:56 SARS-COV-2 (COVID-19) vaccine, UNSPECIFIED 05/23/2021 completed Renetta [place] null, [place] - [facility] 06/11/2022 08:48:56 influenza, unspecified formulation 06/22/2021 completed Sindhu [place] null, [place] - [facility] 08/14/2022 09:24:30 Past Encounters Encounter ID Performer Location Encounter Start Date Encounter Closed Date Diagnosis/Indication Diagnosis SNOMED-CT Code Diagnosis ICD10 Code Diagnosis Note [id number] MELANIA Dubois 2-O-Shall annemarie [address] [facility] [place] [address] 05/06/2022 15:19:58 05/06/2022 16:21:09 Pain of right hip joint 7367507902 84789 M25.551 Osteoarthr itis of right hip joint 5704322502 88068 M16.11 [id number] Zuhair Colorado MD 2-O-Shall annemarie [address] [place] [address] Hussein [place] [address] 05/13/2022 13:19:50 05/13/2022 14:32:57 Pain of right hip joint 9820701987 30907 M25.551 Osteoarthr itis of right hip joint 1288758229 55297 M16.11 Osteoarthritis of hip 23 4305774 M16.11 [id number] Zuhair Colorado MD 2-O-Shall annemarie [address] [place], [place] [address]richard Herlinda [place] [address] 06/19/2022 14:27:02 06/19/2022 15:33:09 History of total hip arthroplasty 5227164610 06 Z96.641 R MILADY DOS 06/03/22 M-D Numbness of hand 4420694 04 R20.0 [id number] Zuhair Colorado MD 2-O-Shall annemarie [address] [place] [address] Hussein [place] [address] 07/04/2022 08:29:11 07/04/2022 09:34:59 Postoperative visit 378288048 Z09 Low back pain 353640217 M54.50 Lumbar spondylosis 59434 0009 M47.896 [id number] Leonila Stein MD 2-O-Mauro [facility] [address] [facility] [address] [address] 08/14/2022 09:22:03 08/14/2022 11:10:40 Paresthesia of upper limb 84455129 R20.2 Hand pain 54095698 M79.6 41 M79.642 Neck pain 70209276 M54.2 Osteoarthr osis of the carpometacarpal joint of the thumb 08531454 M18.0 Degenerati on of cervical intervertebral disc 82907369 M50.30 Carpal olga lidia srinath syndrome 66794643 G56.02 G56.01 [id number] Zuhair Colorado MD 2-O-Shall annemarie [address] [facility] [place] [address] 09/02/2022 09:09:41 09/02/2022 09:53:58 History of total hip arthroplasty 4164276097 06 Z96.649 Health Concerns Section Related Observation LastModified by Organization Detai ls LastModified Time None Recorded Concern Status LastModified by Organization Details LastModified Time None Recorded Advance Directives Directive N: Payers Encounter Date Sequence Insurance Name Policy Number Policy Cottrell Covered Member ID Cottrell Member ID Guarantor Name 05/13/2022 1 [facility] (MEDICARE REPLACEMENT/A DVANTAGE - HMO) Natalie Radha Olivas [id number] Natalie Brendon 06/19/2022 1 [facility] (MEDICARE REPLACEMENT/A DVANTAGE - HMO) Natalie Radha Olivas [id number] Natalie Brendon 07/04/2022 1 [facility] (MEDICARE REPLACEMENT/A DVANTAGE - HMO) Natalie Radha Olivas [id number] Natalie Brendon 08/14/2022 1 [facility] (MEDICARE REPLACEMENT/A DVANTAGE - HMO) Natalie Radha Olivas [id number] Natalie [place] 09/02/2022 1 [facility] (MEDICARE REPLACEMENT/A DVANTAGE - HMO) Natalie Radha Olivas [id number] Natalie Olivas Notes Date Note Type Note [...] doppler EMG}}. Prior [facility] at [facility] our [facility]* Urgent Care facility [...] {{Dr. Rashard Colorado*}}. Zuhair Colorado MD [address] [place], [address], [facility] 05/13/2022 14:39:02 06/19/2022 text/html Patient is here [...] concern today. Khloe Patel PA-C [address] [place], [address], [facility] 06/19/2022 16:29:56 07/04/2022 text/html Patient is [...] increased pain. 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 She is status post a right total [...] surgery. Leonila Stein MD [address], [place], [address], [facility] 10/24/2022 11:28:34 09/02/2022 text/html Patient [...] 28 29 30 31}}/{{20 21 22*}}. ({{Rashard Marmoeack*} }-{{Novant Dosher* B SC}}).The pain today is [...] increased pain. Zuhair Colorado MD [address] [place], [address], [facility] 09/02/2022 12:17:39 OBGyn Episode No OBEpisode recorded.
[2025-01-19 13:41] LABS: Prothrombin Time 13.6 Seconds (11.1-14.7)
[2025-01-19 13:42] LABS: Partial Thromboplastin Time 29.2 Seconds (22.3-36.8)
== END 2025-01-19 11:41 | disposition home or self-care (01) ==
PROVIDERS: PCP Family Medicine; Visit Provider Neurological Surgery
DX: Z01.818 Encounter for other preprocedural examination (principal); M48.02 Spinal stenosis, cervical region; I10 Essential (primary) hypertension
CPT/HCPCS: 36415; 85610; 85730; 86850; 86900; 86901; 93005

== ENCOUNTER 2025-02-01 00:50 | Day surgery (SDC) | payer MEDICARE, SELFPAY ==
--- NOTE | 2025-01-19 11:39 | PC.NURSE ---
Report to the Outpatient Waiting Room, entrance under the green pavilion located off [facility], at time _6:30 AM on date _02/01/25 . Planned Procedure Time: _8:30 AM .? Time changes happen often and if your time is changed the preop area will call you the afternoon before. - You and your visitor will be asked to self-screen and do not enter if you have any COVID symptoms. Please call surgeon if you need to reschedule. - A mask is optional within the hospital at this time. Patients may have clear liquids (water, carbonated beverages, clear teas, apple juice) until 3 hours prior to surgery ( 5:30 AM) with a maximum of 20 ounces. - No food from midnight until time of surgery and no smoking, or chewing tobacco (or any form of nicotine). No chewing gum, candy or mints. - Take only the following medications with a SIP of water on the morning of surgery: _trelegy ellipta inhaler_,alprazolam DO NOT STOP ANY OF YOUR OTHER PRESCRIPTION MEDICATIONS PRIOR TO SURGERY EXCEPT THE FOLLOWING Hold all vitamins and supplements for 3 days per anesthesiologist. last dose 01/28/25 Medications to discontinue per physician none Please no make-up, nail sri lankan, hairspray, perfume, deodorant, or body powder the day of surgery.? No jewelry (including any body piercings) or valuables the day of surgery, leave them at home.? Please take a shower or bath the night before, or the morning of, surgery with an antibacterial soap.? Wear comfortable, loose fitting clothing.? Children are encouraged to wear pajamas. - Jewelry must be removed prior to entering the operating room.? Rings and piercings that are not removed may be cut off. - The hospital will not accept responsibility for valuables.? - Please leave all valuables, including medications, at home the day of surgery. If you are going home after surgery, a licensed medical driver must drive you home.? - NO public transportation without another adult if you receive anesthesia. - We recommend that an adult stay with you for 24 hours following discharge. - We also recommend that you do not drive, make important decision, drink alcoholic beverages, or take any drugs that were not prescribed by your health care provider for at least 24 hours after your discharge time. For Pediatric surgeries, we recommend two adults accompany the child home. Follow any additional instructions given to you from your surgeon. VERBAL AND WRITTEN instructions given to _PATIENT and asked if any additional questions and then verbalized understanding. Patient advised to call surgeon office or pre surgery nurse liaison [phone] if any additional questions.
[2025-01-19 11:51] VITALS: BMI 30.3
[2025-01-19 12:39] VITALS: BP 134/65; PULSE 82; RESP 18; TEMP 36.7; O2SAT 98
[2025-02-01] VITALS (21 sets, daily range): BP systolic 102–165; BP diastolic 52–90; PULSE 77–97; RESP 12–20; TEMP 36.2–36.5; O2SAT 94–99; BMI 30.7
--- NOTE | ~2025-02-01 | XR_ITS ---
EXAMINATION: XR fluoroscopy no charge DATE: 02/01/2025 8:00 CDT INDICATION: C4-6 ANTERIOR CERVICAL DISCECTOMY FUSION . TECHNIQUE: 1 fluoroscopic image of the cervical spine were obtained during C4-6 anterior cervical dis cectomy and fusion, performed by Isidoro James MD. I was not present during the procedure. Fluor oscopy exposure time was 4.6 seconds. Air Kerma 0.4719 mGy. DAP 0.0935 mGym2. COMPARISON: None FINDINGS/IMPRESSION: Fluoroscopic documentation of C4-6 anterior cervical discectomy and fusion. Please refer to the opera tive note for complete procedural details . Reviewed, dictated and finalized at location K.
--- OUTSIDE RECORDS SUMMARY | 2025-02-01 00:52 | XMS_ITS | Continuity of Care Document ---
Author Organization [facility] Address [address] [place] [address] [place] [address] Phone Care Team Providers Care Renal Medicine Physician Name Role Phone Moriah Borrego Unavailable Unavailable Advance Directives Directive Yes / No Effective Date File Name No Information Encounters Encounter Description Practice Location Reason(s) For Visit Diagnoses Date Provider Providers Copied on Encounter [address] [place], [id number], [place] tel:[phone] [facility] No Information Sloane Major. [address] [place] [address], [address], [place]. [phone] Family History Family Member Type Diagnosis Age [...]
--- OUTSIDE RECORDS SUMMARY | 2025-02-01 00:52 | XMS_ITS | Continuity of Care Document ---
Author Organization [facility] Address [address] [place] [address] [place] [address] Phone Care Team Providers Care Explosive Ordnance Disposal Technician Name Role Phone Fields OD, Suhail Unavailable Unavailable Procedures Procedure Date Contact Lens Hydrophilic, Spherical [facility] Eye Exam & Treatment Refraction [facility] CL Replacement - Vistakon Disp W/BW Soft Office/outpatient Visit, Est Refraction CL Replacement - Vistak[facility] Disp W/BW Soft [facility] Eye Exam & Treatment Refraction CL Replacement - Vistak[facility] Disp W/BW Soft [facility] Advance Directives Directive Yes / No Effective Date File Name No Information Encounters Encounter Description Practice Location Reason(s) For Visit Diagnoses Date Provider Providers Copied on Encounter [facility], [address] [place] [address] [address], [place], [place], [id number], [place] tel:[phone] [facility] [place] No Information 5-201 0 Fields OD Suhail. [address] [facility] , [address], [place], [address], [place]. tel:[phone] [facility], [address] [place] [address] [address], [place], [place], [id number], [place] tel:[phone] SEC [facility] No Information 4-200 9 Fields OD Suhail. [address], [place], [place], [facility], [place]. tel:[phone] [facility], [address] [place] [address] [address], [place], [place], [id number], [place] tel:[phone] [facility] No Information May-0 9-200 8 Fields OD Ushail. [address], [place], [place], [facility], [place]. tel:[phone] Office/outpat ient Visit, Est [facility], [address] [place] [address] [address], [place], [place], [id number], [place] tel:[phone] [facility] [place] No Information 9-200 8 Fields OD Suhail. [address], [place], [place], [facility], [place]. tel:[phone] [facility], [address] [place] [address] [address], [place], [place], [id number], [place] tel:[phone] SEC [facility] No Information 2 7-200 7 Fields OD Suhail. [address], [place], [place], [facility], [place]. tel:[phone] [facility], [address] [place] [address] [address], [place], [place], [id number], [place] tel:[phone] SEC [facility] No Information 8-200 7 Fields OD Suhail. [address], [place], [place], [facility], [place]. tel:[phone] [facility], [address] [place] [address] [address], [place], [place], [id number], [place] tel:[phone] SEC [facility] No Information 1-200 7 Fields OD Suhail. [address] , [address], [place], [address], [place]. tel:[phone] Family History Family Member Type Diagnosis Age [...]
--- OUTSIDE RECORDS SUMMARY | 2025-02-01 00:52 | XMS_ITS | Data Portability ---
Author Organization [place] [facility]- Admin Address [address] [place] [address] Care Team Providers Care Compensator Worker Name Role Phone QUIRINO, RADHA Primary Care Provider [phone] Assessment Encounter Date Assessment Date Assessment LastModified [...] of this note may be dictated using [employer] voice recognition software. Variances in spelling and [...] of this note may be dictated using [employer] ([employer] voice recognition software. Variances in spelling and [...] to the grade 1 spondylolisthesis L4-5. Continue oreb-qkn-nvyuxpg medications as needed. Follow-up in 2 months. [...] physica l therapi st referra l 2021 [facility], [address] [place] [address], [address], 08:41:[address]i st referra l 2021 [facility], [address] [place] [address], [address], 14:43:02 Procedures None recorde d. Surgeries total hip arthrop lasty (SURG) 2021 [facility], [address] [place] [address], [address], 11:24:56 Imaging XR, cervica l spine 2021 [facility] [497], [address], [place], [address], 11:46:33 XR, hand 2021 [facility]rod [facility] [[address]], [address], [place], [address], 11:46:33 XR, hip, unilate ral 2021 mateusz [facility] [497], [address], [place], [address], 12:10:44 XR, lumbar spine 2021 mateusz [facility] [497], [address], [place], [address], 12:10:44 US, doppler , venous - Left UE 2021 [facility], [address] [place] [address] Dr MERINO, [place], [address], 18:29:37 Medication Orders amoxici llin 500 mg capsule 2021 [id number], [address] [place], [place], [id number], 12:43:49 Neuront in 100 mg capsule 2021 [facility] #[id number], [address] [place], [place], [id number], 12:10:44 oxycodo ne 5 mg tablet 2021 [facility] #[id number], [address] [place], [place], [id number], 08:29:38 Patient TargetsNo targets recorded. Patient InstructionsNo [...] s No observ ation record ed. [email or web address] [facility]ly [facility] [address] [place], [address], 07/09/2022 08:17:40 07/04/20 22 07/04/2022 XR, hip, unila teral [facility] eUID=1 .2 6.9125 .2.232 [id number] 434560 82.651 [id number] 2.6528 325 INTERFACE [facility] [497] [address], [place], [address], 07/04/2022 09:04:23 07/04/20 22 07/04/2022 XR, lumba r spine StudyI [facility] eUID=1 .2 6.9125 .2.232 [id number] 539681 82.651 092274 7.6528 429 INTERFACE [facility] [497] [address], [place], [address], 07/04/2022 09:25:10 07/04/20 22 07/04/2022 XR, hip, unila teral StudyI [facility] eUID=1 .2392 6.9125 .2.232 437447 345362 82.651 513661 2.6528 325 INTERFACE [facility] [497] [address], [place], [address], 07/04/2022 09:25:11 08/14/20 22 08/14/2022 XR, hand StudyI [facility] eUID=1 .2392 3 6.9125 .2.162 [id number] 01822. 054065 4008.3 [id number] INTERFACE [facility] [497] [address], [place], [address], 08/14/2022 09:50:28 08/14/20 22 08/14/2022 nerve condu ction study /EMG, upper extre mity (PROC ) No observ ation record ed. mmafernie Stein MD [address], [place], [address], 08/19/2022 16:49:13 Result Notes None recorded. Problems Name Problem SNOMED Code Status Onset Date Resolution Date Notes Provider Name and Address Organization Details Recorded Time Osteoarthri tis of right hip joint 8548290153816 07 Active 2021 Renetta Harvey null, [place] - [facility] 2 08:48:43 History of total hip arthroplast y 948900507435 Active 2021 Renetta Lakeland null, [place] - [facility] 2 08:48:43 Hyperlipide mahnaz 67289855 Active Renetta [place] - [facility] 2 08:48:43 Chronic obstructive pulmonary disease 24056799 Active Renetta [place] [facility] 2 08:48:43 Anxiety 18261801 Active Renetta [place] [facility] 2 08:48:43 Home oxygen supply 665130026 Active Renetta [place] [facility] 2 08:48:43 Hypertensiv e disorder 50949336 Active Renetta Lakeland [place] [facility] 2 08:48:43 Osteoarthri tis 427803927 Active Renetta [place] [facility] 2 08:48:43 Absence of sensation 20128938 Active Renetta [place] null[place] - [facility] 2 08:48:43 Numbness of hand 373204979 Active 2021 Khloe cano PA-C [address] [place], [address], [place] - [facility] 2 15:04:53 Degeneratio n of cervical interverteb ral disc 25815034 Active 2021 Leonila Stein MD [address] [place], [address], [place] - [facility] 2 10:22:27 Carpal tunnel syndrome 63630348 Active 2021 Leonila Stein MD [address] [place], [place], [address], [place] [facility] 10:59:02 Osteoarthro sis of the carpometaca rpal joint of the thumb 08888583 Active 2021 Leonila Stein MD [address] [place], [place], [address], [place] [facility] 10:59:04 Problem [...] - [facility] 07/04/2022 08:29:38 Cholecystectomy completed Kiki Cruz [place] - [facility] 05/06/2022 16:02:07 Colonoscopy completed Kiki Cruz [place] - [facility] 05/06/2022 16:02:07 Hysterectomy completed Kiki Cruz [place] - [facility] 05/06/2022 16:02:07 Imaging Results Imaging Date Name Status LastModified by Organiz ation Details LastModified Time 06/03/2022 XR, hip, unilateral completed Information not available 06/03/2022 11:52:04 06/03/2022 XR, hip, unilateral completed Information not available 06/04/2022 14:17:21 06/19/2022 US, doppler, venous completed [email or web address] [address], [place], [address], 07/09/2022 08:17:40 07/04/2022 XR, hip, unilateral completed INTERFACE [facility] [497] [address], [place], [address], 07/04/2022 09:04:23 07/04/2022 XR, lumbar spine completed INTERFACE [facility] [497] [address], [place], [address], 07/04/2022 09:25:10 07/04/2022 XR, hip, unilateral completed INTERFACE [facility] [497] [address], [place], [address], 07/04/2022 09:25:11 08/14/2022 XR, hand completed INTERFACE [facility] [497] [address], [place], [address], 08/14/2022 09:50:28 08/14/2022 nerve conduction study/EMG, upper extremity (PROC) completed mateusz Stein MD [address], [place], [address], 08/19/2022 16:49:13 Procedure Notes None recorded. Medical Equipment None Reported. Allergies Allergen ID Allergen Name Allergen Category Reaction Reaction Severity Criticality Documentation Date Start Date Code Code System Note Provider Name and Address Organization Details Recorded Time 867264 Ceftin medicatio n itching moderate Not available 05/06/2022 20909 6 RxNorm Kiki Cruz null, [place] - [facility] 2 16:01:51 545265 Cefzil medicatio n itching moderate Not available 05/06/2022 39773 1 RxNorm Kiki [place] - [facility] 2 16:01:51 690843 dexametha sone medicatio n itching moderate Not available 06/11/2022 3264 RxNorm Renetta [place] null, [place] - [facility] 2 08:48:47 054884 meloxicam medicatio n nausea nausea moderate moderate Not available 06/11/2022 77845 RxNoANTNOIO Thompson 2 08:48:47 155992 cefprozil medicatio n itching moderate Not available 06/11/2022 97916 RxNoANTONIO Thompson 2 08:48:47 Medications Name Sig Start Date [...] Updated DateTime 05/13/2022 162.56 cm [facility]is [facility] 04/23 13:33:16 Date Recorded Body mass index (BMI) Body weight Pain severity - 0-10 verbal numeric rating [Score] - Reported Provider Name and Address Organization Details Last Updated DateTime 05/13/2022 29.2 kg/m2 42506.7 g 7 Katherine Pinto [place] [facility] 05/13/2022 13:46:44 Date Recorded Body height Body mass index (BMI) Body weight Provider Name and Address Organization Details Last Updated DateTime 06/19/2022 162.56 cm 29.2 kg/m2 33635.7 g Renetta Harvey [facility] 06/19/2022 14:33:01 Date Recorded Body height Body mass index (BMI) Body weight Pain severity - 0-10 verbal numeric rating [Score] - Reported Provider Name and Address Organization Details Last Updated DateTime 07/04/2022 162.56 cm 29.2 kg/m2 40592.7 g 1 Katherine Pinto [facility] 07/04/2022 09:01:17 Date Recorded Body height Body mass index (BMI) Body weight Pain severity - 0-10 verbal numeric rating [Score] - Reported Provider Name and Address Organization Details Last Updated DateTime 09/02/2022 162.56 cm 29.2 kg/m2 47498.7 g 0 Katherine Pinto [facility] 09/02/2022 09:16:39 Social History Question Answer Notes LastModified by Organizat ion Details LastModified Time Tobacco Smoking Status Current Every Day Smoker Maisha Franconoah vera, [facility] 07/04/2022 08:29:39 Do You Have An Advance Directive? No Information not available 07/04/2022 Are You Blind Or Do You Have Difficulty Seeing? No Information not available 08/14/2022 How Much Tobacco Do You Chew? None Information not available 07/04/2022 Are You Deaf Or Do You Have Serious Difficulty Hearing? No Information not available 08/14/2022 Which Of Your Hands Is Dominant? Right Information not available 07/04/2022 Do You Have A Medical Power Of Ship Engineer? No Information not available 07/04/2022 What Was The Date Of Your Most Recent Tobacco Screening? 07/01/2022 Information not available 07/04/2022 What Is Your Relationship Status? Domestic Partner Information not available 07/04/2022 How Much Tobacco Do You Smoke? 0.5 PPD Information not available 07/04/2022 Has Tobacco Cessation Counseling Been Provided? Yes Information not available 07/04/2022 How Many Years Have You Smoked Tobacco? 50 Information not available 07/04/2022 Sex: Female Functional Status Question Answer Note LastModified by Organizat ion Details LastModified Time Do you use any illicit or recreational drugs? No Information not available 07/04/2022 Do you or have you ever used any other forms of tobacco or nicotine? No Information not available 07/04/2022 What is your level of alcohol consumption? None Information not available 07/04/2022 Do you or have you ever used smokeless tobacco? Never used smokeless tobacco Information not available 07/04/2022 Are you currently employed? No Information not available 07/04/2022 Do you have difficulty walking or climbing stairs? No Information not available 08/14/2022 Do you have difficulty doing errands alone? No Information not available 08/14/2022 Are you able to care for yourself? Yes Information not available 08/14/2022 Do you have difficulty dressing or bathing? No Information not available 08/14/2022 Do you or have you ever used e-cigarettes or vape? Never used electronic cigarettes [email or web address] Information not available 07/04/2022 Mental Status Question Answer Note LastModified by [...] SARS-COV-2 (COVID-19) vaccine, UNSPECIFIED 11/20/2021 completed Renetta Lakeland null, [place] - [facility] 06/11/2022 08:48:56 pneumococcal, unspecified formulation 09/22/2019 completed Sindhu Garland null[place] - [facility] 08/14/2022 09:24:30 SARS-COV-2 (COVID-19) vaccine, UNSPECIFIED 10/23/2020 completed Renetta [place] - [facility] 06/11/2022 08:48:56 SARS-COV-2 (COVID-19) vaccine, UNSPECIFIED 05/23/2021 completed Renetta [place] - [facility] 06/11/2022 08:48:56 influenza, unspecified formulation 06/22/2021 completed Sindhu Garland null[place] - [facility] 08/14/2022 09:24:30 Past Encounters Encounter ID Performer Location Encounter Start Date Encounter Closed Date Diagnosis/Indication Diagnosis SNOMED-CT Code Diagnosis ICD10 Code Diagnosis Note [id number] MELANIA Dubois [facility] [address] [facility] [place] [address] 05/06/2022 15:19:58 05/06/2022 16:21:09 Pain of right hip joint 3064987473 58276 M25.551 Osteoarthr itis of right hip joint 6982644038 08184 M16.11 [id number] Zuhair Colorado MD 2[facility] annemarie [address] [place] [address] [place] [address] 05/13/2022 13:19:50 05/13/2022 14:32:57 Pain of right hip joint 9205281454 84547 M25.551 Osteoarthr itis of right hip joint 5631074122 87985 M16.11 Osteoarthritis of hip 23 2849436 M16.11 [id number] Zuhair Colorado MD 2-[facility] annemarie [address] [place], [place] [address]richard Herlinda [facility] [place] [address] 06/19/2022 14:27:02 06/19/2022 15:33:09 History of total hip arthroplasty 6820751112 06 Z96.641 R MILADY DOS 06/03/22 M-D Numbness of hand 5397946 04 R20.0 [id number] Zuhair Colorado MD [facility] annemarie [address] [place] [address] [place] [address] 07/04/2022 08:29:11 07/04/2022 09:34:59 Postoperative visit 383901492 Z09 Low back pain 368435149 M54.50 Lumbar spondylosis 76051 0009 M47.896 [id number] Leonila Stein MD 2-O-Mauro [facility] [address] [facility] [address] [address] 08/14/2022 09:22:03 08/14/2022 11:10:40 Paresthesia of upper limb 39028710 R20.2 Hand pain 39578476 M79.6 41 M79.642 Neck pain 26548078 M54.2 Osteoarthr osis of the carpometacarpal joint of the thumb 65330847 M18.0 Degenerati on of cervical intervertebral disc 85038108 M50.30 Carpal olga lidia srinath syndrome 00752562 G56.02 G56.01 [id number] Zuhair Colorado MD [facility] annemarie [address] [place] [address] 09/02/2022 09:09:41 09/02/2022 09:53:58 History of total hip arthroplasty 7192401426 06 Z96.649 Health Concerns Section Related Observation LastModified by Organization Detai ls LastModified Time None Recorded Concern Status LastModified by Organization Details LastModified Time None Recorded Advance Directives Directive N: Payers Insurance Date Sequence Insurance Name Policy Number Policy Cottrell Covered Member ID Cottrell Member ID Guarantor Name 08/30/2022 1 [facility] (MEDICARE REPLACEMENT/A DVANTAGE - HMO) Natalie Olivas [id number] Natalie Olivas Notes Date Note Type Note [...] doppler EMG}}. Prior imaging at {{Marilee Walters [facility] our office* Urgent Care facility PCP [...] be {{Dr. Rashard Colorado*}}. Zuhair Colorado MD [facility] [place], [address], [facility] 05/13/2022 14:39:02 06/19/2022 text/html Patient [...] 27 28 29 30 31}}/{{20 21 22*}}. ({{[place] Marushack*} }-{{Novant Dosher* B SC}}).The pain today [...] concern today. Khloe Patel PA-C [address] [place], [address], [facility] 06/19/2022 16:29:56 07/04/2022 text/html Patient is here [...] 27 28 29 30 31}}/{{20 21 22*}}. ({{Idavilletrell Perezack*} }-{{Novant Dosher* B SC}}).The pain today is [...] pain. 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 She is status post a right total [...] surgery. Leonila Stein MD [address], [place], [address], [facility] 10/24/2022 11:28:34 09/02/2022 text/html Patient [...] 27 28 29 30 31}}/{{20 21 22*}}. ({{[place] Marushack*} }-{{Novant Dosher* B SC}}).The pain today [...] pain. Zuhair Colorado MD [address], [place], [address], [facility] 09/02/2022 12:17:39 OBGyn Episode No OBEpisode recorded.
--- OUTSIDE RECORDS SUMMARY | 2025-02-01 00:53 | XMS_ITS | Data Portability ---
Author Organization [facility] [place] Address [address] [place] [address] Care Team Providers Care Database Modeler Name Role Phone TORI VELAZQUEZ Primary Care Provider [phone] RADHA WIN Primary Care Provider Assessment Encounter [...] weeks if we have not contacted her. [email or web address] Not available 02/19/2023 21:38:10 01/06/2024 01/06/2024 Annual [...] recorded. Imaging MAMMO, screening, bilateral [address] [facility], [address], [place], [address], 4 12:53:24 MRI, abdomen + pelvis, w/ contrast [address] [facility] [place], [address], [place], [address], 4 16:47:16 US, pelvis 2022 [address], [address], [place], [address], 3 08:52:02 US, transvagina l 2022 [address], [address], [place], [address], 3 08:52:02 Medication Orders estradiol 1 mg tablet 2023 024 [id number], [address], [place], [place], [id number], 4 10:49:36 estradiol 1 mg tablet 2022 023 [id number], [address], [place], [place], [id number], 3 16:25:41 Patient TargetsNo targets recorded. Patient InstructionsNo instructions recorded. Reason for Referral None Reported. Results Created Date Observation Date Name Description Value Unit Range Abnormal Flag Note LastModifiedBy Organization Detail LastModifiedTime 01/01/2008/21/2022 CT, abdom en + pelvi s, w/ contr ast No observ ation record ed. [email or web address] [facility] , [place], [address], 02/03/2023 15:17:27 02/14/20 23 02/13/2023 US, pelvi s No observ ation record ed. [email or web address] [facility] [address], [place], [address], 02/13/2023 18:01:54 02/14/20 23 02/13/2023 US, trans vagin al No observ ation record ed. [email or web address] [facility] [address], [place], [address], 02/13/2023 18:02:05 02/14/20 23 02/13/2023 US, pelvi s No observ ation record ed. [facility] [address], [place], [address], 02/20/2023 11:59:23 03/26/20 23 03/26/2023 MAMMO , scree luna, bilat eral No observ ation record ed. [address] [address], [place], [address], 04/08/2023 13:24:57 03/27/20 23 03/26/2023 DEXA, axial skele ton + verte bral fract ure asses sment No observ ation record ed. [address] [facility], [place], [address], 04/01/2023 12:27:10 01/20/20 24 01/16/2024 MRI, pelvi s, w/wo contr ast No observ ation record ed. [email or web address] [facility], [place], [address], 02/21/2024 11:04:02 11/27/19 25 11/26/2024 MAMMO , scree luna, bilat eral No observ ation record ed. [address] [address], [place], [address], 12/02/2024 16:24:23 Result Notes None recorded. Problems Name Problem SNOMED Code Status Onset Date Resolution Date Notes Provider Name and Address Organization Details Recorded Time Tobacco user 949868329 Active 2020 Ileana Lagos MD [address], [place], [address], [facility] 09:55:21 Chronic obstructive pulmonary disease 76082263 Active 2020 Ileana Lagos MD [address], [place], [address], [facility] 09:55:55 Problem Notes None recorded. Procedures Surgical History Date Name Laterality Status Provider Name and Address Organization Details Recorded Time 09/22/19 23 Date of Last Colonoscopy completed [facility] 12/30/2022 15:52:10 09/22/19 23 Colonoscopy completed [facility] 12/30/2022 15:51:55 06/03/20 22 arthroplasty of right hip joint completed [facility] 12/30/2022 15:51:27 12/26/19 22 Date of Last Mammogram completed [facility] 12/30/2022 15:49:57 09/10/20 18 Date of Last Pap Smear completed [facility] 09/11/2021 09:04:58 09/22/18 99 Total Hysterectomy completed [facility] 12/30/2022 15:51:05 09/22/18 94 cholecystectomy completed [facility] 12/30/2022 15:51:46 06/24/19 87 delivery completed [facility] 09/11/2021 09:05:46 Imaging Results Imaging Date Name Status LastModified by Organization Details LastModified Time 08/21/2022 CT, abdomen + pelvis, w/ contrast completed [email or web address] [facility] [address], [place], [address], 02/03/2023 15:17:27 02/13/2023 US, pelvis completed [email or web address] [facility] [address], [place], [address], 02/13/2023 18:01:54 02/13/2023 US, transvaginal [email or web address] [address], [place], [address], 02/13/2023 18:02:05 02/13/2023 US, pelvis completed [facility] [address], [place], [address], 02/20/2023 11:59:23 03/26/2023 MAMMO, screening, bilateral completed [address] [address], [place], [address], 04/08/2023 13:24:57 03/26/2023 DEXA, axial skeleton + vertebral fracture assessment completed [address], [address], 04/01/2023 12:27:10 01/16/2024 MRI, pelvis, w/wo contrast completed [address], [address], 02/21/2024 11:04:02 11/26/2024 MAMMO, screening, bilateral completed [address], [address], 12/02/2024 16:24:23 Procedure Notes None recorded. Medical Equipment None Reported. Allergies Allergen ID Allergen Name Allergen Category Reaction Reaction Severity Criticality Documentation Date Start Date Code Code System Note Provider Name and Address Organization Details Recorded Time 79627 Ceftin medicatio n itching severe Not available 09/11/2021 26015 6 RxNorm Leydi vera [place] - [facility] 09:05:24 61666 amoxicill in medicatio n Not available Not available Not available 01/06/2024 723 RxNorm SELMA Sibley - [facility] 4 10:39:12 Medications Name [...] Updated DateTime 12/30/2022 162.56 cm 30 kg/m2 56531.66 g 131 mm[Hg] 78 mm[Hg] Maricruz Ramirez [facility] 3 15:46:42 Date Recorded Body height Body mass index (BMI) Body weight Systolic blood pressure Diastolic blood pressure Provider Name and Address Organization Details Last Updated DateTime 02/18/2023 162.56 cm 29.9 kg/m2 19624.07 g 120 mm[Hg] 77 mm[Hg] Leydi Kenpancho [facility] 3 18:08:20 Date Recorded Body height Body mass index (BMI) Body weight Provider Name and Address Organization Details Last Updated DateTime 01/06/2024 162.56 cm 30.4 kg/m2 75114.85 g Annel Yi [facility] 01/06/2024 10:38:43 Date Recorded Body height Body mass index (BMI) Body weight Systolic blood pressure Diastolic blood pressure Provider Name and Address Organization Details Last Updated DateTime 01/26/2024 162.56 cm 30.7 kg/m2 59167.03 g 126 mm[Hg] 74 mm[Hg] Jenna Garcia [facility] 4 10:03:36 Social History Question Answer Notes LastModified by Organizat ion Details LastModified Time Tobacco Smoking Status Current Every Day Smoker Maricruz Ramirez [facility], [facility] 12/30/2022 15:48:12 Do You Have An Advance Directive? No [email or web address] Information n ot available 12/30/2022 What Is Your Level Of Caffeine Consumption? Moderate [email or web address] Information not available 12/30/2022 In The 14 Days Before Symptom Onset, Have You Had Close Contact With A Laboratory-confirm ed COVID-19 While That Case Was Ill? No [email or web address] Information n ot available 12/30/2022 In The 14 Days Before Symptom Onset, Have You Had Close Contact With A Person Who Is Under Investigation For COVID-19 While That Person Was Ill? No [email or web address] Information not available 12/30/2022 Have You Been To An Area Known To Be High Risk For COVID-19? No [email or web address] Information not available 12/30/2022 Are You Deaf Or Do You Have Serious Difficulty Hearing? No [email or web address] Information not available 12/30/2022 What Type Of Diet Are You Following? REGULAR [email or web address] Information n ot available 12/30/2022 What Is The Highest Grade Or Level Of School You Have Completed Or The Highest Degree You Have Received? FI43322-6 [email or web address] Information not available 12/30/2022 Are There Any Guns Present In Your Home? No [email or web address] Information not available 12/30/2022 Do You Use Protection During Sex? No [email or web address] Information not available 12/30/2022 Do You Use Your Seat Belt Or Car Seat Routinely? No [email or web address] Information not available 12/30/2022 Do You Have Smoke And Carbon Monoxide Detectors In Your Home? Yes [email or web address] Information not available 12/30/2022 At What Age Did You Start Smoking Tobacco? 19 [email or web address] Information not available 12/30/2022 How Much Tobacco Do You Smoke? 1 PPD Information not available 09/11/2021 Do You Use Sunscreen Routinely? No Information not available 12/30/2022 Has Tobacco Cessation Counseling Been Provided? No [email or web address] Information not available 12/30/2022 How Many Years Have You Smoked Tobacco? 51 Information not available 12/30/2022 Have You Used IV Drugs? No [email or web address] Information not available 12/30/2022 Sex: Unknown Functional Status Question Answer Note LastModified by Organizat ion Details LastModified Time Do you use any illicit or recreational drugs? No Information not available 09/11/2021 Do you or have you ever used any other forms of tobacco or nicotine? No [email or web address] Information not available 12/30/2022 What is your level of alcohol consumption? None Information not available 09/11/2021 Are you able to walk? YESWOREST [email or web address] Information not available 12/30/2022 What is your occupation? Retired [employer] [email or web address] Information not available 12/30/2022 What is your exercise level? None [email or web address] Information not available 12/30/2022 Mental Status Question Answer Note LastModified by Organization D etails LastModified Time Do you feel stressed (tense, restless, nervous, or anxious, or unable to sleep at night)? [id number] [email or web address] Information not available 12/30/2022 Family History Relationship Description Onset Age of this Age Resolved Age Notes LastModified by Organization Details LastModified Time Paternal Grandmother Diabetes mellitus [email or web address] Not available 12/30 15:48:11 Paternal Aunt Heart disease [email or web address] Not available 12/30 15:48:11 Father Asthma [email or web address] Not available 12/30/2022 15:48:11 Father Disorder of lung [email or web address] Not available 12/30 15:48:11 Father Heart disease [email or web address] Not available 12/30 15:48:11 Brother Malignant neoplasm of lung [email or web address] Not available 2023 10:04:42 Medical History Condition Response Allergies (Food, seasonal, environmental ) Y Other N Drug/Latex Allergies/Reactions Y Blood Transfusion N Breast Cancer N Dermatologic Disorders N Lung Disease Y Defects or Inherited Disease N Breast Problem N Gestational Diabetes N Hematologic disorders N Anesthesia Complications N History of STI N Deep Vein Thrombosis N Polycystic ovary syndrome N Anxiety Disorder N Autoimmune disease N Arthritis N Polyps N Infertility N Acid Reflux (GERD) Y History of abnormal pap N Cancer N Varicosities N Stroke N Neurologic/Epilepsy N Endometriosis N High Cholesterol N Fibromyalgia N Headaches N Kidney Disease [...] SNOMED-CT Code Diagnosis ICD10 Code Diagnosis Note [id number] Ileana Lagos MD [facility] [address] [address] 09/11/2021 09:38:28 09/11/2021 10:26:45 Gynecologic examination 38647134 Z01.419 Hormone re placement therapy 911423454 Z79.890 068695 [facility] [address] [address] 12/30/2022 15:15:16 12/31/2022 17:05:20 Gynecologic examination 28949243 Z01.419 Take Calcium with Vitamin D 12-1500mg daily. Do monthly self breast exams. It is advised to get annual flu shot in the fall and she could obtain at [facility] or [facility] care clinic. If you haven't received [...] to this email. Hormone re placement therapy 203373937 Z79.890 Significan tly helps with symptoms. Wants to continue. Discussed risks and benefits d/t age and health history. Will discuss again next year.Need to await records from recent hospitaliz ations. Depending on diagnosis may need to discuss risk even further. [id number] Yeni Werner , [facility] [address] [address] 01/06/2024 10:25:15 01/06/2024 11:04:52 Gynecologic examination 02283916 Z01.419 Take Calcium with Vitamin D 12-1500mg daily. Do monthly self breast exams. It is advised to get annual flu shot in the fall and she could obtain at [facility] or [facility] care clinic. If you haven't received [...] Labs UTD PCP Hormone re placement therapy 721919516 Z79.890 Counseled on the following: Females >10yrs [...] continuing past age 61yo Cyst of ovary 12106245 N 83.209 Today we reviewed her US [...] manda bay verbalized . Screening mammography 24 782675 Z12.31 [id number] Ileana Lagos MD [facility] [address] [address] 02/13/2023 13:43:50 02/18/2023 16:36:30 Pelvic mass 27462121 R19.09 [id number] Ileana Lagos MD [facility] [address],[facility] [place] [address] 02/18/2023 17:42:05 02/19/2023 16:06:58 Cyst of left ovary 4441548729 7352704 N83.202 History of vaginal hysterectomy 380078755 Z90.710 [id number] Sean Anglin MD [facility] [address] [address] 01/26/2024 09:58:34 01/27/2024 00:19:21 Pelvic mass 28455349 R19.00 this patient is a 73-year-ol d [...] Cottrell Member ID Guarantor Name 12/30/2022 1 [employer] (MEDICARE REPLACEMENT/A DVANTAGE - HMO) [id number] Natalie Garcia Brendon [id number] Natalie Bergwell 02/13/2023 1 [employer] (MEDICARE REPLACEMENT/A DVANTAGE - HMO) [id number] Natalie Garcia Brendon [id number] Natalie Olivas 02/18/2023 1 [employer] (MEDICARE REPLACEMENT/A DVANTAGE - HMO) [id number] Natalie Garcia Brendon [id number] Natalie Bergwell 01/06/2024 1 [employer] (MEDICARE REPLACEMENT/A DVANTAGE - HMO) [id number] Natalie Garcia Brendon [id number] Natalie Olivas 01/26/2024 1 [employer] (MEDICARE REPLACEMENT/A DVANTAGE - HMO) [id number] Natalie Garcia Brendon [id number] Natalie Olivas Notes Date Note Type Note [...] a couple weeks.Left ovarian cyst on ovary. [facility] in [place] in July. However, patient has had a total hyst. She called Dr Felix Pedro office and verified.Hip replacement May 2022 Jacqui vera [facility] 01/20/2023 18:30:52 02/18/2023 text/html Natalie is [...] to have a left ovarian cyst. In [place] in Jul 2022 it was first seen. [...] out. Ileana Lagos MD [address], [place], [address], [facility] 02/19/2023 21:38:36 01/06/2024 text/html Annual Squeegee Tender Post-MenopausalRepor susan bypatient.Menopausal Symptoms:no menopausal symptoms; normal [...] is there.No sx's Yeni Werner, ANETTE- [address], [place], [address], [facility] 01/06/2024 11:02:20 01/26/2024 text/html this patient [...] well-woman exam. We spent over 20 minutes uwfr-gv-[id number]. More than 50% was counseling. We reviewed records extensively. Sean Anglin MD [address], [place], [address], [facility] 01/26/2024 21:57:59 OBGyn Episode Ob Episode Information Episode Created Date Number of Fetuses Patient Bloodtype Patient rh Status Prepregnancy Weight lbs Domestic Partner Domestic Partner Phone Father Name Plastic Block Boiler Reliner Status 09/11/20 21 1 CLOSED Fetus Data First Name Last Name Admitted to NICU Weight (g) Sex Living Outcome Pediatric Complications Fetus ID Race Codes Race Delivery Type 2239.38 3704 F Prematur e 87373 Vaginal Delivery Nate Calculation Initial Nate Date [...] Domestic Partner Domestic Partner Phone Father Name Plastic Block Boiler Reliner Status 09/11/20 21 1 CLOSED Fetus Data First Name Last Name Admitted to NICU Weight (g) Sex Living Outcome Pediatric Complications Fetus ID Race Codes Race Delivery Type 2749.67 4704 F Prematur e [id number] Primary Nate Calculation Initial Nate Date Initial [...]
--- NOTE | 2025-02-01 07:12 | WPDANESEPPF ---
Anes - Initial Pre Proc Eval Procedure: Operation Date: 02/01/25 08:30 Proposed Procedures p C4-5, C5-6 Anterior Cervical Discectomy and Fusion - Isidoro James MD Date/Time: 02/01/25 07:12 Surgeon: Isidoro James MD Pre Op Diagnosis: cervical stenosis Patient Data Age: 74 Gender: F Height: 1.63 m Weight: 80.2 kg Last Vital Signs Temp 36.7 C 01/19/25 12:39 Pulse 82 01/19/25 12:39 Resp 18 01/19/25 12:39 BP 134/65 01/19/25 12:39 Pulse Ox 98 01/19/25 12:39 O2 Del Method Room Air 01/19/25 12:39 Allergies Allergy/AdvReac Type Severity Reaction Status Date / Time cefuroxime Allergy Intermediate Itching Verified 01/25/25 13:55 amoxicillin Allergy Mild Itching Verified 01/25/25 13:55 cefprozil Allergy Mild Redness of Verified 01/25/25 13:55 Skin dexamethasone AdvReac Intermediate Itching Verified 01/25/25 13:55 Home Medications ?Medication ?Instructions ?Recorded ?Confirmed ?Type estradiol 2 mg tablet 1 mg PO HS 09/07/19 01/28/25 History albuterol sulfate 90 mcg/actuation 2 puff inhalation Q4H PRN 09/29/23 01/28/25 Rx aerosol inhaler (Ventolin HFA) shortness of breath or wheezing #8.5 grams metoprolol succinate 100 mg 100 mg PO DAILY #90 tabs 08/23/24 01/28/25 Rx tablet,extended release 24 hr fenofibrate 160 mg tablet 160 mg PO HS #90 tabs 10/05/24 01/28/25 Rx Trelegy Ellipta 100 mcg-62.5 1 inh inhalation DAILY #60 ea 10/13/24 01/28/25 Rx mcg-25 mcg powder for inhalation (ejwgzgdwsmi-rcgqbkkgi-ywczipgf) montelukast 10 mg tablet 10 mg PO HS #90 tabs 11/13/24 01/28/25 Rx (Singulair) ipratropium 0.5 mg-albuterol 3 mg See Rx Instructions .Route 11/17/24 01/28/25 Rx (2.5 mg base)/3 mL nebulization .COMPLEX #1,080 mL soln benzonatate 100 mg capsule 100 mg PO TID PRN cough #30 caps 12/27/24 01/28/25 Rx baclofen 10 mg tablet 10 mg PO TID PRN muscle spasm #60 01/06/25 01/28/25 Rx tabs acetaminophen 500 mg tablet 500 mg PO Q6H PRN pain 01/19/25 01/28/25 History (Acetaminophen Extra Strength) cholecalciferol (vitamin D3) 25 25 mcg PO DAILY 01/19/25 01/28/25 History mcg (1,000 unit) capsule alprazolam 0.25 mg tablet (Xanax) 0.25 mg PO BID PRN anxiety #60 tabs 01/25/25 01/25/25 Rx Patient hx anesthesia problems: none Family hx anesthesia problems: none Results Review: All pre-operative results and documents have been reviewed as part of the pre-operative evaluation. [facility] Past Medical History Medical History Allergies Obese Diverticulitis Tobacco abuse Tobacco dependence Chronic obstructive pulmonary disease Kidney stone Anxiety Hyperlipidemia Hypertension Surgical History Surgical History History of right hip replacement Plantar fasciitis Status post hysterectomy with oophorectomy History of cholecystectomy Family History Family History Father Family history of coronary artery disease Emphysema lung Mother Family history of pancreatic cancer Hypertension Social History Social History Social History: Surrogate decision-maker: Mago Olivas or Katiuska Iniguez, daughters. CODE STATUS: Full code. Smoking packs per day: 1 Smoking cigarettes per day: 20.0 Years smoked: 40 Smoking pack-years: 40.00 Smoking status: Current every day smoker Tobacco type: cigarettes Second hand tobacco smoke exposure: Yes Smoking end date: 12/06/21 Additional smoking assessment comments: PAST 2 YRS SMOKES 0.5 PACK PER DAY Alcohol intake: never Substance use: never Substance use type: does not use Do You Feel Safe in your Home?: Yes Lack of Transportation: No Lack of Food: Never True Current Housing: I Have Housing Concerned About Future Housing: No Difficulty Paying Gas/Electric Bills: No Difficulty Paying for Meds: No Currently Unemployed: YES Education: Don't Know Difficulty w/ Childcare or Family Care: No Living arrangements: alone Additional living arrangements comments: The patient lives in [place] with her daughter. 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 Gender identity (if verbalized by the patient): Female Sexual Orientation (if Verbalized by the Patient): Straight or Heterosexual Spiritual care concerns: No Anes - Eval Final PreProcedure Day of Procedure 02/01/25 07:12 Patient weight: obese Heart: regular rate and rhythm Lungs: decreased breath sounds Airway: Mallampati scale class III Neurological: alert and oriented Last oral intake: >/= 8 hours ASA classification: III Emergent: no Anesthetic plan: proceed Anesthesia type and monitoring: general ETT and standard monitoring Results Review: All pre-operative results and documents have been reviewed as part of the pre-operative evaluation. Informed Consent: The patient's anesthetic plan and its attendant risks and benefits were discussed with the patient/family/POA. Questions were solicited and answers provided to the satisfaction of the patient/family/POA.
--- NOTE | 2025-02-01 07:59 | P.HP_ITS ---
H&P: HPI History of Present Illness Date/Time: 02/01/25 07:59 Chief Complaint: neck, head and arm pain Narrative: Natalie is a 73-year-old female with history since December of pain in her neck. This may be worse on the left than the right. It started with pain behind her ear and in the high cervical area laterally and now was extended to be involve most of her neck down into the shoulder again worse on the left than the right. It is with her almost all the time. It is severe on a daily basis. While it is somewhat random in its fluctuations it seems to be worse predictably with increased activity involving the neck or upper extremities including range of motion of the neck. Lateral rotation towards the left and extension seem to be particularly uncomfortable. She does not report specific muscle group weakness or dermatomal numbness. She is not having bowel or bladder difficulty. She has participated in physical therapy without permanent benefit. Review of Systems Review of Systems: All systems reviewed & are unremarkable except as noted in HPI and below Denies chills, Denies fever, Denies weight gain and Denies weight loss Eyes Denies change in vision and Denies diplopia ENT Denies disequilibrium Card Denies chest pain and Denies dyspnea Resp Denies cough and Denies dyspnea GI Denies abdominal pain, Denies change in bowel habits, Denies fecal incontinence and Denies vomiting Denies hematuria, Denies oliguria, Denies difficulty urinating, Denies dysuria, Denies urinary frequency, Denies urinary hesitancy, Denies urinary incontinence and Denies urinary urgency Musc Reports as per HPI Skin/ Breast Reports system reviewed and no additional complaints, except as documented Neuro Reports as per HPI Psych Reports no additional complaints, Denies depression and Denies hopelessness Endo Reports no additional complaints and Denies polyuria Tone/ Lymph Reports no additional complaints Aller/ Immun Reports no additional complaints PMFSH Past Medical History Medical History Allergies Obese Diverticulitis Tobacco abuse Tobacco dependence Chronic obstructive pulmonary disease Kidney stone Anxiety Hyperlipidemia Hypertension Surgical History Surgical History History of right hip replacement Plantar fasciitis Status post hysterectomy with oophorectomy History of cholecystectomy Family History Family History Father Family history of coronary artery disease Emphysema lung Mother Family history of pancreatic cancer Hypertension Social History Social History Social History: Surrogate decision-maker: Mago Olivas or Katiuska Iniguez, daughters. CODE STATUS: Full code. Smoking packs per day: 1 Smoking cigarettes per day: 20.0 Years smoked: 40 Smoking pack-years: 40.00 Smoking status: Current every day smoker Tobacco type: cigarettes Second hand tobacco smoke exposure: Yes Smoking end date: 12/06/21 Additional smoking assessment comments: PAST 2 YRS SMOKES 0.5 PACK PER DAY Alcohol intake: never Substance use: never Substance use type: does not use Do You Feel Safe in your Home?: Yes Lack of Transportation: No Lack of Food: Never True Current Housing: I Have Housing Concerned About Future Housing: No Difficulty Paying Gas/Electric Bills: No Difficulty Paying for Meds: No Currently Unemployed: YES Education: Don't Know Difficulty w/ Childcare or Family Care: No Living arrangements: alone Additional living arrangements comments: The patient lives in [place] with her daughter. 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 Gender identity (if verbalized by the patient): Female Sexual Orientation (if Verbalized by the Patient): Straight or Heterosexual Spiritual care concerns: No Meds Home Medications and Allergies Home Medications ?Medication ?Instructions ?Recorded ?Confirmed ?Type estradiol 2 mg tablet 1 mg PO HS 09/07/19 01/28/25 History albuterol sulfate 90 mcg/actuation 2 puff inhalation Q4H PRN 09/29/23 01/28/25 Rx aerosol inhaler (Ventolin HFA) shortness of breath or wheezing #8.5 grams metoprolol succinate 100 mg 100 mg PO DAILY #90 tabs 08/23/24 01/28/25 Rx tablet,extended release 24 hr fenofibrate 160 mg tablet 160 mg PO HS #90 tabs 10/05/24 01/28/25 Rx Trelegy Ellipta 100 mcg-62.5 1 inh inhalation DAILY #60 ea 10/13/24 01/28/25 Rx mcg-25 mcg powder for inhalation (lhzdsnekrsi-luljnhdgl-ykylfxck) montelukast 10 mg tablet 10 mg PO HS #90 tabs 11/13/24 01/28/25 Rx (Singulair) ipratropium 0.5 mg-albuterol 3 mg See Rx Instructions .Route 11/17/24 01/28/25 Rx (2.5 mg base)/3 mL nebulization .COMPLEX #1,080 mL soln benzonatate 100 mg capsule 100 mg PO TID PRN cough #30 caps 12/27/24 01/28/25 Rx baclofen 10 mg tablet 10 mg PO TID PRN muscle spasm #60 01/06/25 01/28/25 Rx tabs acetaminophen 500 mg tablet 500 mg PO Q6H PRN pain 01/19/25 01/28/25 History (Acetaminophen Extra Strength) cholecalciferol (vitamin D3) 25 25 mcg PO DAILY 01/19/25 01/28/25 History mcg (1,000 unit) capsule alprazolam 0.25 mg tablet (Xanax) 0.25 mg PO BID PRN anxiety #60 tabs 01/25/25 01/25/25 Rx Allergies Allergy/AdvReac Type Severity Reaction Status Date / Time cefuroxime Allergy Intermediate Itching Verified 01/25/25 13:55 amoxicillin Allergy Mild Itching Verified 01/25/25 13:55 cefprozil Allergy Mild Redness of Verified 01/25/25 13:55 Skin dexamethasone AdvReac Intermediate Itching Verified 01/25/25 13:55 Exam Narrative: General: cooperative, no acute distress, well developed, alert and awake Orientation/Consciousness: oriented to person, oriented to place and oriented to time Constitutional Limitations: no limitations Other: The patient is a normally developed, normal appearing male sitting on the examination table in no acute distress. He is awake, alert, and oriented x3 with good fund of knowledge, recall of events, and fluent speech. [facility] Head: normocephalic and atraumatic Ears: external ears normal Face/Nose/Sinus: Normal external nose present Eyes Eyelids: eyelids normal Pupils: Yes Pupils normal by confrontation EOM: EOMs intact bilaterally Neck General: Yes no meningeal signs, Yes supple and Yes no JVD Resp Effort/Inspection: normal respiratory effort and able to speak in complete sentences Cardio Rate: Yes regular rate GI Inspection: No abdominal distension Musc Other: Examination of the back reveals no tenderness. Range of motion of the neck is limited with pain in forward flexion, extension, and lateral rotation to both sides, especially to the left. Skin General: normal color Neuro General: Yes oriented to person, Yes oriented to place, Yes oriented to time, Yes normal cognition and Yes no meningeal signs Cranial Nerves: Yes CN's II-XII intact bilaterally Other: Motor: Strength is normal, 5/5, throughout all muscle groups of the bilateral upper extremities to direct confrontation. Sensory: Sensation is intact to light touch throughout the upper extremities bilaterally. Reflexes: Deep tendon reflexes are difficult to elicit at the biceps, triceps, and brachioradialis bilaterally. There is positive ankle clonus on the right, no ankle clonus on the left. Chavez's sign is negative bilaterally. Gait: Gait, station, and transfers are independent and steady for short periods of time and over short distances. Psych Appearance: grossly normal Mental status: Yes mental status grossly normal Mood: congruent mood Affect: Yes normal affect Speech/Movement: Normal speech and movement present Attitude: Yes cooperative Thought Content: Normal thought content present Review of studies: MRI of the cervical spine was personally reviewed by me. This demonstrates severe spondylosis and moderate central canal and foraminal stenosis at C4-5 and C5-6 worse on the left compared to right. There are milder degenerative it changes elsewhere. Assessment and Plan Assessment and plan (1) Cervical spondylosis: Code(s): M47.812 - Spondylosis without myelopathy or radiculopathy, cervical region Status: Acute (2) Foraminal stenosis of cervical region: Code(s): M48.02 - Spinal stenosis, cervical region Status: Acute Plan Natalie is a 73-year-old female with neck and left shoulder discomfort likely related to the process at C4-5 and C5-6. She has failed nonsurgical management and is eager to be better as she is made miserable by constant discomfort with severe exacerbations. I therefore described to her the C4-5 and C5-6 anterior cervical diskectomy and fusion and described to her that operation, its risks, potential benefits, the operative and postoperative course in detail and answered all her questions personally. We discussed risks including but not limited to permanent neurologic or functional deficit related injury of the trachea, esophagus, carotid artery, jugular vein, recurrent laryngeal nerve causing hoarseness or aspiration, spinal cord or nerve roots causing permanent neurologic deficit, need for reoperation secondary to infection, bleeding, CSF leak, adjacent level disease, recurrent residual pathology or instability, malposition migration of the hardware or nonunion, failure of the procedure to relieve her pain or symptoms, persistent pain, medical complications related anesthesia or surgery, etc.. She indicates understanding and elects to proceed with that operation.
[2025-02-01] MEDS: LACTATED RINGERS 1,000 ML 30 ML IV CONT ×2 (08:00→10:34)
--- NOTE | 2025-02-01 08:05 | WPDHPUPDATE1 ---
History and Physical Update Update Date/Time: 02/01/25 08:05 History and Physical has been reviewed, including an updated exam of the patient. There are NO changes in the patient's condition. Risks, benefits, and alternatives have been discussed and questions answered. Patient agrees to proceed with procedure.
[2025-02-01] MEDS: ceFAZolin 2 GM/D5W 50 ML 2 GM/50 ML BAG IVPB (08:30)
[2025-02-01] MEDS: LIDO 1%/EPINEPHRINE 1:100,000 50 ML VIAL 10 ML INFILTRATE (09:33)
[2025-02-01] MEDS: fentaNYL CITRATE INJ (*CRX) 100 MCG/2 ML VIAL 25 MCG IV PUSH ×6 (10:44→12:02)
--- NOTE | 2025-02-01 12:06 | SUR.PHASEI ---
1200 - dr. albarado aware of pt's request to spend night in hospital.
--- NOTE | 2025-02-01 12:58 | ADMGEN ---
This patient, Natalie Olivas, was admitted to Medical Room 247-. Patient/family oriented to hospital policies and general routines including ID bracelet, bed and alarms, visiting hours, pain management, procedures, bathroom and other care routines, personal items, smoking policy, room service/diet, and visiting hours. Information on how to activate the Rapid Response Team has been discussed. Patient/Family are encouraged to report perceived risks to care and to ask questions if they do not understand what they are told or what they should do.
[2025-02-01] MEDS: KCL 20 MEQ/D5/0.45% SOD CHL 1,000 ML 100 ML IV CONT ×2 (13:14→23:13)
[2025-02-01] MEDS: HYDROcodone/acetaminophen (*CRX) 10-325 MG TABLET 1 TAB PO ×2 (13:43→18:20)
[2025-02-01] MEDS: ONDANSETRON INJ 4 MG/2 ML VIAL IV PUSH (18:16)
[2025-02-01] MEDS: DOCUSATE SODIUM 100 MG CAPSULE PO (20:17)
[2025-02-01] MEDS: MONTELUKAST SODIUM 10 MG TABLET PO (22:33)
[2025-02-01] MEDS: FENOFIBRATE NANOCRYSTALLIZED 145 MG TABLET PO (22:33)
[2025-02-01] MEDS: ALPRAZolam (*CRX) 0.25 MG TABLET PO (22:33)
[2025-02-02] VITALS (11 sets, daily range): BP systolic 122–133; BP diastolic 62–78; PULSE 93–109; RESP 16–20; TEMP 35.9–37.2; O2SAT 91–96
[2025-02-02] MEDS: IPRATROPIUM 0.5 MG/ALBUTEROL SULFATE 2.5 MG AMPUL.NEB 3 ML INHALATION ×3 (01:39→13:44)
[2025-02-02] MEDS: ONDANSETRON INJ 4 MG/2 ML VIAL IV PUSH (06:28)
[2025-02-02] MEDS: FLUTICASONE/UMECLIDIN/VILANTER 100-62.5-25 MCG ELLIPTA 1 PUFF INHALATION (08:09)
[2025-02-02] MEDS: CHOLECALCIFEROL 1,000 UNITS TABLET 1000 UNITS PO (08:41)
[2025-02-02] MEDS: METOPROLOL SUCCINATE EXT REL 100 MG TABCR PO (08:42)
[2025-02-02] MEDS: DOCUSATE SODIUM 100 MG CAPSULE PO (08:42)
[2025-02-02] MEDS: HYDROcodone/acetaminophen (*CRX) 10-325 MG TABLET 1 TAB PO (09:35)
--- NOTE | 2025-02-02 10:43 | WPDANESPN ---
Anes - Prog Note Post-Op Date/Time: 02/02/25 10:43 Vital Signs: Last Vital Signs Temp 35.9 C L 02/02/25 03:49 Pulse 109 H 02/02/25 08:42 Resp 20 02/02/25 08:19 BP 133/67 02/02/25 03:49 Pulse Ox 93 02/02/25 08:10 O2 Del Method Room Air 02/02/25 08:10 O2 Flow Rate 2 02/01/25 20:30 FiO2 28 02/01/25 20:30 Pain Score (VAS): 0 I/O: Intake & Output 02/01/25 02/02/25 02/02/25 23:59 07:59 15:59 Intake Total 998.3 240 Balance 998.3 240 Patient Feedback: Patient satisfied with anesthetic care.
--- NOTE | 2025-02-02 17:12 | WPDNEUROSGPN ---
Progress Note: A&P Assessment and Plan (1) Status post cervical arthrodesis: Code(s): Z98.1 - Arthrodesis status Status: Acute Plan -Discharge home today -Follow up with Dr. James in 6 weeks Subjective Date/time seen: 02/02/25 17:12 Interval history: Doing well. States her neck pain is much better than prior to surgery. No pain in arms. Has been ambulatory. Swallowing without difficulty. Did develop quite a bit of swelling around surgical site, but this has been stable all day. Review of Systems Review of Systems: All systems reviewed & are unremarkable except as noted in HPI and below Exam Narrative: Subcutaneous ecchymosis and swelling around incision AOx4 Moving all extremities well Sensation intact to light touch in upper extremities Objective Data Vital Signs Vital Signs: Vital Signs - 24 hr 02/01/25 19:49 02/01/25 20:00 02/01/25 20:30 Temperature 97.4 F L Pulse Rate 85 83 83 Respiratory Rate 16 20 20 Blood Pressure 154/84 H Pulse Oximetry 97 97 97 Oxygen Delivery Nasal Cannula Nasal Cannula Oxygen Flow Rate 2 2 Fraction of Inspired Oxygen 28 28 02/01/25 23:49 02/02/25 01:42 02/02/25 01:53 Temperature 97.6 F Pulse Rate 90 97 97 Respiratory Rate 20 20 20 Blood Pressure 129/64 Pulse Oximetry 95 Oxygen Delivery Oxygen Flow Rate Fraction of Inspired Oxygen 02/02/25 03:49 02/02/25 08:00 02/02/25 08:00 Temperature 96.7 F L 97.6 F Pulse Rate 94 96 Respiratory Rate 16 19 Blood Pressure 133/67 130/64 Pulse Oximetry 96 94 Oxygen Delivery Room Air Oxygen Flow Rate Fraction of Inspired Oxygen 02/02/25 08:10 02/02/25 08:10 02/02/25 08:19 Temperature Pulse Rate 96 94 Respiratory Rate 20 20 Blood Pressure Pulse Oximetry 93 Oxygen Delivery Room Air Oxygen Flow Rate Fraction of Inspired Oxygen 02/02/25 08:42 02/02/25 10:44 02/02/25 12:00 Temperature 97.6 F Pulse Rate 109 H 95 Respiratory Rate 20 Blood Pressure 128/78 Pulse Oximetry 95 Oxygen Delivery Room Air Oxygen Flow Rate Fraction of Inspired Oxygen 02/02/25 13:44 02/02/25 13:54 02/02/25 14:00 Temperature 99 F Pulse Rate 97 93 93 Respiratory Rate 18 18 19 Blood Pressure 122/62 Pulse Oximetry 91 Oxygen Delivery Oxygen Flow Rate Fraction of Inspired Oxygen Intake/Output Intake/Output: Intake & Output 01/30/25 01/31/25 02/01/25 02/02/25 23:59 23:59 23:59 23:59 Intake Total 1048.3 480 Balance 1048.3 480 Meds/Results Medications: Active Medications Generic Name Dose Route Start Last Admin Trade Name Freq PRN Reason Stop Dose Admin Acetaminophen 500 mg 02/01/25 21:57 Acetaminophen 500 Mg Tablet PO Q6H PRN PAIN RATED 1-3 Hydrocodone Bitart/Acetaminophen 1 tab 02/01/25 12:49 Hydrocodone/Acetaminophen (*Crx) 5-325 Mg Tablet PO Q4H PRN Mild Pain (1-3) Hydrocodone Bitart/Acetaminophen 1 tab 02/01/25 12:49 02/02/25 09:35 Hydrocodone/Acetaminophen (*Crx) 10-325 Mg Tablet PO 1 tab Q4H PRN Administration Moderate Pain (4-6) Al Hydrox/Mg Hydrox/Simethicone 20 ml 02/01/25 12:49 Mag Hydrox/Al Hydrox/Simeth 30 Ml Udc PO Q4H PRN Indigestion/Heartburn Albuterol 2 puff 02/01/25 21:57 Albuterol Sulfate (*Sp) Aerosol 1 Puff INHALATION Q4H PRN shortness of breath or wheezing Albuterol/Ipratropium 3 ml 02/02/25 02:00 02/02/25 13:44 Ipratropium 0.5 Mg/Albuterol Sulfate 2.5 Mg Ampul.Neb 3 Ml INHALATION 3 ml Q6HRT CODY Administration Alprazolam 0.25 mg 02/01/25 21:57 02/01/25 22:33 Alprazolam (*Crx) 0.25 Mg Tablet PO 0.25 mg BID PRN Administration anxiety Baclofen 10 mg 02/01/25 21:57 Baclofen 10 Mg Tablet PO TID PRN muscle spasm Benzonatate 100 mg 02/01/25 21:57 Benzonatate 100 Mg Capsule PO TID PRN cough Bisacodyl 10 mg 02/01/25 12:49 Bisacodyl 10 Mg Suppository RECTAL DAILY PRN Constipation Cyclobenzaprine HCl 10 mg 02/01/25 12:49 Cyclobenzaprine Hcl 10 Mg Tablet PO TID PRN Muscle Spasms Docusate Sodium 100 mg 02/01/25 21:00 02/02/25 08:42 Docusate Sodium 100 Mg Capsule PO 100 mg Q12HR CODY Administration Estradiol 2 mg 02/02/25 21:00 Estradiol 1 Mg Tablet PO HS CODY Fenofibrate 145 mg 02/01/25 22:10 02/01/25 22:33 Fenofibrate Nanocrystallized 145 Mg Tablet PO 145 mg HS CODY Administration Fluticasone/Umeclidinium/Vilanterol 1 puff 02/02/25 09:00 02/02/25 08:09 Fluticasone/Umeclidin/Vilanter 100-62.5-25 Mcg Ellipta INHALATION 1 puff DAILY CODY Administration Potassium Chloride/Dextrose/Sod Cl 1,000 mls @ 100 mls/hr 02/01/25 12:49 02/01/25 23:13 Kcl 20 Meq/D5/0.45% Sod Chl IV CONT 100 mls/hr .Q10H CODY Administration Metoprolol Succinate 100 mg 02/02/25 09:00 02/02/25 08:42 Metoprolol Succinate Ext Rel 100 Mg Tabcr PO 100 mg DAILY CODY Administration Montelukast Sodium 10 mg 02/01/25 22:05 02/01/25 22:33 Montelukast Sodium 10 Mg Tablet PO 10 mg HS CODY Administration Morphine Sulfate 2 mg 02/01/25 12:49 Morphine Sulfate (*Crx) 2 Mg/Ml Inj IV PUSH Q2H PRN Pain Rated 7-10 Ondansetron HCl 4 mg 02/01/25 12:49 02/02/25 06:28 Ondansetron Inj 4 Mg/2 Ml Vial IV PUSH 4 mg Q8H PRN Administration Nausea And Vomiting Senna/Docusate Sodium 1 tab 02/01/25 12:49 Senna/Docusate Sodium Tablet PO HS PRN Constipation Vitamin D 1,000 units 02/02/25 09:00 02/02/25 08:41 Cholecalciferol 1,000 Units Tablet PO 1,000 units DAILY CODY Administration
--- NOTE | 2025-02-15 10:11 | P.OP_ITS ---
Procedure Note - Detailed Date of Procedure 02/15/25 Pre-op Diagnosis cervical stenosis Post-op Diagnosis Same Procedure Performed C4-5 and C5-6 complete diskectomy and bilateral neural foraminotomy, C4-5 and C5-6 interbody arthrodesis utilizing peek interbody devices and local autograft and magnetos, C4-5 and C5-6 anterior cervical plating with locking plate and screws Surgeon Isidoro James MD Anesthesia General Description of Procedure Patient was brought to the operating room in the supine position, was sedated, intubated placed under general anesthesia in routine fashion. The of operation on the right side of the neck was examined, marked for incision, prepped routine sterile fashion. Incision was marked from the midline over the medial aspect of the sternocleidomastoid muscle and curvilinear transverse fashion 2 fingerbreadths above the sternal notch. This area was injected with 0.5% lido jaren with [id number] epinephrine. Intravenous antibiotics given prior to incision. Incision was made with a 10 blade scalpel down to the platysma muscle. The skin was undermined the platysma muscle was divided longitudinally with its fibers using Metzenbaum scissors. A plane was then dissected medial to the sternocleidomastoid muscle down to the anterior aspect of spine using the finger Metzenbaum scissors. A verifying x-rays obtained to verify the level of operation. The longus colli muscle was dissected free of the anterior aspect of the spine in a subperiosteal plane using Bovie cautery at C4-5 and C5-6. Shadow Line retractor system was placed. [employer] pins were placed into C4 and C6 and distraction placed over both disc spaces simultaneously. Diskectomy and arthrodesis procedures were performed identically at each level. The disc space was entered using a 15 blade scalpel cutting along the margin of the bone above and below. A curved curette pituitary rongeur used to remove as much cartilaginous endplate and disc material as possible down to the annulus and ligament posteriorly. A Midas Tree drill was used to bur down the endplates to bleeding cortical flat surfaces as well as to begin a bony foraminotomy bilaterally. Under microscopy the annulus and ligament were interrupted using an 4-0 curved curette. 2. Kerrison punch was used to remove annulus, ligament, posterior osteophyte and to complete a bony foraminotomy bilaterally. This was done until a nerve hook could be placed out each foramen and in the ventral epidural space to confirm lack of compression. The disc space was then sized appropriately sized interbody devices were chosen filled with local autograft bone and magnetos. The interbody devices were then placed to a 2-3 mm countersink within the disc space. The Evans pins and distraction removed. An anterior cervical plate was chosen placed in position and secured using 614 x 4 mm anterior screws advanced into the locking mechanism of the plate to hand tightness. The locking mechanism was engaged at each screw. A verifying x-rays obtained to verify good position of the instrumentation which was confirmed. The wound was then copiously irrigated with bacitracin irrigation all bleeding stopped with bipolar and Bovie cautery and Gelfoam thrombin powder. The wound was then closed in layered fashion with 3-0 Vicryl interrupted sutures in the platysma muscle and in the dermis. The skin was closed with a running 4-0 Monocryl subcuticular stitch and dressed with Dermabond. The patient was allowed to wake up in the operating room and was taken to the recovery room in stable condition. There were no immediate complications of this operation. All counts reported correct at the end the case. Blood loss was 25 cc. The patient was neurologically at baseline postoperatively. CPT codes: 15521, 21776, 39966, 33422 x 2, 34056 x 2 Estimated Blood Loss 25 Complications None Condition Stable Disposition PACU [facility] Billing Surgery - Charge Forward: Surgery Billing
== END 2025-02-02 18:29 | disposition home or self-care (01) ==
LOC: ANHSURGERY 10:32 → ANH2MED 12:50
PROVIDERS: PCP Family Medicine; Visit Provider Neurological Surgery
PROC: (CPT 63030; principal; 2025-02-01 08:30)
DX: M47.812 Spondylosis without myelopathy or radiculopathy, cervical region (principal); M48.02 Spinal stenosis, cervical region; Z98.1 Arthrodesis status; Z87.891 Personal history of nicotine dependence; E66.9 Obesity, unspecified; Z68.30 Body mass index [BMI] 30.0-30.9, adult
CPT/HCPCS: 22551; 22552; 22853 ×2; 20936; 94640; 97161; 97165; 97530; 97535; 99199; A9270; C1713; J0690; J2004; J2405; J2704; J3010; J3480; J7120

== ENCOUNTER 2025-02-28 10:38 | Outpatient (CLI) | payer MEDICARE, SELFPAY ==
--- NOTE | ~2025-02-28 | XR_ITS ---
XR_[id number]_CR Ordering provider: Isidoro James MD History: . M48.02 - Spinal stenosis, cervical region . Comparison: None. FINDINGS: VERTEBRAL BODIES: Normal height and alignment. No visible fracture or subluxation. The dens is intact . Postoperative changes involving C4, C5 and C6. DISK SPACES: Disc spacers are seen at the level of C4-C5 and C5-C6. PARASPINOUS SOFT TISSUES: Left atherosclerotic changes. Otherwise, the No prevertebral soft tissue sw elling. IMPRESSION: No acute osseous abnormality cervical spine. Postoperative changes. Reviewed, dictated and finalized at location A.
--- OUTSIDE RECORDS SUMMARY | 2025-02-28 11:56 | XMS_ITS | Data Portability ---
Author Organization [facility] [place] Address [address] [place] [address] Care Team Providers Care Tennis Court Attendant Name Role Phone TORI VELAZQUEZ Primary Care Provider RADHA WIN Primary Care Provider [phone] Assessment Encounter Date Assessment Date Assessment LastModified [...] recorded. Imaging MAMMO, screening, bilateral [address] [facility], [address], [place], [address], 4 12:53:24 MRI, abdomen + pelvis, w/ contrast [address] [facility], [address], [place], [address], 4 16:47:16 US, pelvis 2022 [address], [address], [place], [address], 3 08:52:02 US, transvagina l 2022 [address], [address], [place], [address], 3 08:52:02 Medication Orders estradiol 1 mg tablet 2023 024 [id number], [address], [place], [place], [id number], 4 10:49:36 estradiol 1 mg tablet 2022 023 [facility] #[id number], [address], [place], [place], [id number], 3 16:25:41 Patient TargetsNo targets recorded. Patient InstructionsNo instructions recorded. Reason for Referral None Reported. Results Created Date Observation Date Name Description Value Unit Range Abnormal Flag Note LastModifiedBy Organization Detail LastModifiedTime 01/01/2008/21/2022 CT, abdom en + pelvi s, w/ contr ast No observ ation record ed. [email or web address] [facility] , [place], [address], 02/03/2023 15:17:27 02/14/20 23 02/13/2023 US, pelvi s No observ ation record ed. [email or web address] [place] [address], [place], [address], 02/13/2023 18:01:54 02/14/20 23 02/13/2023 US, trans vagin al No observ ation record ed. [email or web address] [place] [address], [place], [address], 02/13/2023 18:02:05 02/14/20 23 02/13/2023 US, pelvi s No observ ation record ed. [facility] [address], [place], [address], 02/20/2023 11:59:23 03/26/20 23 03/26/2023 MAMMO , scree luna, bilat eral No observ ation record ed. [address] [address], [place], [address], 04/08/2023 13:24:57 03/27/20 23 03/26/2023 DEXA, axial skele ton + verte bral fract ure asses sment No observ ation record ed. [address] [facility], [place], [address], 04/01/2023 12:27:10 01/20/20 24 01/16/2024 MRI, pelvi s, w/wo contr ast No observ ation record ed. [email or web address] [facility], [place], [address], 02/21/2024 11:04:02 11/27/19 25 11/26/2024 MAMMO , scree luna, bilat eral No observ ation record ed. [address] [address], [place], [address], 12/02/2024 16:24:23 Result Notes None recorded. Problems Name Problem SNOMED Code Status Onset Date Resolution Date Notes Provider Name and Address Organization Details Recorded Time Tobacco user 223417632 Active 2020 Ileana Lagos MD [address], [place], [address], [facility] 09:55:21 Chronic obstructive pulmonary disease 73479555 Active 2020 Ileana Lagos MD [address], [place], [address], [facility] 09:55:55 Problem Notes None recorded. Procedures Surgical History Date Name Laterality Status Provider Name and Address Organization Details Recorded Time 09/22/19 23 Date of Last Colonoscopy completed Maricruzcurtis Ramirez [facility] 12/30/2022 15:52:10 09/22/19 23 Colonoscopy completed [facility] 12/30/2022 15:51:55 06/03/20 22 arthroplasty of right hip joint completed Maricruzcurtis Ramirez [facility] 12/30/2022 15:51:27 12/26/19 22 Date of Last Mammogram completed Maricruzcurtis Ramirez [facility] 12/30/2022 15:49:57 09/10/20 18 Date of Last [facility] 09/11/2021 09:04:58 09/22/18 99 Total Hysterectomy completed Maricruzcurtis Ramirez [facility] 12/30/2022 15:51:05 09/22/18 94 [facility] 12/30/2022 15:51:46 06/24/19 87 [facility] 09/11/2021 09:05:46 Imaging Results None recorded. Procedure Notes None recorded. Medical Equipment None Reported. Allergies Allergen ID Allergen Name Allergen Category Reaction Reaction Severity Criticality Documentation Date Start Date Code Code System Note Provider Name and Address Organization Details Recorded Time 31028 Ceftin medicatio n itching severe Not available 09/11/2021 94885 6 RxNorm Leydi Carson [facility], [facility] 1 09:05:24 62270 amoxicill in medicatio n Not available Not available Not available 01/06/2024 723 RxNorm Annel Yi [facility], [facility] 4 10:39:12 Medications Name Sig Start [...] completed Not Available Not Available Not Available Ashu Ellipta 100 mcg-62.5 mcg-25 mcg powder for [...] Updated DateTime 12/30/2022 162.56 cm 30 kg/m2 86577.66 g 131 mm[Hg] 78 mm[Hg] Maricruz Ramirez [facility] 3 15:46:42 Date Recorded Body height Body mass index (BMI) Body weight Provider Name and Address Organization Details Last Updated DateTime 01/06/2024 162.56 cm 30.4 kg/m2 71593.85 g Annel Yi [facility] 01/06/2024 10:38:43 Date Recorded Body height Body mass index (BMI) Body weight Systolic blood pressure Diastolic blood pressure Provider Name and Address Organization Details Last Updated DateTime 01/26/2024 162.56 cm 30.7 kg/m2 15602.03 g 126 mm[Hg] 74 mm[Hg] Jenna Garcia [facility] 4 10:03:36 Date Recorded Body height Body mass index (BMI) Body weight Systolic blood pressure Diastolic blood pressure Provider Name and Address Organization Details Last Updated DateTime 02/18/2023 162.56 cm 29.9 kg/m2 49742.07 g 120 mm[Hg] 77 mm[Hg] Leydi Carson [facility] 18:08:20 Social History Question Answer Notes LastModified by Organizat ion Details LastModified Time Tobacco Smoking Status Current Every Day Smoker Maricruz Ramirez [facility] 12/30/2022 15:48:12 Do You Have An Advance Directive? No Information n ot available 12/30/2022 What Is Your Level Of Caffeine Consumption? Moderate [email or web address] Information not available 12/30/2022 In The 14 Days Before Symptom Onset, Have You Had Close Contact With A Laboratory-confirm ed COVID-19 While That Case Was Ill? No [email or web address] Information n ot available 12/30/2022 In The 14 Days Before Symptom Onset, Have You Had Close Contact With A Person Who Is Under Investigation For COVID-19 While That Person Was Ill? No Information not available 12/30/2022 Have You Been To An Area Known To Be High Risk For COVID-19? No [email or web address] Information not available 12/30/2022 Are You Deaf Or Do You Have Serious Difficulty Hearing? No [email or web address] Information not available 12/30/2022 What Type Of Diet Are You Following? REGULAR [email or web address] Information n ot available 12/30/2022 What Is The Highest Grade Or Level Of School You Have Completed Or The Highest Degree You Have Received? [id number] [email or web address] Information not available 12/30/2022 Are There Any Guns Present In Your Home? No Information not available 12/30/2022 Do You Use Protection During Sex? No [email or web address] Information not available 12/30/2022 Do You Use Your Seat Belt Or Car Seat Routinely? No [email or web address] Information not available 12/30/2022 Do You Have Smoke And Carbon Monoxide Detectors In Your Home? Yes [email or web address] Information not available 12/30/2022 At What Age Did You Start Smoking Tobacco? 19 [email or web address] Information not available 12/30/2022 How Much Tobacco Do You Smoke? 1 PPD Information not available 09/11/2021 Do You Use Sunscreen Routinely? No [email or web address] Information not available 12/30/2022 Has Tobacco Cessation Counseling Been Provided? No [email or web address] Information not available 12/30/2022 How Many Years Have You Smoked Tobacco? 51 [email or web address] Information not available 12/30/2022 Have You Used IV Drugs? No [email or web address] Information not available 12/30/2022 Sex: Unknown Functional Status Question Answer Note LastModified by Organizat ion Details LastModified Time Do you use any illicit or recreational drugs? No Information not available 09/11/2021 Do you or have you ever used any other forms of tobacco or nicotine? No [email or web address] Information not available 12/30/2022 What is your level of alcohol consumption? None Information not available 09/11/2021 Are you able to walk? 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 None [email or web address] Information not available 12/30/2022 Mental Status Question Answer Note LastModified by Organization D etails LastModified Time Do you feel stressed (tense, restless, nervous, or anxious, or unable to sleep at night)? [id number] [email or web address] Information not available 12/30/2022 Family History Relationship Description Onset Age of this Age Resolved Age Notes LastModified by Organization Details LastModified Time Paternal Grandmother Diabetes mellitus [email or web address] Not available 12/30 15:48:11 Paternal Aunt Heart disease Not available 12/30 15:48:11 Father Asthma [email or web address] Not available 12/30/2022 15:48:11 Father Disorder of lung [email or web address] Not available 12/30 15:48:11 Father Heart disease [email or web address] Not available 12/30 15:48:11 Brother Malignant neoplasm of lung [email or web address] Not available 2023 10:04:42 Medical History Condition [...] SNOMED-CT Code Diagnosis ICD10 Code Diagnosis Note [id number] Ileana Lagos MD [place] [address] [address] 09/11/2021 09:38:28 09/11/2021 10:26:45 Gynecologic examination 14781737 Z01.419 Hormone re placement therapy 853833979 Z79.890 134298 [facility] [address] [address] 12/30/2022 15:15:16 12/31/2022 17:05:20 Gynecologic examination 83925038 Z01.419 Take Calcium with Vitamin D 12-1500mg daily. Do monthly self breast exams. It is advised to get annual flu shot in the fall and she could obtain at [facility] or [facility] care clinic. If you haven't received [...] to this email. Hormone re placement therapy 815244051 Z56.890 Significan tly helps with symptoms. Wants to continue. Discussed risks and benefits d/t age and health history. Will discuss again next year.Need to await records from recent hospitaliz ations. Depending on diagnosis may need to discuss risk even further. [id number] Yeni Werner , [facility] [address] [address] 01/06/2024 10:25:15 01/06/2024 11:04:52 Gynecologic examination 24266718 Z01.419 Take Calcium with Vitamin D 12-1500mg daily. Do monthly self breast exams. It is advised to get annual flu shot in the fall and she could obtain at [facility] or [facility] care clinic. If you haven't received [...] Labs UTD PCP Hormone re placement therapy 123333648 Z13.895 Counseled on the following: Females >10yrs past [...] continuing past age 61yo Cyst of ovary 48227963 N 83.209 Today we reviewed her US from last year which did show simply cyst 4cm and another area of concern.Mo norton is confused as to how this is [...] manda bay verbalized . Screening mammography 24 788878 Z12.31 [id number] Ileana Lagos MD [place] [address] [address] 02/13/2023 13:43:50 02/18/2023 16:36:30 Pelvic mass 81477928 R19.09 [id number] Ileana Lagos MD [place] [address] [address] 02/18/2023 17:42:05 02/19/2023 16:06:58 Cyst of left ovary 0644467876 5708099 N83.202 History of vaginal hysterectomy 387481652 Z90.710 [id number] Sean Anglin MD [place] [address] [address] 01/26/2024 09:58:34 01/27/2024 00:19:21 Pelvic mass 12077274 R19.00 this patient is a 73-year-ol d [...] Cottrell Member ID Guarantor Name 12/30/2022 1 [facility] (MEDICARE REPLACEMENT/A DVANTAGE - HMO) [id number] Natalie Radha Olivas [id number] Natalie Brendon 02/13/2023 1 [facility] (MEDICARE REPLACEMENT/A DVANTAGE - HMO) [id number] Natalie Radha Olivas [id number] Natalie Brendon 02/18/2023 1 [facility] (MEDICARE REPLACEMENT/A DVANTAGE - HMO) [id number] Natalie Olivas [id number] Natalie Brendon 01/06/2024 1 [facility] (MEDICARE REPLACEMENT/A DVANTAGE - HMO) [id number] Natalie Radha Olivas [id number] Natalie Brendon 01/26/2024 1 [facility] (MEDICARE REPLACEMENT/A DVANTAGE - HMO) [id number] Natalie Radha Olivas [id number] Natalie Brendon Notes Date Note Type Note Provider Name [...] a couple weeks.Left ovarian cyst on ovary. [facility] in [place] in July. However, patient has had a total hyst. She called Dr Felix Pedro office and verified.Hip replacement May 2022 Jacqui Roman [facility] 01/20/2023 18:30:52 02/18/2023 text/html Natalie is [...] to have a left ovarian cyst. In [place] in Jul 2022 it was first seen. Recent CT 11/2022 shows unchanged 4x3 cm left adnexal cyst. US here then showed a 4cm simple left ovarian cyst and a normal right ovary with a surgically absent uterus. Of note, anton has history of diverticulitis with multiple admissions since July 2022. 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 Ileana Lagos MD [address], [place], [address], [facility] 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 01/06/2024 11:02:20 01/26/2024 text/html this [...] well-woman exam. We spent over 20 minutes [id number]. More than 50% was counseling. We reviewed records extensively. Sean Anglin MD [address], [place], [address], [facility] 01/26/2024 21:57:59 OBGyn Episode Ob Episode Information Episode Created Date Number of Fetuses Patient Bloodtype Patient rh Status Prepregnancy Weight lbs Domestic Partner Domestic Partner Phone Father Name Trade Analyst Status 09/11/20 21 1 CLOSED Fetus Data First Name Last Name Admitted to NICU Weight (g) Sex Living Outcome Pediatric Complications Fetus ID Race Codes Race Delivery Type 2239.38 3704 [place] [address] Vaginal Delivery Nate Calculation Initial Nate Date [...] Domestic Partner Domestic Partner Phone Father Name Trade Analyst Status 09/11/20 21 1 CLOSED Fetus Data First Name Last Name Admitted to NICU Weight (g) Sex Living Outcome Pediatric Complications Fetus ID Race Codes Race Delivery Type 2749.67 4704 F Prematur e 63189 Primary Nate Calculation Initial Nate Date Initial [...]
--- OUTSIDE RECORDS SUMMARY | 2025-02-28 11:56 | XMS_ITS | Data Portability ---
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 Variances in spelling and [...] of this note may be dictated using [employer] voice recognition software. Variances in spelling and [...] to the grade 1 spondylolisthesis L4-5. Continue [id number]-[id number] medications as needed. Follow-up in 2 months. [email or web address] Not available 07/04/2022 09:34:42 08/14/2022 08/14/2022 1. [...] physica l therapi st referra l 2021 [facility], [address] [place] [address], [address], 08:41:[address] st referra l 2021 [facility], [address] [place] [address], [address], 14:43:02 Procedures None recorde d. Surgeries total hip arthrop lasty (SURG) 2021 [facility], [address] [place] [address], [id number], 11:24:56 Imaging XR, cervica l spine 2021 [facility] [[address]], [address], [place], [address], 11:46:33 XR, hand 2021 [facility] [[address]], [address], [place], [address], 11:46:33 XR, hip, unilate ral 2021 [facility] [497], [address], [place], [address], 12:10:44 XR, lumbar spine 2021 [facility] [497], [address], [place], [address], 12:10:44 US, doppler , venous - Left UE 2021 [facility], [address] [place] [address] Dr MERINO, [place], [address], 18:29:37 Medication Orders amoxici llin 500 mg capsule 2021 [facility] #[id number], [address] [place], [place], [id number], 12:43:49 Neuront in 100 mg capsule 2021 [facility] #[id number], [address] [place], [place], [id number], 12:10:44 oxycodo ne 5 mg tablet 2021 [facility] #[id number], [address] [place], [place], [id number], 08:29:38 Patient TargetsNo targets recorded. Patient InstructionsNo [...] No observ ation record ed. [email or web address] [facility]ly [facility] [address] [place], [address], 07/09/2022 08:17:40 07/04/20 22 07/04/2022 XR, hip, unila teral [facility] eUID=1 .2 6.9125 .2.232 [id number] [id number] 82.651 [id number] 2.6528 325 INTERFACE [facility] [497] [address], [place], [address], 07/04/2022 09:04:23 07/04/20 22 07/04/2022 XR, lumba r spine [facility] eUID=1 .2 6.9125 .2.232 [id number] 82.651 [id number] 7.6528 429 INTERFACE [facility] [497] [address], [place], [address], 07/04/2022 09:25:10 07/04/20 22 07/04/2022 XR, hip, unila teral [facility] eUID=1 .2392 6.9125 .2.232 [id number] 82.651 [id number] 2.6528 325 INTERFACE [facility] [497] [address], [place], [address], 07/04/2022 09:25:11 08/14/20 22 08/14/2022 XR, hand [facility] eUID=1 .2392 3 6.9125 .2.162 [id number] 95249. [id number] 2805.3 [id number] INTERFACE [facility] [[address]] [address], [place], [address], 08/14/2022 09:50:28 08/14/20 22 08/14/2022 nerve condu ction study /EMG, upper extre mity (PROC ) No observ ation record ed. mmafernie Stein MD [address], [place], [address], 08/19/2022 16:49:13 Result Notes None recorded. Problems Name Problem SNOMED Code Status Onset Date Resolution Date Notes Provider Name and Address Organization Details Recorded Time Osteoarthri tis of right hip joint 4396219438723 07 Active 2021 Renetta Harvey null, [place] - [facility] 2 08:48:43 History of total hip arthroplast y 577512281794 Active 2021 Renetta Harvey [place] - [facility] 2 08:48:43 Hyperlipide mahnaz 32513759 Active Renetta Harvey [place] [facility] 2 08:48:43 Chronic obstructive pulmonary disease 18606995 Active Renetta Nobleton null[place] [facility] 2 08:48:43 Anxiety 33531864 Active Renetta Harvey [place] [facility] 2 08:48:43 Home oxygen supply 819644548 Active Renetta Nobleton [place] [facility] 2 08:48:43 Hypertensiv e disorder 11530921 Active Renetta Harvey [place] [facility] 2 08:48:43 Osteoarthri tis 445973892 Active Renetta Harvey null[place] [facility] 2 08:48:43 Absence of sensation 37421531 Active Renetta Harvey null[place] - [facility] 2 08:48:43 Numbness of hand 432289095 Active 2021 Khloe cano PA-C [address] [place], [address], [place] - [facility] 2 15:04:53 Degeneratio n of cervical interverteb ral disc 76692681 Active 2021 Leonila Stein MD [address] [place], [address], [place] [facility] 2 10:22:27 Carpal tunnel syndrome 12284890 Active 2021 Leonila Stein MD [address], [place], [address], [place] [facility] 10:59:02 Osteoarthro sis of the carpometaca rpal joint of the thumb 04935321 Active 2021 Leonila Stein MD [address], [place], [address], [place] [facility] 10:59:04 Problem Notes None recorded. Procedures Surgical History Date Name Laterality Status Provider Name and Address Organization Details Recorded Time W-BREG Wrist/Hand Brace completed Levy Cenatiempo [place] - [facility] 08/14/2022 11:12:31 W-EMG completed Darrell Seda [place] - [facility] 08/13/2022 09:44:30 022 W-NCV completed Darrell Seda [place] - [facility] 08/13/2022 09:44:26 022 W-Ultrasound Limited completed Darrell Vanceche [place] - [facility] 08/13/2022 09:44:27 022 TOTAL HIP ARTHROPLASTY (SURG) completed Smooth Cunningham [place] - [facility] 06/03/2022 11:24:56 022 Most Recent Mammogram completed Maisha Arreola [place] - [facility] 07/04/2022 08:29:38 Cholecystectomy completed Kiki Cruz [place] - [facility] 05/06/2022 16:02:07 Colonoscopy completed Kiki Cruz [place] [facility] 05/06/2022 16:02:07 Hysterectomy completed Kiki Cruz [place] - [facility] 05/06/2022 16:02:07 Imaging Results None recorded. Procedure Notes None recorded. Medical Equipment None Reported. Allergies Allergen ID Allergen Name Allergen Category Reaction Reaction Severity Criticality Documentation Date Start Date Code Code System Note Provider Name and Address Organization Details Recorded Time 146541 Ceftin medicatio n itching moderate Not available 05/06/2022 98501 6 RxNorm Kiki vera, [place] - [facility] 16:01:51 721197 Cefzil medicatio n itching moderate Not available 05/06/2022 64368 1 RxNorm Kiki Cruz null, [facility] 2 16:01:51 945607 dexametha sone medicatio n itching moderate Not available 06/11/2022 3264 RxNorm Renetta vera, [facility] 2 08:48:47 935744 meloxicam medicatio n nausea nausea moderate moderate Not available 06/11/2022 89927 RxNorm Renetta vera, [facility] 2 08:48:47 161502 cefprozil medicatio n itching moderate Not available 06/11/2022 77298 RxNorm Renetta vera, [facility] 2 08:48:47 Medications Name Sig Start Date [...] N ot Available Vitals Date Recorded Body mass index (BMI) Body weight Provider Name and Address Organization Details Last Updated DateTime 05/13/2022 29.2 kg/m2 99727.7 g Katherine Pinto [facility] 05/13/2022 13:41:37 Date Recorded Body height Provider Name an d Address Organization Details Last Updated DateTime 05/13/2022 162.56 cm Lois Ramires [facility] 04/23 13:33:16 Date Recorded Body height Body mass index (BMI) Body weight Provider Name and Address Organization Details Last Updated DateTime 06/19/2022 162.56 cm 29.2 kg/m2 95267.7 g Renetta Gabriel [facility] 06/19/2022 14:33:01 Date Recorded Body height Body mass index (BMI) Body weight Provider Name and Address Organization Details Last Updated DateTime 07/04/2022 162.56 cm 29.2 kg/m2 16053.7 g Katherine [place] - [facility] 07/04/2022 08:35:55 Date Recorded Body height Body mass index (BMI) Body weight Provider Name and Address Organization Details Last Updated DateTime 09/02/2022 162.56 cm 29.2 kg/m2 61378.7 g Katherine [place] - [facility] 09/02/2022 09:12:14 Social History Question Answer Notes LastModified by Organizat ion Details LastModified Time Tobacco Smoking Status Current Every Day Smoker Maisha vera [place] - [facility] 07/04/2022 08:29:39 Do You Have An Advance [...] Do You Have A Medical Power Of Collar Sewer? No Information not available 07/04/2022 What Was [...] 50 Information not available 07/04/2022 Do You Have Difficulty Walking Or Climbing Stairs? No Information not available 08/14/2022 Sex: Female Functional Status Question Answer Note [...] not available 07/04/2022 Do you have difficulty doing errands alone? No Information not available 08/14/2022 Are you able to care for yourself? Yes Information not available 08/14/2022 Do you have difficulty dressing or bathing? No Information not available 08/14/2022 Do you or have you ever used e-cigarettes or vape? Never used electronic cigarettes Information not available 07/04/2022 Mental Status Question [...] SARS-COV-2 (COVID-19) vaccine, UNSPECIFIED 11/20/2020 completed Renetta Nobleton null, [facility] 06/11/2022 08:48:56 SARS-COV-2 (COVID-19) vaccine, UNSPECIFIED 11/20/2021 completed Renetta Harvey null, [facility] 06/11/2022 08:48:56 pneumococcal, unspecified formulation 09/22/2019 completed Sindhu Rogel null, [facility] 08/14/2022 09:24:30 SARS-COV-2 (COVID-19) vaccine, UNSPECIFIED 10/23/2020 completed Renetta Harvey null, [facility] 06/11/2022 08:48:56 SARS-COV-2 (COVID-19) vaccine, UNSPECIFIED 05/23/2021 completed Renetta Nobleton null, [facility] 06/11/2022 08:48:56 influenza, unspecified formulation 06/22/2021 completed ANTONIO Kaplan - [facility] 08/14/2022 09:24:30 Past Encounters Encounter ID Performer Location Encounter Start Date Encounter Closed Date Diagnosis/Indication Diagnosis SNOMED-CT Code Diagnosis ICD10 Code Diagnosis Note [id number] MELANIA Dubois [facility] [address] [address] [facility] [place] [address] 05/06/2022 15:19:58 05/06/2022 16:21:09 Pain of right hip joint 3000267270 28405 M25.551 Osteoarthr itis of right hip joint 8201086967 52941 M16.11 [id number] Zuhair Colorado MD [address] [address] [place] [address] 05/13/2022 13:19:50 05/13/2022 14:32:57 Pain of right hip joint 4209704360 18046 M25.551 Osteoarthr itis of right hip joint 0076991596 00068 M16.11 Osteoarthritis of hip 23 3814089 M16.11 [id number] Zuhair Colorado MD [address] [place] [address] 06/19/2022 14:27:02 06/19/2022 15:33:09 History of total hip arthroplasty 6382282974 06 Z96.641 R MILADY DOS 06/03/22 M-D Numbness of hand 3144300 04 R20.0 [id number] Zuhair Colorado MD [facility] [address] [facility] [place] [address] 07/04/2022 08:29:11 07/04/2022 09:34:59 Postoperative visit 001723758 Z09 Low back pain 378401570 M54.50 Lumbar spondylosis 57567 0009 M47.896 [id number] Leonila Stein MD [address] [place] [address] [address] [address] 08/14/2022 09:22:03 08/14/2022 11:10:40 Paresthesia of upper limb 15561672 R20.2 Hand pain 85023970 M79.6 41 M79.642 Neck pain 50072015 M54.2 Osteoarthr osis of the carpometacarpal joint of the thumb 82268219 M18.0 Degenerati on of cervical intervertebral disc 93876878 M50.30 Carpal olga lidia srinath syndrome 09462407 G56.02 G56.01 [id number] Zuhair Colorado MD [address] [facility] [place] [address] 09/02/2022 09:09:41 09/02/2022 09:53:58 History of total hip arthroplasty 1310129440 06 Z96.649 Health Concerns Section Related Observation LastModified by Organization Detai ls LastModified Time None Recorded Concern Status LastModified by Organization Details LastModified Time None Recorded Advance Directives Directive N: Payers Insurance Date Sequence Insurance Name Policy Number Policy Cottrell Covered Member ID Cottrell Member ID Guarantor Name 08/30/2022 1 [facility] (MEDICARE REPLACEMENT/A DVANTAGE - HMO) Natalie Olivas [id number] Natalie Olivas Notes Date Note Type Note Provider Name and Address Organization Details Recorded Time 05/13/2022 text/html Patient is a new patient here today with a new problem. Patient presents today with right hip pain. This is a new issue. This complaint is not related to a(n) injury. The pain began gradually. Patient states that the pain began 3 months ago and is worse since onset. Pain today is 7/10. Pain is 10/10 at it's worst. The pain is constant. The pain is described as sharp/stabbing/. Pain is primarily located on the anterior aspect of the hip with radiation distally. Patient denies swelling, warmth, discoloration to the area. There is burning sensation. There is associated weakness. Patient has been previously treated for this condition. TX: meloxicam, ibuprofen Aggravating factors include: sitting, standing, going from sit to stand, walking, bending, lifting, weight-bearing, squatting, kneeling, flexion/extension, lying on that side, worse at night. The patient has had recent imaging. Prior imaging at our office. We do have access to images today. The patient does not request a prescription today. The goal of the patient's visit today is evaluation/definiti ve treatment. The supervising physician which will be considered the primary provider for this patient will be Dr. Colorado. Zuhair Colorado MD [address] [place], [address], [facility] 05/13/2022 14:39:02 06/19/2022 text/html Patient is here today for post-op evaluation S/P right hip total arthroplasty. DOS:06/03/22. (Siobhan). The pain today is 2/10. Pain at its worst is 2/10. Pain is described as constant dull, aching, throbbing with radiation. Patient has numbness, tingling, burning sensation near the surgical site. The pain is moderately controlled on current regimen. Patient does not request a refill of medications today. The patient is currently attending structured OP PT.There are no additional issues of concern today. Khloe Patel PA-C [address] [facility] [place], [address], [facility] 06/19/2022 16:29:56 07/04/2022 text/html Patient is here today for post-op evaluation S/P right hip total arthroplasty. DOS:06/03/22. (Siobhan). The pain today is 1/10. Pain at its worst is 8/10. Pain is described as constant dull, aching, throbbing with radiation. Patient has numbness, tingling, burning sensation near the surgical site. The pain is moderately controlled on current regimen. Patient does not request a refill of medications today. The patient is currently not performing any PT.There are additional issues of concern today. C/O increased pain. 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 She is status post a right total [...] cervical surgery. Leonila Stein MD [address] [place], [address], [facility] - [facility] 10/24/2022 11:28:34 09/02/2022 text/html Patient is here today for post-op evaluation S/P right hip total arthroplasty. DOS:06/03/22. (Siobhan). The pain today is 0/10. Pain at its worst is 8/10. Pain is described as constant dull, aching, throbbing with radiation. Patient has numbness, tingling, burning sensation near the surgical site. The pain is moderately controlled on current regimen. Patient does not request a refill of medications today. The patient is currently not performing any PT.There are additional issues of concern today. C/O increased pain. Zuhair Colorado MD [address] [place], [address], [facility] 09/02/2022 12:17:39 OBGyn Episode No OBEpisode recorded.
== END 2025-02-28 10:39 | disposition home or self-care (01) ==
PROVIDERS: PCP Family Medicine; Visit Provider Neurological Surgery
DX: M48.02 Spinal stenosis, cervical region (principal)
CPT/HCPCS: 72040

== ENCOUNTER 2025-04-21 08:32 | Outpatient (CLI) | payer MEDICARE, SELFPAY ==
--- NOTE | ~2025-04-21 | MR_ITS ---
MRI of the cervical spine Clinical History: Arthrodesis Technique: Axial T2-weighted and gradient images, and sagittal T1-weighted, T2-weighted, and STIR liam ges were acquired. Findings: There is no acute fracture or subluxation. There is anterior fusion from C4 through C6, wit h associated susceptibility artifact. No suspicious bone marrow signal abnormality seen. At C2-C3, there is no disc bulge or herniation. No spinal canal stenosis, cord compression, or neural foraminal narrowing. At C3-C4, there is mild disc bulge. No spinal canal stenosis, cord compression, or neural foraminal n arrowing. At C4-C5, there is no significant disc bulge or herniation. No spinal canal stenosis, cord compressio n, or right neural foraminal narrowing. Probable mild left neural foraminal narrowing. At C5-C6, there is no significant disc bulge or herniation. No spinal canal stenosis, cord compressio n, or neural foraminal narrowing. At C6-C7, there is no disc bulge or herniation. No spinal canal stenosis, cord compression, or neural foraminal narrowing. No abnormal signal seen in the spinal cord. Paravertebral soft tissues are unremarkable. Impression: Anterior fusion from C4 through C6. Minimal degenerative changes, as above. Reviewed, dictated and finalized at location . Impression: Anterior fusion from C4 through C6. Minimal degenerative changes, as above.
--- NOTE | ~2025-04-21 | CT_ITS ---
EXAMINATION: CT cervical spine wo con DATE: 04/21/2025 09:19 INDICATION: Assess cervical arthrodesis status TECHNIQUE: Computed tomography (CT) of the cervical spine was performed without intravenous contrast. Automated exposure control and iterative reconstruction technique were employed. The dose-length pro duct was 267.76 mGy-cm. COMPARISON: Cervical spine MR dated 04/21/2025 FINDINGS: C4-C5 and C5-C6 discectomies with instrumented C4-C6 anterior spinal fusion with interbody bone graft cages and anterior plate-screw fixation. There appears to be. Solid fusion with incorporation along both the superior and inferior endplates with the interbody bone graft material at both levels. Align ment is normal. Unfused vertebral body heights are normal. Mild disc height loss at C3-C4. Severe ost eoarthritis at the articulation between the left-sided lateral masses of C1 and C2. Moderate osteoart hritis at the atlantoaxial articulation. Mild emphysema and mild pleural parenchymal scarring at the bilateral apices of the lungs. Cervical soft tissues are unremarkable. The following disc levels are specifically discussed: C2-C3: The disc does not extend beyond the endplate margin. There is mild right uncovertebral joint o steoarthritis. There is mild left and moderate right facet joint osteoarthritis. There is no neural f oraminal stenosis. There is no central canal stenosis. C3-C4: Disc is bulging. There is mild left and mild to moderate right uncovertebral joint osteoarthri tis. There is mild right and moderate left facet joint osteoarthritis. There is minimal bilateral mook ral foraminal stenosis. There is mild central canal stenosis. C4-C5: Status post discectomy and anterior spinal fusion procedure. Small posterior endplate osteophy macho at either side of the disc space. There is moderate bilateral uncovertebral osteoarthritis. There is mild facet joint osteoarthritis. There is mild bilateral neural foraminal stenosis. There is mild central canal stenosis. C5-C6: Status post discectomy and anterior spinal fusion procedure with small posterior endplate oste ophytes at either side of the disc space. There is moderate bilateral uncovertebral osteoarthritis. T here is mild bilateral facet joint osteoarthritis. There is mild bilateral neural foraminal stenosis. There is mild central canal stenosis. C6-C7: The disc does not extend beyond the endplate margin. There is no uncovertebral joint osteoarth ritis. There is altered left and moderate right facet joint osteoarthritis. There is no neural forami nal stenosis. There is no central canal stenosis. C7-T1: The disc does not extend beyond the endplate margin. There is mild bilateral uncovertebral paulo nt osteoarthritis. There is severe bilateral facet joint osteoarthritis. There is mild bilateral neur al foraminal stenosis. There is no central canal stenosis. IMPRESSION: 1. C4-C5 and C5-C6 discectomies with instrumented C4-C6 anterior spinal fusion with incorporation of bone graft at both disc spaces. 2. Mild cervical spondylosis. Reviewed, dictated and finalized at location A.
== END 2025-04-21 08:33 | disposition home or self-care (01) ==
PROVIDERS: PCP Family Medicine; Visit Provider Neurological Surgery
DX: M48.02 Spinal stenosis, cervical region (principal); Z98.1 Arthrodesis status
CPT/HCPCS: 72125; 72141

== ENCOUNTER 2025-08-01 10:19 | Outpatient (CLI) | payer MEDICARE, SELFPAY ==
[2025-08-01 11:07] LABS: Alanine Aminotransferase 24 U/L (6-35); Albumin Level 4.2 g/dL (3.5-5.1); Alkaline Phosphatase 74 U/L (38-126); Anion Gap 8 mmol/L (4-12); Aspartate Amino Transferase 26 U/L (14-36); Bilirubin,Total 0.5 mg/dL (0.2-1.3); Blood Urea Nitrogen 15 mg/dL (7-17); Calcium 9.4 mg/dL (8.4-10.2); Carbon Dioxide 26 mmol/L (22-30); Chloride 105 mmol/L (98-107); Estimated Glomerular Filt Rate > 60; Glucose 155 mg/dL (65-110); Potassium 3.8 mmol/L (3.4-5.0); Sodium 139 mmol/L (137-145); Total Protein 7.2 g/dL (6.3-8.2)
[2025-08-01 11:28] LABS: Hemoglobin A1C 6.0 % (<5.7)
[2025-08-01 11:42] LABS: Thyroid Stimulating Hormone 1.810 uIU/mL (0.465-4.680)
== END 2025-08-01 10:20 | disposition home or self-care (01) ==
LOC: ANHLAB 10:19
PROVIDERS: PCP Family Medicine; Visit Provider Physician Assistant
DX: R73.01 Impaired fasting glucose (principal); I10 Essential (primary) hypertension; E78.1 Pure hyperglyceridemia
CPT/HCPCS: 36415; 80053; 83036; 84443